=== PATIENT | male | born 1950 | race Caucasian/White ===

== ENCOUNTER → 2020-08-05 11:30 | Outpatient (BNVA) | payer OTHER, SELFPAY | PROVIDERS: PCP Internal Medicine; Visit Provider Surgery | DX: K62.89 Other specified diseases of anus and rectum (principal); N41.9 Inflammatory disease of prostate, unspecified | CPT/HCPCS: 46600 ==

== ENCOUNTER → 2020-08-25 15:59 | Outpatient (BNVA) | payer OTHER, SELFPAY | PROVIDERS: PCP Internal Medicine; Visit Provider Surgery | DX: K62.89 Other specified diseases of anus and rectum (principal) | CPT/HCPCS: 46600 ==

== ENCOUNTER 2020-11-06 10:39 | Outpatient (REF) | payer OTHER, SELFPAY ==
[2020-11-06 12:41] LABS: MANUAL DIFF FLAG NO
[2020-11-06 12:49] LABS: Basophils Absolute Auto 0.1 X10*3/uL (0.0-0.2); Basophils Percent Auto 1.3 % (0-2); Eosinophils Absolute Auto 0.3 X10*3/uL (0.0-0.4); Eosinophils Percent Auto 5.3 % (0-4); Hematocrit 42.4 % (42-52); Hemoglobin 13.9 g/dl (14.0-18.0); Imm Gran Abs Auto 0.04 X10*3/uL (0.00-0.03); Imm Gran Pct Auto 0.6 % (0.0-0.4); Lymphocytes Percent Auto 31.2 % (20-40); Mean Corpuscular HGB Conc 32.8 g/dl (31.0-36.0); Mean Corpuscular Hemoglobin 29.2 pg (27.0-33.0); Mean Corpuscular Volume 89.1 fL (80-98); Mean Platelet Volume 11.4 fL (9.4-12.4); Monocytes Absolute Auto 0.7 X10*3/uL (0.1-1.2); Monocytes Percent Auto 11.6 % (2-11); Neutrophils Absolute Auto 3.1 X10*3/uL (2.0-8.3); Platelet Count 195 X10*3/uL (160-400); Red Blood Count 4.76 X10*6/uL (4.60-5.80); Red Cell Distribution Width 12.3 % (11.0-16.0); White Blood Count 6.3 X10*3/uL (4.8-10.8)
[2020-11-06 13:10] LABS: Alanine Aminotransferase 41 U/L (0-40); Albumin Level 4.6 g/dL (3.5-5.0); Alkaline Phosphatase 59 U/L (39-117); Anion Gap 10 (12-20); Aspartate Amino Transferase 22 U/L (5-37); Bilirubin Total 1.1 mg/dL (0.0-1.0); Blood Urea Nitrogen 18 mg/dL (9-16); Calcium 9.4 mg/dL (8.4-10.2); Carbon Dioxide 30 mmol/L (22-29); Chloride 103 mmol/L (96-108); Cholesterol 192 mg/dL; Estimated Glomerular Filt Rate > 60; Glucose Fasting 107 mg/dL (60-99); HDL Cholesterol 31 mg/dL; LDL Cholesterol Calculated 133 mg/dl; Potassium 4.3 mmol/L (3.3-5.1); Sodium 139 mmol/L (135-145); Total Protein 7.6 g/dL (6.5-8.0); Triglycerides 144 mg/dL
[2020-11-06 13:17] LABS: Estimated Average Glucose 111 mg/dL; Hemoglobin A1c % 5.5 %
[2020-11-06 13:31] LABS: Thyroid Stimulating Hormone 1.05 uIU/mL (0.32-4.0)
== END 2020-11-06 10:40 | disposition home or self-care (01) ==
LOC: HO.10HDL 10:39
PROVIDERS: Visit Provider Internal Medicine
DX: I10 Essential (primary) hypertension (principal); R73.01 Impaired fasting glucose; E78.2 Mixed hyperlipidemia; R35.1 Nocturia; N42.81 Prostatodynia syndrome
CPT/HCPCS: 36415; 80053; 80061; 83036; 84443; 85025

== ENCOUNTER 2020-11-07 12:07 | Outpatient (REF) | payer OTHER, SELFPAY ==
[2020-11-07 14:06] LABS: Glucose Urine UA NEG (NEG); Leukocyte Esterase Urine NEG (NEG); Nitrite Urine NEG (NEG); PH 6.5 (5.0-8.0); Urine Blood NEG (NEG); Urine Ketones NEG (NEG); Urine Protein NEG (NEG-TRACE)
[2020-11-07 14:25] LABS: Appearance Urine CLEAR; Color Urine YELLOW
== END 2020-11-07 12:08 | disposition home or self-care (01) ==
LOC: HO.10HDLNP 12:07
PROVIDERS: Visit Provider Internal Medicine
DX: I10 Essential (primary) hypertension (principal); R73.01 Impaired fasting glucose; E78.2 Mixed hyperlipidemia; R35.1 Nocturia; N42.81 Prostatodynia syndrome
CPT/HCPCS: 81003; 87086

== ENCOUNTER 2020-12-19 15:00 | Outpatient (REF) | payer OTHER, SELFPAY ==
--- NOTE | ~2020-12-19 | CT_ITS ---
EXAMINATION: CT ABDOMEN AND PELVIS WITHOUT CONTRAST CLINICAL INFORMATION: Abdominal pain. COMPARISON: CT abdomen and pelvis 05/14/2020 TECHNIQUE: Multidetector volumetric imaging was performed from the superior aspect of the liver through the pubic symphysis. Sagittal and coronal reformatted images were obtained on the technologist's workstation. This CT examination was performed using dose optimization techniques as appropriate, variously including the following: *Automated exposure control *Adjustment of mA and/or kV according to patient size (this includes techniques or standardized protocols for targeted exams where dose is matched to indication/reason for exam; i.e. extremities or head) *Use of iterative reconstruction technique DLP: 529 mGy-cm FINDINGS: LUNG BASES: There is a 5 mm subpleural-based nodule right lower lobe. LIVER, GALLBLADDER, AND BILIARY TREE: The liver is normal in size, shape, and diffuse hypoattenuation. No focal hepatic lesion or biliary ductal dilatation is present. There is gas visualized within the gallbladder and a high attenuation debris or gravel in the dependent portion axial image 31/3. No gallbladder wall thickening or pericholecystic fat stranding seen. PANCREAS: The visualized pancreas is homogeneous in density. The peripancreatic fat borders are maintained normal. SPLEEN: Unremarkable. ADRENAL GLANDS: Unremarkable. KIDNEYS AND URETERS: The kidneys are normal in size, shape, and attenuation. No hydronephrosis, hydroureter, or calculi seen. No perinephric stranding. There is a 4 mm radiopaque linear calcification in the upper/midpole cortex right kidney. On the previous exam, there is a cyst with wall calcification, likely a complex cyst, noted at the same level. BLADDER: Unremarkable. GASTROINTESTINAL TRACT: There is scattered diverticula, stool and gas in the colon without distention. The small bowel loops are normal caliber. The appendix is normal caliber. No free air or free fluid seen. There is no evidence of inflammatory process. ABDOMINAL WALL: There are bilateral inguinal hernias, larger on the left containing fat, and smaller on the right containing a loop of small bowel. There is no fat stranding to suggest any acute process. LYMPH NODES: Normal. VASCULAR: Unremarkable. PELVIC VISCERA: There is moderate prostate enlargement. OSSEOUS STRUCTURES: There are degenerative disc changes and spondylosis at the L4-L5 disc level. No lytic or sclerotic process seen. There is bilateral L4-L5 facet joint arthropathy. CT/CT abdomen pelvis wo con IMPRESSION: Radiopaque gravel in the dependent portion and gas along the anterior wall of the gallbladder, likely from previous intervention. No gallbladder wall thickening seen. There is minimal gas in the CBD, as well. It is unchanged to previous study 05/14/2020. Scattered colonic diverticulosis without diverticulitis. Bilateral inguinal hernias, left greater than right. The right hernia contains a segment of small bowel loop, and the left hernia contains fat. Complex cyst with calcified wall of midpole right kidney. No hydronephrosis seen.
== END 2020-12-19 15:01 | disposition home or self-care (01) ==
LOC: HO.CT 15:00
PROVIDERS: PCP Internal Medicine; Visit Provider Surgery
DX: R10.9 Unspecified abdominal pain (principal)
CPT/HCPCS: 74176

== ENCOUNTER 2020-12-20 09:23 | Outpatient (REF) | payer OTHER, SELFPAY ==
[2020-12-20 10:10] LABS: MANUAL DIFF FLAG NO
[2020-12-20 10:15] LABS: Basophils Absolute Auto 0.1 X10*3/uL (0.0-0.2); Basophils Percent Auto 0.8 % (0-2); Eosinophils Absolute Auto 0.2 X10*3/uL (0.0-0.4); Eosinophils Percent Auto 3.3 % (0-4); Hemoglobin 13.9 g/dl (14.0-18.0); Imm Gran Abs Auto 0.02 X10*3/uL (0.00-0.03); Imm Gran Pct Auto 0.3 % (0.0-0.4); Lymphocytes Percent Auto 30.4 % (20-40); Mean Corpuscular HGB Conc 33.1 g/dl (31.0-36.0); Mean Corpuscular Hemoglobin 29.4 pg (27.0-33.0); Mean Corpuscular Volume 88.8 fL (80-98); Mean Platelet Volume 10.6 fL (9.4-12.4); Monocytes Absolute Auto 0.7 X10*3/uL (0.1-1.2); Monocytes Percent Auto 11.5 % (2-11); Neutrophils Absolute Auto 3.5 X10*3/uL (2.0-8.3); Neutrophils Percent Auto 53.7 % (45-73); Platelet Count 200 X10*3/uL (160-400); Red Blood Count 4.73 X10*6/uL (4.60-5.80); Red Cell Distribution Width 12.2 % (11.0-16.0); White Blood Count 6.4 X10*3/uL (4.8-10.8)
[2020-12-20 10:57] LABS: Alanine Aminotransferase 30 U/L (0-40); Albumin Level 4.7 g/dL (3.5-5.0); Alkaline Phosphatase 52 U/L (39-117); Amylase 65 U/L (28-100); Aspartate Amino Transferase 19 U/L (5-37); Bilirubin Direct 0.5 mg/dL (0.0-0.5); Bilirubin Total 1.5 mg/dL (0.0-1.0); Lipase 19 U/L (8-78); Total Protein 7.5 g/dL (6.5-8.0)
== END 2020-12-20 09:24 | disposition home or self-care (01) ==
LOC: HO.LAB 09:23
PROVIDERS: PCP Internal Medicine; Visit Provider Internal Medicine
DX: R10.13 Epigastric pain (principal); K80.20 Calculus of gallbladder without cholecystitis without obstruction
CPT/HCPCS: 36415; 80076; 82150; 83690; 85025

== ENCOUNTER 2020-12-24 08:32 | Outpatient (REF) | payer OTHER, SELFPAY ==
[2020-12-24 10:03] LABS: MANUAL DIFF FLAG NO
[2020-12-24 10:18] LABS: Basophils Absolute Auto 0.1 X10*3/uL (0.0-0.2); Basophils Percent Auto 0.9 % (0-2); Eosinophils Absolute Auto 0.2 X10*3/uL (0.0-0.4); Eosinophils Percent Auto 3.1 % (0-4); Hematocrit 42.1 % (42-52); Hemoglobin 14.1 g/dl (14.0-18.0); Imm Gran Abs Auto 0.02 X10*3/uL (0.00-0.03); Imm Gran Pct Auto 0.4 % (0.0-0.4); Lymphocytes Absolute Auto 1.7 X10*3/uL (1.2-4.9); Lymphocytes Percent Auto 30.8 % (20-40); Mean Corpuscular HGB Conc 33.5 g/dl (31.0-36.0); Mean Corpuscular Hemoglobin 29.8 pg (27.0-33.0); Mean Platelet Volume 10.9 fL (9.4-12.4); Monocytes Absolute Auto 0.7 X10*3/uL (0.1-1.2); Monocytes Percent Auto 13.2 % (2-11); Neutrophils Absolute Auto 2.9 X10*3/uL (2.0-8.3); Neutrophils Percent Auto 51.6 % (45-73); Platelet Count 199 X10*3/uL (160-400); Red Blood Count 4.73 X10*6/uL (4.60-5.80); Red Cell Distribution Width 12.2 % (11.0-16.0); White Blood Count 5.6 X10*3/uL (4.8-10.8)
[2020-12-24 10:29] LABS: Alanine Aminotransferase 33 U/L (0-40); Albumin Level 4.7 g/dL (3.5-5.0); Alkaline Phosphatase 58 U/L (39-117); Anion Gap 11 (12-20); Aspartate Amino Transferase 19 U/L (5-37); Bilirubin Total 1.6 mg/dL (0.0-1.0); Blood Urea Nitrogen 13 mg/dL (9-16); Calcium 9.7 mg/dL (8.4-10.2); Carbon Dioxide 30 mmol/L (22-29); Chloride 102 mmol/L (96-108); Cholesterol 181 mg/dL; Estimated Glomerular Filt Rate > 60; Glucose Random 113 mg/dL (60-115); HDL Cholesterol 31 mg/dL; LDL Cholesterol Calculated 131 mg/dl; Magnesium 2.2 mg/dL (1.6-2.6); Potassium 4.1 mmol/L (3.3-5.1); Sodium 139 mmol/L (135-145); Total Protein 7.8 g/dL (6.5-8.0); Triglycerides 97 mg/dL
[2020-12-24 10:33] LABS: Estimated Average Glucose 108 mg/dL; Hemoglobin A1c % 5.4 %
[2020-12-24 10:49] LABS: Vitamin B12 248 pg/mL (200-900)
[2020-12-24 10:54] LABS: Thyroid Stimulating Hormone 1.14 uIU/mL (0.32-4.0); Vitamin D 25-OH Total 14.4 ng/mL (>30)
== END 2020-12-24 08:33 | disposition home or self-care (01) ==
LOC: HO.LAB 08:32
PROVIDERS: PCP Internal Medicine; Visit Provider Surgery
DX: K80.20 Calculus of gallbladder without cholecystitis without obstruction (principal); R14.0 Abdominal distension (gaseous); I10 Essential (primary) hypertension; E78.2 Mixed hyperlipidemia; R73.01 Impaired fasting glucose; E53.8 Deficiency of other specified B group vitamins; R35.1 Nocturia; E55.9 Vitamin D deficiency, unspecified; Z79.899 Other long term (current) drug therapy
CPT/HCPCS: 36415; 80053; 80061; 82306; 82607; 83036; 83735; 84443; 85025

== ENCOUNTER 2020-12-26 08:55 | Outpatient (REF) | payer OTHER, SELFPAY ==
--- NOTE | ~2020-12-26 | NM_ITS ---
EXAMINATION: NUCLEAR MEDICINE HEPATOBILIARY SCAN WITHOUT CCK. CLINICAL INFORMATION: Acute epigastric pain. COMPARISON: None TECHNIQUE: Following intravenous administration of 5 mCi of 99m Tc mebrofenin, imaging over the right upper quadrant was obtained up to 60 minutes. FINDINGS: Following intravenous administration of mebrofenin there is normal hepatic uptake without any focal defect. There is prompt visualization of common bile duct by 10 minutes, gallbladder by 19 minutes and small bowel by approximately 30 minutes NM/NM hepatobiliary wo pharm IMPRESSION: Normal HIDA scan. Patent cystic duct and CBD.
--- NOTE | ~2020-12-26 | US_ITS ---
EXAMINATION: US ABDOMEN COMPLETE CLINICAL INFORMATION: Gallstones. COMPARISON: CT abdomen and pelvis without contrast dated 12/19/2020. Ultrasound abdomen complete dated 09/13/2018 and 01/29/2014. TECHNIQUE: Real-time imaging of the abdominal viscera. FINDINGS: PANCREAS: The pancreas is normal. The pancreatic duct measures in the upper limits of normal, 0.3 cm in diameter ABDOMINAL AORTA: The proximal, mid, and distal segments are normal in caliber. INFERIOR VENA CAVA: Visualized portions are normal. LIVER: The liver is normal in size. The liver contour is normal. There is diffuse increased liver parenchymal echogenicity, consistent with hepatic steatosis. No focal hepatic lesion. There is no intrahepatic biliary duct dilatation seen. GALLBLADDER: There are stones and sludge within the gallbladder. There are areas of ringdown artifact along the anterior aspect of the gallbladder, likely corresponding to the air as seen on prior CT. The gallbladder is physiologically distended without evidence of polyps, wall thickening or pericholecystic fluid. COMMON BILE DUCT: Normal in caliber measuring 0.4 cm in diameter. RIGHT KIDNEY: There are 2 echogenic foci in the mid polar region of the right kidney that measure up to 0.4 cm and likely represent nonobstructive calculi. No hydronephrosis. The kidney measures 10.6 cm in maximum dimension. LEFT KIDNEY: Normal. No hydronephrosis. No renal calculi or focal parenchymal lesions. The kidney measures 10.3 cm in maximum dimension. SPLEEN: Normal. The spleen measures 10.7 cm in maximum dimension. FREE FLUID: None. US/US abdomen complete IMPRESSION: Cholelithiasis and sludge within the gallbladder. Ringdown artifact along the anterior wall of the gallbladder, likely representing intraluminal air as seen on the prior CT, which may be from prior intervention. No pericholecystic fluid or gallbladder wall thickening to suggest acute cholecystitis. Diffusely increased echogenicity of the hepatic parenchyma, similar to the prior study, likely resenting of of hepatic steatosis. No focal lesion. Two nonobstructive calculi in the mid polar region of the right kidney.
== END 2020-12-26 08:56 | disposition home or self-care (01) ==
LOC: HO.US 08:55
PROVIDERS: Visit Provider Internal Medicine
DX: R10.13 Epigastric pain (principal); K80.20 Calculus of gallbladder without cholecystitis without obstruction; R93.2 Abnormal findings on diagnostic imaging of liver and biliary tract
CPT/HCPCS: 76700; 78226; A9537

== ENCOUNTER → 2020-12-29 13:35 | Outpatient (BNVA) | payer OTHER, SELFPAY | PROVIDERS: PCP Internal Medicine; Visit Provider Internal Medicine Cardiovascular Disease | DX: Z01.810 Encounter for preprocedural cardiovascular examination (principal); K80.20 Calculus of gallbladder without cholecystitis without obstruction; I10 Essential (primary) hypertension | CPT/HCPCS: 93005 ==

== ENCOUNTER → 2021-01-01 11:27 | Outpatient (REF) | payer OTHER, SELFPAY ==
--- NOTE | 2021-01-01 11:32 | CA_ITS ---
Transthoracic Echocardiogram Patient (Last, First, Middle): Alhaji Sims, Gender: Male Date of : 1950 Age: 70 Procedure Date: 01/01/2021 Procedure Type: Transthoracic Echocardiogram Location: OP Height: 182.88 cm Weight: 79.38 kg BSA: 2.01 m2 Heart Rate: bpm BP: 144 / 80 mmHg Diamond Sizer: Jamar MD: Tu Sutton MD Symptoms: I10 - Essential (primary) hypertension Study Quality: Good ECG Rhythm: Sinus Conclusions: - The left ventricular systolic function is normal. The visually estimated ejection fraction is between 65-70%. - Trace to mild aortic regurgitation. Findings Left Ventricle Normal left ventricular cavity size. There is mildly increased left ventricular wall thickness. The left ventricular systolic function is normal. The visually estimated ejection fraction is between 65-70%. There is no evidence of regional wall motion abnormalities. Diastolic function is normal for age. Right Ventricle Normal right ventricular cavity size and systolic function. Atria The left atrium is normal in size. The right atrium is normal in size. Aortic Valve There is a normal trileaflet aortic valve. There is mild calcification of the aortic valve. There is no aortic valve stenosis. Trace to mild aortic regurgitation. Mitral Valve The mitral valve appears normal. There is trace mitral valve regurgitation. There is no mitral valve stenosis. Pulmonic Valve The pulmonic valve was not well visualized. There is trace pulmonic valve regurgitation. Tricuspid Valve Normal tricuspid valve structure. There is trace tricuspid valve regurgitation. The pulmonary artery systolic pressure is normal. Great Vessels The aortic annulus, sinuses of valsalva, and asc aorta are normal in size. Venous The inferior vena cava is normal in size and collapses greater than 50% with inspiration. Pericardium/Pleural There is no evidence of pericardial effusion. Prior Study Comparison No significant change compared to prior study dated: 04/21/2018. Measurements 2D Linear Measurements RVIDd: 2.65 RVIDd Index: 1.32 IVSd: 1.05 0.6-0.9/0.6-1.0 cm LVIDd: 5.20 3.9-5.3/4.2-5.9 cm LVIDd Index: 2.59 2.4-3.2/2.2-3.1 cm/m2 LVIDs: 3.21 2.0-3.6 cm LVPWd: 1.12 0.7-1.1 cm Ao Root: 3.60 2.1-3.5 cm LA Diam: 3.20 2.7-3.8/3.0-4.0 cm LAIDs Index: 1.59 1.5-2.3 cm/m2 LV Mass: 270.10 67-162/88-224 g LV Mass Index: 134.38 43-95/49-115 g/m2 LVOT Diam: 2.30 3.0+(-)1.3 cm 2D Systolic Function EF 4C: 78.20 >55% EF 2C: 61.10 >55% EF BiP: 71.30 >55% Mitral Valve MV Pk E: 0.69 MV PK A: 0.84 MV Decel Time: 169.00 E/A: 0.80 E'Lateral: 8.70 E'Medial: 8.80 E/E' Med: 7.80 E/E' Lat: 7.90 Aortic Valve AoV Pk Nhan: 1.34 AoV Mn Nhan: 0.93 AoV VTI: 0.28 AoV Pk Grad: 7.00 Aov Mn Grad: 4.00 BRETT Cont.VTI: 2.68 AI Pk Nhan: 3.02 AI [place]: 1.04 LVOT LVOT Pk Nhan: 0.87 LVOT Mn Nhan: 0.57 LVOT VTI: 0.18 LVOT Pk Grad: 3.00 LVOT Mn Grad: 2.00 LVOT Diam: 2.30 LVOT Area: 4.15 Diastolic Function MV Pk E: 0.69 MV Pk A: 0.84 E/A: 0.80 E'Medial: 8.80 E/E' Med: 7.80 E' Laterial: 8.70 E/E' Lat: 7.90 Tricuspid Valve TR Pk Nhan: 2.33 TR Pk Grad: 22.00 RA Press: 3.00 RVSP: 25.00 Great Vessels Aorta Ao Root-2D: 3.60 2.0-3.7 cm Ao Asc: 3.40 2.1-3.4 cm Ao Arch: 3.10 Updated in Other Vendor System with Status of Final Wilbur Galeas MD electronically signed on 01/01/2021 4:23:52 PM with status of Final
== END ==
LOC: HO.CARD 11:27
PROVIDERS: Visit Provider Internal Medicine Cardiovascular Disease
DX: I10 Essential (primary) hypertension (principal)
CPT/HCPCS: 93306

== ENCOUNTER 2021-01-26 13:32 | Outpatient (REF) | payer OTHER, SELFPAY ==
--- NOTE | ~2021-01-26 | MR_ITS ---
MR CERVICAL SPINE WITHOUT CONTRAST CLINICAL INFORMATION: Chronic cervicalgia. COMPARISON: Cervical spine MRI 07/04/2019. TECHNIQUE: MRI of the cervical spine was obtained using routine sequences without contrast. FINDINGS: Straightening of the cervical lordosis. Mild anterior subluxation of C2 on C3. There is no bone marrow edema. There are no acute fractures. The craniocervical junction is unremarkable. The vertebral body heights are maintained. There is moderate disc volume loss at C5-C6 and C6-C7. Cervical arterial flow voids are maintained. There are no significant soft tissue findings. C2-C3: Disc osteophyte without central canal stenosis. Uncovertebral joint spurring and facet arthropathy result in mild left-sided foraminal encroachment. No right foraminal stenosis. C3-C4: Shallow central disc protrusion mildly narrows the central canal. No foraminal stenosis. C4-C5: Disc osteophyte mildly narrows the central canal. Uncovertebral joint spurring and facet arthropathy result in severe left-sided foraminal stenosis. Findings unchanged. C5-C6: Left paracentral disc osteophyte protrusion mildly narrows the central canal. Uncovertebral joint spurring and facet arthropathy result in mild to moderate left-sided foraminal stenosis. C6-C7: Disc osteophyte mildly narrows the central canal. Uncovertebral joint spurring and facet arthropathy result in mild bilateral foraminal encroachment. C7-T1: Slight annular disc bulge. No central canal stenosis and no foraminal stenosis. MR/MR cervical spine wo con IMPRESSION: Stable appearing multilevel cervical spondylosis that remains greatest at C4-C5 where multifactorial degenerative changes result in stable severe left-sided foraminal stenosis. There is no severe central canal stenosis within the cervical spine.
== END 2021-01-26 13:33 | disposition home or self-care (01) ==
LOC: HO.MRI 13:32
PROVIDERS: Visit Provider Internal Medicine
DX: M54.2 Cervicalgia (principal)
CPT/HCPCS: 72141

== ENCOUNTER 2021-02-05 14:49 | Outpatient (REF) | payer OTHER, SELFPAY ==
--- NOTE | ~2021-02-05 | XR_ITS ---
EXAMINATION: XR CERVICAL SPINE CLINICAL INFORMATION: Cervicalgia COMPARISON: MRI cervical spine 01/26/2021, radiographs cervical spine 11/22/2017 TECHNIQUE: The cervical spine is imaged in 4 views: AP, lateral, lateral flexion, lateral extension. FINDINGS: The cervical vertebral bodies are normal in height and there is no cervical vertebral compression, destructive process, or prevertebral soft tissue swelling. The odontoid appears. There are degenerative disc changes greatest at C5-C6 and C6-C7 with disc narrowing and endplate sclerosis and bridging anterior osteophytes. There is limited range of motion with flexion and extension. There is no instability. No spondylolisthesis or retrolisthesis. No atlantoaxial subluxation. Incidental nuchal ligament ossification is again noted posterior to the C4 and C5 posterior spinous processes. XR/XR cervical spine w flex/ext IMPRESSION: 1. Degenerative disc changes greatest at C5-C6 and C6-C7. 2. Limited range of motion with flexion or extension. 3. No instability. No spondylolisthesis or retrolisthesis.
== END 2021-02-05 14:50 | disposition home or self-care (01) ==
LOC: HO.XRAY 14:49
PROVIDERS: PCP Internal Medicine; Visit Provider Specialist
DX: M54.2 Cervicalgia (principal)
CPT/HCPCS: 72052

== ENCOUNTER 2021-03-23 13:41 | Outpatient (REF) | payer OTHER, SELFPAY ==
[2021-03-23 15:34] LABS: Hematocrit 42.5 % (42-52); Hemoglobin 14.1 g/dl (14.0-18.0); Mean Corpuscular HGB Conc 33.2 g/dl (31.0-36.0); Mean Corpuscular Hemoglobin 29.6 pg (27.0-33.0); Mean Corpuscular Volume 89.1 fL (80-98); Platelet Count 218 X10*3/uL (160-400); Red Blood Count 4.77 X10*6/uL (4.60-5.80); Red Cell Distribution Width 12.5 % (11.0-16.0)
[2021-03-23 15:59] LABS: Alanine Aminotransferase 23 U/L (0-40); Albumin Level 4.7 g/dL (3.5-5.0); Alkaline Phosphatase 61 U/L (39-117); Anion Gap 9 (12-20); Aspartate Amino Transferase 17 U/L (5-37); Bilirubin Direct 0.6 mg/dL (0.0-0.5); Bilirubin Total 1.8 mg/dL (0.0-1.0); Blood Urea Nitrogen 15 mg/dL (9-16); Calcium 10.2 mg/dL (8.4-10.2); Carbon Dioxide 32 mmol/L (22-29); Chloride 103 mmol/L (96-108); Estimated Glomerular Filt Rate > 60; Glucose Random 91 mg/dL (60-115); Potassium 4.6 mmol/L (3.3-5.1); Sodium 139 mmol/L (135-145); Total Protein 7.7 g/dL (6.5-8.0)
[2021-03-24 12:57] LABS: Carbohydrate Antigen 19-9 14 U/mL (<34)
[2021-03-24 18:36] LABS: CA-125 5 U/mL (<35)
== END 2021-03-23 13:42 | disposition home or self-care (01) ==
LOC: HO.LAB 13:41
PROVIDERS: PCP Internal Medicine; Referring Provider Internal Medicine; Visit Provider Surgery
DX: R10.9 Unspecified abdominal pain (principal)
CPT/HCPCS: 36415; 80048; 80076; 82378; 85027; 86301; 86304

== ENCOUNTER 2021-03-25 14:01 | Outpatient (REF) | payer OTHER, SELFPAY ==
--- NOTE | ~2021-03-25 | CT_ITS ---
EXAMINATION: CT ABDOMEN AND PELVIS WITH CONTRAST CLINICAL INFORMATION: Abdominal pain COMPARISON: Previous CT of the abdomen and pelvis November 2020 TECHNIQUE: Multidetector volumetric images were obtained from the superior aspect of the liver through the pubic symphysis following administration 85 mL of Omnipaque 350 intravenous contrast. Sagittal and coronal reformatted images were obtained on the technologist's workstation. Oral contrast: Yes This CT examination was performed using dose optimization techniques as appropriate, variously including the following: *Automated exposure control *Adjustment of mA and/or kV according to patient size (this includes techniques or standardized protocols for targeted exams where dose is matched to indication/reason for exam; i.e. extremities or head) *Use of iterative reconstruction technique DLP: 331 mGy-cm FINDINGS: LUNG BASES: There is a 3 mm peripheral or subpleural right lower lobe nodule that is stable. The lung bases are otherwise clear. LIVER, GALLBLADDER, AND BILIARY TREE: The liver is normal in size, shape, and attenuation. No focal hepatic lesion or biliary ductal dilatation is present. There is high attenuation seen dependently in the gallbladder questionable for small gallstones. There is no biliary duct dilatation. PANCREAS: Unremarkable. SPLEEN: Unremarkable. ADRENAL GLANDS: Unremarkable. KIDNEYS AND URETERS: There is a 1 cm low-attenuation lesion in the right kidney. Hounsfield units following IV contrast measure 54 and this is not compatible with a simple cyst. This does not appear appreciably changed from old exams going back to 2014. This may represent a complex cyst. This is difficult to exclude a solid lesion. There are small low-attenuation 3 to 4 mm lesions in the lower pole the right kidney. These are difficult to definitively characterize but may represent small cysts. The left kidney is unremarkable. BLADDER: There is abnormal soft tissue at the left base of the bladder, presumably related to the prostate gland. GASTROINTESTINAL TRACT: There is diverticulosis of the colon. No evidence of diverticulitis is seen. There are bilateral inguinal hernias, the right containing fat and a knuckle of small bowel and larger on the left containing fat and a loop of small bowel. There is a small bowel feces sign seen on the left questionable for partial obstruction or small bowel stasis. The appendix is normal appearing. ABDOMINAL WALL: Bilateral inguinal hernias containing fat and small bowel as described above. Small umbilical hernia containing fat. LYMPH NODES: Normal. VASCULAR: Unremarkable. PELVIC VISCERA: The prostate gland is enlarged measuring 5 x 5.7 cm in AP and transverse dimension and protrudes into the base of the bladder. OSSEOUS STRUCTURES: There are degenerative changes of the spine. There are mild degenerative changes at the hip joints. There are multiple sclerotic small bone lesions. These are stable going back to oldest CT from 2015 suggestive of benign bone islands. CT/CT abdomen pelvis w con IMPRESSION: Bilateral inguinal hernias containing fat and small bowel, left greater than right. Left inguinal hernia has a small bowel feces sign questionable for partial obstruction or small bowel stasis. Small umbilical hernia containing fat. Probable complex cyst in the upper pole of the right kidney. This is similar in size going back to old exams from 2015. This could be confirmed with ultrasound. Enlarged prostate gland that protrudes into the base of the bladder. Diverticulosis. Fatty liver. Question gallstones.
[2021-03-25] MEDS: iohexoL 350 MG/ML 100 ML INFUS..BTL IV (15:54)
== END 2021-03-25 14:02 | disposition home or self-care (01) ==
LOC: HO.CT 14:01
PROVIDERS: Visit Provider Surgery
DX: R10.9 Unspecified abdominal pain (principal)
CPT/HCPCS: 74177; Q9967

== ENCOUNTER 2021-04-06 14:33 | Outpatient (REF) | payer OTHER, SELFPAY ==
--- NOTE | ~2021-04-06 | MR_ITS ---
EXAMINATION: MR BRAIN WITHOUT CONTRAST CLINICAL INFORMATION: Dizziness. Hypertension. COMPARISON: MRI dated 04/06/2018. TECHNIQUE: Multiplanar, multisequence imaging of the brain was performed without contrast. FINDINGS: No diffusion abnormalities are identified to suggest an acute or subacute infarct. The ventricles are normal in size. No mass effect or midline shift is seen. No brain parenchymal signal abnormality is noted. No extra-axial fluid collections are seen. The brainstem and cerebellum are normal. The gradient refocused acquisition is normal. The craniovertebral junction, marrow signal, and midline structures are normal. The major intracranial flow voids at the level of the [place] of [place] are preserved. The dural venous sinus flow voids are maintained. The mastoid air cells and paranasal sinuses are well aerated. MR/MR head/brain wo con IMPRESSION: Normal MRI of the brain. No acute process.
== END 2021-04-06 14:34 | disposition home or self-care (01) ==
LOC: HO.MRI 14:33
PROVIDERS: PCP Internal Medicine; Visit Provider Internal Medicine
DX: R51.9 Headache, unspecified (principal); R42 Dizziness and giddiness; I10 Essential (primary) hypertension; G89.29 Other chronic pain
CPT/HCPCS: 70551

== ENCOUNTER → 2021-04-20 15:29 | Outpatient (BNVA) | payer OTHER, SELFPAY | PROVIDERS: PCP Internal Medicine; Referring Provider Internal Medicine; Visit Provider Surgery ==

== ENCOUNTER 2021-05-08 07:40 | Day surgery (SDC) | payer OTHER, SELFPAY ==
--- NOTE | 2021-04-29 11:46 | HO.ANESPROP2 ---
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 Last bout after COVID vaccine 10/2020 lasting few weeks. Neurology w/u negative in 2019, no relief with prednisone. Neuro considering neck arthritis with mood disorder. Pt considering getting second opinion. PMFSH Active Problems Active Problems: All Active Problems (Updated 04/28/21 @ 15:31 by Apolonia Garrison) Anal pain (Acute) Abdominal pain (Acute) Preoperative cardiovascular examination (Acute) Left inguinal hernia (Acute) Autoimmune encephalitis (Acute) Gallstones (Acute) Hypertension (Acute) GERD (gastroesophageal reflux disease) (Acute) Past Medical History Medical History Arthritis Autoimmune encephalitis Axillary abscess Back pain Cervical spondyloarthritis COVID-19 vaccine series completed DDD (degenerative disc disease) Depression Fatty liver Gallstones GERD (gastroesophageal reflux disease) History of lumbar puncture Hx of Guillain-[place] syndrome Hx of prostatitis Hypertension Left inguinal hernia Mood disorder Peripheral neuropathy Pre-diabetes Prostatitis Family History Family history of problems with anesthesia: No Surgical History Surgical History History of esophagogastroduodenoscopy (EGD) Hx of colonoscopy History of Problems with Anesthesia: No Social History Social History Are you a primary child care centre manager to a significant other at home: No Do you presently have visiting nurse or other home services: No Patient Tobacco Use Status: Former Tobacco user Quit Date: 1988 Use of substances other than those prescribed or required for medical reasons: No Have you been hit, kicked, punched, or otherwise hurt by someone within the past year? If so, by whom?: No Are you DNR?: No Advance Directives: No Advance Directives Information Provided: No Advance Directives on File: No Recently lost weight without trying: No Narrative Narrative: No recent illness. No CP/SOB at rest. Activity limited. Meds Allergies Allergy/AdvReac Type Severity Reaction Status Date / Time codeine [Codeine] Allergy Intermediate Dizziness Verified 04/28/21 14:49 meperidine [Meperidine] Allergy Mild UNKNOWN Verified 04/28/21 14:49 Home Medications Medication Instructions Recorded Confirmed Last Taken Type omeprazole 20 mg capsule,delayed 20 mg PO DAILY 08/05/20 04/28/21 05/08/21 History release sucralfate 100 mg/mL oral 10 ml PO QID PRN 08/05/20 04/28/21 Unknown History suspension tamsulosin 0.4 mg capsule 0.4 mg PO DAILY@1700 08/05/20 04/28/21 Unknown History gabapentin 100 mg capsule 100 mg PO BEDTIME cap 12/29/20 04/28/21 Unknown History hyoscyamine sulfate 0.125 mg tablet 0.125 mg PO Q6H PRN 12/29/20 04/28/21 Unknown History losartan 25 mg tablet 25 mg PO BEDTIME tab 12/29/20 04/29/21 Unknown History Exam Exam Date and Time: April 29, 2021 1146 Pertinent Lab Results Pertinent Lab Results: Laboratory Tests 03/23/21 03/23/21 14:36 14:36 WBC 7.0 Hgb 14.1 Hct 42.5 Plt Count 218 Sodium 139 Potassium 4.6 Chloride 103 Carbon Dioxide 32 H BUN 15 Creatinine 1.14 Narrative Narrative: ECHO 12/2020 Conclusions: - The left ventricular systolic function is normal.? The visually estimated ejection fraction is between 65-70%. ? - Trace to mild aortic regurgitation.? EKG 12/2020 NSR, cannot rule out lateral infarct, QTc 418 msec. No significant changes from before. Airway Mallampati Class: II TM Dist: >3cm Neck ROM: Limited (Cervical spondyloarthritis - soreness with movement) Partial: Upper Heart: RRR Lungs: CTAB Assessment and Plan Assessment Anesthesia Assessment: Anesthesia Plan Discussed (TIVA vs GA) and PAT Visit Final Anesthetic Review Family History of Problems with Anesthesia: No History of Problems with Anesthesia: No Documented by User: Walter Muniz 05/08/21 08:14 [facility] Past Medical History Medical History Arthritis Autoimmune encephalitis Axillary abscess Back pain Cervical spondyloarthritis COVID-19 vaccine series completed DDD (degenerative disc disease) Depression Fatty liver Gallstones GERD (gastroesophageal reflux disease) History of lumbar puncture Hx of Guillain-[place] syndrome Hx of prostatitis Hypertension Left inguinal hernia Mood disorder Peripheral neuropathy Pre-diabetes Prostatitis Surgical History Surgical History History of esophagogastroduodenoscopy (EGD) Hx of colonoscopy Social History Social History Are you a primary child care centre manager to a significant other at home: No Do you presently have visiting nurse or other home services: No Patient Tobacco Use Status: Former Tobacco user Quit Date: 1988 Use of substances other than those prescribed or required for medical reasons: No Have you been hit, kicked, punched, or otherwise hurt by someone within the past year? If so, by whom?: No Are you DNR?: No Advance Directives: No Advance Directives Information Provided: No Advance Directives on File: No Recently lost weight without trying: No Meds Allergies Allergy/AdvReac Type Severity Reaction Status Date / Time codeine [Codeine] Allergy Intermediate Dizziness Verified 04/28/21 14:49 meperidine [Meperidine] Allergy Mild UNKNOWN Verified 04/28/21 14:49 Home Medications Medication Instructions Recorded Confirmed Last Taken Type omeprazole 20 mg capsule,delayed 20 mg PO DAILY 08/05/20 04/28/21 05/08/21 History release sucralfate 100 mg/mL oral 10 ml PO QID PRN 08/05/20 04/28/21 Unknown History suspension tamsulosin 0.4 mg capsule 0.4 mg PO DAILY@1700 08/05/20 04/28/21 Unknown History gabapentin 100 mg capsule 100 mg PO BEDTIME cap 12/29/20 04/28/21 Unknown History hyoscyamine sulfate 0.125 mg tablet 0.125 mg PO Q6H PRN 12/29/20 04/28/21 Unknown History losartan 25 mg tablet 25 mg PO BEDTIME tab 12/29/20 04/29/21 Unknown History Assessment and Plan Final Anesthetic Review NPO: Yes ASA Class: III Final Preanesthetic Review: No Changes in Pt Med Stat, Meds/Allgs Chart Reviewed, Consent Obtained/Reviewed and Anes Risks/Benef Reviewed Patient Risk: Intermediate Procedure Risk: Low Assessment/Block/Sedation in SS: Assess/Block/Sedation-SS Anesthetic Plan Anesthetic Plan: GA and Agree w/ Assess. and Plan Disposition: Standard PACU
[2021-04-29 12:05] VITALS: BP 145/68; PULSE 60; RESP 16; O2SAT 100; BMI 22.7
[2021-05-08] VITALS (20 sets, daily range): BP systolic 103–165; BP diastolic 49–88; PULSE 60–85; RESP 10–18; TEMP 36.7–37.1; O2SAT 94–98
--- NOTE | 2021-05-08 08:04 | MHC.SHP ---
Pre-Procedural Eval Section A Date of Service: 05/08/21 The patient is an INPATIENT: No Section B Chief Complaint: Left Inguinal Hernia Details of Present Illness: large left inguinal hernia with discomfort Relevant Family History (Specify if Yes): No Relevant Social History: None Present Medications: see Short Stay Collaborative assessment Medical History: Significant History (encephalitis, gallstones, GERD, HTN , prostate ds) Allergies: Allergies Allergy/AdvReac Type Severity Reaction Status Date / Time codeine [Codeine] Allergy Intermediate Dizziness Verified 04/28/21 14:49 meperidine [Meperidine] Allergy Mild UNKNOWN Verified 04/28/21 14:49 Review of Systems Sugical H&P ROS: Negative: Constitution, Cardiovascular, Respiratory, Neurological, Psychiatric, Hem-Onc, Allergic/Immunologic, Genitourinary, Musculoskeletal, Integumentary, Endocrine and Eyes/Ears/Nose/Throat and Yes, Specify: Gastrointestinal (abdl discomfort) Exam Surgical H&P Exam: Normal: HEENT, Normal: Heart, Normal: Lungs, Normal: Extremities, Normal: Skin and Normal: Neurological and Significant Findings: Abdomen (large LIH) Plan Diagnosis/Plan: Unchanged I have reviewed the history and physical and performed a pertinent physical examination on my patient. No changes have occurred unless specified.
[2021-05-08] MEDS: Lactated Ringers 1,000 ML 100 ML IVCONT (08:11)
--- NOTE | 2021-05-08 09:22 | W.PM.OPN ---
Operative Note Operative Note Date of Service: 05/08/21 Narrative: Preop diagnosis: Large Left inguinal hernia Postop diagnosis, large left inguinal hernia, direct Procedure: Repair of left inguinal hernia with mesh Surgeon: Gabriel Gaviria MD assistant women's rowing coach: KEVYN Briscoe The patient is a 70-year-old male with a large hernia which is not reducible. He does describe symptoms with this with discomfort. He understood the technique of repair with mesh. He was aware of the risks, benefits, and alternatives She was brought to the operating room and placed supine on the table under general anesthesia via laryngeal mask airway. The left groin was prepped and draped in the usual sterile fashion. A surgical time-out was done. The patient received cefazolin 2 g IV preoperatively. I infiltrated the planned line of incision along an imaginary line from the anterior superior iliac spine to the pubic ramus withlidocaine 1%. I then made a short incision along this vaginal line using blade 15. This was carried down through the full-thickness of skin and subcutaneous fat with electrocautery until was able to expose the external oblique aponeurosis. I bluntly dissected the external oblique aponeurosis to identify the external ring. I defined external ring and made an incision on the external oblique aponeurosis running superolateral to the external ring to enter the inguinal canal. I applied hemostats the edges of the divided external oblique aponeurosis. I bluntly dissected the underside to up great space for the mesh. I then bluntly dissected the spermatic cord and its contents using index finger. At this point, the large hernia was reduced. I passed a Anita drain around the spermatic cord and its contents for retraction. I was able to identify the vas deferens and its accompanying vessels. By examining the cord, she able to identify the large sac. I gently dissected large sac off of the rest of the cord contents and was able to free this up completely. This was actually a direct hernia on the floor of the canal. I was able to identify this entire sac well. The sac was also empty at this point. I twisted the sac from distal to proximal and applied a clamp across this. I divided the sac above the clamp. I applied a suture ligature with the Dexon 2-0 stitch on the stump of the sac. I sent the divided sac as a specimen I in force the defect on the floor with an extra large size plug. I secured the plug with Prolene 2-0 sutures to shelving edge of the inguinal ligament laterally, and the internal oblique superiorly and medially using the inner leaves of the plug. I then position a keyhole mesh on the floor of the canal. The tails of the mesh were passed around the cord at the level of the internal ring. The tails were secured with Prolene 2 sutures. I positioned the mesh flat on the floor. I secured this with Prolene to suture to shelving edge of the inguinal and laterally, the internal oblique medially and superiorly and the pubic ramus inferomedially. I copies irrigated. I observed for hemostasis. Once hemostasis was confirmed I removed the Anita drain. I closed the external oblique aponeurosis running Dexon 2-0 stitch to re-create the external ring The subcutaneous layer was reapposed with Dexon 3-0 interrupted sutures. Skin closure was achieved with Dexon 4-0 subcuticular running stitch. The incision was infiltrated with Marcaine 0.5% for postop analgesia. Steri-Strips and dressings were applied to the procedures completed The patient tolerated the procedure well. There were no complications noted. Initial and final counts of sponges and instruments were correct. Estimated blood loss was about 5 cc. The patient extubated without difficulty and transferred to the recovery room with stable vital signs.
--- NOTE | 2021-05-08 09:29 | P.BOP_ITS ---
Brief Operative Note Date of Service: 05/08/21 Pre-op diagnosis: Left inguinal hernia Post-op diagnosis: same (Direct) Procedure: Repair of left inguinal hernia Surgeon: Gabriel Gaviria MD Anesthesia: GLMA Was an Inside Phone Sales used for this Procedure?: Yes Inside Phone Sales: Shweta Briscoe Estimated blood loss (mL): 5 Pathology: other (Sac) Condition: stable Disposition: PACU
[2021-05-08] MEDS: oxyCODONE HCl Immed Release 5 MG TABLET PO ×2 (09:39→11:23)
[2021-05-08] MEDS: fentaNYL citrate/PF 100 MCG/2 ML VIAL 50 MCG IVPUSH (09:41)
[2021-05-08] MEDS: fentaNYL citrate/PF 100 MCG/2 ML VIAL 25 MCG IVPUSH ×2 (09:58→10:36)
[2021-05-08] MEDS: Ondansetron ODT 4 MG TAB.RAPDIS TRANSLINGU (13:02)
== END 2021-05-08 15:13 | disposition home or self-care (01) ==
PROVIDERS: PCP Internal Medicine; Visit Provider Surgery
PROC: (CPT 49505; principal; 2021-05-08 09:20)
DX: K40.90 Unilateral inguinal hernia, without obstruction or gangrene, not specified as recurrent (principal); K80.80 Other cholelithiasis without obstruction; K21.9 Gastro-esophageal reflux disease without esophagitis; I10 Essential (primary) hypertension; G04.81 Other encephalitis and encephalomyelitis; Z79.899 Other long term (current) drug therapy; Z88.8 Allergy status to other drugs, medicaments and biological substances
CPT/HCPCS: 49505; 88302; C1781; J0690; J1100; J2250; J2405; J3010

== ENCOUNTER → 2021-05-20 13:44 | Outpatient (BNVA) | payer OTHER, SELFPAY | PROVIDERS: PCP Internal Medicine; Visit Provider Surgery ==

== ENCOUNTER → 2021-05-25 11:10 | Outpatient (BNVA) | payer OTHER, SELFPAY | PROVIDERS: PCP Internal Medicine; Referring Provider Internal Medicine; Visit Provider Internal Medicine Cardiovascular Disease ==

== ENCOUNTER → 2021-07-08 14:28 | Outpatient (BNVA) | payer OTHER, SELFPAY | PROVIDERS: PCP Internal Medicine; Referring Provider Internal Medicine; Visit Provider Surgery ==

== ENCOUNTER 2021-07-29 10:15 | Outpatient (REF) | payer OTHER, SELFPAY ==
[2021-07-29 10:39] LABS: MANUAL DIFF FLAG NO
[2021-07-29 10:50] LABS: Basophils Absolute Auto 0.1 X10*3/uL (0.0-0.2); Eosinophils Absolute Auto 0.3 X10*3/uL (0.0-0.4); Eosinophils Percent Auto 5.2 % (0-4); Hematocrit 40.7 % (42.0-52.0); Hemoglobin 13.3 g/dl (14.0-18.0); Imm Gran Abs Auto 0.02 X10*3/uL (0.00-0.03); Imm Gran Pct Auto 0.3 % (0.0-0.4); Lymphocytes Absolute Auto 2.1 X10*3/uL (1.2-4.9); Mean Corpuscular HGB Conc 32.7 g/dl (31.0-36.0); Mean Corpuscular Hemoglobin 29.2 pg (27.0-33.0); Mean Corpuscular Volume 89.3 fL (80.0-98.0); Mean Platelet Volume 10.4 fL (9.4-12.4); Monocytes Absolute Auto 0.7 X10*3/uL (0.1-1.2); Monocytes Percent Auto 12.5 % (2-11); Neutrophils Absolute Auto 2.58 x10*3/uL (2.0-8.3); Platelet Count 195 X10*3/uL (160-400); Red Blood Count 4.56 X10*6/uL (4.60-5.80); Red Cell Distribution Width 12.2 % (11.0-16.0); White Blood Count 5.8 X10*3/uL (4.8-10.8)
[2021-07-29 11:12] LABS: Estimated Average Glucose 105 mg/dL; Hemoglobin A1c % 5.3 %
[2021-07-29 11:19] LABS: Alanine Aminotransferase 18 U/L (0-40); Albumin Level 4.4 g/dL (3.5-5.0); Alkaline Phosphatase 55 U/L (39-117); Anion Gap 10 (12-20); Aspartate Amino Transferase 17 U/L (5-37); Blood Urea Nitrogen 15 mg/dL (9-16); Calcium 9.3 mg/dL (8.4-10.2); Carbon Dioxide 29 mmol/L (22-29); Chloride 105 mmol/L (96-108); Estimated Glomerular Filt Rate > 60; Glucose Random 107 mg/dL (60-115); Potassium 4.4 mmol/L (3.3-5.1); Sodium 140 mmol/L (135-145); Total Protein 7.4 g/dL (6.5-8.0)
[2021-07-29 11:33] LABS: Vitamin D 25-OH Total 17.5 ng/mL (>30)
[2021-07-29 11:35] LABS: PSA,Total (Free>4and<10) 1.57 ng/mL (0.00-4.00)
[2021-07-29 11:58] LABS: Vitamin B12 258 pg/mL (200-900)
[2021-08-03 06:01] LABS: Methylmalonic Acid 522 nmol/L (87-318)
== END 2021-07-29 10:16 | disposition home or self-care (01) ==
LOC: HO.LAB 10:15
PROVIDERS: Absent Provider Urology; PCP Internal Medicine; Visit Provider Internal Medicine
DX: R35.1 Nocturia (principal); E55.9 Vitamin D deficiency, unspecified; I10 Essential (primary) hypertension; R73.01 Impaired fasting glucose; G62.9 Polyneuropathy, unspecified; M25.50 Pain in unspecified joint; Z12.5 Encounter for screening for malignant neoplasm of prostate
CPT/HCPCS: 36415; 80053; 82306; 82607; 83036; 83921; 84153; 85025

== ENCOUNTER 2021-07-30 09:59 | Outpatient (REF) | payer OTHER, SELFPAY ==
[2021-07-30 10:19] LABS: Appearance Urine CLEAR; Color Urine YELLOW; Glucose Urine UA NEG (NEG); Leukocyte Esterase Urine NEG (NEG); Nitrite Urine NEG (NEG); PH 6.5 (5.0-8.0); Urine Blood NEG (NEG); Urine Ketones NEG (NEG); Urine Protein NEG (NEG-TRACE)
== END 2021-07-30 10:00 | disposition home or self-care (01) ==
LOC: HO.LNP 09:59
PROVIDERS: Visit Provider Internal Medicine
DX: R35.1 Nocturia (principal); N40.1 Benign prostatic hyperplasia with lower urinary tract symptoms
CPT/HCPCS: 81003; 87086

== ENCOUNTER → 2021-08-03 12:56 | Outpatient (BNVA) | payer OTHER, SELFPAY | PROVIDERS: PCP Internal Medicine; Referring Provider Internal Medicine; Visit Provider Surgery ==

== ENCOUNTER 2021-08-27 13:23 | Outpatient (REF) | payer OTHER, SELFPAY ==
--- NOTE | ~2021-08-27 | US_ITS ---
EXAMINATION: US RETROPERITONEAL LIMITED (RENAL ONLY) CLINICAL INFORMATION: Renal cyst. COMPARISON: CT abdomen and pelvis with contrast dated 03/25/2021. Ultrasound abdomen complete dated 12/26/2020 and 09/13/2018. TECHNIQUE: Real-time imaging of the kidneys. FINDINGS: RIGHT KIDNEY: 10.9 x 4.4 x 5.6 cm (SAG x AP x TRV). The kidney is normal in size, contour, and echogenicity. Renal cortical thickness is normal. No renal calculi or hydronephrosis. There is an anechoic cyst in the midpole with rim calcification measuring 1.4 x 1.4 x 1.2 cm. In addition, there are multiple echogenic foci, likely vascular calcification. LEFT KIDNEY: 11.4 x 6.4 x 5.5 cm (SAG x AP x TRV). The kidney is normal in size, contour, and echogenicity. Renal cortical thickness is normal. No calculi or focal parenchymal lesions. No hydronephrosis. There are multiple echogenic foci, likely vascular calcification. US/US renal BI IMPRESSION: Bosniak type II cyst right kidney midpole. No echogenic calculi or hydronephrosis. However, there are multiple small echogenic foci, likely vascular calcifications in both kidneys.
== END 2021-08-27 13:24 | disposition home or self-care (01) ==
LOC: HO.US 13:23
PROVIDERS: PCP Internal Medicine; Visit Provider Internal Medicine
DX: N28.1 Cyst of kidney, acquired (principal)
CPT/HCPCS: 76775

== ENCOUNTER 2021-09-22 10:18 | Emergency (ER) | payer OTHER, SELFPAY ==
--- NOTE | 2021-09-22 | ECG_ITS ---
Test Reason : ABD PAIN Blood Pressure : / mmHG Vent. Rate : 075 BPM Atrial Rate : 075 BPM P-R Int : 160 ms QRS Dur : 096 ms QT Int : 408 ms P-R-T Axes : 079 -42 076 degrees QTc Int : 455 ms Normal sinus rhythm Left axis deviation Minimal voltage criteria for LVH, may be normal variant ( [place] product ) Abnormal ECG When compared with ECG of 29-NOV-2019 10:19, No significant change was found Referred By: Generic ED Physician Electronically Signed By:Tu Sutton
--- NOTE | ~2021-09-22 | CT_ITS ---
EXAMINATION: CT HEAD WITHOUT CONTRAST CLINICAL INFORMATION: Dizziness. COMPARISON: Brain MRI from 04/06/2021. TECHNIQUE: Contiguous axial imaging was performed from the skull base to vertex without intravenous administration of contrast. This CT examination was performed using dose optimization techniques as appropriate, variously including the following: *Automated exposure control. *Adjustment of mA and/or kV according to patient size (this includes techniques or standardized protocols for targeted exams where dose is matched to indication/reason for exam; i.e. extremities or head). *Use of iterative reconstruction technique. DLP: 626 mGy-cm FINDINGS: There is no evidence of acute intracranial hemorrhage or edematous territorial infarction. A few foci of hypoattenuation in the periventricular and deep white matter are consistent with mild microangiopathy. [place]-white matter differentiation is preserved. Proportional prominence of the ventricles and sulcal spaces. No evidence for obstructive hydrocephalus. No abnormal mass effect or midline shift. No extra-axial fluid collections. No acute soft tissue or osseous abnormalities. Mild mucosal thickening of the paranasal sinuses. The mastoid air cells and middle ear cavities remain well aerated. CT/CT head/brain wo con IMPRESSION: 1. No evidence of acute intracranial hemorrhage or edematous territorial infarction. 2. Mild underlying microangiopathy and generalized cerebral volume loss.
--- NOTE | ~2021-09-22 | CT_ITS ---
EXAMINATION: CT ABDOMEN AND PELVIS WITH CONTRAST CLINICAL INFORMATION: Evaluate for colitis. COMPARISON: CT abdomen and pelvis 03/25/2021. Ultrasound abdomen 12/26/2020. TECHNIQUE: Multidetector volumetric images were obtained from the superior aspect of the liver through the pubic symphysis following administration 85 mL of Omnipaque 350 intravenous contrast. Sagittal and coronal reformatted images were obtained on the technologist's workstation. Oral contrast: No This CT examination was performed using dose optimization techniques as appropriate, variously including the following: *Automated exposure control *Adjustment of mA and/or kV according to patient size (this includes techniques or standardized protocols for targeted exams where dose is matched to indication/reason for exam; i.e. extremities or head) *Use of iterative reconstruction technique DLP: 1170 mGy-cm FINDINGS: LUNG BASES: Unremarkable. LIVER, GALLBLADDER, AND BILIARY TREE: The liver is normal in size, shape, and attenuation. No focal hepatic lesion or biliary ductal dilatation is present. Multiple gallstones are again noted. Focal areas of air in the independent portion of the gallbladder also again noted and could be within floating gallstones. There is no gallbladder wall thickening or pericholecystic fluid. PANCREAS: Unremarkable. SPLEEN: Unremarkable. ADRENAL GLANDS: Unremarkable. KIDNEYS AND URETERS: The kidneys are normal in size, shape, and attenuation. No hydronephrosis, hydroureter, or calculi seen. No perinephric stranding. BLADDER: Minimal bladder wall thickening is again noted. GASTROINTESTINAL TRACT: There are scattered colonic diverticula, most prominent in the descending and sigmoid colon. There is mild bladder wall thickening and perhaps minimal subcutaneous edema in the ascending colon and perhaps minimally so in the descending colon. The transverse colon has very little air in the wall and is difficult to evaluate. The appendix is unremarkable. The small bowel and stomach are unremarkable. ABDOMINAL WALL: No change in fat-containing umbilical and right inguinal hernias. Much improved appearance of the left inguinal hernia which now contains a small amount of fluid. LYMPH NODES: Normal. VASCULAR: Unremarkable. PELVIC VISCERA: The enlarged prostate gland is again noted. OSSEOUS STRUCTURES: Unchanged severe degenerative disc disease at L4-L5 and mild osteoarthritis of both hips. Scattered probable small bone islands are also unchanged. CT/CT abdomen pelvis w con IMPRESSION: 1. Findings suggestive of mild wall thickening in the ascending and descending colon which may represent a mild colitis. Colonic diverticulosis without evidence of diverticulitis. 2. Cholelithiasis without evidence of cholecystitis. 3. Much improved appearance of the left inguinal hernia which now contains a small amount of fluid. No change in fat-containing umbilical and right inguinal hernias.
[2021-09-22 10:33] VITALS: BP 127/58; PULSE 70; RESP 17; TEMP 36.7; O2SAT 98; BMI 23.0
[2021-09-22 12:04] VITALS: BP 130/60; PULSE 71; RESP 18; O2SAT 98
[2021-09-22 12:32] LABS: MANUAL DIFF FLAG NO
[2021-09-22 12:33] LABS: Appearance Urine HAZY; Color Urine YELLOW; Glucose Urine UA NEG (NEG); Leukocyte Esterase Urine NEG (NEG); Nitrite Urine NEG (NEG); Urine Blood NEG (NEG); Urine Ketones NEG (NEG); Urine Protein NEG (NEG-TRACE)
[2021-09-22 12:34] LABS: Basophils Percent Auto 0.4 % (0-2); Eosinophils Percent Auto 0.4 % (0-4); Hematocrit 43.2 % (42.0-52.0); Hemoglobin 14.4 g/dl (14.0-18.0); Imm Gran Abs Auto 0.03 X10*3/uL (0.00-0.03); Imm Gran Pct Auto 0.4 % (0.0-0.4); Lymphocytes Absolute Auto 0.9 X10*3/uL (1.2-4.9); Mean Corpuscular HGB Conc 33.3 g/dl (31.0-36.0); Mean Corpuscular Hemoglobin 29.1 pg (27.0-33.0); Mean Corpuscular Volume 87.4 fL (80.0-98.0); Mean Platelet Volume 10.5 fL (9.4-12.4); Monocytes Absolute Auto 0.6 X10*3/uL (0.1-1.2); Monocytes Percent Auto 6.6 % (2-11); Neutrophils Absolute Auto 6.8 x10*3/uL (2.0-8.3); Neutrophils Percent Auto 81.2 % (45-73); Platelet Count 203 X10*3/uL (160-400); Red Blood Count 4.94 X10*6/uL (4.60-5.80); Red Cell Distribution Width 12.4 % (11.0-16.0); White Blood Count 8.3 X10*3/uL (4.8-10.8)
[2021-09-22 12:55] LABS: COVID-19 Test Negative (Negative)
[2021-09-22 12:56] LABS: Alanine Aminotransferase 23 U/L (0-40); Albumin Level 4.7 g/dL (3.5-5.0); Alkaline Phosphatase 60 U/L (39-117); Anion Gap 10 (12-20); Aspartate Amino Transferase 18 U/L (5-37); Bilirubin Direct 0.4 mg/dL (0.0-0.5); Bilirubin Total 1.2 mg/dL (0.0-1.0); Blood Urea Nitrogen 14 mg/dL (9-16); Calcium 10.8 mg/dL (8.4-10.2); Carbon Dioxide 30 mmol/L (22-29); Chloride 104 mmol/L (96-108); Creatinine Clr Calc Pharmacy 73.5; Estimated Glomerular Filt Rate > 60; Glucose Random 117 mg/dL (60-115); Lipase 19 U/L (8-78); Potassium 4.2 mmol/L (3.3-5.1); Sodium 140 mmol/L (135-145); Total Protein 8.2 g/dL (6.5-8.0)
--- NOTE | 2021-09-22 12:57 | ED_ITS ---
HPI - General Adult General Chief complaint: Abdominal Pain Stated complaint: Severe Abd Pain Dizzy Time Seen by Provider: 09/22/21 12:50 Source: patient Mode of arrival: ambulatory Limitations: no limitations History of Present Illness HPI narrative: This is a 71 years old male get up with the abdominal pain locali zed in the lower abdomen this stood up and they become diaphoretic fell to the ground was brought here by his who is a nurse at at [facility], patient denies any chest pain any shortness of breath Onset (ago): hour(s) (5) Location: abdomen Radiation: non-radiation Severity: moderate Quality: burning Pain Consistency: constant Relieving factors: none Related Data Home Medications Medication Instructions Recorded Confirmed sucralfate 100 mg/mL oral 10 ml PO QID PRN 08/05/20 08/03/21 suspension tamsulosin 0.4 mg capsule 0.4 mg PO DAILY@1700 08/05/20 08/03/21 gabapentin 100 mg capsule 100 mg PO BEDTIME cap 12/29/20 08/03/21 hyoscyamine sulfate 0.125 mg tablet 0.125 mg PO Q6H PRN 12/29/20 08/03/21 losartan 25 mg tablet 25 mg PO BEDTIME tab 12/29/20 08/03/21 omeprazole 20 mg capsule,delayed 20 mg PO DAILY PRN 05/25/21 08/03/21 release Previous Rx's Medication Instructions Recorded ondansetron HCl 4 mg tablet 4 mg PO Q6H PRN #14 tab 05/08/21 (Zofran) amlodipine 10 mg tablet 10 mg PO BEDTIME 90 Days #90 tab 08/03/21 Allergies Allergy/AdvReac Type Severity Reaction Status Date / Time codeine [Codeine] Allergy Intermediate Dizziness Verified 08/03/21 13:08 meperidine [Meperidine] Allergy Mild UNKNOWN Verified 08/03/21 13:08 Review of Systems Constitutional: Constitutional: Reports no additional constitutional complaints ENT: Reports system reviewed and no additional complaints, except as documented Cardiovascular: Cardiovascular: Reports no additional cardiovascular complaints Gastrointestinal: Gastrointestinal: Reports no additional gastrointestinal complaints PMFSH Past Medical History Medical History Arthritis Autoimmune encephalitis Axillary abscess Back pain Cervical spondyloarthritis COVID-19 vaccine series completed Cyst, kidney, acquired DDD (degenerative disc disease) Depression Fatty liver Gallstones GERD (gastroesophageal reflux disease) History of lumbar puncture Hx of Guillain-[place] syndrome Hx of prostatitis Hypertension Left inguinal hernia Mood disorder Peripheral neuropathy Pre-diabetes Prostatitis Surgical History History of esophagogastroduodenoscopy (EGD) Hx of colonoscopy Social History Social History Are you a primary hearing care practitioner to a significant other at home: No Do you presently have visiting nurse or other home services: No Alcohol intake: never Patient Tobacco Use Status: Former Tobacco user Quit Date: 1988 Smoked in Last 30 Days: No Use of substances other than those prescribed or required for medical reasons: No Advance Directives: No Advance Directives Information Provided: No Physical Exam Vital Signs: Vital Signs: Last Vital Signs Temp 98.0 F 09/22/21 10:33 Pulse 79 09/22/21 17:01 Resp 18 09/22/21 17:01 BP 158/76 H 09/22/21 17:01 Pulse Ox 98 09/22/21 17:01 BMI result Body Mass Index 23.0 Const: Other: He looks well he is not toxic-appearing he is comfortable in the stretcher General: cooperative, no acute distress and well developed Orientation/consciousness: oriented to person and patient oriented x3 Li mitations: no limitations HENMT: Head: Yes normal to inspection Face and sinus: Yes normal facial exam Mouth: Normal oral and palatal mucosa present Throat: Yes posterior oropharynx normal Neck: Neck: Yes normal visual inspection and Yes full ROM Chest: Chest palpation & inspection: normal inspection of the chest Resp: Effort & Inspection: normal respiratory effort and able to speak in co mplete sentences Auscultation: clear to auscultation bilaterally Cardio: Jugular venous distension: no JVD Rate: regular rate Rhythm: regular rhythm GI: Other: His abdomen is soft no peritoneal signs no guarding and no rebound ;he has minimal tenderness in the left lower quadrant Inspection: Yes normal to inspection Palpation (GI): Soft to palpation, not firm, nontender and no guarding Auscultation: normal bowel sounds Skin: General skin exam: no rashes or lesions noted, elasticity normal and turgor normal Lesions: no lesions Rashes: no rashes Wounds: no wounds Neuro: General: oriented to person and patient oriented x3 Course Reevaluation(s) Reevaluation #1: Workup basically showed the mild colitis, I reviewed the scan with the real estate listing consultant Dr. Ruiz, he recommend no p.o. antibiotic only a clear liquid diet.He was observed in Ed few hours remained stable and asyntomatic taking po well,no chest pain ,his dizzness also is gone,could have been expained because 2 flomax instead of 1 in 12 h Medical Decision Making Lab Data Result diagrams: 09/22/21 12:13 09/22/21 12:13 Labs: Lab Results 09/22/21 09/22/21 09/22/21 Range/Units 12:13 12:13 12:13 WBC 8.3 (4.8-10.8) X10*3/uL RBC 4.94 (4.60-5.80) X10*6/uL Hgb 14.4 (14.0-18.0) g/dl Hct 43.2 (42.0-52.0) % MCV 87.4 (80.0-98.0) fL MCH 29.1 (27.0-33.0) pg MCHC 33.3 (31.0-36.0) g/dl RDW 12.4 (11.0-16.0) % Plt Count 203 (160-400) X10*3/uL MPV 10.5 (9.4-12.4) fL Immature Gran % (Auto) 0.4 (0.0-0.4) % Neut % (Auto) 81.2 H (45-73) % Lymph % (Auto) 11.0 L (20-40) % Nolan % (Auto) 6.6 (2-11) % Eos % (Auto) 0.4 (0-4) % Baso % (Auto) 0.4 (0-2) % Lymph # (Auto) 0.9 L (1.2-4.9) X10*3/uL Nolan # (Auto) 0.6 (0.1-1.2) X10*3/uL Eos # (Auto) 0.0 (0.0-0.4) X10*3/uL Baso # (Auto) 0.0 (0.0-0.2) X10*3/uL Abs Immat Gran (auto) 0.03 (0.00-0.03) X10*3/uL Absolute Neuts (auto) 6.8 (2.0-8.3) x10*3/uL Absolute Nucleated RBC 0.000 (0.0-0.012) X10*3/uL Nucleated RBC % (auto) 0.0 (0.0-0.2) /100WBC Sodium 140 (135-145) mmol/L Potassium 4.2 (3.3-5.1) mmol/L Chloride 104 (96-108) mmol/L Carbon Dioxide 30 H (22-29) mmol/L Anion Gap 10 L (12-20) BUN 14 (9-16) mg/dL Creatinine 0.99 (0.5-1.4) mg/dL Estim Creat Clear Calc 73.5 Estimated GFR > 60 Random Glucose 117 H (60-115) mg/dL Calcium 10.8 H D (8.4-10.2) mg/dL Total Bilirubin 1.2 H (0.0-1.0) mg/dL Direct Bilirubin 0.4 (0.0-0.5) mg/dL AST 18 (5-37) U/L ALT 23 (0-40) U/L Alkaline Phosphatase 60 (39-117) U/L Troponin I High Sens (<3.5-35.0) ng/L Total Protein 8.2 H (6.5-8.0) g/dL Albumin 4.7 (3.5-5.0) g/dL Lipase 19 (8-78) U/L Urine Color Urine Appearance Urine pH (5.0-8.0) Ur Specific [place] (1.005-1.025) Urine Protein (NEG-TRACE) MG/DL Urine Glucose (UA) (NEG) MG/DL Urine Ketones (NEG) MG/DL Urine Blood (NEG) Urine Nitrite (NEG) Ur Leukocyte Esterase (NEG) COVID-19 (ERLINDA) Negative (Negative) COVID-19 Clin Com See Note 09/22/21 09/22/21 Range/Units 12:13 12:20 WBC (4.8-10.8) X10*3/uL RBC (4.60-5.80) X10*6/uL Hgb (14.0-18.0) g/dl Hct (42.0-52.0) % MCV (80.0-98.0) fL MCH (27.0-33.0) pg MCHC (31.0-36.0) g/dl RDW (11.0-16.0) % Plt Count (160-400) X10*3/uL MPV (9.4-12.4) fL Immature Gran % (Auto) (0.0-0.4) % Neut % (Auto) (45-73) % Lymph % (Auto) (20-40) % Nolan % (Auto) (2-11) % Eos % (Auto) (0-4) % Baso % (Auto) (0-2) % Lymph # (Auto) (1.2-4.9) X10*3/uL Nolan # (Auto) (0.1-1.2) X10*3/uL Eos # (Auto) (0.0-0.4) X10*3/uL Baso # (Auto) (0.0-0.2) X10*3/uL Abs Immat Gran (auto) (0.00-0.03) X10*3/uL Absolute Neuts (auto) (2.0-8.3) x10*3/uL Absolute Nucleated RBC (0.0-0.012) X10*3/uL Nucleated RBC % (auto) (0.0-0.2) /100WBC Sodium (135-145) mmol/L Potassium (3.3-5.1) mmol/L Chloride (96-108) mmol/L Carbon Dioxide (22-29) mmol/L Anion Gap (12-20) BUN (9-16) mg/dL Creatinine (0.5-1.4) mg/dL Estim Creat Clear Calc Estimated GFR Random Glucose (60-115) mg/dL Calcium (8.4-10.2) mg/dL Total Bilirubin (0.0-1.0) mg/dL Direct Bilirubin (0.0-0.5) mg/dL AST (5-37) U/L ALT (0-40) U/L Alkaline Phosphatase (39-117) U/L Troponin I High Sens < 3.5 (<3.5-35.0) ng/L Total Protein (6.5-8.0) g/dL Albumin (3.5-5.0) g/dL Lipase (8-78) U/L Urine Color YELLOW Urine Appearance HAZY Urine pH 7.0 (5.0-8.0) Ur Specific [place] 1.010 (1.005-1.025) Urine Protein NEG (NEG-TRACE) MG/DL Urine Glucose (UA) NEG (NEG) MG/DL Urine Ketones NEG (NEG) MG/DL Urine Blood NEG (NEG) Urine Nitrite NEG (NEG) Ur Leukocyte Esterase NEG (NEG) COVID-19 (ERLINDA) (Negative) COVID-19 Clin Com Imaging Data CT scan - abdomen: Radiologist's impression: [address] [address] [address] Scan Report Signed Patient: Alhaji Sims MR#: [id number] : 1950 Acct:[id number] Age/Sex: 70 / M ADM Date: 09/22/21 Loc: .ED Attending Dr: Ordering Physician: Edgardo Marie MD Date of Service: 09/22/21 Procedure(s): CT abdomen pelvis w con Accession Number(s): [id number] cc: Edgardo Marie MD~ EXAMINATION: CT ABDOMEN AND PELVIS WITH CONTRAST? CLINICAL INFORMATION: Evaluate for colitis.? COMPARISON: CT abdomen and pelvis 03/25/2021. Ultrasound abdomen 12/26/2020.? TECHNIQUE: Multidetector volumetric images were obtained from the superior aspect of the liver through the pubic symphysis following administration 85 mL of Omnipaque 350 intravenous contrast. Sagittal and coronal reformatted images were obtained on the technologist's workstation.? Oral contrast: No This CT examination was performed using dose optimization techniques as appropriate, variously including the following: *Automated exposure control *Adjustment of mA and/or kV according to patient size (this includes techniques or standardized protocols for targeted exams where dose is matched to indication/reason for exam; i.e. extremities or head) *Use of iterative reconstruction technique DLP: 1170 mGy-cm FINDINGS: LUNG BASES: Unremarkable. LIVER, GALLBLADDER, AND BILIARY TREE: The liver is normal in size, shape, and attenuation. No focal hepatic lesion or biliary ductal dilatation is present. Multiple gallstones are again noted. Focal areas of air in the independent portion of the gallbladder also again noted and could be within floating gallstones. There is no gallbladder wall thickening or pericholecystic fluid.? PANCREAS: Unremarkable.? SPLEEN: Unremarkable.? ADRENAL GLANDS: Unremarkable.? KIDNEYS AND URETERS: The kidneys are normal in size, shape, and attenuation. No hydronephrosis, hydroureter, or calculi seen. No perinephric stranding. ? BLADDER: Minimal bladder wall thickening is again noted.? GASTROINTESTINAL TRACT: There are scattered colonic diverticula, most prominent in the descending and sigmoid colon. There is mild bladder wall thickening and perhaps minimal subcutaneous edema in the ascending colon and perhaps minimally so in the descending colon. The transverse colon has very little air in the wall and is difficult to evaluate. The appendix is unremarkable. The small bowel and stomach are unremarkable. ? ABDOMINAL WALL: No change in fat-containing umbilical and right inguinal hernias. Much improved appearance of the left inguinal hernia which now contains a small amount of fluid.? LYMPH NODES: Normal. VASCULAR: Unremarkable. PELVIC VISCERA: The enlarged prostate gland is again noted.? OSSEOUS STRUCTURES: Unchanged severe degenerative disc disease at L4-L5 and mild osteoarthritis of both hips. Scattered probable small bone islands are also unchanged. CT/CT abdomen pelvis w con IMPRESSION: 1. Findings suggestive of mild wall thickening in the ascending and descending colon which may represent a mild colitis. Colonic diverticulosis without evidence of diverticulitis. 2. Cholelithiasis without evidence of cholecystitis. 3. Much improved appearance of the left inguinal hernia which now contains a small amount of fluid. No change in fat-containing umbilical and right inguinal hernias.? ? CT scan - head: Radiologist's impression: [address] [address] [address] Scan Report Signed Patient: Alhaji Sims MR#: [id number] : 1950 Acct:[id number] Age/Sex: 70 / M ADM Date: 09/22/21 Loc: HO.ED Attending Dr: Ordering Physician: Edgardo Marie MD Date of Service: 09/22/21 Procedure(s): CT abdomen pelvis w con Accession Number(s): [id number] cc: Edgardo Marie MD~ EXAMINATION: CT ABDOMEN AND PELVIS WITH CONTRAST? CLINICAL INFORMATION: Evaluate for colitis.? COMPARISON: CT abdomen and pelvis 03/25/2021. Ultrasound abdomen 12/26/2020.? TECHNIQUE: Multidetector volumetric images were obtained from the superior aspect of the liver through the pubic symphysis following administration 85 mL of Omnipaque 350 intravenous contrast. Sagittal and coronal reformatted images were obtained on the technologist's workstation.? Oral contrast: No This CT examination was performed using dose optimization techniques as appropriate, variously including the following: *Automated exposure control *Adjustment of mA and/or kV according to patient size (this includes techniques or standardized protocols for targeted exams where dose is matched to indication/reason for exam; i.e. extremities or head) *Use of iterative reconstruction technique DLP: 1170 mGy-cm FINDINGS: LUNG BASES: Unremarkable. LIVER, GALLBLADDER, AND BILIARY TREE: The liver is normal in size, shape, and attenuation. No focal hepatic lesion or biliary ductal dilatation is present. Multiple gallstones are again noted. Focal areas of air in the independent portion of the gallbladder also again noted and could be within floating gallstones. There is no gallbladder wall thickening or pericholecystic fluid.? PANCREAS: Unremarkable.? SPLEEN: Unremarkable.? ADRENAL GLANDS: Unremarkable.? KIDNEYS AND URETERS: The kidneys are normal in size, shape, and attenuation. No hydronephrosis, hydroureter, or calculi seen. No DLP: 626 mGy-cm FINDINGS: There is no evidence of acute intracranial hemorrhage or edematous territorial infarction. A few foci of hypoattenuation in the periventricular and deep white matter are consistent with mild microangiopathy. [place]-white matter differentiation is preserved. Proportional prominence of the ventricles and sulcal spaces. No evidence for obstructive hydrocephalus. No abnormal mass effect or midline shift. No extra-axial fluid collections. No acute soft tissue or osseous abnormalities. Mild mucosal thickening of the paranasal sinuses. The mastoid air cells and middle ear cavities remain well aerated. ? CT/CT head/brain wo con IMPRESSION: 1. No evidence of acute intracranial hemorrhage or edematous territorial infarction. 2. Mild underlying microangiopathy and generalized cerebral volume loss. ? Dictated By: TYE VALENCIA DO Signed By: <Electronically signed by TYE VALENCIA DO in OV> 09/22/21 1654 DD/ 1327 TD/TT:? Stone Layer: BEVERLEY ECG Data Attestation: I personally reviewed and interpreted this ECG as follows: Prior ECG tracings: available for review Pacemaker model: 75 NSR no ischemia Discharge Plan Discharge Clinical Impression: Abdominal pain Patient Disposition: Home, Self-Care Instructions: Abdominal Pain (ED) Prescriptions: No Action amlodipine 10 mg tablet 10 mg PO BEDTIME 90 Days Qty: 90 RF: 3 ondansetron HCl [Zofran] 4 mg tablet 4 mg PO Q6H PRN (Reason: nausea and vomiting) Qty: 14 RF: 0 sucralfate 100 mg/mL suspension 10 ml PO QID PRN (Reason: Abdominal Discomfort) RF: 0 tamsulosin 0.4 mg capsule 0.4 mg PO DAILY@1700 RF: 0 gabapentin 100 mg capsule 100 mg PO BEDTIME RF: 0 losartan 25 mg tablet 25 mg PO BEDTIME RF: 0 omeprazole 20 mg capsule,delayed release(DR/EC) 20 mg PO DAILY PRNRF: 0 hyoscyamine sulfate 0.125 mg tablet 0.125 mg PO Q6H PRN (Reason: Cramps) RF: 0 Referrals: Minh Ruiz [Physician] - 2 days Interventions: ED Discharge Assessment Last Done: 09/22/21 17:01 Discharge Date/Time: 09/22/21 17:01
[2021-09-22 13:00] LABS: Troponin-I High Sensitivity < 3.5 ng/L (<3.5-35.0)
[2021-09-22] MEDS: iohexoL 350 MG/ML 100 ML INFUS..BTL IV (13:22)
[2021-09-22] MEDS: 0.9 % Sodium Chloride 1,000 ML 999 ML IVCONT (14:20)
[2021-09-22 17:01] VITALS: BP 158/76; PULSE 79; RESP 18; O2SAT 98
== END 2021-09-22 17:01 | disposition home or self-care (01) ==
PROVIDERS: Emergency Provider Emergency Medicine; PCP Internal Medicine
DX: R10.30 Lower abdominal pain, unspecified (principal); I10 Essential (primary) hypertension; Z20.822 Contact with and (suspected) exposure to COVID-19
CPT/HCPCS: 36415; 70450; 74177; 80053; 81003; 82248; 83690; 84484; 85025; 87635; 93005; 96360; 99284; 99285; Q9967

== ENCOUNTER 2021-10-09 06:37 | Emergency (ER) | payer OTHER, SELFPAY ==
--- NOTE | ~2021-10-09 | CT_ITS ---
EXAMINATION: CT ABDOMEN AND PELVIS WITH CONTRAST CLINICAL INFORMATION: Lower quadrant pain COMPARISON: Previous CT of the abdomen and pelvis August 2021 TECHNIQUE: Multidetector volumetric images were obtained from the superior aspect of the liver through the pubic symphysis following administration 85 mL of Omnipaque 350 intravenous contrast. Sagittal and coronal reformatted images were obtained on the technologist's workstation. Oral contrast: Yes This CT examination was performed using dose optimization techniques as appropriate, variously including the following: *Automated exposure control *Adjustment of mA and/or kV according to patient size (this includes techniques or standardized protocols for targeted exams where dose is matched to indication/reason for exam; i.e. extremities or head) *Use of iterative reconstruction technique DLP: 490 mGy-cm FINDINGS: LUNG BASES: There are small peripheral or subpleural lower lobe nodules. Largest measures 4 mm right lower lobe, axial image 5. These are stable since prior exam. LIVER, GALLBLADDER, AND BILIARY TREE: The liver is low in attenuation suggestive of fatty infiltration. There are gallstones in the gallbladder. There is no biliary duct dilatation. PANCREAS: The main pancreatic duct is slightly prominent measuring 4 mm. Similar to prior exams. The pancreas is otherwise unremarkable. SPLEEN: Unremarkable. ADRENAL GLANDS: Unremarkable. KIDNEYS AND URETERS: There is a 1 cm low-attenuation lesion in lateral upper pole of the right kidney measuring 1 cm. This has peripheral calcification. Hounsfield units following IV contrast measure 65, axial image 27 series 3. This is unchanged from recent exam when compared with previous renal ultrasound likely represents a complex cyst. There are 2 smaller, less than 5 mm low-attenuation lesions in the right kidney. These are difficult to characterize due to small size but appear unchanged as well. BLADDER: The prostate gland is enlarged and protrudes into the base of the bladder. GASTROINTESTINAL TRACT: There is diverticulosis of the colon. There is wall thickening of the distal left colon. There is stranding of the surrounding fat. Appearance is suggestive of diverticulitis or colitis. Small and large bowel is otherwise unremarkable. The appendix is unremarkable. The stomach is unremarkable. ABDOMINAL WALL: There are umbilical and right inguinal hernias containing fat. There is a small left inguinal hernia that contains fluid. This is similar to exam from August 2021. LYMPH NODES: Normal. VASCULAR: Unremarkable. PELVIC VISCERA: The prostate gland is enlarged and protrudes into the base of the bladder. OSSEOUS STRUCTURES: There are degenerative changes of the spine. There are small nonspecific sclerotic lesions seen in the spine and pelvis and left femoral head that are stable. The largest measures 5 x 10 mm right pubic ramus. CT/CT abdomen pelvis w con IMPRESSION: Diverticulitis of the distal left colon. Other stable findings from August 2021 exam. Fleischner guidelines were followed.
[2021-10-09 06:52] VITALS: BP 139/63; PULSE 88; RESP 20; TEMP 36.9; O2SAT 98; BMI 23.0
[2021-10-09 08:32] LABS: MANUAL DIFF FLAG NO
[2021-10-09 08:36] LABS: Appearance Urine CLEAR; Basophils Percent Auto 0.4 % (0-2); Color Urine YELLOW; Eosinophils Absolute Auto 0.1 X10*3/uL (0.0-0.4); Eosinophils Percent Auto 1.1 % (0-4); Glucose Urine UA NEG (NEG); Hematocrit 40.1 % (42.0-52.0); Hemoglobin 13.6 g/dl (14.0-18.0); Imm Gran Abs Auto 0.03 X10*3/uL (0.00-0.03); Imm Gran Pct Auto 0.3 % (0.0-0.4); Leukocyte Esterase Urine NEG (NEG); Lymphocytes Absolute Auto 1.1 X10*3/uL (1.2-4.9); Lymphocytes Percent Auto 10.6 % (20-40); Mean Corpuscular HGB Conc 33.9 g/dl (31.0-36.0); Mean Corpuscular Hemoglobin 29.9 pg (27.0-33.0); Mean Corpuscular Volume 88.1 fL (80.0-98.0); Mean Platelet Volume 10.2 fL (9.4-12.4); Monocytes Percent Auto 9.9 % (2-11); Neutrophils Percent Auto 77.7 % (45-73); Nitrite Urine NEG (NEG); PH 7.5 (5.0-8.0); Platelet Count 190 X10*3/uL (160-400); Red Blood Count 4.55 X10*6/uL (4.60-5.80); Red Cell Distribution Width 12.6 % (11.0-16.0); Urine Blood NEG (NEG); Urine Ketones NEG (NEG); Urine Protein NEG (NEG-TRACE); White Blood Count 10.3 X10*3/uL (4.8-10.8)
--- NOTE | 2021-10-09 08:41 | ED.ABDPAIN ---
HPI - Abdominal Pain General Chief Complaint: Abdominal Pain Stated Complaint: Pelvic pain Time Seen by Provider: 10/09/21 08:31 Source: patient Mode of arrival: ambulatory Limitations: no limitations History of Present Illness HPI narrative: Patient comes to the emergency room complaining of left lower quadrant pain. Patient states it started yesterday. The pain radiates from the left lower quadrant to the right lower quadrant. Patient denies any nausea vomiting or diarrhea. No UTI symptoms, no fever or chills. Patient was evaluated for abdominal pain on September 22, patient was diagnosed with colitis. Gastroenterology was consulted, no antibiotics recommended. Related Data Home Medications Medication Instructions Recorded Confirmed sucralfate 100 mg/mL oral 10 ml PO QID PRN 08/05/20 08/03/21 suspension tamsulosin 0.4 mg capsule 0.4 mg PO DAILY@1700 08/05/20 08/03/21 gabapentin 100 mg capsule 100 mg PO BEDTIME cap 12/29/20 08/03/21 hyoscyamine sulfate 0.125 mg tablet 0.125 mg PO Q6H PRN 12/29/20 08/03/21 losartan 25 mg tablet 25 mg PO BEDTIME tab 12/29/20 08/03/21 omeprazole 20 mg capsule,delayed 20 mg PO DAILY PRN 05/25/21 08/03/21 release Previous Rx's Medication Instructions Recorded ondansetron HCl 4 mg tablet 4 mg PO Q6H PRN #14 tab 05/08/21 (Zofran) amlodipine 10 mg tablet 10 mg PO BEDTIME 90 Days #90 tab 08/03/21 amoxicillin 875 mg-potassium 1 tab PO BID #19 tab 10/09/21 clavulanate 125 mg tablet (Augmentin) Allergies Allergy/AdvReac Type Severity Reaction Status Date / Time codeine [Codeine] Allergy Intermediate Dizziness Verified 08/03/21 13:08 meperidine [Meperidine] Allergy Mild UNKNOWN Verified 08/03/21 13:08 Review of Systems Review of Systems Constitutional : No Weight loss, No Fever, No Chills, No Night Sweats, No Fatigue, No Malaise ENT/Mouth : No Hearing loss, No Ear Pain, No Nasal Congestion, No Sinus Pain, No Hoarseness, No sore throat, No Rhinorrhea, No Swallowing Difficulty Eyes: No Eye Pain, No Swelling, No Redness, No Foreign Body, No Discharge, No Vision Changes Cardiovascular : No Chest Pain, No SOB, No Dyspnea on Exertion, No Orthopnea, No Edema, No Palpitations Respiratory : No Cough, No Sputum, No Wheezing, No Smoke Exposure, No Dyspnea Gastrointestinal : No Nausea, No Vomiting, No Diarrhea, No Constipation, complaining of left lower quadrant pain, No Hematochezia, No Melena Genitourinary : no irregular bleeding, No Dysuria, No Urinary Frequency, No Hematuria, No Urinary Incontinence, No Urgency, No Flank Pain, No Urinary Flow Changes, No Hesitancy Musculoskeletal : No joint pain, No Myalgias, No Joint Swelling Skin : No Skin Lesions, No rash Neuro : No Weakness, No Numbness, No Paresthesias, No Loss of Consciousness, No Dizziness, No Headache Psych : No Anxiety/Panic, No Depression, No SI/HI/AH/VH, No Social Issues, Heme/Lymph: No Bruising, No Bleeding,No Lymphadenopathy Endocrine : No Polyuria, No Polydipsia, No Temperature Intolerance Physical Exam Vital Signs: Vital Signs: Last Vital Signs Temp 98.5 F 10/09/21 06:52 Pulse 72 10/09/21 08:50 Resp 14 10/09/21 08:50 BP 129/58 L 10/09/21 08:50 Pulse Ox 96 10/09/21 08:50 BMI result Body Mass Index 23.0 Const: Other: Appearance: Alert. Oriented X3. No acute distress. Well-appearing Eyes: Pupils equal, round and reactive to light. ENT: Pharynx normal. Neck: Normal inspection. Neck supple. No lymph nodes noted. No crepitus CVS: Normal heart rate and rhythm. Pulses normal. Normal S1 and S2 Respiratory: No respiratory distress. Breath sounds normal. No Wheezing. No rales Abdomen: Soft , no distention, tenderness to palpation over the left lower quadrant, mild rebound, no guarding. Skin: Skin warm and dry. Normal skin color. Normal skin turgor. Extremities: No lower extremity edema. No Lacerations. No Rash Neuro: Oriented X 3. No motor deficit. No sensory deficit. Moving all extermities. No slurred speech. Course Course Course Narrative: Patient declined any pain medication. CT scan shows the patient has diverticulitis, no perforation. Patient was giving a 1st dose of Augmentin in the emergency room. Patient states he has had diverticulitis in the past and he responded well to a course of antibiotics with Augmentin. MDM - Abdominal Pain Lab Data Result diagrams: 10/09/21 08:23 10/09/21 08:23 Labs: Lab Results 10/09/21 10/09/21 10/09/21 Range/Units 08:23 08:23 08:23 WBC 10.3 (4.8-10.8) X10*3/uL RBC 4.55 L (4.60-5.80) X10*6/uL Hgb 13.6 L (14.0-18.0) g/dl Hct 40.1 L (42.0-52.0) % MCV 88.1 (80.0-98.0) fL MCH 29.9 (27.0-33.0) pg MCHC 33.9 (31.0-36.0) g/dl RDW 12.6 (11.0-16.0) % Plt Count 190 (160-400) X10*3/uL MPV 10.2 (9.4-12.4) fL Immature Gran % (Auto) 0.3 (0.0-0.4) % Neut % (Auto) 77.7 H (45-73) % Lymph % (Auto) 10.6 L (20-40) % [place] % (Auto) 9.9 (2-11) % Eos % (Auto) 1.1 (0-4) % Baso % (Auto) 0.4 (0-2) % Lymph # (Auto) 1.1 L (1.2-4.9) X10*3/uL [place] # (Auto) 1.0 (0.1-1.2) X10*3/uL Eos # (Auto) 0.1 (0.0-0.4) X10*3/uL Baso # (Auto) 0.0 (0.0-0.2) X10*3/uL Abs Immat Gran (auto) 0.03 (0.00-0.03) X10*3/uL Absolute Neuts (auto) 8.0 (2.0-8.3) x10*3/uL Absolute Nucleated RBC 0.000 (0.0-0.012) X10*3/uL Nucleated RBC % (auto) 0.0 (0.0-0.2) /100WBC Sodium 139 (135-145) mmol/L Potassium 3.7 (3.3-5.1) mmol/L Chloride 104 (96-108) mmol/L Carbon Dioxide 27 (22-29) mmol/L Anion Gap 12 (12-20) BUN 12 (9-16) mg/dL Creatinine 0.97 (0.5-1.4) mg/dL Estim Creat Clear Calc 75.0 Estimated GFR > 60 Random Glucose 113 (60-115) mg/dL Calcium 9.8 D (8.4-10.2) mg/dL Total Bilirubin 1.9 H (0.0-1.0) mg/dL Direct Bilirubin 0.6 H (0.0-0.5) mg/dL AST 14 (5-37) U/L ALT 17 (0-40) U/L Alkaline Phosphatase 55 (39-117) U/L Total Protein 7.4 (6.5-8.0) g/dL Albumin 4.3 (3.5-5.0) g/dL Lipase 15 (8-78) U/L Urine Color YELLOW Urine Appearance CLEAR Urine pH 7.5 (5.0-8.0) Ur Specific [place] 1.020 (1.005-1.025) Urine Protein NEG (NEG-TRACE) MG/DL Urine Glucose (UA) NEG (NEG) MG/DL Urine Ketones NEG (NEG) MG/DL Urine Blood NEG (NEG) Urine Nitrite NEG (NEG) Ur Leukocyte Esterase NEG (NEG) Imaging Data CT scan - abdomen: Radiologist's impression: FINDINGS: LUNG BASES: There are small peripheral or subpleural lower lobe nodules. Largest measures 4 mm right lower lobe, axial image 5. These are stable since prior exam.? LIVER, GALLBLADDER, AND BILIARY TREE: The liver is low in attenuation suggestive of fatty infiltration. There are gallstones in the gallbladder. There is no biliary duct dilatation. PANCREAS: The main pancreatic duct is slightly prominent measuring 4 mm. Similar to prior exams. The pancreas is otherwise unremarkable.? SPLEEN: Unremarkable.? ADRENAL GLANDS: Unremarkable.? KIDNEYS AND URETERS: There is a 1 cm low-attenuation lesion in lateral upper pole of the right kidney measuring 1 cm. This has peripheral calcification. Hounsfield units following IV contrast measure 65, axial image 27 series 3. This is unchanged from recent exam when compared with previous renal ultrasound likely represents a complex cyst. There are 2 smaller, less than 5 mm low-attenuation lesions in the right kidney. These are difficult to characterize due to small size but appear unchanged as well. BLADDER: The prostate gland is enlarged and protrudes into the base of the bladder. GASTROINTESTINAL TRACT: There is diverticulosis of the colon. There is wall thickening of the distal left colon. There is stranding of the surrounding fat. Appearance is suggestive of diverticulitis or colitis. Small and large bowel is otherwise unremarkable. The appendix is unremarkable. The stomach is unremarkable. ABDOMINAL WALL: There are umbilical and right inguinal hernias containing fat. There is a small left inguinal hernia that contains fluid. This is similar to exam from August 2021.? LYMPH NODES: Normal. VASCULAR: Unremarkable. PELVIC VISCERA: The prostate gland is enlarged and protrudes into the base of the bladder.? OSSEOUS STRUCTURES: There are degenerative changes of the spine. There are small nonspecific sclerotic lesions seen in the spine and pelvis and left femoral head that are stable. The largest measures 5 x [address] right pub[address] ramus. CT/CT abdomen pelvis w con IMPRESSION: Diverticulitis of the distal left colon. Other stable findings from August 2021 exam.? ? Fleischner guidelines were followed. Discharge Plan Discharge Clinical Impression: Diverticulitis Patient Disposition: Home, Self-Care Instructions: Diverticulitis (ED), Diverticulitis Diet (ED) Additional Instructions: If you have any worsening symptoms, please return immediately to the emergency room. Please follow-up with your primary care physician tomorrow. If you have any worsening or new symptoms, please return to the emergency room or call 911 Prescriptions: New amoxicillin-pot clavulanate [Augmentin] 875-125 mg tablet 1 tab PO BID Qty: 19 RF: 0 No Action amlodipine 10 mg tablet 10 mg PO BEDTIME 90 Days Qty: 90 RF: 3 ondansetron HCl [Zofran] 4 mg tablet 4 mg PO Q6H PRN (Reason: nausea and vomiting) Qty: 14 RF: 0 sucralfate 100 mg/mL suspension 10 ml PO QID PRN (Reason: Abdominal Discomfort) RF: 0 tamsulosin 0.4 mg capsule 0.4 mg PO DAILY@1700 RF: 0 gabapentin 100 mg capsule 100 mg PO BEDTIME RF: 0 losartan 25 mg tablet 25 mg PO BEDTIME RF: 0 omeprazole 20 mg capsule,delayed release(DR/EC) 20 mg PO DAILY PRNRF: 0 hyoscyamine sulfate 0.125 mg tablet 0.125 mg PO Q6H PRN (Reason: Cramps) RF: 0 PMFSH Past Medical History Medical History Arthritis Autoimmune encephalitis Axillary abscess Back pain Cervical spondyloarthritis COVID-19 vaccine series completed Cyst, kidney, acquired DDD (degenerative disc disease) Depression Fatty liver Gallstones GERD (gastroesophageal reflux disease) History of lumbar puncture Hx of Guillain-[place] syndrome Hx of prostatitis Hypertension Left inguinal hernia Mood disorder Peripheral neuropathy Pre-diabetes Prostatitis Surgical History History of esophagogastroduodenoscopy (EGD) Hx of colonoscopy Social History Social History Are you a primary transitional care nurse to a significant other at home: No Do you presently have visiting nurse or other home services: No Alcohol intake: never Patient Tobacco Use Status: Former Tobacco user Quit Date: 1988 Advance Directives: No
[2021-10-09 08:50] VITALS: BP 129/58; PULSE 72; RESP 14; O2SAT 96
[2021-10-09 08:56] LABS: Blood Urea Nitrogen 12 mg/dL (9-16); Calcium 9.8 mg/dL (8.4-10.2); Estimated Glomerular Filt Rate > 60; Glucose Random 113 mg/dL (60-115)
[2021-10-09 09:07] LABS: Alanine Aminotransferase 17 U/L (0-40); Albumin Level 4.3 g/dL (3.5-5.0); Alkaline Phosphatase 55 U/L (39-117); Aspartate Amino Transferase 14 U/L (5-37); Bilirubin Direct 0.6 mg/dL (0.0-0.5); Bilirubin Total 1.9 mg/dL (0.0-1.0); Lipase 15 U/L (8-78); Total Protein 7.4 g/dL (6.5-8.0)
[2021-10-09 09:09] LABS: Anion Gap 12 (12-20); Carbon Dioxide 27 mmol/L (22-29); Chloride 104 mmol/L (96-108); Potassium 3.7 mmol/L (3.3-5.1); Sodium 139 mmol/L (135-145)
[2021-10-09] MEDS: iohexoL 350 MG/ML 100 ML INFUS..BTL IV (09:58)
[2021-10-09 12:08] VITALS: BP 120/54; PULSE 64; O2SAT 96
[2021-10-09] MEDS: Amoxicillin/Potassium Clav 875 MG TABLET PO (12:09)
== END 2021-10-09 12:26 | disposition home or self-care (01) ==
PROVIDERS: Emergency Provider Emergency Medicine; PCP Internal Medicine
DX: K57.32 Diverticulitis of large intestine without perforation or abscess without bleeding (principal); R10.32 Left lower quadrant pain; Z79.899 Other long term (current) drug therapy; Z87.891 Personal history of nicotine dependence
CPT/HCPCS: 36415; 74177; 80048; 80076; 81003; 83690; 85025; 99284; Q9967

== ENCOUNTER 2022-01-27 10:35 | Outpatient (REF) | payer OTHER, SELFPAY ==
--- NOTE | ~2022-01-27 | CT_ITS ---
EXAMINATION: CT ABDOMEN AND PELVIS WITH CONTRAST CLINICAL INFORMATION: Abdominal pain. History of diverticulitis. COMPARISON: Previous CT of the abdomen and pelvis most recent September 2021 and previous renal ultrasound August 2021 TECHNIQUE: Multidetector volumetric images were obtained from the superior aspect of the liver through the pubic symphysis following administration 85 mL of Omnipaque 350 intravenous contrast. Sagittal and coronal reformatted images were obtained on the technologist's workstation. Oral contrast: Yes This CT examination was performed using dose optimization techniques as appropriate, variously including the following: *Automated exposure control *Adjustment of mA and/or kV according to patient size (this includes techniques or standardized protocols for targeted exams where dose is matched to indication/reason for exam; i.e. extremities or head) *Use of iterative reconstruction technique DLP: 522 mGy-cm FINDINGS: LUNG BASES: There are small peripheral pulmonary nodules that are stable. LIVER, GALLBLADDER, AND BILIARY TREE: The liver is normal in size, shape, and attenuation. No focal hepatic lesion or biliary ductal dilatation is present. The gallbladder is unremarkable with no evidence of radiopaque gallstones, gallbladder wall thickening, or obvious pericholecystic inflammatory changes. PANCREAS: The main pancreatic duct is slightly prominent measuring up to 4 mm pancreas. This is stable. SPLEEN: Unremarkable. ADRENAL GLANDS: Unremarkable. KIDNEYS AND URETERS: There is low-attenuation seen in the anterior lateral upper pole of the right kidney measuring approximately 1 cm. This is slightly irregularly-shaped. There is adjacent calcification. This is not compatible with a simple cyst. Hounsfield units following contrast measure 70. This is stable from previous exams and probably represents a complex cyst when compared with previous renal ultrasound August 2021. There may be 2 tiny cysts in the lower pole of the right kidney. The left kidney is unremarkable. BLADDER: The prostate gland is enlarged and protrudes into the base of the bladder. The bladder is otherwise normal. GASTROINTESTINAL TRACT: There is diverticulosis of the colon. No evidence of diverticulitis is there is stool throughout the colon. The small and large bowel are otherwise unremarkable. The appendix is unremarkable. ABDOMINAL WALL: There is a small umbilical hernia containing fat. There is a right inguinal hernia containing fat. There is a small amount of fluid and soft tissue now. This is similar to previous exam. This may represent postsurgical change. LYMPH NODES: Normal. VASCULAR: Unremarkable. PELVIC VISCERA: Prostate gland is enlarged and protrudes into the base of the bladder. The prostate gland measures 5 x 6 cm in AP and transverse dimension 3 OSSEOUS STRUCTURES: There are small sclerotic bone lesions that are stable. The largest measures 1 cm in the left pelvis. CT/CT abdomen pelvis w con IMPRESSION: Diverticulosis. No evidence of diverticulitis. Enlarged prostate gland. Stable probable complex cyst in the upper pole right kidney. Fleischner guidelines were followed.
[2022-01-27 10:45] LABS: MANUAL DIFF FLAG NO
[2022-01-27 11:08] LABS: Basophils Percent Auto 0.8 % (0-2); Eosinophils Absolute Auto 0.2 X10*3/uL (0.0-0.4); Eosinophils Percent Auto 3.8 % (0-4); Hematocrit 43.3 % (42.0-52.0); Hemoglobin 14.4 g/dl (14.0-18.0); Imm Gran Abs Auto 0.02 X10*3/uL (0.00-0.03); Imm Gran Pct Auto 0.4 % (0.0-0.4); Lymphocytes Absolute Auto 1.7 X10*3/uL (1.2-4.9); Lymphocytes Percent Auto 31.8 % (20-40); Mean Corpuscular HGB Conc 33.3 g/dl (31.0-36.0); Mean Corpuscular Hemoglobin 29.5 pg (27.0-33.0); Mean Corpuscular Volume 88.7 fL (80.0-98.0); Mean Platelet Volume 10.3 fL (9.4-12.4); Monocytes Absolute Auto 0.6 X10*3/uL (0.1-1.2); Monocytes Percent Auto 10.5 % (2-11); Neutrophils Absolute Auto 2.8 x10*3/uL (2.0-8.3); Neutrophils Percent Auto 52.7 % (45-73); Platelet Count 194 X10*3/uL (160-400); Red Blood Count 4.88 X10*6/uL (4.60-5.80); Red Cell Distribution Width 12.2 % (11.0-16.0); White Blood Count 5.3 X10*3/uL (4.8-10.8)
[2022-01-27 11:52] LABS: Alanine Aminotransferase 21 U/L (0-40); Albumin Level 4.1 g/dL (3.5-5.0); Alkaline Phosphatase 56 U/L (39-117); Amylase 71 U/L (28-100); Anion Gap 12 (12-20); Aspartate Amino Transferase 16 U/L (5-37); Bilirubin Direct 0.5 mg/dL (0.0-0.5); Bilirubin Total 1.7 mg/dL (0.0-1.0); Blood Urea Nitrogen 13 mg/dL (9-16); C Reactive Protein 0.18 mg/dL (< or = 0.50); Calcium 9.9 mg/dL (8.4-10.2); Carbon Dioxide 29 mmol/L (22-29); Chloride 102 mmol/L (96-108); Estimated Glomerular Filt Rate > 60; Glucose Random 121 mg/dL (60-115); Lipase 18 U/L (8-78); Potassium 4.1 mmol/L (3.3-5.1); Sodium 139 mmol/L (135-145); Total Protein 7.9 g/dL (6.5-8.0)
[2022-01-27 11:53] LABS: Erythrocyte Sedimentation Rate 9 MM/HR (0-15)
[2022-01-27 12:36] LABS: Appearance Urine CLEAR; Color Urine YELLOW; Glucose Urine UA NEG (NEG); Leukocyte Esterase Urine NEG (NEG); Nitrite Urine NEG (NEG); Specific Gravity - Urine <= 1.005 (1.005-1.025); Urine Blood NEG (NEG); Urine Ketones NEG (NEG); Urine Protein NEG (NEG-TRACE)
[2022-01-27] MEDS: iohexoL 350 MG/ML 75 ML INFUS..BTL 85 ML IV (13:59)
== END 2022-01-27 10:36 | disposition home or self-care (01) ==
LOC: HO.CT 10:35
PROVIDERS: PCP Internal Medicine; Visit Provider Internal Medicine
DX: R10.84 Generalized abdominal pain (principal); K57.90 Diverticulosis of intestine, part unspecified, without perforation or abscess without bleeding; Z87.19 Personal history of other diseases of the digestive system
CPT/HCPCS: 36415; 74177; 80048; 80076; 81003; 82150; 83690; 85025; 85652; 86140; Q9967

== ENCOUNTER → 2022-02-25 11:00 | Outpatient (BNVA) | payer OTHER, SELFPAY | PROVIDERS: PCP Internal Medicine; Referring Provider Internal Medicine; Visit Provider Internal Medicine Cardiovascular Disease | DX: I10 Essential (primary) hypertension (principal) | CPT/HCPCS: 93005 ==

== ENCOUNTER 2022-03-18 10:42 | Outpatient (REF) | payer OTHER, SELFPAY ==
[2022-03-18 11:00] LABS: MANUAL DIFF FLAG NO
[2022-03-18 11:26] LABS: Basophils Absolute Auto 0.1 X10*3/uL (0.0-0.2); Basophils Percent Auto 0.9 % (0-2); Eosinophils Absolute Auto 0.4 X10*3/uL (0.0-0.4); Eosinophils Percent Auto 5.7 % (0-4); Hematocrit 41.5 % (42.0-52.0); Hemoglobin 13.9 g/dl (14.0-18.0); Imm Gran Abs Auto 0.03 X10*3/uL (0.00-0.03); Imm Gran Pct Auto 0.4 % (0.0-0.4); Lymphocytes Absolute Auto 1.8 X10*3/uL (1.2-4.9); Lymphocytes Percent Auto 23.6 % (20-40); Mean Corpuscular HGB Conc 33.5 g/dl (31.0-36.0); Mean Corpuscular Hemoglobin 29.8 pg (27.0-33.0); Mean Corpuscular Volume 88.9 fL (80.0-98.0); Mean Platelet Volume 10.1 fL (9.4-12.4); Monocytes Absolute Auto 0.9 X10*3/uL (0.1-1.2); Monocytes Percent Auto 11.1 % (2-11); Neutrophils Absolute Auto 4.5 x10*3/uL (2.0-8.3); Neutrophils Percent Auto 58.3 % (45-73); Platelet Count 185 X10*3/uL (160-400); Red Blood Count 4.67 X10*6/uL (4.60-5.80); Red Cell Distribution Width 12.5 % (11.0-16.0); White Blood Count 7.7 X10*3/uL (4.8-10.8)
[2022-03-18 11:38] LABS: Appearance Urine CLEAR; Color Urine YELLOW; Glucose Urine UA NEG (NEG); Leukocyte Esterase Urine NEG (NEG); Nitrite Urine NEG (NEG); Specific Gravity - Urine <= 1.005 (1.005-1.025); Urine Blood NEG (NEG); Urine Ketones NEG (NEG); Urine Protein NEG (NEG-TRACE)
[2022-03-18 11:39] LABS: Estimated Average Glucose 111 mg/dL; Hemoglobin A1c % 5.5 %
[2022-03-18 11:57] LABS: Alanine Aminotransferase 26 U/L (0-40); Albumin Level 4.6 g/dL (3.5-5.0); Alkaline Phosphatase 57 U/L (39-117); Anion Gap 11 (12-20); Aspartate Amino Transferase 18 U/L (5-37); Bilirubin Total 1.7 mg/dL (0.0-1.0); Blood Urea Nitrogen 12 mg/dL (9-16); Calcium 9.7 mg/dL (8.4-10.2); Carbon Dioxide 31 mmol/L (22-29); Chloride 104 mmol/L (96-108); Cholesterol 183 mg/dL; Estimated Glomerular Filt Rate > 60; Glucose Random 108 mg/dL (60-115); HDL Cholesterol 33 mg/dL; LDL Cholesterol Calculated 128 mg/dl; Potassium 4.7 mmol/L (3.3-5.1); Sodium 141 mmol/L (135-145); Total Protein 7.7 g/dL (6.5-8.0); Triglycerides 112 mg/dL
[2022-03-18 12:20] LABS: Free T4 (Free Thyroxine) 0.89 ng/dL (0.71-1.85); Thyroid Stimulating Hormone 1.12 uIU/mL (0.32-4.0); Vitamin D 25-OH Total 22.3 ng/mL (>30)
[2022-03-18 12:29] LABS: Vitamin B12 202 pg/mL (200-900)
== END 2022-03-18 10:43 | disposition home or self-care (01) ==
LOC: HO.LAB 10:42
PROVIDERS: PCP Internal Medicine; Visit Provider Internal Medicine
DX: R42 Dizziness and giddiness (principal); I10 Essential (primary) hypertension; R73.01 Impaired fasting glucose; R53.81 Other malaise; R53.83 Other fatigue
CPT/HCPCS: 36415; 80053; 80061; 81003; 82306; 82607; 83036; 84439; 84443; 85025

== ENCOUNTER 2022-04-26 15:31 | Outpatient (REF) | payer OTHER, SELFPAY ==
[2022-04-26 16:41] LABS: Magnesium 2.2 mg/dL (1.6-2.6)
[2022-04-26 17:07] LABS: Vitamin B12 187 pg/mL (200-900)
[2022-04-28 01:16] LABS: Lyme Abs Screen <0.90 index
[2022-04-28 12:55] LABS: Folate 14.7 ng/mL (> or = 4.0)
[2022-04-30 10:06] LABS: Methylmalonic Acid 900 nmol/L (87-318)
[2022-05-03 23:42] LABS: Intrinsic Factor Antibodies Negative (Negative)
[2022-05-04 14:02] LABS: Parietal Cell Antibody <=20.0 Unit (<=20.0)
== END 2022-04-26 15:32 | disposition home or self-care (01) ==
LOC: HO.LAB 15:31
PROVIDERS: PCP Internal Medicine; Visit Provider Internal Medicine
DX: I10 Essential (primary) hypertension (principal); E53.8 Deficiency of other specified B group vitamins; S80.861A Insect bite (nonvenomous), right lower leg, initial encounter; W57.XXXA Bitten or stung by nonvenomous insect and other nonvenomous arthropods, initial encounter; Y93.9 Activity, unspecified; Y92.9 Unspecified place or not applicable; Y99.8 Other external cause status
CPT/HCPCS: 36415; 82607; 82746; 83516; 83735; 83921; 86340; 86617; 86618

== ENCOUNTER 2022-04-30 11:29 | Outpatient (REF) | payer OTHER, SELFPAY ==
[2022-04-30 11:40] LABS: MANUAL DIFF FLAG NO
[2022-04-30 12:18] LABS: Basophils Absolute Auto 0.1 X10*3/uL (0.0-0.2); Basophils Percent Auto 0.9 % (0-2); Eosinophils Absolute Auto 0.2 X10*3/uL (0.0-0.4); Eosinophils Percent Auto 2.9 % (0-4); Hematocrit 42.6 % (42.0-52.0); Hemoglobin 14.1 g/dl (14.0-18.0); Imm Gran Abs Auto 0.04 X10*3/uL (0.00-0.03); Imm Gran Pct Auto 0.6 % (0.0-0.4); Lymphocytes Absolute Auto 1.9 X10*3/uL (1.2-4.9); Lymphocytes Percent Auto 29.2 % (20-40); Mean Corpuscular HGB Conc 33.1 g/dl (31.0-36.0); Mean Corpuscular Hemoglobin 29.6 pg (27.0-33.0); Mean Corpuscular Volume 89.3 fL (80.0-98.0); Mean Platelet Volume 10.3 fL (9.4-12.4); Monocytes Absolute Auto 0.7 X10*3/uL (0.1-1.2); Monocytes Percent Auto 10.8 % (2-11); Neutrophils Absolute Auto 3.6 x10*3/uL (2.0-8.3); Neutrophils Percent Auto 55.6 % (45-73); Platelet Count 196 X10*3/uL (160-400); Red Blood Count 4.77 X10*6/uL (4.60-5.80); Red Cell Distribution Width 12.5 % (11.0-16.0); White Blood Count 6.5 X10*3/uL (4.8-10.8)
[2022-04-30 13:15] LABS: Prostate Specific Antigen 1.62 ng/mL (<0.05-4.0)
== END 2022-04-30 11:30 | disposition home or self-care (01) ==
LOC: HO.LAB 11:29
PROVIDERS: Absent Provider Internal Medicine; PCP Internal Medicine; Visit Provider Urology
DX: Z12.5 Encounter for screening for malignant neoplasm of prostate (principal); N13.8 Other obstructive and reflux uropathy; N40.1 Benign prostatic hyperplasia with lower urinary tract symptoms; E53.8 Deficiency of other specified B group vitamins
CPT/HCPCS: 36415; 84153; 85025

== ENCOUNTER 2022-05-10 13:34 | Outpatient (REF) | payer OTHER, SELFPAY ==
--- NOTE | ~2022-05-10 | MR_ITS ---
EXAMINATION: MR CERVICAL SPINE WITHOUT CONTRAST CLINICAL INFORMATION: Cervical stenosis and cervicalgia. COMPARISON: Multiple prior MRI scans of the cervical spine, the most recent 01/26/2021. Plain films of the cervical spine 02/05/2021. TECHNIQUE: MRI of the cervical spine was obtained using routine sequences without contrast. FINDINGS: VERTEBRAL BODIES AND PARASPINAL SOFT TISSUES: The study redemonstrates a mild dextroscoliosis in the cervicothoracic region. There is mild reversal of the cervical lordosis. There are mild anterolisthesis of C2 on C3 and C7 on T1. There is multilevel narrowing of intervertebral disc height which is most severe at C5-C6 and C6-C7 and there are degenerative endplate contour changes. Minimal edematous signal is seen at C4-C5 and C6-C7. Vertebral body heights are maintained and no fractures are demonstrated. Overall, marrow signal is homogenous. There are small T2 hyperintense nodules in the left and right lobes of the thyroid gland; the thyroid gland was not well visualized on prior imaging. CERVICOMEDULLARY JUNCTION AND VISUALIZED POSTERIOR FOSSA: The craniocervical and posterior fossa structures are normal. Accounting for artifact, spinal cord signal appears normal. SPINAL LEVELS: C2-C3: There is moderate right facet arthropathy. There is a shallow posterior disc osteophyte complex without cord compression or central stenosis. There are uncovertebral osteophytes and there is moderate right foraminal narrowing. C3-C4: The facet joints appear normal. There is a posterior disc protrusion without cord compression or central stenosis. The neural foramina appear patent bilaterally. C4-C5: There is mild bilateral facet arthropathy. There is a posterior disc protrusion which is more prominent toward the left with flattening of the ventral thecal sac. There is no cord compression. There is mild central stenosis. There are uncovertebral osteophytes and there is severe left foraminal narrowing.. C5-C6: The facet joints appear normal. There is a left-sided disc protrusion which distorts the ventral thecal sac and impinges on the ventral aspect of the spinal cord on the left without cord compression. There is mild central stenosis. There are uncovertebral osteophytes and there is moderate left and mild right foraminal narrowing. C6-C7: The facet joints appear normal. There is a posterior disc protrusion which effaces CSF ventral to the cord without cord compression. There is mild central stenosis. There are uncovertebral osteophytes and there is mild bilateral foraminal narrowing. C7-T1: There is mild left facet arthropathy. There is a shallow posterior disc protrusion but there is no cord compression or central stenosis. The neural foramina are patent bilaterally. MR/MR cervical spine wo con IMPRESSION: 1. At C4-C5 there is facet arthropathy and there is a posterior disc protrusion with flattening of the ventral thecal sac. There is mild central stenosis. There is severe left foraminal narrowing. 2. At C5-C6 there is a left-sided disc protrusion with mild impingement on the cord, and there is mild central stenosis. There is moderate left and mild right foraminal narrowing. 3. At C6-C7 there is a posterior disc protrusion without cord compression. There is mild central stenosis. There is mild bilateral foraminal narrowing. 4. At C2-C3 there is a shallow posterior disc osteophyte complex. There is no cord compression or central stenosis. There is moderate right foraminal narrowing.
== END 2022-05-10 13:35 | disposition home or self-care (01) ==
LOC: HO.MRI 13:34
PROVIDERS: Visit Provider Internal Medicine
DX: M54.2 Cervicalgia (principal); M48.02 Spinal stenosis, cervical region
CPT/HCPCS: 72141

== ENCOUNTER 2022-06-01 15:15 | Outpatient (REF) | payer OTHER, SELFPAY ==
[2022-06-01 16:10] LABS: Estimated Average Glucose 103 mg/dL; Hemoglobin A1c % 5.2 %
[2022-06-01 16:32] LABS: Anion Gap 13 (12-20); Blood Urea Nitrogen 17 mg/dL (9-16); Calcium 10.1 mg/dL (8.4-10.2); Carbon Dioxide 29 mmol/L (22-29); Chloride 102 mmol/L (96-108); Estimated Glomerular Filt Rate > 60; Glucose Random 96 mg/dL (60-115); Potassium 4.6 mmol/L (3.3-5.1); Sodium 139 mmol/L (135-145)
[2022-06-01 17:13] LABS: Vitamin B12 346 pg/mL (200-900)
== END 2022-06-01 15:16 | disposition home or self-care (01) ==
LOC: HO.LAB 15:15
PROVIDERS: PCP Internal Medicine; Visit Provider Internal Medicine
DX: R73.01 Impaired fasting glucose (principal); E53.8 Deficiency of other specified B group vitamins
CPT/HCPCS: 36415; 80048; 82607; 83036

== ENCOUNTER 2022-06-07 16:35 | Outpatient (REF) | payer OTHER, SELFPAY ==
--- NOTE | ~2022-06-07 | MR_ITS ---
EXAMINATION: MR ANGIOGRAPHY BRAIN WITHOUT AND WITH CONTRAST MR ANGIOGRAPHY OF THE NECK WITHOUT AND WITH CONTRAST CLINICAL INFORMATION: Persistent and recurrent dizziness, cardiac or vascular cause suspected. COMPARISON: None. MRA NECK TECHNIQUE: 2-D ehey-xv-fxbdcd MR angiography of the intracranial circulation was done followed by bolus enhanced 3-D fluy-hn-isszvh MRA utilizing the intravenous administration of 7.5 mL of Gadavist. FINDINGS: There is antegrade flow in both vertebral arteries, which appear codominant. The origin of the left common carotid artery arises from the base of the innominate consistent with a bovine origin variant. The innominate artery is normal in caliber and configuration. The proximal left subclavian artery also appears normal in caliber and configuration. There is a focal kink or possibly severe short segment focal stenosis near the origin of the right vertebral artery. The origin of the left vertebral artery appears mildly narrowed but not significantly stenotic. Otherwise the vertebral arteries are poorly visualized on the 3-D xtim-ja-ggwokh portion of the exam. The common carotid arteries are patent and normal in caliber with smooth contours bilaterally. The left carotid bifurcation is patent with smooth contours with no significant focal stenosis at the origins of the ICA or ECA. The left cervical ECA and ICA are patent and normal in caliber. On the right side, the proximal right ICA is patent and normal in caliber with normal caliber to the remainder of the cervical right ICA. There may be focal plaque and mild stenosis of the origin of the right ECA but this cannot be confirmed with a high degree of certainty. Otherwise the ECA is patent. MRA HEAD TECHNIQUE: 3-D xbsq-vr-eyzzne MR angiography of the intracranial circulation was done prior to and following the intravenous administration of 7.5 mm Gadavist with multiplanar reformatted reconstructions. FINDINGS: The intracranial internal carotid arteries are patent and normal in caliber bilaterally. The A1 and A2 segments are patent and normal in caliber with a normal appearance to the anterior communicating artery. The M1 segments are patent and normal in caliber bilaterally with a normal appearance to the MCA bifurcations and M2 branches. The intradural vertebral arteries are patent, with the right being a dominant. The basilar artery is normal in caliber and configuration. The superior cerebellar and posterior cerebral arteries are patent and normal in caliber. There is normal enhancement within the visualized major dural venous sinuses, including the sigmoid and transverse sinuses, torcula and straight sinus. Superior sagittal sinus is mostly off of the eufzi-nh-rmrn. MR/MR angio neck wo/w con IMPRESSION: 1. The no significant intracranial or extracranial arterial stenosis or occlusion of the cerebral circulation as described above within the limitations of the study (vertebral arteries within the neck are not well visualized which is likely technique related, cannot exclude a focal kink or short segment stenosis near the origin of the right vertebral artery). 2. No evidence for intracranial aneurysm or high-flow vascular malformation.
--- NOTE | ~2022-06-07 | MR_ITS ---
EXAMINATION: MR ANGIOGRAPHY BRAIN WITHOUT AND WITH CONTRAST MR ANGIOGRAPHY OF THE NECK WITHOUT AND WITH CONTRAST CLINICAL INFORMATION: Persistent and recurrent dizziness, cardiac or vascular cause suspected. COMPARISON: None. MRA NECK TECHNIQUE: 2-D jalz-hv-vqyrmz MR angiography of the intracranial circulation was done followed by bolus enhanced 3-D hdms-hp-bhenkp MRA utilizing the intravenous administration of 7.5 mL of Gadavist. FINDINGS: There is antegrade flow in both vertebral arteries, which appear codominant. The origin of the left common carotid artery arises from the base of the innominate consistent with a bovine origin variant. The innominate artery is normal in caliber and configuration. The proximal left subclavian artery also appears normal in caliber and configuration. There is a focal kink or possibly severe short segment focal stenosis near the origin of the right vertebral artery. The origin of the left vertebral artery appears mildly narrowed but not significantly stenotic. Otherwise the vertebral arteries are poorly visualized on the 3-D dagm-ta-oquaxj portion of the exam. The common carotid arteries are patent and normal in caliber with smooth contours bilaterally. The left carotid bifurcation is patent with smooth contours with no significant focal stenosis at the origins of the ICA or ECA. The left cervical ECA and ICA are patent and normal in caliber. On the right side, the proximal right ICA is patent and normal in caliber with normal caliber to the remainder of the cervical right ICA. There may be focal plaque and mild stenosis of the origin of the right ECA but this cannot be confirmed with a high degree of certainty. Otherwise the ECA is patent. MRA HEAD TECHNIQUE: 3-D pdwl-fy-nkfdid MR angiography of the intracranial circulation was done prior to and following the intravenous administration of 7.5 mm Gadavist with multiplanar reformatted reconstructions. FINDINGS: The intracranial internal carotid arteries are patent and normal in caliber bilaterally. The A1 and A2 segments are patent and normal in caliber with a normal appearance to the anterior communicating artery. The M1 segments are patent and normal in caliber bilaterally with a normal appearance to the MCA bifurcations and M2 branches. The intradural vertebral arteries are patent, with the right being a dominant. The basilar artery is normal in caliber and configuration. The superior cerebellar and posterior cerebral arteries are patent and normal in caliber. There is normal enhancement within the visualized major dural venous sinuses, including the sigmoid and transverse sinuses, torcula and straight sinus. Superior sagittal sinus is mostly off of the vwujo-gl-ihqo. MR/MR angio head wo/w con IMPRESSION: 1. The no significant intracranial or extracranial arterial stenosis or occlusion of the cerebral circulation as described above within the limitations of the study (vertebral arteries within the neck are not well visualized which is likely technique related, cannot exclude a focal kink or short segment stenosis near the origin of the right vertebral artery). 2. No evidence for intracranial aneurysm or high-flow vascular malformation.
== END 2022-06-07 16:36 | disposition home or self-care (01) ==
LOC: HO.MRI 16:35
PROVIDERS: Visit Provider Internal Medicine
DX: R42 Dizziness and giddiness (principal)
CPT/HCPCS: 70546; 70549; A9585

== ENCOUNTER 2022-07-14 13:51 | Outpatient (REF) | payer OTHER, SELFPAY ==
--- NOTE | ~2022-07-14 | US_ITS ---
EXAMINATION: US THYROID CLINICAL INFORMATION: Multiple thyroid nodules. COMPARISON: MRA of the neck May 2022 TECHNIQUE: Linear transducer grayscale and color Doppler examination with attention to the region of the thyroid. FINDINGS: SIZE: Measurements of the thyroid lobes and nodules are given in sagittal, anteroposterior and transverse dimensions respectively. Right Thyroid Lobe: 5.3 x 1.9 x 1.1 cm, volume 5.9 mL. Parenchyma: The gland echotexture is homogeneous. Thyroid vascularity is increased. Left Thyroid Lobe: 4.4 x 1.8 x 1.2 cm, volume 4.8 mL. Parenchyma: The gland echotexture is homogeneous. Thyroid vascularity is normal. Isthmus: 0.3 cm in maximum AP dimension. There are multiple small bilateral thyroid nodules. Estimated total number of nodules greater than or equal to 1 cm: 0. Largest nodules are described as follows: 1. Location: Right superior lateral. Size: 0.7 x 0.6 x 0.8 cm, volume 0.2 mL. Nodule characteristics: Composition: Solid/almost completely solid (2). Echogenicity: Isoechoic (1). Shape: Not taller than wide (0). Margins: Smooth (0). Echogenic Foci: None (0). ACR TI-RADS total points: 3 ACR TI-RADS category: 3 2. Location: Isthmus. Size: 0.9 x 0.4 x 0.9 cm, volume 0.2 mL. Nodule characteristics: Composition: Cystic(0). ACR TI-RADS total points: 0 ACR TI-RADS category: 1 3. Location: Left mid. Size: 0.9 x 0.6 x 0.7 cm, volume 0.2 mL. Nodule characteristics: Composition: Solid (2). Echogenicity: Hypoechoic (2). Shape: Not taller than wide (0). Margins: Smooth (0). Echogenic Foci: None (0). ACR TI-RADS total points: 4 ACR TI-RADS category: 4 4. Location: Left inferior. Size: 0.5 x 0.4 x 0.4 cm, volume 0.04 mL. Nodule characteristics: Composition: Solid/almost completely solid (2). Echogenicity: Hypoechoic (2). Shape: Not taller than wide (0). Margins: Smooth (0). Echogenic Foci: None (0). ACR TI-RADS total points: 4 ACR TI-RADS category: 4 NODES: No lymphadenopathy is seen in the tissue surrounding the thyroid gland. US/US thyroid IMPRESSION: Multiple small bilateral thyroid nodules. According to TI RADS criteria, no ultrasound follow-up recommended as described below. ACR TI-RADS RECOMMENDATION REFERENCE: Ultrasound-guided fine-needle aspiration, followup ultrasound, no further follow up. * TR1 (0 point) and TR 2 (2 points): No FNA or follow up. * TR3 (3 points): FNA if more than or equal to 2.5 cm in maximum dimension, followup ultrasound in 1, 3 and 5 years if 1.5 to 2.4 cm in maximum dimension. * TR4 (4-6 points): FNA if more than or equal to 1.5 cm in maximum dimension, followup ultrasound in 1, 2, 3 and 5 years if 1 to 1.4 cm in maximum dimension. * TR5 (more than or equal to 7 points): FNA if more than or equal to 1 cm in maximum dimension, followup ultrasound every year for 5 years if 0.5 to 0.9 cm in maximum dimension. * TR3, TR4 or TR5 nodules that are below the size threshold for followup receive no follow up.
== END 2022-07-14 13:52 | disposition home or self-care (01) ==
LOC: HO.US 13:51
PROVIDERS: Visit Provider Internal Medicine
DX: E04.2 Nontoxic multinodular goiter (principal); R93.89 Abnormal findings on diagnostic imaging of other specified body structures
CPT/HCPCS: 76536

== ENCOUNTER 2022-08-31 15:25 | Outpatient (REF) | payer OTHER, SELFPAY ==
[2022-08-31 15:45] LABS: MANUAL DIFF FLAG NO
[2022-08-31 16:42] LABS: Basophils Absolute Auto 0.1 X10*3/uL (0.0-0.2); Eosinophils Absolute Auto 0.2 X10*3/uL (0.0-0.4); Eosinophils Percent Auto 2.5 % (0-4); Hematocrit 39.4 % (42.0-52.0); Hemoglobin 13.1 g/dl (14.0-18.0); Imm Gran Abs Auto 0.01 X10*3/uL (0.00-0.03); Imm Gran Pct Auto 0.2 % (0.0-0.4); Lymphocytes Absolute Auto 1.7 X10*3/uL (1.2-4.9); Lymphocytes Percent Auto 27.6 % (20-40); Mean Corpuscular HGB Conc 33.2 g/dl (31.0-36.0); Mean Corpuscular Hemoglobin 29.1 pg (27.0-33.0); Mean Corpuscular Volume 87.6 fL (80.0-98.0); Mean Platelet Volume 10.3 fL (9.4-12.4); Monocytes Absolute Auto 0.7 X10*3/uL (0.1-1.2); Monocytes Percent Auto 11.7 % (2-11); Neutrophils Absolute Auto 3.5 x10*3/uL (2.0-8.3); Platelet Count 189 X10*3/uL (160-400); Red Cell Distribution Width 12.2 % (11.0-16.0); White Blood Count 6.1 X10*3/uL (4.8-10.8)
[2022-08-31 17:06] LABS: Alanine Aminotransferase 21 U/L (0-40); Albumin Level 4.6 g/dL (3.5-5.0); Alkaline Phosphatase 56 U/L (39-117); Amylase 73 U/L (28-100); Anion Gap 12 (12-20); Aspartate Amino Transferase 16 U/L (5-37); Bilirubin Direct 0.4 mg/dL (0.0-0.5); Bilirubin Total 1.5 mg/dL (0.0-1.0); Blood Urea Nitrogen 16 mg/dL (9-16); C Reactive Protein 0.45 mg/dL (< or = 0.50); Calcium 9.7 mg/dL (8.4-10.2); Carbon Dioxide 29 mmol/L (22-29); Chloride 104 mmol/L (96-108); Estimated Glomerular Filt Rate > 60; Glucose Random 92 mg/dL (60-115); Lipase 23 U/L (8-78); Potassium 4.8 mmol/L (3.3-5.1); Sodium 140 mmol/L (135-145); Total Protein 7.5 g/dL (6.5-8.0)
[2022-08-31 17:30] LABS: Erythrocyte Sedimentation Rate 13 MM/HR (0-15)
== END 2022-08-31 15:26 | disposition home or self-care (01) ==
LOC: HO.LAB 15:25
PROVIDERS: PCP Internal Medicine; Visit Provider Internal Medicine
DX: R10.32 Left lower quadrant pain (principal); K57.90 Diverticulosis of intestine, part unspecified, without perforation or abscess without bleeding
CPT/HCPCS: 36415; 80048; 80076; 82150; 83690; 85025; 85652; 86140

== ENCOUNTER 2022-09-02 08:59 | Outpatient (REF) | payer OTHER, SELFPAY ==
--- NOTE | ~2022-09-02 | CT_ITS ---
EXAMINATION: CT ABDOMEN AND PELVIS WITH CONTRAST CLINICAL INFORMATION: Left lower quadrant pain. Prior history diverticulitis. COMPARISON: CT abdomen and pelvis 01/27/[address] studies dating back to 05/14/2020; ultrasound abdomen 12/26/2020. TECHNIQUE: Multidetector volumetric images were obtained from the superior aspect of the liver through the pubic symphysis following administration 85 mL of Omnipaque 350 intravenous contrast. Sagittal and coronal reformatted images were obtained on the technologist's workstation. Oral contrast: Yes This CT examination was performed using dose optimization techniques as appropriate, variously including the following: *Automated exposure control *Adjustment of mA and/or kV according to patient size (this includes techniques or standardized protocols for targeted exams where dose is matched to indication/reason for exam; i.e. extremities or head) *Use of iterative reconstruction technique DLP: 513 mGy-cm FINDINGS: LUNG BASES: No airspace consolidation or effusion. There is stable punctate subpleural nodule left posterior lateral base series and stable subpleural nodule right lateral base series 03/5412 without significant change since 05/14/2020 consistent with benign nodularity. LIVER, GALLBLADDER, AND BILIARY TREE: Liver is normal in size and smooth in contour. There is mild diffuse hepatic steatosis. No focal parenchymal lesion or intrahepatic ductal dilatation. Gallbladder again shows mild dependent sludge in a small stone with nitrogen gas again seen. No wall thickening or pericholecystic fluid. PANCREAS: Normal in size and contour and attenuation. Pancreatic duct stable. No peripancreatic inflammatory changes. SPLEEN: Normal in size and homogeneous. Incidental 1 cm splenule left upper quadrant. ADRENAL GLANDS: Unremarkable. KIDNEYS AND URETERS: The kidneys are normal in size and enhance symmetrically. There is no hydronephrosis, hydroureter, or perinephric stranding. Probable complicated cyst lateral upper pole right kidney under 2 cm with focal rim calcification is stable in size and contour from prior studies consistent with Bosniak 2. No additional imaging follow-up recommended. BLADDER: Unremarkable. GASTROINTESTINAL TRACT: No bowel obstruction or focal inflammatory changes in bowel or mesentery. There are diverticula left colon. No diverticulitis. There is moderate stool cecum and right colon. The appendix is normal. Probable punctate gas-filled duodenal diverticulum, similar to CT 2020. No pneumatosis or free air or ascites. ABDOMINAL WALL: Small stable fat-containing umbilical hernia under 2 cm. Stable right fat-containing inguinal hernia approximately 3.5 x 4.1 x 5.4 cm similar to prior study. There is a smaller left inguinal hernia with a chronic fluid collection/seroma just deep to the inguinal ring measuring approximately 2.3 x 3.3 x 3.0 cm, present since CT 09/22/2021. LYMPH NODES: No lymphadenopathy. VASCULAR: Unremarkable. PELVIC VISCERA: Chronic enlarged prostate indenting bladder base. Seminal vesicles symmetric. OSSEOUS STRUCTURES: No acute bony abnormality. CT/CT abdomen pelvis w IV con IMPRESSION: -No bowel obstruction or focal inflammatory changes in bowel or mesentery. -Moderate stool cecum and ascending colon. Normal appendix. -No biliary ductal dilatation. No hydronephrosis. -Multiple stable findings as detailed above. Fleischner guidelines were followed.
[2022-09-02] MEDS: iohexoL 350 MG/ML 100 ML INFUS..BTL IV (11:45)
[2022-09-02] MEDS: Barium Sulfate Oral (Mocha) 450 ML ORAL.SUSP 900 ML PO (11:46)
== END 2022-09-02 09:00 | disposition home or self-care (01) ==
LOC: HO.CT 08:59
PROVIDERS: PCP Internal Medicine; Visit Provider Internal Medicine
DX: R10.32 Left lower quadrant pain (principal); K57.90 Diverticulosis of intestine, part unspecified, without perforation or abscess without bleeding
CPT/HCPCS: 74177; Q9967

== ENCOUNTER 2022-09-29 14:33 | Outpatient (REF) | payer OTHER, SELFPAY ==
[2022-09-29 15:49] LABS: MANUAL DIFF FLAG NO
[2022-09-29 15:59] LABS: Basophils Absolute Auto 0.1 X10*3/uL (0.0-0.2); Eosinophils Absolute Auto 0.3 X10*3/uL (0.0-0.4); Hematocrit 40.5 % (42.0-52.0); Hemoglobin 13.4 g/dl (14.0-18.0); Imm Gran Abs Auto 0.03 X10*3/uL (0.00-0.03); Imm Gran Pct Auto 0.4 % (0.0-0.4); Lymphocytes Absolute Auto 1.9 X10*3/uL (1.2-4.9); Lymphocytes Percent Auto 26.7 % (20-40); Mean Corpuscular HGB Conc 33.1 g/dl (31.0-36.0); Mean Corpuscular Hemoglobin 29.3 pg (27.0-33.0); Mean Corpuscular Volume 88.4 fL (80.0-98.0); Mean Platelet Volume 10.1 fL (9.4-12.4); Monocytes Absolute Auto 0.9 X10*3/uL (0.1-1.2); Monocytes Percent Auto 12.4 % (2-11); Neutrophils Absolute Auto 3.8 x10*3/uL (2.0-8.3); Neutrophils Percent Auto 55.5 % (45-73); Platelet Count 192 X10*3/uL (160-400); Red Blood Count 4.58 X10*6/uL (4.60-5.80); Red Cell Distribution Width 12.2 % (11.0-16.0); White Blood Count 6.9 X10*3/uL (4.8-10.8)
[2022-09-29 16:29] LABS: Alanine Aminotransferase 23 U/L (0-40); Albumin Level 4.7 g/dL (3.5-5.0); Alkaline Phosphatase 48 U/L (39-117); Anion Gap 9 (12-20); Aspartate Amino Transferase 18 U/L (5-37); Bilirubin Total 1.3 mg/dL (0.0-1.0); Blood Urea Nitrogen 13 mg/dL (9-16); Carbon Dioxide 31 mmol/L (22-29); Chloride 104 mmol/L (96-108); Cholesterol 184 mg/dL; Estimated Glomerular Filt Rate > 60; Glucose Random 97 mg/dL (60-115); HDL Cholesterol 33 mg/dL; LDL Cholesterol Calculated 121 mg/dl; Potassium 4.7 mmol/L (3.3-5.1); Sodium 139 mmol/L (135-145); Total Protein 7.7 g/dL (6.5-8.0); Triglycerides 152 mg/dL
[2022-09-29 16:45] LABS: Thyroid Stimulating Hormone 1.23 uIU/mL (0.32-4.0); Vitamin D 25-OH Total 20.3 ng/mL (>30)
[2022-09-29 16:47] LABS: Vitamin B12 471 pg/mL (200-900)
== END 2022-09-29 14:34 | disposition home or self-care (01) ==
LOC: HO.LAB 14:33
PROVIDERS: PCP Internal Medicine; Referring Provider Internal Medicine; Visit Provider Internal Medicine Cardiovascular Disease
DX: I10 Essential (primary) hypertension (principal); R42 Dizziness and giddiness; E53.8 Deficiency of other specified B group vitamins; E55.9 Vitamin D deficiency, unspecified
CPT/HCPCS: 36415; 80053; 80061; 82306; 82607; 84443; 85025; 93005

== ENCOUNTER → 2022-10-06 13:23 | Outpatient (BNVA) | payer OTHER, SELFPAY | PROVIDERS: PCP Internal Medicine; Visit Provider Surgery | DX: Z13.89 Encounter for screening for other disorder (principal) ==

== ENCOUNTER 2022-12-08 13:53 | Outpatient (REF) | payer OTHER, SELFPAY ==
--- NOTE | ~2022-12-08 | US_ITS ---
EXAMINATION: US EXTRACRANIAL CAROTID DUPLEX, BILATERAL CLINICAL INFORMATION: Carotid stenosis. COMPARISON: MRA neck 06/07/2022. TECHNIQUE: Real-time ultrasound and Doppler techniques (integrating B-mode 2-D vascular images, Doppler spectral analysis and color-flow Doppler imaging) were utilized to interrogate the extracranial carotid arteries, the vertebral arteries and proximal subclavian arteries bilaterally. The degree of stenosis is determined by criteria similar to NASCET. FINDINGS: Right Side: 1. There is no atherosclerotic plaque seen in the bifurcation/proximal ICA region. 2. The common carotid artery PSV proximally is 129 cm/s and distally 104 cm/s. 3. The proximal internal carotid artery velocities are 106 cm/s systolic and 24 cm/s diastolic. 4. The proximal external carotid artery PSV is 128 cm/s. 5. The vertebral artery shows antegrade flow. 6. The subclavian artery waveforms are normal. Left Side: 1. There is mild atherosclerotic plaque seen in the bifurcation/proximal ICA region. 2. The common carotid artery PSV proximally is 124 cm/s and distally 95 cm/s. 3. The proximal internal carotid artery velocities are 84 cm/s systolic and 22 cm/s diastolic. 4. The proximal external carotid artery PSV is 116 cm/s. 5. The vertebral artery shows antegrade flow. 6. The subclavian artery waveforms are normal. US/US carotid duplex BI IMPRESSION: 1. RIGHT: Normal right internal carotid artery without atherosclerotic plaque or hemodynamically significant stenosis. 2. LEFT: Minimal, non-hemodynamically significant stenosis of the proximal left internal carotid artery corresponding to a 0-49% stenosis by velocity criteria.
== END 2022-12-08 13:54 | disposition home or self-care (01) ==
LOC: HO.US 13:53
PROVIDERS: PCP Internal Medicine; Visit Provider Psychiatry & Neurology Neurology
DX: I65.22 Occlusion and stenosis of left carotid artery (principal)
CPT/HCPCS: 93880

== ENCOUNTER 2022-12-09 15:35 | Outpatient (REF) | payer OTHER, SELFPAY ==
[2022-12-09 16:29] LABS: Blood Urea Nitrogen 15 mg/dL (9-16); Estimated Glomerular Filt Rate > 60
== END 2022-12-09 15:36 | disposition home or self-care (01) ==
LOC: HO.LAB 15:35
PROVIDERS: PCP Internal Medicine; Visit Provider Psychiatry & Neurology Neurology
DX: I65.29 Occlusion and stenosis of unspecified carotid artery (principal)
CPT/HCPCS: 36415; 82565; 84520

== ENCOUNTER 2022-12-10 09:24 | Outpatient (REF) | payer OTHER, SELFPAY ==
--- NOTE | ~2022-12-10 | CT_ITS ---
EXAMINATION: CT ANGIOGRAM OF THE HEAD CT ANGIOGRAM OF THE NECK CLINICAL INFORMATION: Dizziness. COMPARISON: MRA scans of the head and neck 06/07/2022. CTA of the head and neck 06/15/2019. MRI scan of the brain 04/06/2021. CT scan of the head 09/22/2021. TECHNIQUE: A noncontrast axial CT scan of the head was obtained. Test bolus series followed by intravenous administration 70 mL of Omnipaque 350. Helical imaging was performed in the axial plane from the mediastinum to the skull vertex. The degree of stenosis is based off NASCET criteria. The data was processed at the lead nuclear medicine technologist workstation for generation of MIP images. Three-dimensional volume rendered reformatted images were also generated at an offline 3-D workstation. This CT examination was performed using dose optimization techniques as appropriate, variously including the following: *Automated exposure control *Adjustment of mA and/or kV according to patient size (this includes techniques or standardized protocols for targeted exams where dose is matched to indication/reason for exam; i.e. extremities or head) *Use of iterative reconstruction technique DLP: 2350 mGy-cm. FINDINGS: CT Head: There is no evidence of acute intracranial hemorrhage or territorial infarction. No abnormal mass-effect or midline shift is seen. [place] to white matter differentiation is well preserved. No extra-axial fluid collections are identified. There is no abnormal enhancement. The ventricles and sulci are normal in size. There is no abnormal attenuation within the brain parenchyma. The osseous structures and soft tissues are normal. The frontal sinuses are hypoplastic. The mastoid air cells and visualized portions of the other paranasal sinuses are well-aerated. CTA Neck: There is a 2 vessel aortic arch, with a common origin of the left common carotid and brachiocephalic arteries. There is minimal atheromatous calcification of the arch. The great vessels of the neck are widely patent. The common carotid arteries are patent, and there is minimal atheromatous disease at the carotid bifurcations bilaterally, and there are no flow-limiting stenoses. The bilateral cervical internal carotid arteries are patent. The vertebral artery origins are well-demonstrated bilaterally. The vertebral vertebral arteries are codominant and both are patent throughout their cervical course extending intradurally. Nonvascular: There are mild emphysematous changes in the upper lung ovalle bilaterally. There is no cervical lymphadenopathy. There are multiple small low-density nodules in the thyroid gland with a calcification in the right which are not clinically significant. CTA Head: In the anterior circulation, the distal internal carotid arteries within the neck appear normal. The intracranial internal carotid arteries and their bifurcations appear normal. The middle and anterior cerebral arteries bilaterally demonstrate normal caliber with no evidence of focal stenosis, aneurysm or vascular malformation. There is normal arborization of the middle cerebral artery branches. The anterior communicating artery is normal. In the posterior circulation, the vertebral arteries are codominant and have uniform caliber. The basilar artery appears normal. The posterior cerebral arteries have normal caliber. The venous sinuses opacify normally. CT/CT angio head neck IMPRESSION: CT head and neck: 1. There are no acute bleeds or territorial infarcts. 2. There are no masses or areas of abnormal enhancement. 3. There is no cervical lymphadenopathy. CTA head and neck: 1. There are no significant stenoses in the upper chest or cervical vascular structures. 2. Intracranially, there are no focal stenoses, aneurysms or vascular malformations.
[2022-12-10] MEDS: iohexoL 350 MG/ML 100 ML INFUS..BTL IV (10:04)
== END 2022-12-10 09:25 | disposition home or self-care (01) ==
LOC: HO.CT 09:24
PROVIDERS: PCP Internal Medicine; Visit Provider Psychiatry & Neurology Neurology
DX: R42 Dizziness and giddiness (principal)
CPT/HCPCS: 70496; 70498; Q9967

== ENCOUNTER → 2023-01-14 13:29 | Outpatient (BNVA) | payer OTHER, SELFPAY | PROVIDERS: PCP Internal Medicine; Visit Provider Urology | DX: N40.1 Benign prostatic hyperplasia with lower urinary tract symptoms (principal); N13.8 Other obstructive and reflux uropathy; N41.9 Inflammatory disease of prostate, unspecified | CPT/HCPCS: 51798 ==

== ENCOUNTER 2023-04-04 14:19 | Outpatient (AMB) | payer OTHER, SELFPAY ==
--- NOTE | 2023-04-04 14:37 | MHC.OFFVIS ---
Intake Vital Signs 04/04/23 14:38 Height 6 ft Weight 173 lb BMI 23.5 BP 142/70 H Blood Pressure Location Lt brachial Position Sitting Intake Visit Reasons: 6 MTH FU Accompanied by: Self / Same As Patient Allergies codeine [Codeine] Allergy (Intermediate, Verified 04/04/23 14:42) Dizziness meperidine [Meperidine] Allergy (Mild, Verified 04/04/23 14:42) UNKNOWN Medication List - Last Reconciled 04/04/23 by Tu Sutton MD amlodipine 5 mg PO DAILY celecoxib 200 mg PO DAILY 30 days comp.stocking,thigh,long,small As directed finasteride 5 mg PO DAILY 90 days gabapentin 100 mg PO BEDTIME hyoscyamine sulfate 0.125 mg PO Q6H PRN levofloxacin 500 mg PO DAILY 7 days losartan 25 mg PO BEDTIME omeprazole 20 mg PO DAILY PRN ondansetron HCl (Zofran) 4 mg PO Q6H PRN tamsulosin 0.4 mg PO DAILY@1700 90 days HPI HPI Comments History of Present Illness Details 72-year-old gentleman here for follow-up. He was previously seen for hypertension and autoimmune encephalitis. He was complaining of some palpitations at that time too. He underwent 48 hour Holter monitor which did not reveal any significant arrhythmia. 09/29/22: On follow-up today he is complaining of many symptoms. He has abdominal complaints with abdominal pain and dizziness after eating. He is not sure whether dizziness happens when he eats foods high in sugar or not. He also has vertigo like feeling off and on. He had an MRA of the head and neck done. The right vertebral artery was not well visualized. He is seeing a vascular neurologist at [facility]. He has been taking medications regularly. He was advised to take amlodipine 04/04/23:in the morning and losartan at night. He is saying he is still gets dizziness when he changes posture. He was advised to hydrate himself better. He has not tried compression stockings before. He was given compression stockings to try. 04/04/23: He returns for follow-up. He is following in neurology at [facility]. He has been told that he may have dysautonomia and is undergoing workup for dysautonomia at [facility]. His blood pressure is mildly elevated. He continues to get dizziness off and on. He tried compression stockings but he felt that it was quite difficult to put them on. He did not feel any different in terms of his dizziness. He did have improvement in mild edema in the lower extremities related to amlodipine. [facility] Medical History Abdominal pain Arthritis Autoimmune encephalitis Axillary abscess Back pain Cervical spondyloarthritis COVID-19 vaccine series completed Cyst, kidney, acquired DDD (degenerative disc disease) Depression Fatty liver Gallstones GERD (gastroesophageal reflux disease) History of lumbar puncture Hx of Guillain-[place] syndrome Hx of prostatitis Hypertension Left inguinal hernia Mood disorder Peripheral neuropathy Pre-diabetes Prostatitis Surgical History History of esophagogastroduodenoscopy (EGD) History of hernia repair Hx of colonoscopy Family History Mother No problems noted. Father No problems noted. Social History Are you a primary patient care associate to a significant other at home: No Do you presently have visiting nurse or other home services: No Alcohol intake: never Patient Tobacco Use Status: Former Tobacco user Quit Date: 1988 Review of Systems Const Denies chills, Denies fatigue, Denies fever(s), Denies frequent falls, Denies weakness, Denies weight gain and Denies weight loss ENT Denies dizziness Card Denies chest pain, Denies leg edema, Denies lightheadedness, Denies palpitations, Denies dyspnea, Denies dyspnea on exertion, Denies orthopnea and Denies other (loss of consciousness) Resp Denies cough, Denies dyspnea and Denies dyspnea on exertion GI Denies hematochezia and Denies change in stool character Musc Denies abnormal gait, Denies muscle weakness, Denies numbness, Denies radiating pain into limb and Denies tingling Neuro Denies abnormal gait, Denies dizziness, Denies frequent falls, Denies numbness, Denies tingling and Denies weakness Endo Denies fatigue and Denies palpitations Physical Exam Vital Signs: Last Vital Signs BP 142/70 H 04/04/23 14:38 BMI result Body Mass Index 23.5 GENERAL APPEARANCE: in no acute distress, pleasant. NECK: no carotid bruit, no jugular venous distention. SKIN: no suspicious lesions, warm and dry. HEART: no murmurs, regular rate and rhythm. LUNGS: clear to auscultation bilaterally. ABDOMEN: soft, nontender. EXTREMITIES: no edema. PERIPHERAL PULSES: equal. NEUROLOGIC: No gross deficits, AAO X 3 Assessment & Plan Assessment & Plan (1) Hypertension: Code(s): I10 - Essential (primary) hypertension (2) Autoimmune encephalitis: Comment: weakness, fatigue, light headed Code(s): G04.81 - Other encephalitis and encephalomyelitis (3) Dizziness: Code(s): R42 - Dizziness and giddiness Plan [age] gentleman is here for follow-up. He has history of hypertension. His blood pressure is mildly elevated. He continues to get dizziness off and on and postural lightheadedness. I have advised him to continue same medication for now. He is following with Neurology at [facility] and it will be undergoing dysautonomia workup. He does have peripheral neuropathy and previous autoimmune encephalitis. I have advised him to keep himself well hydrated. He is using compression stockings in the afternoon but is saying that he has not felt any significant difference in his lightheadedness. Follow-up in 6 months. Thank you for allowing me to participate in the care of your patient. Please feel free to contact me if you have any questions. Coding Level of Care Code Est Pt Level 4 (53846) Diagnoses Hypertension I10 Autoimmune encephalitis G04.81 Dizziness R42
[2023-04-04 14:38] VITALS: BP 142/70; BMI 23.5
== END 2023-04-04 15:10 | disposition home or self-care (01) ==
PROVIDERS: Visit Provider Internal Medicine Cardiovascular Disease
DX: I10 Essential (primary) hypertension (principal); G04.81 Other encephalitis and encephalomyelitis; R42 Dizziness and giddiness
CPT/HCPCS: 99214

== ENCOUNTER → 2023-04-04 14:19 | Outpatient (BNVA) | payer OTHER, SELFPAY | PROVIDERS: Visit Provider Internal Medicine Cardiovascular Disease ==

== ENCOUNTER 2023-07-07 09:47 | Outpatient (REF) | payer OTHER, SELFPAY ==
--- NOTE | ~2023-07-07 | US_ITS ---
EXAMINATION: US RETROPERITONEAL LIMITED (RENAL ONLY) CLINICAL INFORMATION: Benign prostatic hyperplasia with lower urinary tract symptoms. COMPARISON: CT abdomen and pelvis 09/02/2022. Renal ultrasound 08/27/2021. Ultrasound abdomen complete 12/26/2020. TECHNIQUE: Real-time imaging of the kidneys. FINDINGS: RIGHT KIDNEY: 10.5 x 5.2 x 5.6 cm (SAG x AP x TRV). The kidney is normal in size, contour, and echogenicity. Renal cortical thickness is normal. No renal calculi or hydronephrosis. Cystic focus in the right renal interpolar region measuring 1.7 x 1.6 x 2.0 cm with calcifications along its periphery largest which measures 4 mm. LEFT KIDNEY: 11.2 x 5.5 x 4.5 cm (SAG x AP x TRV). The kidney is normal in size, contour, and echogenicity. Renal cortical thickness is normal. No calculi or focal parenchymal lesions. No hydronephrosis. US/US renal BI IMPRESSION: 1. Cystic focus in the right renal interpolar region measuring 1.7 x 1.6 x 2.0 cm with calcifications along its periphery largest which measures 4 mm. 2. Otherwise no nephrolithiasis or hydronephrosis.
== END 2023-07-07 09:48 | disposition home or self-care (01) ==
LOC: HO.US 09:47
PROVIDERS: PCP Internal Medicine; Visit Provider Urology
DX: N40.1 Benign prostatic hyperplasia with lower urinary tract symptoms (principal); N13.8 Other obstructive and reflux uropathy
CPT/HCPCS: 76775

== ENCOUNTER 2023-07-15 13:20 | Outpatient (AMB) | payer OTHER, SELFPAY ==
--- NOTE | 2023-07-15 13:21 | A.OFFVIS_ITS ---
Intake Intake Visit Reasons: 6M US(set) Intake Note: Patient is Present for Telephone Follow Up US Urology Med: Finasteride, Tamsulosin Antibiotic Allergy: None Blood Thinner: None Pharamcy: [facility] Allergies codeine [Codeine] Allergy (Intermediate, Verified 07/15/23 13:23) Dizziness meperidine [Meperidine] Allergy (Mild, Verified 07/15/23 13:23) UNKNOWN Medication List - Last Reconciled 07/15/23 by Wilmer Cavazos MD amlodipine 5 mg PO DAILY celecoxib 200 mg PO DAILY 30 days comp.stocking,thigh,long,small As directed finasteride 5 mg PO DAILY 90 days gabapentin 100 mg PO BEDTIME hyoscyamine sulfate 0.125 mg PO Q6H PRN levofloxacin 500 mg PO DAILY 7 days losartan 25 mg PO BEDTIME omeprazole 20 mg PO DAILY PRN ondansetron HCl (Zofran) 4 mg PO Q6H PRN tamsulosin 0.4 mg PO DAILY@1700 90 days HPI HPI Comments History of Present Illness Details Deuce is a pleasant male. He is a patient of Dr. Chadwick. He is seen for the following urologic conditions - prostatitis - renal cyst - lower urinary tract symptoms Telemedicine Evaluation 15 min Consultation [employer] Video attempted Short term use of finasteride - he stopped due to prostate feeling Had been reading about prostate thromboembolism Discussed laser prostatectomy Current medications include tamsulosin Followup 6m Renal cyst Detected on imaging Imaging - 04/16 CT scan complex cyst 1 cm left ki dney with enlarged prostate Prostatitis Longstanding Recurrent in past Prior negative expressed culture Question of inflammatory process PSA 05/17 1.6 Did report having improvement with viox many years ago Failed Celebrex trial. Did not tolerate Did not notice improvement with tadalafil Would recommend DNA sequencing if persistent symptoms PFSH Medical History Abdominal pain Cyst, kidney, acquired Hx of prostatitis COVID-19 vaccine series completed Depression Peripheral neuropathy Cervical spondyloarthritis Mood disorder Pre-diabetes Hx of Guillain-[place] syndrome Arthritis Back pain DDD (degenerative disc disease) Fatty liver Left inguinal hernia Axillary abscess History of lumbar puncture Autoimmune encephalitis Gallstones Hypertension GERD (gastroesophageal reflux disease) Prostatitis Surgical History History of hernia repair History of esophagogastroduodenoscopy (EGD) Hx of colonoscopy Family History Mother No problems noted. Father No problems noted. Social History Are you a primary care connector to a significant other at home: No Do you presently have visiting nurse or other home services: No Alcohol intake: never Patient Tobacco Use Status: Former Tobacco user Quit Date: 1988 Assessment & Plan Assessment & Plan (1) BPH w urinary obs/LUTS: Code(s): N40.1 - Benign prostatic hyperplasia with lower urinary tract symptoms; N13.8 - Other obstructive and reflux uropathy (2) Prostatitis: Code(s): N41.9 - Inflammatory disease of prostate, unspecified Qualifiers: Prostatitis type: chronic Qualified Code(s): N41.1 - Chronic prostatitis Plan Six month follow-up PVR Patient Instructions: Imaging studies, laboratory and physical exam results were discussed and reviewed in detail. No major barriers to patient understanding were identified. An opportunity to ask questions regarding the treatment plan was provided. All questions were answered. The patient expressed understanding and agreement with the above treatment plan. The patient is aware they should contact our office by phone for worsening of their current condition or the appearance of new urologic symptoms. Compliance is encouraged with any medications and followup testing that is ordered. It is a privilege to participate in the urologic care of your patient. If you have any questions or concerns regarding treatment for the above conditions, or other urologic issues, please do not hesitate to contact me. The office telephone contact is [phone]. This note is constructed using voice recognition software. While every effort has been made to ensure accuracy environmental engineering technician errors may have been included. Yours sincerely, Dr Wilmer Cavazos MD, [facility] - Urology Providers of Expert, Compassionate Care for the Genitourinary System Telehealth Telehealth Location of provider rendering services: practice address Location of patient: address on file Patient Identification confirmed using: Name, : Yes Telehealth method: voice only Patient verbally consented to treatment: Yes Patient verbally consented to billing insurance company: Yes Patient informed of any privacy concerns related to visit: Yes Coding Level of Care Code Tele Est Pt Level 3 (81293) Diagnoses BPH w urinary obs/LUTS N40.1; N13.8 Chronic prostatitis N41.1 Prostatitis type: chronic
== END 2023-07-15 14:17 | disposition home or self-care (01) ==
LOC: HO.HUSH 13:20
PROVIDERS: PCP Internal Medicine; Visit Provider Urology
DX: N40.1 Benign prostatic hyperplasia with lower urinary tract symptoms (principal); N13.8 Other obstructive and reflux uropathy; N41.1 Chronic prostatitis
CPT/HCPCS: 99213

== ENCOUNTER → 2023-07-15 13:20 | Outpatient (BNVA) | payer OTHER, SELFPAY | PROVIDERS: PCP Internal Medicine; Visit Provider Urology ==

== ENCOUNTER 2023-08-08 07:38 | Outpatient (REF) | payer OTHER, SELFPAY ==
--- NOTE | ~2023-08-08 | XR_ITS ---
Study: Right knee COMPARISON: None TECHNIQUE: AP weightbearing bilateral, lateral and sunrise right knee. CLINICAL INFORMATION: Pain FINDINGS: Weightbearing view bilaterally revealed no narrowing or marginal spurring. There is no chondrocalcinosis seen. Lateral views revealed no joint effusion. There is mild patellar spurring. There is no narrowing of patellofemoral compartment. XR/XR knee standing BI IMPRESSION: Mild patellar enthesopathy
--- NOTE | ~2023-08-08 | XR_ITS ---
Study: Right knee COMPARISON: None TECHNIQUE: AP weightbearing bilateral, lateral and sunrise right knee. CLINICAL INFORMATION: Pain FINDINGS: Weightbearing view bilaterally revealed no narrowing or marginal spurring. There is no chondrocalcinosis seen. Lateral views revealed no joint effusion. There is mild patellar spurring. There is no narrowing of patellofemoral compartment. XR/XR knee RT 2V IMPRESSION: Mild patellar enthesopathy
== END 2023-08-08 07:39 | disposition home or self-care (01) ==
LOC: HO.HOSX 07:38
PROVIDERS: Visit Provider Physician Assistant
DX: M17.11 Unilateral primary osteoarthritis, right knee (principal); I83.12 Varicose veins of left lower extremity with inflammation; I83.812 Varicose veins of left lower extremity with pain
CPT/HCPCS: 73560; 73565

== ENCOUNTER 2023-08-08 11:27 | Outpatient (AMB) | payer OTHER, SELFPAY ==
--- NOTE | 2023-08-08 11:28 | A.OFFVIS_ITS ---
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 He states that he has had this going on for sevaral years on and off. He states that the left leg is worst then the right. 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 Complaints include pain over varicosities, swelling of lower extremities, cramping, fatigue, and heaviness of the lower extremities. It has been affecting there daily activities including walking. It is noted more so in left leg. Prior history of neuropathy and has had testing at [facility] regarding this. Patient denies any previous venous surgery or injections. Patient denies any history of DVT/ PE. Patient denies any history of phlebitis. Trial of compression includes - [id number] They now present for vascular evaluation regarding their varicose veins. [facility] Medical History Abdominal pain Cyst, kidney, acquired Hx of prostatitis COVID-19 vaccine series completed Depression Peripheral neuropathy Cervical spondyloarthritis Mood disorder Pre-diabetes Hx of Guillain-[place] syndrome Arthritis Back pain DDD (degenerative disc disease) Fatty liver Left inguinal hernia Axillary abscess History of lumbar puncture Autoimmune encephalitis Gallstones Hypertension GERD (gastroesophageal reflux disease) Prostatitis Surgical History History of hernia repair History of esophagogastroduodenoscopy (EGD) Hx of colonoscopy Family History Mother No problems noted. Father No problems noted. Social History Are you a primary childcare attendant to a significant other at home: No Do you presently have visiting nurse or other home services: No Alcohol intake: never Patient Tobacco Use Status: Former Tobacco user Quit Date: 1988 Review of Systems Const Reports as per HPI ENT Reports no additional complaints Card Denies chest pain, Denies chest pain at rest and Denies chest pain with activity Resp Denies chest congestion and Denies cough GI Reports no additional complaints Musc Details: pain over varicosities, aching of lower extremities, swelling, cramping, heaviness and tiredness, itching Denies abnormal gait Skin/Breast Reports pruritus and Denies wounds Neuro Reports no additional complaints and Denies abnormal gait Psych Denies no additional complaints Physical Exam Vital Signs: BMI result Body Mass Index 23.5 Const General: cooperative, healthy appearing and comfortable Orientation/consciousness: oriented to person, oriented to place and oriented to time Neck Carotids: no bruits Chest Chest palpation & inspection: normal inspection of the chest and normal palpation of entire chest wall Resp Effort & Inspection: normal respiratory effort and able to speak in complete sentences Cardio Rate: regular rate Heart sounds: S1 normal heart sound present and S2 normal heart sound present Peripheral pulses: Peripheral pulses 2+ throughout GI Inspection: Yes normal to inspection Skin Other: +2 edema, large rope-like varicosities greater than 4 mm left calf CEAP Classification C4 - skin color changes Ep - Etiology Primary As - superficial veins P - reflux General skin exam: dry skin Neuro General: oriented to person, oriented to place and oriented to time Extrem Right lower extremity: full ROM, normal capillary refill and edema Left lower extremity: full ROM, normal capillary refill and edema Psych Mental Status: mental status grossly normal Assessment & Plan Assessment & Plan (1) Varicose veins of left lower extremity with inflammation: Code(s): I83.12 - Varicose veins of left lower extremity with inflammation Plan: In short, the patient has evidence of venous insufficiency. I have discussed the pathophysiology with the patient. In addition I have provided informational material regarding venous disease to the patient. We have discussed conservative measures including compression, elevation, and exercise. I have also provided a handout regarding appropriate use of compression stockings and where to purchase good compression stockings as well. I have taken the liberty of ordering venous insufficiency testing with the patient. Mitchell ha will follow up with me after testing. The patient had an opportunity to ask questions regarding the treatment plan. All questions were answered. Imaging studies, laboratory studies and physical exam results were discussed and reviewed in detail. No major barriers to understanding were identified. The patient expressed understanding and agreement with the above treatment plan. The patient is aware they should contact our office by phone for worsening of the current condition or the appearance of new symptoms. Thank you for allowing me to participate in the vascular care of this patient. If you have any questions or concerns regarding the treatment for the above condition please do not hesitate to contact me. The office telephone contact is [phone]. This note is constructed using voice recognition software. While every effort has been made to ensure accuracy, motion picture equipment machinist errors may have been included. Thank you for allowing me to participate in the care of your patient. Yours sincerely, Twin Hanna MD, FACS, R.P.V.I. Orders: Orders US venous duplex LE BI 1 Week I83.12 - Varicose veins of left lower extremity with inflammation Coding Level of Care Code New Pt Level 4 (74184) Diagnoses Varicose veins of left lower extremity with inflammation I83.12
[2023-08-08 11:32] VITALS: BMI 23.5
== END 2023-08-08 11:57 | disposition home or self-care (01) ==
PROVIDERS: PCP Internal Medicine; Visit Provider Surgery Vascular Surgery
DX: I83.12 Varicose veins of left lower extremity with inflammation (principal)
CPT/HCPCS: 99204

== ENCOUNTER 2023-08-08 13:20 | Outpatient (AMB) | payer OTHER, SELFPAY ==
[2023-08-08 13:30] VITALS: BMI 23.5
--- NOTE | 2023-08-08 13:30 | A.OFFVIS_ITS ---
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 Patient reports ongoing pain for a couple months. He states that his pain is behind his knee. His pain is worse when using the stairs. Hx of taking tylenol and Ibuprofen with no relief. Having concerns of left arm pain that has been going on for months. 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 The patient reports pain for a couple of months when he is moving around daily. He claims the pain is on the back side of his knee. He reports his pain increases when using the stairs and the sensation the knee will give out. Patient has a history of Tylenol and Ibuprofen use with no relief. He states he limits the Ibuprofen due to GI upset. He reports pain in the left upper extremity with ongoing pain for months. He states he has increased pain with bending the shoulder and lifting above his head. He states he was seen in the past and received a cortisone injection in the heel. He recently had a nerve test done at [facility]. [facility] Medical History Abdominal pain Cyst, kidney, acquired Hx of prostatitis COVID-19 vaccine series completed Depression Peripheral neuropathy Cervical spondyloarthritis Mood disorder Pre-diabetes Hx of Guillain-[place] syndrome Arthritis Back pain DDD (degenerative disc disease) Fatty liver Left inguinal hernia Axillary abscess History of lumbar puncture Autoimmune encephalitis Gallstones Hypertension GERD (gastroesophageal reflux disease) Prostatitis Surgical History History of hernia repair History of esophagogastroduodenoscopy (EGD) Hx of colonoscopy Family History Mother No problems noted. Father No problems noted. Social History Are you a primary attending ambulatory care to a significant other at home: No Do you presently have visiting nurse or other home services: No Alcohol intake: never Patient Tobacco Use Status: Former Tobacco user Quit Date: 1988 Review of Systems Const All systems reviewed & are unremarkable except as noted in HPI and below Physical Exam Vital Signs: BMI result Body Mass Index 23.5 Const General: cooperative and no acute distress Orientation/consciousness: patient oriented x3 Resp Effort & Inspection: normal respiratory effort and able to speak in complete sentences Cardio Peripheral pulses: Peripheral pulses 2+ throughout Skin General skin exam: no rashes or lesions noted Neuro General: patient oriented x3 Extrem Other: Right knee: Normal to inspection. No ecchymosis, erythema, or joint effusion. No tenderness to palpation to the medial or lateral joint lines. Full knee extension and flexion. NVI. Assessment & Plan Assessment & Plan (1) Osteoarthritis of right knee: Code(s): M17.11 - Unilateral primary osteoarthritis, right knee Qualifiers: Osteoarthritis type: unspecified Qualified Code(s): M17.11 - Unilateral primary osteoarthritis, right knee Plan Mr. Sims is a 72-year-old right hand dominant male who presents in the office today for an evaluation of right knee pain. The patient reports pain for a couple of months when he is moving around daily. He claims the pain is on the back side of his knee. He reports his pain increases when using the stairs and the sensation the knee will give out. Patient has a history of Tylenol and Ibuprofen use with no relief. He states he limits the Ibuprofen due to GI upset. He reports pain in the left upper extremity with ongoing pain for months. He states he has increased pain with bending the shoulder and lifting above his head. He states he was seen in the past and received a cortisone injection in the heel. He recently had a nerve test done at [facility]. I discussed the role of cortisone injection while in the office today. He would like to defer at this time. I recommended he take the celecoxib. In the event he needs a refill he can call the office and I will send that in for him. Follow up will be PRN, or sooner if needed. X-rays of the right knee which were obtained while in the office today and were reviewed by me, Jennifer Gordon PA-C, revealed mild osteoarthritis. Orders: Orders XR knee RT 2V Today M25.569 - Pain in unspecified knee XR knee standing BI Today M25.569 - Pain in unspecified knee Patient Instructions: Scribed for Jennifer Gordon PA-C by Ainsley Gonzalez durable medical equipment technician, on 08/08/2023 at 1:22 pm, EST. Coding Level of Care Code New Pt Level 3 (95653) Diagnoses Osteoarthritis of right knee, unspecified osteoarthritis type M17.11 Osteoarthritis type: unspecified
== END 2023-08-08 14:17 | disposition home or self-care (01) ==
PROVIDERS: PCP Internal Medicine; Visit Provider Physician Assistant
DX: M17.11 Unilateral primary osteoarthritis, right knee (principal)
CPT/HCPCS: 99203

== ENCOUNTER 2023-08-25 10:21 | Outpatient (REF) | payer OTHER, SELFPAY ==
--- NOTE | ~2023-08-25 | US_ITS ---
EXAMINATION: US VENOUS BILATERAL LOWER EXTREMITIES (REFLUX EXAM) CLINICAL INDICATION: Leg pain and varicose veins. COMPARISON: None TECHNIQUE: Color flow triplex imaging and compression Doppler was performed to evaluate both the deep and the superficial systems bilaterally. To evaluate the superficial system, the examination was performed in the upright position. Color-flow Doppler ultrasound and compression ultrasound were utilized. In addition, maneuvers were utilized to demonstrate reflux. FINDINGS: 1. DEEP VENOUS ULTRASOUND OF THE RIGHT LOWER EXTREMITY: Respiratory variation, normal compression and augmented flow are noted in the right common femoral vein as well as the right popliteal vein and there is no evidence of deep venous thrombosis at these locations. There is no evidence of reflux in the deep system in either the common femoral vein or the popliteal vein. There is no evidence of a Vega's cyst. 2. SUPERFICIAL ULTRASOUND WITH DOPPLER OF RIGHT LOWER EXTREMITY: The right great saphenous vein at the saphenofemoral junction measures 6 mm, at the proximal thigh 3 mm, at the mid thigh 2 mm, above the knee 2 mm, at the knee 2 mm, [id number] 3 mm, midcalf 2 mm and at the ankle measures 2 mm. Segmental reflux in the mid thigh is noted of 1 second, as well as from below the knee to the mid calf of 2.5 seconds. Duplicated Right Great Saphenous Vein: None The right small saphenous vein measures 2 mm and shows no reflux. Accessory Vein of Giacomini: 2 Incompetent Perforators: None Varices Present: None 3. DEEP VENOUS ULTRASOUND OF THE LEFT LOWER EXTREMITY: Respiratory variation, normal compression and augmented flow are noted in the left common femoral vein as well as the left popliteal vein and there is no evidence of deep venous thrombosis at these locations. There is no evidence of reflux in the deep system in either the common femoral vein or the popliteal vein. There is no evidence of a Vega's cyst. 4. SUPERFICIAL ULTRASOUND WITH DOPPLER OF LEFT LOWER EXTREMITY: Left great saphenous vein at the saphenofemoral junction measures 9 mm, at the proximal thigh 3 mm, at the mid thigh 3 mm, above the knee 4 mm, at the knee 2 mm, [id number] 3 mm, midcalf 3 mm and at the ankle measures 2 mm. Reflux is present from the mid calf down to the ankle with reflux times of greater than 2.2 seconds. Duplicated Left Great Saphenous Vein: None The left small saphenous vein measures 3 mm and shows no reflux. Accessory Vein of Giacomini: None Incompetent Perforators: None. Varices Present: None US/US venous duplex LE BI IMPRESSION: 1. No evidence of reflux or thrombus in the common femoral veins or popliteal veins bilaterally. 2. Both great saphenous veins demonstrate segmental reflux as described above.
== END 2023-08-25 10:22 | disposition home or self-care (01) ==
LOC: HO.US 10:21
PROVIDERS: PCP Internal Medicine; Visit Provider Surgery Vascular Surgery
DX: I83.12 Varicose veins of left lower extremity with inflammation (principal)
CPT/HCPCS: 93970

== ENCOUNTER 2023-08-29 15:50 | Outpatient (REF) | payer OTHER, SELFPAY | END 2023-08-29 15:51 | disposition home or self-care (01) | LOC: HO.LAB 15:50 | PROVIDERS: PCP Internal Medicine; Visit Provider Psychiatry & Neurology Neurology | DX: Z13.89 Encounter for screening for other disorder (principal) ==

== ENCOUNTER 2023-09-01 15:13 | Outpatient (REF) | payer OTHER, SELFPAY | END 2023-09-01 15:14 | disposition home or self-care (01) | LOC: HO.LAB 15:13 | PROVIDERS: Visit Provider Psychiatry & Neurology Neurology | DX: Z13.89 Encounter for screening for other disorder (principal) | CPT/HCPCS: 83519; 86255 ==

== ENCOUNTER 2023-09-22 13:03 | Outpatient (AMB) | payer OTHER, SELFPAY ==
[2023-09-22 13:07] VITALS: BP 110/64; PULSE 65; O2SAT 98; BMI 24.4
--- NOTE | 2023-09-22 13:07 | MHC.OFFVIS ---
Intake Vital Signs 09/22/23 13:07 Height 6 ft Weight 180 lb BMI 24.4 BP 110/64 Blood Pressure Location Lt brachial Position Sitting Pulse 65 Pulse Source Pulse Oximeter Pulse Oximetry (%) 98 Oxygen Delivery Method Room Air Intake Visit Reasons: FU US Intake Note: Pt presents to the office today for a F/U US. Pt states he is feeling okay. Pt states his left leg is still worse than the right and he has swelling in both ankles and feet Allergies codeine [Codeine] Allergy (Intermediate, Verified 09/22/23 13:08) Dizziness meperidine [Meperidine] Allergy (Mild, Verified 09/22/23 13:08) UNKNOWN HPI FU US HPI Details Very pleasant 72-year-old gentleman presents for follow-up regarding venous insufficiency. Upon discussion with him it is more of the numbness and neuropathy that seems to be causing him issues. He does have a diagnosis of MS and is being seen by [facility] regarding his neuropathy. He appears to be doing fairly well. He is just concerned about the status of his veins. He has had no other interval changes. He now presents for venous insufficiency testing follow-up. [facility] Medical History Abdominal pain Cyst, kidney, acquired Hx of prostatitis COVID-19 vaccine series completed Depression Peripheral neuropathy Cervical spondyloarthritis Mood disorder Pre-diabetes Hx of Guillain-[place] syndrome Arthritis Back pain DDD (degenerative disc disease) Fatty liver Left inguinal hernia Axillary abscess History of lumbar puncture Autoimmune encephalitis Gallstones Hypertension GERD (gastroesophageal reflux disease) Prostatitis Surgical History History of hernia repair History of esophagogastroduodenoscopy (EGD) Hx of colonoscopy Family History Mother No problems noted. Father No problems noted. Social History Are you a primary healthcare business analyst to a significant other at home: No Do you presently have visiting nurse or other home services: No Alcohol intake: never Patient Tobacco Use Status: Former Tobacco user Quit Date: 1988 Review of Systems Const All systems reviewed & are unremarkable except as noted in HPI and below Reports no additional complaints ENT Reports Normal hearing present Card Denies chest pain, Denies chest pain at rest, Denies chest pain with activity and Denies pedal edema Resp Denies cough GI Denies abdominal pain Musc Denies abnormal gait, Denies muscle cramps and Denies radiating pain into limb Skin/Breast Denies skin ulcer and Denies wounds Neuro Reports Normal hearing present and Denies abnormal gait Psych Reports no additional complaints Physical Exam Vital Signs: Last Vital Signs Pulse 65 09/22/23 13:07 BP 110/64 09/22/23 13:07 Pulse Ox 98 09/22/23 13:07 Oxygen Delivery Method Room Air 09/22/23 13:07 BMI result Body Mass Index 24.4 Const General: cooperative, healthy appearing and comfortable Orientation/consciousness: oriented to person, oriented to place and oriented to time HEENT Head: Yes normal to inspection Neck Neck: Yes normal visual inspection Carotids: no bruits Chest Chest palpation & inspection: normal inspection of the chest Resp Effort & Inspection: normal respiratory effort and able to speak in complete sentences Auscultation: clear to auscultation bilaterally, no crackles, no rales, no rhonchi and no wheezes Cardio Rate: regular rate Rhythm: regular rhythm Heart sounds: S1 normal heart sound present and S2 normal heart sound present Bruits: no carotid bruits Peripheral pulses: Peripheral pulses 2+ throughout GI Inspection: Yes normal to inspection Skin Wounds: no wounds Hair: normal Neuro General: oriented to person, oriented to place and oriented to time Cranial nerves: Yes CN's II-XII intact bilaterally and Yes Normal hearing present Cognition (Neuro): normal cognition Motor exam (neuro): 5/5 motor strength present throughout Extrem Other: venous exam: No significant superficial varicosities or spider telangiectasias, minimal edema General: No clubbing, No cyanosis and No edema Psych Appearance: grossly normal Mental Status: mental status grossly normal Speech and movement: Normal speech and movement present Results Reviewed Results Reviewed: Brief summary of venous insufficiency testing is as follows: right great saphenous vein: Focally positive at calf right small saphenous vein: negative right accessory vein: none present left great saphenous vein: Focally positive at calf left small saphenous vein: negative left accessory vein: none present Please note there is no evidence of any venous aneurysms or significant tortuosity Assessment & Plan Assessment & Plan (1) Varicose veins of left lower extremity with inflammation: Code(s): I83.12 - Varicose veins of left lower extremity with inflammation Plan: In short patient is negative for any significant venous insufficiency. At the current time would continue with compression elevation and exercise. He does have follow-up at [facility] regarding his neuropathy. He will follow up with us on an as-needed basis. Thank you for allowing us to assist in his care. If there are questions or concerns please do not hesitate to contact us. Coding Level of Care Code Est Pt Level 4 (56475) Diagnoses Varicose veins of left lower extremity with inflammation I83.12
== END 2023-09-22 13:30 | disposition home or self-care (01) ==
PROVIDERS: PCP Internal Medicine; Visit Provider Surgery Vascular Surgery
DX: I83.12 Varicose veins of left lower extremity with inflammation (principal)
CPT/HCPCS: 99213

== ENCOUNTER → 2023-09-22 13:03 | Outpatient (BNVA) | payer OTHER, SELFPAY | PROVIDERS: PCP Internal Medicine; Visit Provider Surgery Vascular Surgery ==

== ENCOUNTER 2023-10-27 14:54 | Outpatient (REF) | payer OTHER, SELFPAY | END 2023-10-27 14:55 | disposition home or self-care (01) | LOC: HO.LAB 14:54 | PROVIDERS: PCP Internal Medicine; Visit Provider Psychiatry & Neurology Neurology | DX: G62.9 Polyneuropathy, unspecified (principal) | CPT/HCPCS: 84182; 86255 ==

== ENCOUNTER 2023-11-21 14:32 | Outpatient (AMB) | payer OTHER, SELFPAY ==
[2023-11-21 14:38] VITALS: BP 142/60; PULSE 62; BMI 24.8
--- NOTE | 2023-11-21 14:38 | A.OFFVIS_ITS ---
Intake Vital Signs 11/21/23 14:38 Height 6 ft Weight 182 lb 8.684 oz BMI 24.8 BP 142/60 H Blood Pressure Location Lt brachial Position Sitting Pulse 62 Intake Visit Reasons: 6 month follow up Intake Note: pt its here for his 6 mnth f/up, pt states that he its feeling fine. 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 He was previously seen for hypertension and autoimmune encephalitis. He was complaining of some palpitations at that time too. He underwent 48 hour Holter monitor which did not reveal any significant arrhythmia. 09/29/22: On follow-up today he is complai jayla of many symptoms. He has abdominal complaints with abdominal pain and dizziness after eating. He is not sure whether dizziness happens when he eats foods high in sugar or not. He also has vertigo like feeling off and on. He had an MRA of the head and neck done. The right vertebral artery was not well visualized. He is seeing a vascular neurologist at [facility]. He has been taking medications regularly. He was advised to take amlodipine 04/04/23:in the morning and losartan at night. He is saying he is still gets dizziness when he changes posture. He was advised to hydrate himself better. He has not tried compression stockings before. He was given compression stockings to try. 04/04/23: He returns for follow-up. He is following in neurology at [facility]. He has been told that he may have dysautonomia and is undergoing workup for dysautonomia at [facility]. His blood pressure is mildly elevated. He continues to get dizziness off and on. He tried compression stockings but he felt that it was quite difficult to put them on. He did not feel any different in terms of his dizziness. He did have improvement in mild edema in the lower extremities related to amlodipine. 11/21/2023: He returns for follow-up. He is following closely at [facility] and is getting some workup done for dysautonomia there. His blood pressure with us is mildly elevated. He is taking amlodipine 5 mg daily and losartan 25 mg daily. He has been getting some episodes where he feels quite weak in his legs but also had GBS in the past. Denying any chest discomfort shortness of breath. [facility] Medical History Abdominal pain Cyst, kidney, acquired Hx of prostatitis COVID-19 vaccine series completed Depression Peripheral neuropathy Cervical spondyloarthritis Mood disorder Pre-diabetes Hx of Guillain-[place] syndrome Arthritis Back pain DDD (degenerative disc disease) Fatty liver Left inguinal hernia Axillary abscess History of lumbar puncture Autoimmune encephalitis Gallstones Hypertension GERD (gastroesophageal reflux disease) Prostatitis Surgical History History of hernia repair History of esophagogastroduodenoscopy (EGD) Hx of colonoscopy Family History Mother No problems noted. Father No problems noted. Social History Are you a primary progressive care manager to a significant other at home: No Do you presently have visiting nurse or other home services: No Alcohol intake: never Patient Tobacco Use Status: Former Tobacco user Quit Date: 1988 Review of Systems Const Denies chills, Denies fatigue, Denies fever(s), Denies frequent falls, Denies weakness, Denies weight gain and Denies weight loss ENT Denies dizziness Card Denies chest pain, Denies leg edema, Denies lightheadedness, Denies palpitations, Denies dyspnea and Denies dyspnea on exertion Resp Denies cough, Denies dyspnea and Denies dyspnea on exertion GI Denies hematochezia Musc Denies abnormal gait, Denies muscle weakness, Denies numbness, Denies radiating pain into limb and Denies tingling Neuro Denies abnormal gait, Denies dizziness, Denies frequent falls, Denies numbness, Denies tingling and Denies weakness Endo Denies fatigue and Denies palpitations Physical Exam Vital Signs: Last Vital Signs Pulse 62 11/21/23 14:38 BP 142/60 H 11/21/23 14:38 BMI result Body Mass Index 24.8 GENERAL APPEARANCE: in no acute distress, pleasant. NECK: no carotid bruit, no jugular venous distention. SKIN: no suspicious lesions, warm and dry. HEART: no murmurs, regular rate and rhythm. LUNGS: clear to auscultation bilaterally. ABDOMEN: soft, nontender. EXTREMITIES: no edema. PERIPHERAL PULSES: equal. NEUROLOGIC: No gross deficits, AAO X 3 Office Procedures EKG Details: Sinus rhythm 62 beats per minute, normal ECG, QTC 420 milliseconds. [id number], Complete Assessment & Plan Assessment & Plan (1) Hypertension: Code(s): I10 - Essential (primary) hypertension (2) Dizziness: Code(s): R42 - Dizziness and giddiness Plan [age] year gentleman is here for follow-up. He is background history of hypertension. His blood pressure is mildly elevated but he also has significant dizziness and lightheadedness episodes. He is being worked up for dysautonomia at [facility] neurology. I have explained to him that his blood pressure is mildly elevated but I am reluctant to increase her blood pressure medications currently. Overall he otherwise is stable. He has GI complaints and neurological complaints which he is getting workup done for. Will see us back in 1 year. Thank you for allowing me to participate in the care of your patient. Please feel free to contact me if you have any questions. Coding Level of Care Code Est Pt Level 3 (98449) Diagnoses Hypertension I10 Dizziness R42 CPT Codes EKG - CPT: 61136-[id number], Complete ([id number])
== END 2023-11-21 15:01 | disposition home or self-care (01) ==
PROVIDERS: PCP Internal Medicine; Visit Provider Internal Medicine Cardiovascular Disease
DX: I10 Essential (primary) hypertension (principal); R42 Dizziness and giddiness
CPT/HCPCS: 93010; 99213

== ENCOUNTER → 2023-11-21 14:32 | Outpatient (BNVA) | payer OTHER, SELFPAY | PROVIDERS: PCP Internal Medicine; Visit Provider Internal Medicine Cardiovascular Disease | DX: I10 Essential (primary) hypertension (principal); R42 Dizziness and giddiness | CPT/HCPCS: 93005 ==

== ENCOUNTER 2023-12-20 10:40 | Outpatient (REF) | payer OTHER, SELFPAY ==
[2023-12-20 11:04] LABS: MANUAL DIFF FLAG NO
[2023-12-20 12:43] LABS: Basophils Absolute Auto 0.1 X10*3/uL (0.0-0.2); Basophils Percent Auto 0.9 % (0-2); Eosinophils Absolute Auto 0.4 X10*3/uL (0.0-0.4); Eosinophils Percent Auto 5.2 % (0-4); Hematocrit 41.3 % (42.0-52.0); Hemoglobin 13.6 g/dl (14.0-18.0); Imm Gran Abs Auto 0.04 X10*3/uL (0.00-0.03); Imm Gran Pct Auto 0.6 % (0.0-0.4); Mean Corpuscular HGB Conc 32.9 g/dl (31.0-36.0); Mean Corpuscular Hemoglobin 29.2 pg (27.0-33.0); Mean Corpuscular Volume 88.8 fL (80.0-98.0); Mean Platelet Volume 10.5 fL (9.4-12.4); Monocytes Absolute Auto 0.8 X10*3/uL (0.1-1.2); Monocytes Percent Auto 12.1 % (2-11); Neutrophils Absolute Auto 3.5 x10*3/uL (2.0-8.3); Neutrophils Percent Auto 52.2 % (45-73); Platelet Count 183 X10*3/uL (160-400); Red Blood Count 4.65 X10*6/uL (4.60-5.80); Red Cell Distribution Width 12.5 % (11.0-16.0); White Blood Count 6.8 X10*3/uL (4.8-10.8)
[2023-12-20 13:21] LABS: Alanine Aminotransferase 35 U/L (0-40); Albumin Level 4.5 g/dL (3.5-5.0); Alkaline Phosphatase 48 U/L (39-117); Anion Gap 12 (12-20); Aspartate Amino Transferase 19 U/L (5-37); Bilirubin Total 0.9 mg/dL (0.0-1.0); Blood Urea Nitrogen 14 mg/dL (9-16); Carbon Dioxide 28 mmol/L (22-29); Chloride 105 mmol/L (96-108); Cholesterol 182 mg/dL (<200); Estimated Glomerular Filt Rate > 60; Glucose Random 103 mg/dL (60-115); HDL Cholesterol 31 mg/dL (>40); LDL Cholesterol Calculated 125 mg/dL (<100); Potassium 3.9 mmol/L (3.3-5.1); Sodium 141 mmol/L (135-145); Thyroid Stimulating Hormone 1.63 uIU/mL (0.32-4.0); Total Protein 7.6 g/dL (6.5-8.0); Triglycerides 133 mg/dL (<150)
[2023-12-20 13:22] LABS: Prostate Specific Antigen Scr 1.86 ng/mL (<0.05-4.0)
[2023-12-20 13:40] LABS: Appearance Urine Clear; Color Urine Yellow; Glucose Urine UA Negative (Negative); Leukocyte Esterase Urine Negative (Negative); Nitrite Urine Negative (Negative); Urine Blood Negative (Negative); Urine Ketones Negative (Negative); Urine Protein Negative (Neg-Trace)
== END 2023-12-20 10:41 | disposition home or self-care (01) ==
LOC: HO.LAB 10:40
PROVIDERS: PCP Internal Medicine; Visit Provider Internal Medicine
DX: Z00.00 Encounter for general adult medical examination without abnormal findings (principal); Z12.5 Encounter for screening for malignant neoplasm of prostate; R73.01 Impaired fasting glucose; I10 Essential (primary) hypertension; M54.2 Cervicalgia
CPT/HCPCS: 36415; 80053; 80061; 81003; 84153; 84443; 85025

== ENCOUNTER 2024-01-17 13:37 | Outpatient (AMB) | payer OTHER, SELFPAY ==
--- NOTE | 2024-01-17 13:49 | A.OFFVIS_ITS ---
Intake Visit Reasons: 6m/PVR(Confirmed) Intake Note: Patient is Present for Follow Up Urology Medication: Tamsulosin Antibiotic Allergies: None Blood Thinners:None PVR: 27 Allergies codeine [Codeine] Allergy (Intermediate, Verified 01/17/24 13:51) Dizziness meperidine [Meperidine] Allergy (Mild, Verified 01/17/24 13:51) UNKNOWN HPI Comments Details: Deuce is a pleasant male. He is a patient of Dr. Chadwick. He is seen for the following urologic conditions - prostatitis - renal cyst - lower urinary tract symptoms Six-month follow-up Low PVR 30 cc Short term use of finasteride - did not tolerate Has been on tamsulosin for many years Noted occasional dizziness with some degree of autonomic neuropathy Will trial alfuzosin He will call if useful otherwise will stay on tamsulosin Previously asked about prostate thromboembolism Renal cyst Detected on imaging Imaging - 04/16 CT scan complex cyst 1 cm left kidney with enlarged prostate Prostatitis Longstanding Recurrent in past Prior negative expressed culture Question of inflammatory process PSA 05/17 1.6 Did report having improvement with viox many years ago Failed Celebrex trial. Did not tolerate Did not notice improvement with tadalafil Would recommend DNA sequencing if persistent symptoms PFSH Medical History Abdominal pain Cyst, kidney, acquired Hx of prostatitis COVID-19 vaccine series completed Depression Peripheral neuropathy Cervical spondyloarthritis Mood disorder Pre-diabetes Hx of Guillain-[place] syndrome Arthritis Back pain DDD (degenerative disc disease) Fatty liver Left inguinal hernia Axillary abscess History of lumbar puncture Autoimmune encephalitis Gallstones Hypertension GERD (gastroesophageal reflux disease) Prostatitis Surgical History History of hernia repair History of esophagogastroduodenoscopy (EGD) Hx of colonoscopy Family History Mother No problems noted. Father No problems noted. Social History Are you a primary customer care consultant to a significant other at home: No Do you presently have visiting nurse or other home services: No Alcohol intake: never Patient Tobacco Use Status: Former Tobacco user Quit Date: 1988 Review of Systems Const Denies chills and Denies fever(s) Card Reports no additional complaints and Denies syncope Resp Denies cough GI Denies abdominal pain and Denies heartburn Reports as per HPI and Denies change in libido Neuro Denies syncope Psych Denies change in libido Endo Denies change in libido Physical Exam Const General: cooperative, healthy appearing, comfortable and no acute distress Orientation/consciousness: patient oriented x3 HEENT Face and sinus: Yes normal facial exam Mouth: moist mucous membranes Neck Neck: Yes normal visual inspection, Yes full ROM and Yes trachea midline Chest Chest palpation & inspection: normal inspection of the chest Resp Effort & Inspection: normal respiratory effort, able to speak in complete sentences and no respiratory distress GI Inspection: Yes normal to inspection Back/Spine/Pelvis Cervical Spine: normal cervical lordosis Thoracic/Lumbar Spine: thoracic and lumbar spine normal to inspection Skin General skin exam: no rashes or lesions noted Neuro General: patient oriented x3, gait normal, tone normal and moves all extremities Extrem General: Yes normal to inspection and Yes capillary refill normal Office Procedures Post Void Residual Post Residual Void Post Void Residual (PVR): 27 [id number] Void Residual by ultrasound Assessment & Plan Assessment & Plan (1) BPH w urinary obs/LUTS: Code(s): N40.1 - Benign prostatic hyperplasia with lower urinary tract symptoms; N13.8 - Other obstructive and reflux uropathy Category: Medical (2) Prostatitis: Code(s): N41.9 - Inflammatory disease of prostate, unspecified Category: Medical Qualifiers: Prostatitis type: chronic Qualified Code(s): N41.1 - Chronic prostatitis Plan Trial of alfuzosin Twelve month follow-up Orders: Orders AMB Post Void Residual by ultrasound Today N13.8 - Other obstructive and reflux uropathy, N40.1 - Benign prostatic hyperplasia with lower urinary tract symptoms Medications: New alfuzosin ER Take before bedtime 10 mg PO BEDTIME 30 days 30 tabs 1RF N13.8 - Other obstructive and reflux uropathy, N32.0 - Bladder-neck obstruction, N40.1 - Benign prostatic hyperplasia with lower urinary tract symptoms, R33.9 - Retention of urine, unspecified, R35.1 - Nocturia, R39.12 - Poor urinary stream Patient Instructions: Imaging studies, laboratory and physical exam results were discussed and reviewed in detail. No major barriers to patient understanding were identified. An opportunity to ask questions regarding the treatment plan was provided. All questions were answered. The patient expressed understanding and agreement with the above treatment plan. The patient is aware they should contact our office by phone for worsening of their current condition or the appearance of new urologic symptoms. Compliance is encouraged with any medications and followup testing that is ordered. It is a privilege to participate in the urologic care of your patient. If you have any questions or concerns regarding treatment for the above conditions, or other urologic issues, please do not hesitate to contact me. The office telephone contact is [phone]. This note is constructed using voice recognition software. While every effort has been made to ensure accuracy grain combine driver errors may have been included. Yours sincerely, Dr Wilmer Cavazos MD, [facility] - Urology Providers of Expert, Compassionate Care for the Genitourinary System Coding Level of Care Code Est Pt Level 4 (80044) Diagnoses BPH w urinary obs/LUTS N40.1; N13.8 Chronic prostatitis N41.1 Prostatitis type: chronic CPT Codes Post Residual Void - PVR CPT Code: 62002-Qpxg Void Residual by ultrasound ([id number])
== END 2024-01-17 14:24 | disposition home or self-care (01) ==
PROVIDERS: PCP Internal Medicine; Visit Provider Urology
DX: N40.1 Benign prostatic hyperplasia with lower urinary tract symptoms (principal); N13.8 Other obstructive and reflux uropathy; N41.1 Chronic prostatitis
CPT/HCPCS: 99214

== ENCOUNTER → 2024-01-17 13:37 | Outpatient (BNVA) | payer OTHER, SELFPAY | PROVIDERS: PCP Internal Medicine; Visit Provider Urology ==

== ENCOUNTER 2024-01-17 14:21 | Outpatient (REF) | payer OTHER, SELFPAY ==
[2024-01-17 16:10] LABS: Magnesium 2.2 mg/dL (1.6-2.6)
[2024-01-17 16:27] LABS: Vitamin D 25-OH Total 23.3 ng/mL (>30)
[2024-01-17 16:33] LABS: Vitamin B12 405 pg/mL (200-900)
== END 2024-01-17 14:22 | disposition home or self-care (01) ==
LOC: HO.LAB 14:21
PROVIDERS: PCP Internal Medicine; Visit Provider Internal Medicine
DX: E53.8 Deficiency of other specified B group vitamins (principal); E55.9 Vitamin D deficiency, unspecified; I10 Essential (primary) hypertension
CPT/HCPCS: 36415; 51798; 82306; 82607; 83735

== ENCOUNTER 2024-02-10 10:18 | Outpatient (AMB) | payer OTHER, SELFPAY ==
--- NOTE | 2024-02-10 10:21 | A.OFFVIS_ITS ---
Vital Signs 02/10/24 10:22 Height 6 ft Weight 181 lb BMI 24.5 BP 120/60 Blood Pressure Location Lt brachial Position Sitting Respiration 18 Pulse 62 Pulse Source Pulse Oximeter Pulse Oximetry (%) 97 Oxygen Delivery Method Room Air Intake Visit Reasons: Neck Pain Allergies codeine [Codeine] Allergy (Intermediate, Verified 02/10/24 10:20) Dizziness meperidine [Meperidine] Allergy (Mild, Verified 02/10/24 10:20) UNKNOWN HPI HPI Neck Pain : Details: 73-year-old male who presents today to the office for an evaluation of neck pain and low back pain. The patient reports itching, pins, and needle sensations in the neck. It started several years ago. He has it radiating from his shoulder, going down to his arm. He has numbness and tingling in his fingers. He denies any accident, trauma, or falls. He denies any weakness in his arms or dropping things. He has a history of cervical stenosis. He had an MRI scan of the cervical region several years ago. He has not tried any treatments. He has not done any home exercises in the past.He tried PT several years ago for neck pain but was unable to tolerate it well, so he eventually stopped. He reports a sharp upper back on the left side last week. He started taking gabapentin, ibuprofen, and Tylenol. He states that his pain has subsided now. He will follow up with his manager sustainability for dry, itchy, scaly skin on his back, chest, and arms. He has tried some topical creams prescribed by his manager sustainability.?He has basal cell carcinoma on his face. He has scheduled appointment for cataract surgery in February. [facility] Medical History Abdominal pain Cyst, kidney, acquired Hx of prostatitis COVID-19 vaccine series completed Depression Peripheral neuropathy Cervical spondyloarthritis Mood disorder Pre-diabetes Hx of Guillain-[place] syndrome Arthritis Back pain DDD (degenerative disc disease) Fatty liver Left inguinal hernia Axillary abscess History of lumbar puncture Autoimmune encephalitis Gallstones Hypertension GERD (gastroesophageal reflux disease) Prostatitis Surgical History History of hernia repair History of esophagogastroduodenoscopy (EGD) Hx of colonoscopy Family History Mother No problems noted. Father No problems noted. Social History Are you a primary care specialist to a significant other at home: No Do you presently have visiting nurse or other home services: No Alcohol intake: never Patient Tobacco Use Status: Former Tobacco user Quit Date: 1988 Review of Systems Const All systems reviewed & are unremarkable except as noted in HPI and below Physical Exam Vital Signs: Last Vital Signs Pulse 62 02/10/24 10:22 Resp 18 02/10/24 10:22 BP 120/60 02/10/24 10:22 Pulse Ox 97 02/10/24 10:22 Oxygen Delivery Method Room Air 02/10/24 10:22 BMI result Body Mass Index 24.5 General: Appears afebrile. Alert and oriented. Mood and affect appropriate. Follows and participates in conversation appropriately. Respiratory effort is unlabored. Able to transition from sit to stand unassisted. Ambulates with bilaterally normal heel strike and toe off. Cervical facet loading reproduces pain. Results Reviewed Results Reviewed: 05/10/22: MR CERVICAL SPINE. IMPRESSION: 1. At C4-C5 there is facet arthropathy and there is a posterior disc protrusion with flattening of the ventral thecal sac. There is mild central stenosis. There is severe left foraminal narrowing. 2. At C5-C6 there is a left-sided disc protrusion with mild impingement on the cord, and there is mild central stenosis. There is moderate left and mild right foraminal narrowing. 3. At C6-C7 there is a posterior disc protrusion without cord compression. There is mild central stenosis. There is mild bilateral foraminal narrowing. 4. At C2-C3 there is a shallow posterior disc osteophyte complex. There is no cord compression or central stenosis. There is moderate right foraminal narrowing. 5. There are multiple small nodules in the thyroid gland which were not demonstrated on prior imaging and could be further evaluated with thyroid ultrasound. Assessment & Plan Assessment & Plan (1) Cervical radiculitis: Code(s): M54.12 - Radiculopathy, cervical region Category: Medical (2) Low back pain: Code(s): M54.50 - Low back pain, unspecified Category: Medical Plan I had a long discussion with the patient regarding his multiple pain issues for his cervical radicular symptoms. I recommended starting with physical therapy, including strengthening and stretching exercises and cervical traction. Since the similar PT program in the past to worsen his pain, I offered him a combination of cervical epidural steroid injection to go along with the physical therapy we can potentially undertake the cervical LG on , February 22. The patient would like some time to think about it before confirming. For his cervical facet mediated pain, I offered him a trial of temporary nerve stimulation therapy if the combination of PT and cervical epidural steroid injections not helpful in relieving the axial portion of his pain. For low back pain, I recommended also trying PT and home exercise program. If this is not helpful, we can consider ordering a MRI of the lumbar spine. Scribed for Dr. Marcos by Angel Nielsen, ophthalmic medical assistant, on 02/10/2024. I, Dr. Marcos, have personally reviewed and agree with the information entered by the scribe. Orders: Orders PT Evaluation and Treatment Today M54.12 - Radiculopathy, cervical region Coding Level of Care Code New Pt Level 4 (35627) Diagnoses Cervical radiculitis M54.12 Low back pain M54.50
[2024-02-10 10:22] VITALS: BP 120/60; PULSE 62; RESP 18; O2SAT 97; BMI 24.5
== END 2024-02-10 11:09 | disposition home or self-care (01) ==
PROVIDERS: PCP Internal Medicine; Visit Provider Internal Medicine
DX: M54.12 Radiculopathy, cervical region (principal); M54.50 Low back pain, unspecified
CPT/HCPCS: 99204

== ENCOUNTER → 2024-02-10 10:18 | Outpatient (BNVA) | payer OTHER, SELFPAY | PROVIDERS: PCP Internal Medicine; Visit Provider Internal Medicine ==

== ENCOUNTER 2024-02-23 06:16 | Outpatient (REF) | payer OTHER, SELFPAY ==
--- NOTE | ~2024-02-23 | FL_ITS ---
EXAMINATION: XR FLUOROSCOPY WITH IMAGES CLINICAL INFORMATION: Cervical radiculopathy. COMPARISON: None available. TECHNIQUE: Fluoroscopy Supervised By: Dr. Marcos. Fluoroscopy Time: 0.2 min. Cumulative Dose: 1.60 mGy. DAP: 0.15592 Gycm2. Images: 2. FINDINGS: Intraoperative fluoroscopy and spot films were performed during a procedure in the OR. 2 images of the cervical spine demonstrate a needle on the left with contrast in the epidural space. Please see Dr. Marcos' report for complete details. FL/FL guidance in treatment room IMPRESSION: Intraoperative fluoroscopy and spot films were obtained. Please see Dr. Marcos' report for complete details.
== END 2024-02-23 06:17 | disposition home or self-care (01) ==
LOC: CF 06:16
PROVIDERS: Visit Provider Internal Medicine
DX: M54.12 Radiculopathy, cervical region (principal)
CPT/HCPCS: 62321; J1100; Q9967

== ENCOUNTER 2024-02-23 11:09 | Outpatient (AMB) | payer OTHER, SELFPAY ==
--- NOTE | 2024-02-23 12:06 | MHC.OFFVIS ---
Vital Signs 02/23/24 12:29 02/23/24 12:30 Height 6 ft Weight 181 lb BMI 24.5 BP 122/70 134/72 Blood Pressure Location Lt brachial Lt brachial Position Sitting Sitting Respiration 16 16 Pulse 87 77 Pulse Source Pulse Oximeter Pulse Oximeter Pulse Oximetry (%) 87 L 95 Oxygen Delivery Method Room Air Room Air Comment Pre-Op Post-Op Intake Visit Reasons: C7-T1 interlaminar LG Allergies codeine [Codeine] Allergy (Intermediate, Verified 02/10/24 10:20) Dizziness meperidine [Meperidine] Allergy (Mild, Verified 02/10/24 10:20) UNKNOWN HPI HPI C7-T1 interlaminar LG: Details: Patient presents for scheduled procedure. Denies any recent cough, cold, infection, fever or other significant changes in medical history since last office visit. [facility] Medical History Abdominal pain Cyst, kidney, acquired Hx of prostatitis COVID-19 vaccine series completed Depression Peripheral neuropathy Cervical spondyloarthritis Mood disorder Pre-diabetes Hx of Guillain-[place] syndrome Arthritis Back pain DDD (degenerative disc disease) Fatty liver Left inguinal hernia Axillary abscess History of lumbar puncture Autoimmune encephalitis Gallstones Hypertension GERD (gastroesophageal reflux disease) Prostatitis Surgical History History of hernia repair History of esophagogastroduodenoscopy (EGD) Hx of colonoscopy Family History Mother No problems noted. Father No problems noted. Social History Are you a primary foster care worker to a significant other at home: No Do you presently have visiting nurse or other home services: No Alcohol intake: never Patient Tobacco Use Status: Former Tobacco user Physical Exam Vital Signs: Last Vital Signs Pulse 77 02/23/24 12:30 Resp 16 02/23/24 12:30 BP 134/72 02/23/24 12:30 Pulse Ox 95 02/23/24 12:30 Oxygen Delivery Method Room Air 02/23/24 12:30 BMI result Body Mass Index 24.5 Office Procedures Joint Injection/Drain Joint Injection/Drain Details: Interlaminar epidural steroid injection, C7-T1, left parasaggital After obtaining written consent, pre-procedure blood pressure and heart rate were stable and recorded in the nursing record. The patient was placed in the prone position. The cervicothoracic area was widely prepped with chloraprep and draped in sterile fashion. Fluoroscopic guidance was used to identify the desired interlaminar space and for needle placement. Subcutaneous 0.5% lidocaine was used to anesthetize the skin overlying the target. A 20-gauge Ruiz needle was advanced to the epidural space using loss of resistance to contrast technique under fluoroscopic AP and contralateral oblique views. There was no evidence of heme or CSF and no paresthesias were elicited with needle placement. Confirmation of epidural needle placement was performed with 1cc of omnipaque 180. Next 3 ml 0.5% lidocaine mixed with 10 mg dexamethasone was administered epidurally with no pain elicited on injection. The needle tract tubing was then cleared with 1 ml of 0.5% lidocaine. The needle was removed, skin cleansed and a sterile bandage was applied. The patient tolerated the procedure well and no complications were encountered. Following the procedure the patient's vital signs were stable. The patient was discharged home in good condition with post-procedural instructions. Time Out: Immediately prior to the procedure, the following was verbally confirmed that there is a signed consent form and that the correct patient, planned procedure, site and side are consistent with documentation and that necessary equipment and/or blood products are available prior to the start of the case. Complications: none EBL: <2 cc Coding 96384 - Cervical Epidural/Interlaminar with fluoroscopy Procedure code (CPT) selection complete Assessment & Plan Assessment & Plan (1) Cervical radiculitis: Code(s): M54.12 - Radiculopathy, cervical region Category: Medical Plan Patient is status post left/midline C7-T1 interlaminar LG. Patient tolerated procedure well and was discharged home in stable condition with discharge instructions. All questions were answered. We will follow-up via telephone or in clinic to assess response to therapy. A follow-up appointment was made during today's visit. Orders: Orders FL guidance in treatment room Today M54.12 - Radiculopathy, cervical region Coding Level of Care Code Procedure Only Diagnoses Cervical radiculitis M54.12 CPT Codes Coding - Joint 10: 16632 - Cervical Epidural/Interlaminar with fluoroscopy ([id number])
[2024-02-23 12:29] VITALS: BP 122/70; PULSE 87; RESP 16; O2SAT 87; BMI 24.5
--- NOTE | 2024-02-23 12:29 | MHC.OFFVIS ---
Vital Signs 02/23/24 12:29 02/23/24 12:30 Height 6 ft Weight 181 lb BMI 24.5 BP 122/70 134/72 Blood Pressure Location Lt brachial Lt brachial Position Sitting Sitting Respiration 16 16 Pulse 87 77 Pulse Source Pulse Oximeter Pulse Oximeter Pulse Oximetry (%) 87 L 95 Oxygen Delivery Method Room Air Room Air Comment Pre-Op Post-Op Intake Visit Reasons: C7-T1 interlaminar LG Allergies codeine [Codeine] Allergy (Intermediate, Verified 02/10/24 10:20) Dizziness meperidine [Meperidine] Allergy (Mild, Verified 02/10/24 10:20) UNKNOWN [facility] Medical History Abdominal pain Cyst, kidney, acquired Hx of prostatitis COVID-19 vaccine series completed Depression Peripheral neuropathy Cervical spondyloarthritis Mood disorder Pre-diabetes Hx of Guillain-[place] syndrome Arthritis Back pain DDD (degenerative disc disease) Fatty liver Left inguinal hernia Axillary abscess History of lumbar puncture Autoimmune encephalitis Gallstones Hypertension GERD (gastroesophageal reflux disease) Prostatitis Surgical History History of hernia repair History of esophagogastroduodenoscopy (EGD) Hx of colonoscopy Family History Mother No problems noted. Father No problems noted. Social History Are you a primary healthcare consulting manager to a significant other at home: No Do you presently have visiting nurse or other home services: No Alcohol intake: never Patient Tobacco Use Status: Former Tobacco user Quit Date: 1988 Physical Exam Vital Signs: Last Vital Signs Pulse 77 02/23/24 12:30 Resp 16 02/23/24 12:30 BP 126/74 02/23/24 12:30 Pulse Ox 96 02/23/24 12:30 Oxygen Delivery Method Room Air 02/23/24 12:30 BMI result Body Mass Index 24.5 Office Procedures Joint Injection/Drain Joint Injection/Drain Details: Interlaminar epidural steroid injection, C7-T1, left parasaggital After obtaining written consent, pre-procedure blood pressure and heart rate were stable and recorded in the nursing record. The patient was placed in the prone position. The cervicothoracic area was widely prepped with chloraprep and draped in sterile fashion. Fluoroscopic guidance was used to identify the desired interlaminar space and for needle placement. Subcutaneous 0.5% lidocaine was used to anesthetize the skin overlying the target. A 20-gauge Ruiz needle was advanced to the epidural space using loss of resistance to contrast technique under fluoroscopic AP and contralateral oblique views. There was no evidence of heme or CSF and no paresthesias were elicited with needle placement. Confirmation of epidural needle placement was performed with 1cc of omnipaque 180. Next 3 ml 0.5% lidocaine mixed with 10 mg dexamethasone was administered epidurally with no pain elicited on injection. The needle tract tubing was then cleared with 1 ml of 0.5% lidocaine. The needle was removed, skin cleansed and a sterile bandage was applied. The patient tolerated the procedure well and no complications were encountered. Following the procedure the patient's vital signs were stable. The patient was discharged home in good condition with post-procedural instructions. Time Out: Immediately prior to the procedure, the following was verbally confirmed that there is a signed consent form and that the correct patient, planned procedure, site and side are consistent with documentation and that necessary equipment and/or blood products are available prior to the start of the case. Complications: none EBL: <2 cc Coding 65550 - Cervical Epidural/Interlaminar with fluoroscopy Procedure code (CPT) selection complete Assessment & Plan Assessment & Plan (1) Cervical radiculitis: Code(s): M54.12 - Radiculopathy, cervical region Category: Medical Orders: Orders FL guidance in treatment room Today M54.12 - Radiculopathy, cervical region Coding Diagnoses Cervical radiculitis M54.12 CPT Codes Coding - Joint 10: 63683 - Cervical Epidural/Interlaminar with fluoroscopy ([id number])
[2024-02-23 12:30] VITALS: BP 134/72; PULSE 77; RESP 16; O2SAT 95
== END 2024-02-23 11:52 | disposition home or self-care (01) ==
LOC: HO.PMCPRC 11:10
PROVIDERS: PCP Internal Medicine; Visit Provider Internal Medicine
DX: M54.12 Radiculopathy, cervical region (principal)
CPT/HCPCS: 62321

== ENCOUNTER 2024-03-05 10:29 | Day surgery (SDC) | payer OTHER, SELFPAY ==
[2024-02-29 12:28] VITALS: BMI 25.5
--- NOTE | 2024-03-01 14:22 | P.CONAN_ITS ---
Documented by User: Yaneth Avalos NP 03/01/24 14:22 HPI - Anesthesia Eval Consult details Narrative: 73yo M for Right Cataract Extraction IOL Insertion PMFSH Active Problems Active Problems: All Active Problems Low back pain (Acute) Cervical radiculitis (Acute) Osteoarthritis of right knee (Acute) Varicose veins of left lower extremity with inflammation (Acute) Dizziness (Acute) BPH w urinary obs/LUTS (Acute) Prostatitis (Acute) Preoperative cardiovascular examination (Acute) Abdominal pain (Acute) Anal pain (Acute) Abdominal pain (Acute) Cyst, kidney, acquired (Acute) Left inguinal hernia (Acute) Autoimmune encephalitis (Acute) Gallstones (Acute) Hypertension (Acute) GERD (gastroesophageal reflux disease) (Acute) Past Medical History Medical History Hyperlipidemia Cholelithiasis BCC (basal cell carcinoma), face Abnormal liver function test Abdominal pain Cyst, kidney, acquired Hx of prostatitis COVID-19 vaccine series completed Depression Peripheral neuropathy Cervical spondyloarthritis Mood disorder Pre-diabetes Hx of Guillain-[place] syndrome Arthritis Back pain DDD (degenerative disc disease) Fatty liver Left inguinal hernia Axillary abscess History of lumbar puncture Autoimmune encephalitis Gallstones Hypertension GERD (gastroesophageal reflux disease) Prostatitis Family History Family History Mother No problems noted. Father No problems noted. Family history of problems with anesthesia: No Surgical History Surgical History History of hernia repair History of esophagogastroduodenoscopy (EGD) Hx of colonoscopy History of Problems with Anesthesia: No Social History Social History Are you a primary lawn care specialist to a significant other at home: No Do you presently have visiting nurse or other home services: No Alcohol intake: never Patient Tobacco Use Status: Former Tobacco user Use of substances other than those prescribed or required for medical reasons: No Advance Directives: No Advance Directives Information Provided: Yes Advance Directives on File: No Recently lost weight without trying: No Nutrition Risks: No Nutritional Risk Meds Allergies Allergy/AdvReac Type Severity Reaction Status Date / Time codeine [Codeine] Allergy Intermediate Dizziness Verified 03/05/24 11:47 meperidine [Meperidine] Allergy Mild UNKNOWN Verified 03/05/24 11:47 Home Medications ?Medication ?Instructions ?Recorded ?Confirmed ?Last Taken ?Type gabapentin 100 mg capsule 200 mg PO BEDTIME 12/29/20 02/29/24 Unknown History hyoscyamine sulfate 0.125 mg tablet 0.375 mg PO BID PRN Cramps 12/29/20 02/29/24 Unknown History losartan 25 mg tablet 25 mg PO BEDTIME 12/29/20 02/29/24 Unknown History amlodipine 5 mg tablet 5 mg PO DAILY 02/25/22 02/29/24 03/05/24 History acetaminophen 500 mg tablet 1,000 mg PO BEDTIME PRN Pain 02/29/24 02/29/24 Unknown History (Acetaminophen Extra Strength) celecoxib 200 mg capsule 200 mg PO DAILY PRN Pain 02/29/24 02/29/24 Unknown History cholecalciferol (vitamin D3) 50 50 mcg PO DAILY 02/29/24 02/29/24 Unknown History mcg (2,000 unit) tablet (Vitamin D3) cyanocobalamin (vitamin B-12) 1,000 mcg PO DAILY 02/29/24 02/29/24 Unknown Histo ry 1,000 mcg tablet ketoconazole 2 % shampoo 1 appl topical Q OTHER DAY 02/29/24 02/29/24 Unknown History ketoconazole 2 % topical cream 1 appl topical DAILY 02/29/24 02/29/24 Unknown History ondansetron 4 mg disintegrating 4 mg PO Q8H PRN Nausea 02/29/24 02/29/24 Unknown History tablet tadalafil 5 mg tablet 5 mg PO DAILY PRN Sexual Activity 02/29/24 02/29/24 Unknown History Exam Height,Weight and Vital Signs: Height 5 ft 11 in Weight 83.007 kg Assessment and Plan Assessment Anesthesia Assessment: Chart Reviewed Final Anesthetic Review Family History of Problems with Anesthesia: No History of Problems with Anesthesia: No Documented by User: Spenser Winchester MD 03/05/24 11:59 [facility] Past Medical History Medical History Hyperlipidemia Cholelithiasis BCC (basal cell carcinoma), face Abnormal liver function test Abdominal pain Cyst, kidney, acquired Hx of prostatitis COVID-19 vaccine series completed Depression Peripheral neuropathy Cervical spondyloarthritis Mood disorder Pre-diabetes Hx of Guillain-[place] syndrome Arthritis Back pain DDD (degenerative disc disease) Fatty liver Left inguinal hernia Axillary abscess History of lumbar puncture Autoimmune encephalitis Gallstones Hypertension GERD (gastroesophageal reflux disease) Prostatitis Family History Family History Mother No problems noted. Father No problems noted. Surgical History Surgical History History of hernia repair History of esophagogastroduodenoscopy (EGD) Hx of colonoscopy Social History Social History Are you a primary lawn care specialist to a significant other at home: No Do you presently have visiting nurse or other home services: No Alcohol intake: never Patient Tobacco Use Status: Former Tobacco user Use of substances other than those prescribed or required for medical reasons: No Advance Directives: No Advance Directives Information Provided: Yes Advance Directives on File: No Recently lost weight without trying: No Nutrition Risks: No Nutritional Risk Meds Allergies Allergy/AdvReac Type Severity Reaction Status Date / Time codeine [Codeine] Allergy Intermediate Dizziness Verified 03/05/24 11:47 meperidine [Meperidine] Allergy Mild UNKNOWN Verified 03/05/24 11:47 Home Medications ?Medication ?Instructions ?Recorded ?Confirmed ?Last Taken ?Type gabapentin 100 mg capsule 200 mg PO BEDTIME 12/29/20 02/29/24 Unknown History hyoscyamine sulfate 0.125 mg tablet 0.375 mg PO BID PRN Cramps 12/29/20 02/29/24 Unknown History losartan 25 mg tablet 25 mg PO BEDTIME 12/29/20 02/29/24 Unknown History amlodipine 5 mg tablet 5 mg PO DAILY 02/25/22 02/29/24 03/05/24 History acetaminophen 500 mg tablet 1,000 mg PO BEDTIME PRN Pain 02/29/24 02/29/24 Unknown History (Acetaminophen Extra Strength) celecoxib 200 mg capsule 200 mg PO DAILY PRN Pain 02/29/24 02/29/24 Unknown History cholecalciferol (vitamin D3) 50 50 mcg PO DAILY 02/29/24 02/29/24 Unknown History mcg (2,000 unit) tablet (Vitamin D3) cyanocobalamin (vitamin B-12) 1,000 mcg PO DAILY 02/29/24 02/29/24 Unknown History 1,000 mcg tablet ketoconazole 2 % shampoo 1 appl topical Q OTHER DAY 02/29/24 02/29/24 Unknown History ketoconazole 2 % topical cream 1 appl topical DAILY 02/29/24 02/29/24 Unknown History ondansetron 4 mg disintegrating 4 mg PO Q8H PRN Nausea 02/29/24 02/29/24 Unknown History tablet tadalafil 5 mg tablet 5 mg PO DAILY PRN Sexual Activity 02/29/24 02/29/24 Unknown History Exam Airway Mallampati Class: III TM Dist: >3cm Neck ROM: Full Assessment and Plan Assessment Anesthesia Assessment: Anesthesia Plan Discussed Final Anesthetic Review NPO: Yes ASA Class: III Final Preanesthetic Review: No Changes in Pt Med Stat, Meds/Allgs Chart Reviewed, Consent Obtained/Reviewed and Anes Risks/Benef Reviewed Patient Risk: Intermediate Procedure Risk: Low Anesthetic Plan Anesthetic Plan: MAC: Disposition: Standard PACU
[2024-03-05] MEDS: Lactated Ringers 500 ML 50 ML IV (11:52)
[2024-03-05] MEDS: Phenylephrine HCL 2.5% Oph SoL 2 ML BOTTLE 1 DROP EYE-RIGHT ×3 (11:52→12:07)
[2024-03-05] MEDS: Ketorolac Tromethamine 0.5% Op 10 ML DROPS 1 DROP EYE-RIGHT ×3 (11:53→12:08)
[2024-03-05] MEDS: Tropicamide 1 % Ophth Sol 3 ML BTL 1 DROP EYE-RIGHT ×3 (11:53→12:07)
[2024-03-05] MEDS: Cyclopentolate 1 % Ophth Sol 2 ML DRPBTL 1 DROP EYE-RIGHT ×3 (11:53→12:08)
[2024-03-05] MEDS: Tetracaine HCl/PF 0.5% Oph Sol 4 ML DROPS 1 DROP EYE-RIGHT (11:54)
[2024-03-05 12:03] VITALS: BP 148/70; PULSE 82; RESP 18; TEMP 36.6; O2SAT 96
[2024-03-05] MEDS: ondansetron HCL 4 MG/2 ML VIAL IVPUSH (12:07)
--- NOTE | 2024-03-05 12:39 | MHC.SHP ---
Pre-Procedural Eval Section A - 24 Hr Update-Section A only Date of Service: 03/05/24 The patient is an INPATIENT: No Changes since office visit: No Cold of Flu in the past 2 weeks, No New Medical Problems, No Changes in Medication and No Patient answered all questions The patient has been examined within 24 hours of the surgical procedure. The History & Physical has been completed within 30 days and I have reviewed it.: Yes Section B - Complete if H&P > 30 days Chief Complaint: Age-related nuclear cataract, right eye Allergies: Allergies Allergy/AdvReac Type Severity Reaction Status Date / Time codeine [Codeine] Allergy Intermediate Dizziness Verified 03/05/24 11:47 meperidine [Meperidine] Allergy Mild UNKNOWN Verified 03/05/24 11:47 Plan Diagnosis/Plan: Unchanged I have reviewed the history and physical and performed a pertinent physical examination on my patient. No changes have occurred unless specified. Time Spent With Patient Time: Total time managing care of this patient today ____ minutes.
--- NOTE | 2024-03-05 12:40 | HO.PNOPHT ---
Ophthalmology Procedure Procedure Date of Service: 03/05/24 Ophthalmology Viscoelastic: Healon Duet Dual Pack Pro Ophthalmology Lenses: IOL Acrysof MP - MA60AC Procedure Notes: PREOPERATIVE DIAGNOSIS: Decreased visual acuity right eye secondary to cataract POSTOPERATIVE DIAGNOSIS: Same PROCEDURE: Right cataract extraction with intraocular lens insertion SURGEON: Gerard Baez M.D. ANESTHESIA: Topical/MAC ESTIMATED BLOOD LOSS: None COMPLICATIONS: None After obtaining informed consent, the patient was brought to the operating room suite and placed in the supine position. After adequate sedation per anesthesia, topical drops of Tetracaine were given to the right eye. The eye was then prepped and draped in the usual sterile fashion. The operating room microscope was then positioned over the operative eye and a lid speculum placed. A paracentesis was created. Viscoelastic was then instilled into the anterior chamber. A three plane incision was then created temporally, utilizing a 2.85 mm keratome. Capsulotomy forceps were then utilized to create a circular tear capsulotomy. Hydrodissection and hydrodelineation were carried out until adequate mobilization of the nucleus occurred. Phacoemulsification was then utilized to remove the dense central nucleus followed by removal of the cortical material utilizing the automated aspiration irrigation unit. Viscoelastic was instilled into the posterior capsular bag followed by placement of a posterior chamber intraocular lens without difficulty. The residual Viscoelastic was then removed utilizing the automated IA machine. The wound was checked and found to be watertight. The patient tolerated the procedure well and the lid speculum was removed. Intracameral injection of Vigamox 0.1 mL followed by a subtenon injection of Kenalog-40 0.2 mL were administered. The patient will be seen in the a.m.
[2024-03-05 13:05] VITALS: BP 112/73; PULSE 77; RESP 12; TEMP 36.3; O2SAT 97
== END 2024-03-05 13:23 | disposition home or self-care (01) ==
PROVIDERS: PCP Internal Medicine; Visit Provider Ophthalmology
PROC: (CPT 66985; principal; 2024-03-05 12:30)
DX: H25.11 Age-related nuclear cataract, right eye (principal); I10 Essential (primary) hypertension
CPT/HCPCS: 66984; J2250; J2405; J3301; V2630

== ENCOUNTER 2024-03-19 08:51 | Day surgery (SDC) | payer OTHER, SELFPAY ==
[2024-02-29 12:33] VITALS: BMI 25.5
--- NOTE | 2024-03-15 12:19 | HO.ANESPROP2 ---
Documented by User: Yaneth Avalos NP 03/15/24 12:20 HPI - Anesthesia Eval Consult details Narrative: 73yo M for Left Cataract Extraction IOL Insertion Right eye 03/05/24: Midaz 2 PMFSH Active Problems Active Problems: All Active Problems Low back pain (Acute) Cervical radiculitis (Acute) Osteoarthritis of right knee (Acute) Varicose veins of left lower extremity with inflammation (Acute) Dizziness (Acute) BPH w urinary obs/LUTS (Acute) Prostatitis (Acute) Preoperative cardiovascular examination (Acute) Abdominal pain (Acute) Anal pain (Acute) Abdominal pain (Acute) Cyst, kidney, acquired (Acute) Left inguinal hernia (Acute) Autoimmune encephalitis (Acute) Gallstones (Acute) Hypertension (Acute) GERD (gastroesophageal reflux disease) (Acute) Past Medical History Medical History (Updated 03/19/24 @ 10:01 by Jailyn Evans RN) Cataract, right eye Autonomic neuropathy Hyperlipidemia Cholelithiasis BCC (basal cell carcinoma), face Abnormal liver function test Abdominal pain Cyst, kidney, acquired Hx of prostatitis COVID-19 vaccine series completed Depression Peripheral neuropathy Cervical spondyloarthritis Mood disorder Pre-diabetes Hx of Guillain-[place] syndrome Arthritis Back pain DDD (degenerative disc disease) Fatty liver Left inguinal hernia Axillary abscess History of lumbar puncture Autoimmune encephalitis Gallstones Hypertension GERD (gastroesophageal reflux disease) Prostatitis Family History Family History Mother No problems noted. Father No problems noted. Family history of problems with anesthesia: No Surgical History Surgical History History of hernia repair History of esophagogastroduodenoscopy (EGD) Hx of colonoscopy History of Problems with Anesthesia: No Social History Social History Are you a primary caregiver services home to a significant other at home: No Do you presently have visiting nurse or other home services: No Alcohol intake: never Patient Tobacco Use Status: Former Tobacco user Use of substances other than those prescribed or required for medical reasons: No Advance Directives: No Advance Directives Information Provided: Yes Advance Directives on File: No Recently lost weight without trying: No Meds Allergies Allergy/AdvReac Type Severity Reaction Status Date / Time codeine [Codeine] Allergy Intermediate Dizziness Verified 03/05/24 11:47 meperidine [Meperidine] Allergy Mild UNKNOWN Verified 03/05/24 11:47 Home Medications ?Medication ?Instructions ?Recorded ?Confirmed ?Last Taken ?Type gabapentin 100 mg capsule 200 mg PO BEDTIME 12/29/20 02/29/24 Unknown History hyoscyamine sulfate 0.125 mg tablet 0.375 mg PO BID PRN Cramps 12/29/20 02/29/24 Unknown History losartan 25 mg tablet 25 mg PO BEDTIME 12/29/20 02/29/24 Unknown History amlodipine 5 mg tablet 5 mg PO DAILY 02/25/22 02/29/24 03/05/24 History acetaminophen 500 mg tablet 1,000 mg PO BEDTIME PRN Pain 02/29/24 02/29/24 Unknown History (Acetaminophen Extra Strength) celecoxib 200 mg capsule 200 mg PO DAILY PRN Pain 02/29/24 02/29/24 Unknown History cholecalciferol (vitamin D3) 50 50 mcg PO DAILY 02/29/24 02/29/24 Unknown History mcg (2,000 unit) tablet (Vitamin D3) cyanocobalamin (vitamin B-12) 1,000 mcg PO DAILY 02/29/24 02/29/24 Unknown History 1,000 mcg tablet ketoconazole 2 % shampoo 1 appl topical Q OTHER DAY 02/29/24 02/29/24 Unknown History ketoconazole 2 % topical cream 1 appl topical DAILY 02/29/24 02/29/24 Unknown History ondansetron 4 mg disintegrating 4 mg PO Q8H PRN Nausea 02/29/24 02/29/24 Unknown History tablet tadalafil 5 mg tablet 5 mg PO DAILY PRN Sexual Activity 02/29/24 02/29/24 Unknown History Exam Height,Weight and Vital Signs: Height 5 ft 11 in Weight 83.007 kg Assessment and Plan Assessment Anesthesia Assessment: Chart Reviewed Final Anesthetic Review Family History of Problems with Anesthesia: No History of Problems with Anesthesia: No Documented by User: Spenser Winchester MD 03/19/24 10:10 [facility] Past Medical History Medical History (Updated 03/19/24 @ 10:01 by Jailyn Evans RN) Cataract, right eye Autonomic neuropathy Hyperlipidemia Cholelithiasis BCC (basal cell carcinoma), face Abnormal liver function test Abdominal pain Cyst, kidney, acquired Hx of prostatitis COVID-19 vaccine series completed Depression Peripheral neuropathy Cervical spondyloarthritis Mood disorder Pre-diabetes Hx of Guillain-[place] syndrome Arthritis Back pain DDD (degenerative disc disease) Fatty liver Left inguinal hernia Axillary abscess History of lumbar puncture Autoimmune encephalitis Gallstones Hypertension GERD (gastroesophageal reflux disease) Prostatitis Family History Family History Mother No problems noted. Father No problems noted. Surgical History Surgical History History of hernia repair History of esophagogastroduodenoscopy (EGD) Hx of colonoscopy Social History Social History Are you a primary caregiver services home to a significant other at home: No Do you presently have visiting nurse or other home services: No Alcohol intake: never Patient Tobacco Use Status: Former Tobacco user Use of substances other than those prescribed or required for medical reasons: No Advance Directives: No Advance Directives Information Provided: Yes Advance Directives on File: No Recently lost weight without trying: No Meds Allergies Allergy/AdvReac Type Severity Reaction Status Date / Time codeine [Codeine] Allergy Intermediate Dizziness Verified 03/05/24 11:47 meperidine [Meperidine] Allergy Mild UNKNOWN Verified 03/05/24 11:47 Home Medications ?Medication ?Instructions ?Recorded ?Confirmed ?Last Taken ?Type gabapentin 100 mg capsule 200 mg PO BEDTIME 12/29/20 02/29/24 Unknown History hyoscyamine sulfate 0.125 mg tablet 0.375 mg PO BID PRN Cramps 12/29/20 02/29/24 Unknown History losartan 25 mg tablet 25 mg PO BEDTIME 12/29/20 02/29/24 Unknown History amlodipine 5 mg tablet 5 mg PO DAILY 02/25/22 02/29/24 03/05/24 History acetaminophen 500 mg tablet 1,000 mg PO BEDTIME PRN Pain 02/29/24 02/29/24 Unknown History (Acetaminophen Extra Strength) celecoxib 200 mg capsule 200 mg PO DAILY PRN Pain 02/29/24 02/29/24 Unknown History cholecalciferol (vitamin D3) 50 50 mcg PO DAILY 02/29/24 02/29/24 Unknown History mcg (2,000 unit) tablet (Vitamin D3) cyanocobalamin (vitamin B-12) 1,000 mcg PO DAILY 02/29/24 02/29/24 Unknown History 1,000 mcg tablet ketoconazole 2 % shampoo 1 appl topical Q OTHER DAY 02/29/24 02/29/24 Unknown History ketoconazole 2 % topical cream 1 appl topical DAILY 02/29/24 02/29/24 Unknown History ondansetron 4 mg disintegrating 4 mg PO Q8H PRN Nausea 02/29/24 02/29/24 Unknown History tablet tadalafil 5 mg tablet 5 mg PO DAILY PRN Sexual Activity 02/29/24 02/29/24 Unknown History Exam Airway Mallampati Class: II TM Dist: >3cm Neck ROM: Full Partial: Upper Assessment and Plan Assessment Anesthesia Assessment: Anesthesia Plan Discussed Final Anesthetic Review NPO: Yes ASA Class: III Final Preanesthetic Review: No Changes in Pt Med Stat, Meds/Allgs Chart Reviewed, Consent Obtained/Reviewed and Anes Risks/Benef Reviewed Patient Risk: Intermediate Procedure Risk: Low Anesthetic Plan Anesthetic Plan: MAC: Disposition: Standard PACU
[2024-03-19 10:08] VITALS: BP 160/70; PULSE 83; RESP 16; TEMP 37; O2SAT 97
[2024-03-19] MEDS: Lactated Ringers 500 ML 50 ML IV (10:18)
[2024-03-19] MEDS: ondansetron HCL 4 MG/2 ML VIAL IVPUSH (10:22)
[2024-03-19] MEDS: Tetracaine HCl/PF 0.5% Oph Sol 4 ML DROPS 1 DROP EYE-LEFT (10:24)
[2024-03-19] MEDS: Cyclopentolate 1 % Ophth Sol 2 ML DRPBTL 1 DROP EYE-LEFT ×3 (10:26→10:32)
[2024-03-19] MEDS: Tropicamide 1 % Ophth Sol 3 ML BTL 1 DROP EYE-LEFT ×3 (10:26→10:32)
[2024-03-19] MEDS: Ketorolac Tromethamine 0.5% Op 10 ML DROPS 1 DROP EYE-LEFT ×3 (10:27→10:33)
[2024-03-19] MEDS: Phenylephrine HCL 2.5% Oph SoL 2 ML BOTTLE 1 DROP EYE-LEFT ×3 (10:28→10:34)
--- NOTE | 2024-03-19 11:13 | MHC.SHP ---
Pre-Procedural Eval Section A - 24 Hr Update-Section A only Date of Service: 03/19/24 The patient is an INPATIENT: No Changes since office visit: No Cold of Flu in the past 2 weeks, No New Medical Problems, No Changes in Medication and No Patient answered all questions The patient has been examined within 24 hours of the surgical procedure. The History & Physical has been completed within 30 days and I have reviewed it.: Yes Section B - Complete if H&P > 30 days Chief Complaint: Age-related nuclear cataract, left eye Allergies: Allergies Allergy/AdvReac Type Severity Reaction Status Date / Time codeine [Codeine] Allergy Intermediate Dizziness Verified 03/05/24 11:47 meperidine [Meperidine] Allergy Mild UNKNOWN Verified 03/05/24 11:47 Plan Diagnosis/Plan: Unchanged I have reviewed the history and physical and performed a pertinent physical examination on my patient. No changes have occurred unless specified. Time Spent With Patient Time: Total time managing care of this patient today ____ minutes.
--- NOTE | 2024-03-19 11:14 | HO.PNOPHT ---
Ophthalmology Procedure Procedure Date of Service: 03/19/24 Ophthalmology Viscoelastic: Healon Duet Dual Pack Pro Ophthalmology Lenses: IOL Acrysof MP - MA60AC (13.5) Procedure Notes: PREOPERATIVE DIAGNOSIS: Decreased visual acuity left eye secondary to cataract POSTOPERATIVE DIAGNOSIS: Same PROCEDURE: Left cataract extraction with intraocular lens insertion SURGEON: Gerard Baez M.D. ANESTHESIA: Topical/MAC ESTIMATED BLOOD LOSS: None COMPLICATIONS: None After obtaining informed consent, the patient was brought to the operation room suite and placed in the supine position. After adequate sedation per anesthesia, topical drops of Tetracaine were given to the left eye. The eye was then prepped and draped in the usual sterile fashion. The operating room microscope was then positioned over the operative eye and a lid speculum placed. A paracentesis was created. Viscoelastic was then instilled into the anterior chamber. A three plane incision was then created temporally, utilizing a 2.85 mm keratome. Capsulotomy forceps were then utilized to create a circular tear capsulotomy. Hydrodissection and hydrodelineation were carried out until adequate mobilization of the nucleus occurred. Phacoemulsification was then utilized to remove the dense central nucleus followed by removal of the cortical material utilizing the automated aspiration irrigation unit. Viscoat elastic was instilled into the posterior capsular bag followed by placement of a posterior chamber intraocular lens without difficulty. The residual Viscoat elastic was then removed utilizing the automated IA machine. The wound was check and found to be watertight. The patient tolerated the procedure well and the lid speculum was removed. Intracameral injection of Vigamox 0.1 mL followed by a subtenon injection of Kenalog-40 0.2 mL were administered. The patient will be seen in the a.m.
[2024-03-19 12:09] VITALS: BP 148/65; PULSE 79; RESP 16; TEMP 36.3; O2SAT 99
== END 2024-03-19 12:34 | disposition home or self-care (01) ==
PROVIDERS: PCP Internal Medicine; Visit Provider Ophthalmology
PROC: (CPT 66985; principal; 2024-03-19 10:50)
DX: H25.12 Age-related nuclear cataract, left eye (principal); H52.4 Presbyopia; H18.413 Arcus senilis, bilateral; I10 Essential (primary) hypertension; E78.5 Hyperlipidemia, unspecified; G93.40 Encephalopathy, unspecified; R21 Rash and other nonspecific skin eruption; Z85.828 Personal history of other malignant neoplasm of skin; Z79.899 Other long term (current) drug therapy; Z88.5 Allergy status to narcotic agent; Z87.891 Personal history of nicotine dependence
CPT/HCPCS: 66984; J2250; J2405; J3301; V2630

== ENCOUNTER 2024-03-23 10:59 | Outpatient (AMB) | payer OTHER, SELFPAY ==
--- NOTE | 2024-03-23 10:57 | MHC.OFFVIS ---
Intake Visit Reasons: s/p C7-T1 interlaminar LG Allergies codeine [Codeine] Allergy (Intermediate, Verified 03/05/24 11:47) Dizziness meperidine [Meperidine] Allergy (Mild, Verified 03/05/24 11:47) UNKNOWN HPI HPI s/p C7-T1 interlaminar LG: Details: 73-year-old male who presents today via televisit for a status post C7-T1 interlaminar LG.? The patient reports 75% relief following the procedure.?He reports significant neck pain relief. ?He currently rates his pain at 2/10; previously, it was 7-8/10 in intensity. He continues to have some symptoms of skin irritation. He still has pins and needles that are on and off in nature around his back, shoulder, and chest. He does not want to proceed with the stellate?ganglion block this time. He follows up with the neurology department. He had his cataract surgery done recently. Post-procedure, he became sick, and his eyes are blurry. Past procedures 02/23/24: Interlaminar epidural steroid injection, C7-T1, left parasaggital: 75% relief. [facility] Medical History (Updated 03/19/24 @ 10:01 by Jailyn Evans RN) Cataract, right eye Autonomic neuropathy Hyperlipidemia Cholelithiasis BCC (basal cell carcinoma), face Abnormal liver function test Abdominal pain Cyst, kidney, acquired Hx of prostatitis COVID-19 vaccine series completed Depression Peripheral neuropathy Cervical spondyloarthritis Mood disorder Pre-diabetes Hx of Guillain-[place] syndrome Arthritis Back pain DDD (degenerative disc disease) Fatty liver Left inguinal hernia Axillary abscess History of lumbar puncture Autoimmune encephalitis Gallstones Hypertension GERD (gastroesophageal reflux disease) Prostatitis Surgical History History of hernia repair History of esophagogastroduodenoscopy (EGD) Hx of colonoscopy Family History Mother No problems noted. Father No problems noted. Social History Are you a primary medication care manager to a significant other at home: No Do you presently have visiting nurse or other home services: No Alcohol intake: never Patient Tobacco Use Status: Former Tobacco user Review of Systems Const All systems reviewed & are unremarkable except as noted in HPI and below Physical Exam General: Appears afebrile. Alert and oriented. Mood and affect appropriate. Follows and participates in conversation appropriately. Respiratory effort is unlabored. Able to transition from sit to stand unassisted. Ambulates with bilaterally normal heel strike and toe off. Telehealth Telehealth Telehealth Platform: Telephone Location of provider rendering services: practice address Location of patient: address on file Patient Identification confirmed using: Name, : Yes Telehealth method: voice only Patient verbally consented to treatment: Yes Patient verbally consented to billing insurance company: Yes Patient informed of any privacy concerns related to visit: Yes Minutes spent on Phone/Video with Pt.: 7 Results Reviewed Results Reviewed: No imaging is available for review. Assessment & Plan Assessment & Plan (1) Cervical radiculitis: Code(s): M54.12 - Radiculopathy, cervical region Category: Medical Plan He reports 75% relief. He does not want to proceed with stellate ganglion block at this time for his upper extremity vasomotor/itching symptoms. Follow-up with neurology as scheduled. Follow up with us as needed. Scribed for Dr. Marcos by Angel Nielsen, medical scientific liaison, on 03/23/2024. I, Dr. Marcos, have personally reviewed and agree with the information entered by the scribe. Coding Level of Care Code Tele Est Pt Level 3 (87833) Diagnoses Cervical radiculitis M54.12
== END 2024-03-23 11:00 | disposition home or self-care (01) ==
LOC: HO.PMC 10:59
PROVIDERS: PCP Internal Medicine; Visit Provider Internal Medicine
DX: M54.12 Radiculopathy, cervical region (principal)
CPT/HCPCS: 99213

== ENCOUNTER → 2024-03-23 10:59 | Outpatient (BNVA) | payer OTHER, SELFPAY | PROVIDERS: PCP Internal Medicine; Visit Provider Internal Medicine ==

== ENCOUNTER 2024-04-30 10:44 | Outpatient (REF) | payer OTHER, SELFPAY ==
[2024-04-30 10:57] LABS: MANUAL DIFF FLAG NO
[2024-04-30 11:10] LABS: Basophils Absolute Auto 0.1 X10*3/uL (0.0-0.2); Eosinophils Absolute Auto 0.2 X10*3/uL (0.0-0.4); Eosinophils Percent Auto 3.2 % (0-4); Hematocrit 41.1 % (42.0-52.0); Imm Gran Abs Auto 0.04 X10*3/uL (0.00-0.03); Imm Gran Pct Auto 0.6 % (0.0-0.4); Lymphocytes Absolute Auto 1.9 X10*3/uL (1.2-4.9); Mean Corpuscular HGB Conc 34.1 g/dl (31.0-36.0); Mean Corpuscular Hemoglobin 30.2 pg (27.0-33.0); Mean Corpuscular Volume 88.8 fL (80.0-98.0); Mean Platelet Volume 9.8 fL (9.4-12.4); Monocytes Absolute Auto 0.8 X10*3/uL (0.1-1.2); Monocytes Percent Auto 12.1 % (2-11); Neutrophils Absolute Auto 3.3 x10*3/uL (2.0-8.3); Neutrophils Percent Auto 53.1 % (45-73); Platelet Count 192 X10*3/uL (160-400); Red Blood Count 4.63 X10*6/uL (4.60-5.80); Red Cell Distribution Width 12.7 % (11.0-16.0); White Blood Count 6.3 X10*3/uL (4.8-10.8)
[2024-04-30 11:48] LABS: Alanine Aminotransferase 47 U/L (0-40); Albumin Level 4.4 g/dL (3.5-5.0); Alkaline Phosphatase 44 U/L (39-117); Anion Gap 9 (12-20); Aspartate Amino Transferase 21 U/L (5-37); Bilirubin Total 0.9 mg/dL (0.0-1.0); Blood Urea Nitrogen 13 mg/dL (9-16); Calcium 9.1 mg/dL (8.4-10.2); Carbon Dioxide 28 mmol/L (22-29); Chloride 106 mmol/L (96-108); Estimated Glomerular Filt Rate > 60; Glucose Fasting 111 mg/dL (60-99); Glucose Random 110 mg/dL (60-115); Sodium 139 mmol/L (135-145); Total Protein 7.4 g/dL (6.5-8.0)
[2024-04-30 11:49] LABS: Estimated Average Glucose 111 mg/dL; Hemoglobin A1c % 5.5 % (<6.0)
== END 2024-04-30 10:45 | disposition home or self-care (01) ==
LOC: HO.LAB 10:44
PROVIDERS: PCP Internal Medicine; Visit Provider Internal Medicine
DX: R51.9 Headache, unspecified (principal); R42 Dizziness and giddiness; R73.01 Impaired fasting glucose
CPT/HCPCS: 36415; 80053; 83036; 85025

== ENCOUNTER 2024-05-23 15:00 | Outpatient (RCR) | payer OTHER, SELFPAY ==
[2024-04-24 15:12] VITALS: BP 157/70; PULSE 66; O2SAT 95
== END 2024-11-23 15:34 | disposition home or self-care (01) ==
LOC: HO.PT 15:00
PROVIDERS: PCP Internal Medicine; Visit Provider Radiology Diagnostic Radiology
DX: G90.1 Familial dysautonomia [Riley-Day] (principal)
CPT/HCPCS: 97110; 97112; 97161; 97162; 97530

== ENCOUNTER 2024-06-01 14:05 | Outpatient (REF) | payer OTHER, SELFPAY ==
--- NOTE | ~2024-06-01 | XR_ITS ---
EXAMINATION: XR CHEST CLINICAL INFORMATION: COVID positive cough COMPARISON: Chest radiograph 05/25/2019 TECHNIQUE: 2 views of the chest were obtained. FINDINGS: The lungs are adequately expanded. No focal consolidation. No pleural effusions, edema or pneumothorax. The cardiac mediastinal silhouette is within normal limits. Mild degenerative changes of the thoracic spine. No acute osseous abnormality. XR/XR chest 2V IMPRESSION: No acute pulmonary disease. Electronically signed by: Efe Corrigan MD 06/01/2024 05:20 PM EDT
== END 2024-06-01 14:06 | disposition home or self-care (01) ==
LOC: HO.XRAY 14:05
PROVIDERS: PCP Internal Medicine; Visit Provider Internal Medicine
DX: U07.1 COVID-19 (principal); R05.1 Acute cough
CPT/HCPCS: 71046

== ENCOUNTER 2024-06-12 15:49 | Outpatient (REF) | payer OTHER, SELFPAY ==
--- NOTE | ~2024-06-12 | MR_ITS ---
EXAMINATION: MRI OF THE BRAIN WITH AND WITHOUT IV CONTRAST INDICATION: Headache, vertigo, tinnitus left, rule out tumor, acoustic neuroma COMPARISON: None available. TECHNIQUE: Multiplanar multisequence MR imaging of the brain was obtained without and following the administration of 6 mL of Gadavist without complication with dedicated IAC pulse series. FINDINGS: The inner ear structures including the cochlea, vestibules, and semicircular canals exhibit preserved CSF signal intensity with no pathologic enhancement. The vestibular aqueducts are not enlarged. Cranial nerves VII and VIII complexes are normal in morphology. No enhancing CP angle/retrocochlear lesion. No acute intracranial hemorrhage or infarct. No abnormal intracranial enhancement. No edema, midline shift or hydrocephalus. No acute extra-axial fluid collections. The osseous structures are unremarkable. The pituitary gland, pineal gland and remaining midline structures are unremarkable. No orbital pathology. The paranasal sinuses and mastoid air cells are clear. MR/MR head/brain wo/w con IMPRESSION: No retrocochlear pathology. Unremarkable MRI brain. Electronically signed by: Vivian Harrington MD 06/26/2024 07:32 PM EDT
[2024-06-12] MEDS: gadobutroL 7.5 ML VIAL IVPUSH (16:41)
== END 2024-06-12 15:50 | disposition home or self-care (01) ==
LOC: HO.MRI 15:49
PROVIDERS: PCP Internal Medicine; Visit Provider Internal Medicine
DX: R51.9 Headache, unspecified (principal); R42 Dizziness and giddiness; H93.12 Tinnitus, left ear
CPT/HCPCS: 70553; A9585

== ENCOUNTER 2024-06-20 14:36 | Outpatient (REF) | payer OTHER, SELFPAY ==
--- NOTE | ~2024-06-20 | XR_ITS ---
EXAMINATION: XR CHEST CLINICAL INFORMATION: Acute cough COMPARISON: Chest radiograph 06/01/2024 TECHNIQUE: 2 views of the chest were obtained. FINDINGS: The lungs are well-expanded. No focal consolidation. No pleural effusions or pneumothorax. The cardiomediastinal silhouette is within normal limits. No acute osseous abnormality. Mild degenerative changes of thoracic spine. XR/XR chest 2V IMPRESSION: No acute pulmonary disease. Electronically signed by: Efe Corrigan MD 06/20/2024 04:55 PM EDT
== END 2024-06-20 14:37 | disposition home or self-care (01) ==
LOC: HO.XRAY 14:36
PROVIDERS: PCP Internal Medicine; Visit Provider Physician Assistant Surgical
DX: R05.1 Acute cough (principal)
CPT/HCPCS: 71046

== ENCOUNTER 2024-06-28 13:20 | Outpatient (AMB) | payer OTHER, SELFPAY ==
--- NOTE | 2024-06-28 13:25 | A.OFFVIS_ITS ---
Vital Signs 06/28/24 13:27 Height 6 ft Weight 185 lb BMI 25.1 BP 118/64 Blood Pressure Location Rt brachial Position Sitting Pulse 65 Pulse Source Doppler Pulse Oximetry (%) 98 Oxygen Delivery Method Room Air Intake Visit Reasons: Post Covid Allergies codeine [Codeine] Allergy (Intermediate, Verified 06/28/24 13:29) Dizziness meperidine [Meperidine] Allergy (Mild, Verified 06/28/24 13:29) UNKNOWN HPI HPI Post Covid: Details: 73-year-old gentleman, former smoker up to 30 pack-years, quit 1988 with no underlying personal or family history of lung disease, but with recent history of COVID-19 approximately 5 weeks prior before this evaluation with residual cough productive of yellowish to greenish sputum. Patient states that cough is worse during the day, but does sometimes wakes him up at night. He denies environmental allergies. Patient does not have pets. He has been employed with no exposure to industrial dusts. He recently was on a course of Augmentin for diverticulitis. Patient does have underlying autonomic dysfunction with prior poor response to systemic glucocorticoids. His most recent chest x-rays are normal. [facility] Medical History (Updated 06/28/24 @ 14:38 by Ankit Fenton MD) Cataract, right eye Autonomic neuropathy Hyperlipidemia Cholelithiasis BCC (basal cell carcinoma), face Abnormal liver function test Abdominal pain Cyst, kidney, acquired Hx of prostatitis COVID-19 vaccine series completed Depression Peripheral neuropathy Cervical spondyloarthritis Mood disorder Pre-diabetes Hx of Guillain-[place] syndrome Arthritis Back pain DDD (degenerative disc disease) Fatty liver Left inguinal hernia Axillary abscess History of lumbar puncture Autoimmune encephalitis Gallstones Hypertension GERD (gastroesophageal reflux disease) Prostatitis Surgical History History of hernia repair History of esophagogastroduodenoscopy (EGD) Hx of colonoscopy Family History Mother No problems noted. Father No problems noted. Social History Are you a primary home care attendant to a significant other at home: No Do you presently have visiting nurse or other home services: No Alcohol intake: never Patient Tobacco Use Status: Former Tobacco user Review of Systems Card Denies chest pain, Denies pedal edema, Denies dyspnea, Denies dyspnea on exertion and Denies orthopnea Resp Reports cough, Reports excessive phlegm production, Denies dyspnea, Denies dyspnea on exertion and Denies wheezing Aller/Immun Denies wheezing Physical Exam Vital Signs: Last Vital Signs Pulse 65 06/28/24 13:27 BP 118/64 06/28/24 13:27 Pulse Ox 98 06/28/24 13:27 Oxygen Delivery Method Room Air 06/28/24 13:27 BMI result Body Mass Index 25.1 Const General: no acute distress and alert Nutritional Appearance: not obese Orientation/consciousness: Other orientation findings ( oriented) HEENT Head: Yes atraumatic Eyes General: appearance normal, both eyes and all related structures Sclerae: sclerae normal EOM: EOMs intact bilaterally Neck Neck: Yes supple Lymphatic: no lymphadenopathy noted Resp Effort & Inspection: normal respiratory effort and no use of accessory muscles Auscultation: clear to auscultation bilaterally Cardio Rate: regular rate Rhythm: regular rhythm Heart sounds: no gallops, no murmurs and no rubs Skin General skin exam: other ( warm) Extrem General: No clubbing, No cyanosis and No edema Assessment & Plan Assessment & Plan (1) Cough: Code(s): R05.9 - Cough, unspecified Category: Medical (2) [id number] condition: Code(s): U09.9 - Post COVID-19 condition, unspecified Category: Medical Plan Appears to have post COVID-19 cough with bronchitic and inflammatory symptoms. No evidence of pneumonia on imaging. Will treat with a course of prednisone and Levaquin. Medications: New prednisone 40 mg (2 x 20 mg) PO DAILY 10 tabs 0RF levofloxacin 750 mg PO DAILY 7 tabs 0RF Coding Level of Care Code New Pt Level 4 (29252) Diagnoses Cough R05.9 [id number] condition U09.9
[2024-06-28 13:27] VITALS: BP 118/64; PULSE 65; O2SAT 98; BMI 25.1
== END 2024-06-28 14:21 | disposition home or self-care (01) ==
PROVIDERS: PCP Internal Medicine; Visit Provider Internal Medicine Pulmonary Disease
DX: R05.9 Cough, unspecified (principal); U09.9 Post COVID-19 condition, unspecified
CPT/HCPCS: 99204

== ENCOUNTER → 2024-06-28 13:20 | Outpatient (BNVA) | payer OTHER, SELFPAY | PROVIDERS: PCP Internal Medicine; Visit Provider Internal Medicine Pulmonary Disease ==

== ENCOUNTER 2024-09-17 14:21 | Outpatient (AMB) | payer OTHER, SELFPAY ==
--- NOTE | 2024-09-17 14:23 | MHC.OFFVIS ---
Vital Signs 09/17/24 14:33 Height 6 ft Weight 180 lb BMI 24.4 BP 147/69 H Blood Pressure Location Lt brachial Position Sitting Pulse 60 Intake Visit Reasons: lump abdomen Intake Note: This patient presents for abdominal lump. Pt c/o; reports bulge mid abdomen when laying down. Business Continuity Planning Director Required: No Accompanied by: Spouse Allergies codeine [Codeine] Allergy (Intermediate, Verified 09/17/24 14:34) Dizziness meperidine [Meperidine] Allergy (Mild, Verified 09/17/24 14:34) UNKNOWN Medication List - Last Reconciled 09/17/24 by Gabriel Gaviria MD acetaminophen (Acetaminophen Extra Strength) 1,000 mg PO BEDTIME PRN amlodipine 5 mg PO DAILY celecoxib 200 mg PO DAILY PRN cholecalciferol (vitamin D3) (Vitamin D3) 50 mcg PO DAILY comp.stocking,thigh,long,small As directed cyanocobalamin (vitamin B-12) 1,000 mcg PO DAILY gabapentin 200 mg PO BEDTIME hyoscyamine sulfate 0.375 mg PO BID PRN ketoconazole 2% 1 appl topical DAILY ketoconazole 2% 1 appl topical Q OTHER DAY levofloxacin 750 mg PO DAILY losartan 25 mg PO BEDTIME ondansetron 4 mg PO Q8H PRN prednisone 40 mg (2 x 20 mg) PO DAILY tadalafil 5 mg PO DAILY PRN tamsulosin 0.4 mg PO DAILY@1700 90 days HPI HPI lump abdomen: Details: His had called the office last week to have a bulge on his abdominal wall checked. He denies any problems with this like tenderness or pain. He does have a long history of chronic GI complaints. He is uncertain as to how long he has had this bulge on the abdominal wall. [facility] Medical History (Updated 09/17/24 @ 14:40 by Gabriel Gaviria MD) Diastasis recti Cataract, right eye Autonomic neuropathy Hyperlipidemia Cholelithiasis BCC (basal cell carcinoma), face Abnormal liver function test Abdominal pain Cyst, kidney, acquired Hx of prostatitis COVID-19 vaccine series completed Depression Peripheral neuropathy Cervical spondyloarthritis Mood disorder Pre-diabetes Hx of Guillain-Breaks syndrome Arthritis Back pain DDD (degenerative disc disease) Fatty liver Left inguinal hernia Axillary abscess History of lumbar puncture Autoimmune encephalitis Gallstones Hypertension GERD (gastroesophageal reflux disease) Prostatitis Surgical History History of hernia repair History of esophagogastroduodenoscopy (EGD) Hx of colonoscopy Family History Mother No problems noted. Father No problems noted. Social History Are you a primary acute care nurse practitioner to a significant other at home: No Do you presently have visiting nurse or other home services: No Alcohol intake: never Patient Tobacco Use Status: Former Tobacco user Review of Systems Const Denies chills and Denies fever(s) Card Denies chest pain, Denies dyspnea and Denies dyspnea on exertion Resp Denies cough, Denies dyspnea and Denies dyspnea on exertion GI Denies hematochezia and Denies change in bowel habits Denies hematuria and Denies difficulty urinating Musc Denies back pain and Denies limited range of motion Neuro Denies focal weakness and Denies convulsions Psych Denies depression and Denies mood swings Physical Exam Vital Signs: Last Vital Signs Pulse 60 09/17/24 14:33 BP 147/69 H 09/17/24 14:33 BMI result Body Mass Index 24.4 Const General: comfortable and no acute distress Orientation/consciousness: patient oriented x3 Neck Neck: Yes no lymphadenopathy Resp Auscultation: clear to auscultation bilaterally Cardio Rhythm: regular rhythm GI Other: Diastasis recti on the upper abdomen, nontender Palpation (GI): Soft to palpation, nontender and no guarding Neuro General: patient oriented x3 Assessment & Plan Assessment & Plan (1) Diastasis recti: Code(s): M62.08 - Separation of muscle (nontraumatic), other site Category: Medical Plan: He has a diastasis recti on his upper abdomen. He denies any problems with this. I assured him that this is a benign condition and does not require surgical intervention. He can follow up on a p.r.n. basis Coding Level of Care Code Est Pt Level 2 (31404) Diagnoses Diastasis recti M62.08
[2024-09-17 14:33] VITALS: BP 147/69; PULSE 60; BMI 24.4
== END 2024-09-17 14:43 | disposition home or self-care (01) ==
PROVIDERS: PCP Internal Medicine; Visit Provider Surgery
DX: M62.08 Separation of muscle (nontraumatic), other site (principal)
CPT/HCPCS: 99212

== ENCOUNTER → 2024-09-17 14:21 | Outpatient (BNVA) | payer OTHER, SELFPAY | PROVIDERS: PCP Internal Medicine; Visit Provider Surgery ==

== ENCOUNTER 2024-10-11 11:50 | Outpatient (REF) | payer OTHER, SELFPAY ==
[2024-10-11 17:26] LABS: Influenza A PCR NEGATIVE (Negative); Influenza B PCR NEGATIVE (Negative); Resp Syncy Virus RNA Qual PCR NEGATIVE (Negative); SARS COV2 PCR INHOUSE NEGATIVE (Negative)
== END 2024-10-11 11:51 | disposition home or self-care (01) ==
LOC: HO.LAB 11:50
PROVIDERS: Nurse Practitioner Family; PCP Internal Medicine
DX: J06.9 Acute upper respiratory infection, unspecified (principal)
CPT/HCPCS: 0241U; 87880

== ENCOUNTER 2024-10-11 11:50 | Outpatient (AMB) | payer OTHER, SELFPAY ==
--- NOTE | 2024-10-11 12:29 | MHC.OFFWIV ---
Intake Vital Signs 10/11/24 12:31 Height 6 ft Weight 190 lb BMI 25.8 BP 136/70 Blood Pressure Location Lt brachial Position Sitting Pulse 73 Pulse Source Pulse Oximeter Temp 98.2 F Temp Source Oral Pulse Oximetry (%) 97 Oxygen Delivery Method Room Air Intake Visit Reasons: EP sore throat, fatigue, tired Intake Note: Pt is here today for a walk in visit. Pt c/o chest congestion cough tired sore throat. Pt states that he had Covid May. Patient Tobacco Use Status: Former Tobacco user Allergies codeine [Codeine] Allergy (Intermediate, Verified 10/11/24 12:35) Dizziness meperidine [Meperidine] Allergy (Mild, Verified 10/11/24 12:35) UNKNOWN HPI HPI Comments History of Present Illness Details 73 y/o male patient who presents to the walk in clinic with c/o URI symptoms since Tuesday. [facility] Medical History (Updated 09/17/24 @ 14:40 by Gabriel Gaviria MD) Diastasis recti Cataract, right eye Autonomic neuropathy Hyperlipidemia Cholelithiasis BCC (basal cell carcinoma), face Abnormal liver function test Abdominal pain Cyst, kidney, acquired Hx of prostatitis COVID-19 vaccine series completed Depression Peripheral neuropathy Cervical spondyloarthritis Mood disorder Pre-diabetes Hx of Guillain-Mcrae syndrome Arthritis Back pain DDD (degenerative disc disease) Fatty liver Left inguinal hernia Axillary abscess History of lumbar puncture Autoimmune encephalitis Gallstones Hypertension GERD (gastroesophageal reflux disease) Prostatitis Surgical History History of hernia repair History of esophagogastroduodenoscopy (EGD) Hx of colonoscopy Family History Mother No problems noted. Father No problems noted. Social History Are you a primary career development coordinator to a significant other at home: No Do you presently have visiting nurse or other home services: No Alcohol intake: never Patient Tobacco Use Status: Former Tobacco user Review of Systems Const All systems reviewed & are unremarkable except as noted in HPI and below Physical Exam Vital Signs: Last Vital Signs Temp 98.2 F 10/11/24 12:31 Pulse 73 10/11/24 12:31 BP 136/70 10/11/24 12:31 Pulse Ox 97 10/11/24 12:31 Oxygen Delivery Method Room Air 10/11/24 12:31 BMI result Body Mass Index 25.8 Const General: cooperative and no acute distress Orientation/consciousness: patient oriented x3 HEENT Head: Yes normocephalic Ears: external ears normal and TM's normal bilaterally General nose exam: Normal external nose present Face and sinus: Yes sinuses nontender Mouth: moist mucous membranes Throat: Yes posterior oropharynx normal Resp Effort & Inspection: normal respiratory effort and able to speak in complete sentences Auscultation: clear to auscultation bilaterally, no crackles, no rales, no rhonchi and no wheezes Cardio Heart sounds: S1 normal heart sound present and S2 normal heart sound present Neuro General: patient oriented x3 Results AMB Rapid Strep AMB Rapid Strep Negative Last Edit by LAUREEN Spencer on 10/11/24 12:44 Results Reviewed Results Reviewed: Laboratory Last Values Strep Scn Rapid Clinic Negative 10/11/24 12:39 Assessment & Plan Assessment & Plan (1) Acute respiratory disease: Code(s): J06.9 - Acute upper respiratory infection, unspecified Plan: SARs ordered OTC cough remedies. Acetaminophen for painrelief. Orders: Orders AMB Rapid Strep Screen Today Leslie Downing PA-C Z13.9 - Encounter for screening, unspecified SARS-CoV2/FLU/RSV Today Stefany Uribe NP R09.89 - Other specified symptoms and signs involving the circulatory and respiratory systems Coding Level of Care Code Est Pt Level 3 (50879) Diagnoses Acute respiratory disease J06.9 Time Spent (min) 15
[2024-10-11 12:31] VITALS: BP 136/70; PULSE 73; TEMP 36.8; O2SAT 97; BMI 25.8
== END 2024-10-11 13:14 | disposition home or self-care (01) ==
PROVIDERS: PCP Internal Medicine; Visit Provider Nurse Practitioner Family
DX: J06.9 Acute upper respiratory infection, unspecified (principal); Z13.9 Encounter for screening, unspecified

== ENCOUNTER 2024-10-16 16:06 | Outpatient (REF) | payer OTHER, SELFPAY ==
[2024-10-16 16:50] LABS: Appearance Urine Clear; Color Urine Yellow; Glucose Urine UA Negative (Negative); Leukocyte Esterase Urine Negative (Negative); Nitrite Urine Negative (Negative); PH 5.5 (5.0-9.0); Specific Gravity - Urine >= 1.030 (1.005-1.025); Urine Blood Negative (Negative); Urine Ketones Negative (Negative); Urine Protein Negative (Neg-Trace)
[2024-10-16 16:53] LABS: Bacteria Urine None Seen (None Seen); Hyaline Casts Urine 0-2 /LPF (0-2); RBC Urine 0-2 /HPF (0-2); Squamous Epithelial Cell Urine 0-2 /HPF (0-2); WBC Urine 0-5 /HPF (0-5)
--- OUTSIDE RECORDS SUMMARY | 2024-10-16 17:43 | XMS_ITS | Encounter Summary ---
Author Organization [facility] Address [address] [place] [address] Care Team Providers Care Mainstreaming Facilitator Name Role Phone Scott Chadwick Primary Care Provider [phone] Encounter Details Date Type Department Care Team (Late st Contact Info) Description 12/29/2022 Orders Only [facility] [address] [place] [address] Alhaji Bernal Jr., DO [address] [place] [address] Social History Tobacco Use Types Packs/Day Years Used Date Smoking Tobacco: Former Cigarettes Smokeless Tobacco: Former Comments:Quit smoking in 198 9 Alcohol Use Standard Drinks/Week Comments Yes 0 (1 standard drink = 0.6 oz pur e alcohol) rarely Sex and Gender Information Value Date Recorded Sex Assigned at Male 07/27/2022 11:32 AM EDT Legal Sex Male 1:57 PM EDT Gender Identity Male 07/27/2022 11:32 AM EDT Sexual Orientation Choose not to disclose 2021 11:32 AM EDT documented as of this encounter Plan of Treatment Upcoming Encounters Date Type Department Care Team (Late st Contact Info) Description 12/19/2024 11:30 AM EDT Office Visit [facility] [address] [place] [address] Anette Novoa MD [address] [place] [address] documented as of this encounter Procedures * Due to [place] [employer] law, this organization might not be sharing negative HIV tests. Procedure Name Priority Date/Time Associated Diagnosis Comments AMB EXTERNAL CT HEAD, OUTSID E RESULT Routine 12/29/2022 documented in this encounter Results * Due to [place] [employer] law, this organization might not be sharing negative HIV tests. * CT Head, Outside Result (12/29/2022) Anatomical Region Laterality Modality Other Alhaji Bernal Jr., DO AMB EXTERNAL RESULT P ROCEDURES Final Result documented in this encounter Visit Diagnoses Not on filedocumented in this encounter Care Teams Mainstreaming Facilitator Relationship Specialty Start Date End Date Scott Chadwick [address] [place] [id number] PCP - General Internal Medicine 05/03/22 documented as of this encounter
--- OUTSIDE RECORDS SUMMARY | 2024-10-16 17:43 | XMS_ITS | Encounter Summary ---
Author Organization [facility] Address [address] [place] [address] Care Team Providers Care Furnace Loader Name Role Phone Scott Chadwick Primary Care Provider [phone] Encounter Details Date Type Department Care Team (Late st Contact Info) Description 12/10/2022 Orders Only [facility] [address] [place] [address] Alhaji Bernal Jr., DO [address] [place] [address] Social History Tobacco Use Types Packs/Day Years [...] Description 12/19/2024 11:30 AM EDT Office Visit [facility] [address] [place] [address] Anette Novoa MD [address] [place] [address] documented as of this encounter Procedures * Due to [place] [employer] law, this organization might not be sharing negative HIV tests. Procedure Name Priority Date/Time Associated Diagnosis Comments LAB - SCANNED Routine 12/10/2022 ALT, OUTSIDE LAB Routine 12/10/2022 AMB EXTERNAL US NECK SOFT TI SSUE, SCANNED RESULT Routine 12/10/2022 documented in this encounter Results * Due to [facility] law, this organization might not be sharing negative HIV tests. * LAB - SCANNED (12/10/2022) Alhaji Bernal Jr., DO LAB HISTORICAL RESULT S Final Result * ALT, Outside Lab (12/10/2022) Blood us Alhaji Bernal Jr., DO LAB BLOOD ORDERABLES Final Result * US Neck Soft Tissue, Scanned Result (12/10/2022) Anatomical Region Laterality Modality Other us Alhaji Bernal Jr., DO AMB EXTERNAL RESULT P ROCEDURES Final Result documented in this encounter Visit Diagnoses Not on filedocumented in this encounter Care Teams Furnace Loader Relationship Specialty Start Date End Date Scott Chadwick [address] [place] [phone] PCP - General Internal Medicine 05/03/22 documented as of this encounter
--- OUTSIDE RECORDS SUMMARY | 2024-10-16 17:43 | XMS_ITS | Referral Summary ---
Author Organization [facility] Address [address] [place] [address] Care Team Providers Care Imaging Aide Name Role Phone Scott Chadwick Primary Care Provider [phone] Allergies Active Allergy Reactions Criticality Noted Date Comments Bee Pollen Swelling High 02/17/2018 Bees Arm swelled Cephalexin Nausea And Vomiting 03/22/2022 Nauseau only Codeine Sulfate Unknown,Dizziness 12/14/2016 Lisinopril Cough 12/14/2016 Oxycodone Nausea And Vomiting 08/04/2021 Pravastatin Sodium Unknown 12/14/2016 Medications amLODIPine (NORVASC) 5 mg tablet Take 5 mg by mouth daily. 2 Active acetaminophen (TYLENOL) 500 mg tablet Take 1-2 tablet by mouth in the evening, PRN. Active cholecalciferol (VITAMIN D3) 1,000 unit tablet Take 2,000 Units by mouth daily. Active cyanocobalamin 1,000 mcg tablet Take 1,000 mcg by mouth daily. 1 Active hyoscyamine (ANASPAZ,LEVSIN ) 0.125 mg tablet Take 125-250 mcg by mouth every 6 hours as needed. 2 Active gabapentin (NEURONTIN) 100 mg capsule 100 mg. 1 cap in the afternoon and 2 in the evening 2 Active losartan (COZAAR) 25 mg tablet 2 Active meclizine (ANTIVERT) 12.5 mg tablet 1-2 tablets q 6 hours prn vertigo 1 Active tamsulosin (FLOMAX) 0.4 mg capsule Take 0.4 mg by mouth daily. Active finasteride (PROSCAR) 5 mg tablet Take 5 mg by mouth once a day. 2 Active celecoxib (CeleBREX) 200 mg capsule Take 200 mg by mouth. As needed 2 Active ibuprofen (MOTRIN) 200 mg tablet Take 200 mg by mouth. Active triamcinolone acetonide (KENALOG) 0.1% cream Apply 1 Application topically to the affected area daily. 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 He has had increase in lightheadedness and motion sickness type of symptoms since cataract surgery. We discussed trial of low dose meclizine (1/2 tab of 12.5) or scopolamine patch and he will discuss this with PCP. He had tried dramamine but made him sleepy. He gets associated nausea and weakness and more off balance when trying to stand or walk around. It seems that perhaps autonomic symptoms exacerbated after cataract surgery. He reports that vision is still not stable but ophtho cleared him. MRI brain is pending on Sat. He is taking gabapentin 200mg and is helping with paresthesias. He is doing PT. -follow-up of MRI brain -compression stockings daily- Zensah -hydration 80-100 oz/day [before supper time] -follow up in December 2024 Assessment & Plan (01/23/2024 9:43 AM EDT): Alhaji presents with a PMH of GBS in 1988 with residual symptoms for evaluation of dysautonomia. He has had episodes of weakness with lightheadedness and fatigue that started about 5 years ago. These episodes can last for 10-15 mins upto 1 month or 3-4 months. There are times when this occurs after eating. He has recent tingling and itchiness in the upper shoulders as well. He is on gabapentin 100mg in the morning and 200mg at night. Hot showers and heat can trigger symptoms. His last episode was in Sep 2023. His episodes may involve severe lightheadedness and weakness and a heaviness in the legs. He recently had autonomic testing showing severely impaired sudomotor function and moderately impaired adrenergic function suggestive of small fiber neuropathy. During tilt table, he had orthostasis from 140s to 120s with normal HR. He has compression stockings although has not been wearing them. He hydrated but limited and has tried no prior medications for this. He had one fainting episode over 1 year ago. He has constipation, significant fatigue which is worse during episodes. Overall, sleep is stable. Today, on exam, BP are elevated to 149/76 ad 152/70 with HR from 84 to 103 on standing. He had reduced PP to the knees, mild bradykinesia in all movements however no other signs of parkinsonism. Gait was slow but normal. The history and physical examination findings are most suggestive of dysautonomia. This diagnosis was discussed in detail with the patient including the range of symptoms that can be associated with it. It is possible that this is sequelae of initial autonomic damage from GBS and has been worsening over time. Would also rule out paraneoplastic etiology given age. We will begin with a conservative approach to management of symptoms as outlined below. It will be important for the patient to keep a BP/HR diary for 2 weeks twice daily recording sitting and standing BPs, HRs and symptoms. This will be reviewed by me and any changes to the plan will be discussed with the patient. Medications including midodrine, fludrocortisones and pyridostigmine and their potential side effects were also discussed in detail. He reports having MRI brain in the past and will try to obtain disc. -consider paraneoplastic panel -obtain images from prior MRI brain -increase gabapentin to 300mg at bedtime -monitor BP and HR sitting and standing x 2 weeks; AM and PM and send log to my office -compression stockings daily- Zensah -hydration 80-100 oz/day [before supper time] -small meals more frequently -daily exercise -shower chair -follow up in 4 months telehealth and 8 months in-person Generalized abdominal pain 02/02/202302/02 Abnormal findings on diagnos tic imaging of liver and biliary tract 02/02/2023 02/02/2023 Diverticular disease of colon 02/02/2023 Gastroduodenitis 02/02/2023 02/02/2023 Left lower quadrant pain 02/02/2023 023 Irritable bowel syndrome with diarrhea 3 02/02/2023 Gallstones 02/02/2023 02/02/2023 Duodenitis 02/02/2023 02/02/2023 Abnormal MRI 10/20/2022 Overview (10/20/2022): ? Vertebral stenosis on MRA neck Dizziness 10/20/2022 Epigastric pain 12/14/2019 02/02/2023 Degenerative cervical spinal stenosis 12/25/2018 02/02/2023 Abnormal liver function 12/19/2018 02/03/20 23 Inguinal hernia 12/19/2018 02/02/2023 Cholelithiasis 12/19/2018 02/02/2023 Dyspnea on exertion 04/11/2018 02/02/2023 Fatty liver 04/11/2018 02/02/2023 Malaise and fatigue 04/11/2018 02/02/2023 Weakness 04/11/2018 02/02/2023 Abnormal liver function tests 02/17/2018 Impaired fasting glucose 02/17/2018 023 Essential hypertension 12/25/2012 3 Fatigue 10/15/2006 02/02/2023 Social History Tobacco Use Types Packs/Day Years Used Date Smoking Tobacco: Former Cigarettes Smokeless Tobacco: Former Tobacco Cessation:Counseling Given: Not Answered Comments:Quit smoking in 1988 Alcohol Use Standard Drinks/Week Comments Yes 0 (1 standard drink = 0.6 oz pur e alcohol) rarely Sex and Gender Information Value Date Recorded Sex Assigned at Male 07/27/2022 11:32 AM EDT Legal Sex Male 1:57 PM EDT Gender Identity Male 07/27/2022 11:32 AM EDT Sexual Orientation Choose not to disclose 2021 11:32 AM EDT Last Filed Vital Signs Vital Sign Reading Time Taken Comments Blood Pressure 152/70 01/18/2024 12:45 PM EDT Pulse 103 01/18/2024 12:45 PM EDT Temperature 36.8 ??C (98.2 ??F) 01/18/2024 12:40 PM E DT Respiratory Rate 16 01/18/2024 12:40 PM EDT Oxygen Saturation - - Inhaled Oxygen Concentration - - Weight 83 kg (183 lb) 01/18/2024 12:40 PM EDT Height 182.9 cm (6') 01/18/2024 12:40 PM EDT Body Mass Index 24.82 01/18/2024 12:40 PM EDT Plan of Treatment Upcoming Encounters Date Type Department Care Team (Late st Contact Info) Description 12/19/2024 11:30 AM EDT Office Visit [facility] [address] [place] [address] Anette Novoa MD [address] [place] [address] Insurance [employer] Care Teams Imaging Aide Relationship Specialty Start Date End Date Scott Chadwick [address] [place] [address] PCP - General Internal Medicine 05/03/22
--- OUTSIDE RECORDS SUMMARY | 2024-10-16 17:43 | XMS_ITS | Clinical Summary ---
Author Organization [facility] Address [address] [place] [address] Care Team Providers Care Director Global Sales Name Role Phone Scott Chadwick Primary Care Provider [phone] Allergies Active Allergy Reactions Criticality Noted Date [...] Description 12/19/2024 11:30 AM EDT Office Visit [facility] [address] [place] [address] Anette Novoa MD [address] [place] [address] Health Maintenance Due Date Last Done Comments Cologuard 1950 Colon Cancer Screening 1950 Colonoscopy 1950 FOBT / Fit Test 1948 Hepatitis C Screening [address] Lung Cancer Screening (Baseline) 1998 Zoster Vaccines (1 of 2) 1998 DTaP,Tdap,and Td Vaccines (1 - Tdap) 01/25/2005 01/24/2005 Pneumococcal Vaccine: 65+ Years (1 of 1 - PCV) 2013 RSV Vaccine (60+ years old a nd patients) (1 - 1-dose 75+ series) 2023 COVID-19 Vaccine (4 - 2023-2 5 season) 2024 09/10/2021, 12/06/2020, 11/13/2020 Influenza Vaccine (#1) 2024 Alcohol/Substance Use Screening 09/26/2024 Depression Screening and Follow-Up 09/26/2024 Health Care Proxy Review 09/26/2024 Social Drivers of Health Annual Screening 09/26/2024 Basic Metabolic Panel 12/19/2024 12/20/2023 , 09/30/2022, 06/02/2022 Hepatitis B Vaccines Aged Out No long er eligible based on patient's age to complete this topic Insurance [employer] [place] [phone] Care Teams Director Global Sales Relationship Specialty Start Date End Date Scott Chadwick [address] [place] [phone] PCP - General Internal Medicine 05/03/22
--- OUTSIDE RECORDS SUMMARY | 2024-10-16 17:43 | XMS_ITS | Encounter Summary ---
Author Organization [facility] Address [address] [place] [address] Care Team Providers Care Housing Inspectors Name Role Phone Scott Chadwick Primary Care Provider Encounter Details Date Type Department Care Team (Late st Contact Info) Description 12/22/2022 Orders Only [facility] [address] [place] [address] Alhaji Bernal Jr., DO [address] [place] [address] Social History Tobacco Use Types Packs/Day Years [...] Description 12/19/2024 11:30 AM EDT Office Visit [facility] [address] [place] [address] Anette Novoa MD [address] [place] [address] documented as of this encounter Procedures * Due to [place] [employer] law, this organization might not be sharing negative HIV tests. Procedure Name Priority Date/Time Associated Diagnosis Comments AMB EXTERNAL CT HAND, OUTSID E RESULT Routine 12/22/2022 documented in this encounter Results * Due to [place] [employer] law, this organization might not be sharing negative HIV tests. * CT Hand, Outside Result (12/22/2022) Anatomical Region Laterality Modality Other Alhaji Bernal Jr., DO AMB EXTERNAL RESULT P ROCEDURES Final Result documented in this encounter Visit Diagnoses Not on filedocumented in this encounter Care Teams Housing Inspectors Relationship Specialty Start Date End Date Scott Chadwick [address] [place] [id number] PCP - General Internal Medicine 05/03/22 documented as of this encounter
--- OUTSIDE RECORDS SUMMARY | 2024-10-16 17:43 | XMS_ITS | Encounter Summary ---
Author Organization [facility] Address [address] [place] [address] Care Team Providers Care Svp Digital Ad Sales Name Role Phone Scott Chadwick Primary Care Provider [phone] Encounter Details Date Type Department Care Team (Late st Contact Info) Description 09/12/2023 [employer] Message [facility] [employer] [address] [place] [address] [employer], Generic Provider [address] [place], [place] [id number] Payment Agreement Social History Tobacco Use Types Packs/Day Years [...] Description 12/19/2024 11:30 AM EDT Office Visit [facility] [address] [place] [address] Anette Novoa MD [address] [place] [address] documented as of this encounter Visit Diagnoses Not on filedocumented in this encounter Care Teams Svp Digital Ad Sales Relationship Specialty Start Date End Date Scott Chadwick [address] [place] [address] PCP - General Internal Medicine 05/03/22 documented as of this encounter
--- OUTSIDE RECORDS SUMMARY | 2024-10-16 17:43 | XMS_ITS | Encounter Summary ---
Author Organization [facility] Address [address] [place] [address] Care Team Providers Care Waiter/Waitress Room Service Name Role Phone Farrukh, Scott Blank Primary Care Provider [phone] Encounter Details Date Type Department Care Team (Late st Contact Info) Description 10/20/2022 Orders Only [facility] Interventional Radiology [address] [place] [address] Flaco Fuller MD [address] [place] [address] [place] [address] Social History Tobacco Use Types Packs/Day Years [...] Description 12/19/2024 11:30 AM EDT Office Visit [facility] [address] [place] [address] Anette Novoa MD [address] [place] [address] documented as of this encounter Visit Diagnoses Not on filedocumented in this encounter Care Teams Waiter/Waitress Room Service Relationship Specialty Start Date End Date Scott Chadwick [address] [place] [address] PCP - General Internal Medicine 05/03/22 documented as of this encounter
--- OUTSIDE RECORDS SUMMARY | 2024-10-16 17:43 | XMS_ITS | Encounter Summary ---
Author Organization [facility] Address [address] [place] [address] Care Team Providers Care Tenterer Name Role Phone Scott Chadwick Primary Care Provider [phone] Reason for Visit * Reason Onset Date Comments PAC Order Request 10/12/2022 Encounter Details Date Type Department Care Team (Late st Contact Info) Description 10/12/2022 Telephone [facility] Central Scheduling Department [address] [place] [address] Telephone Intake, Staff PAC Order Request Social History Tobacco Use Types Packs/Day Years Used Date Smoking Tobacco: Never Smokeless Tobacco: Never Sex and Gender Information Value Date Recorded Sex Assigned at Male 07/27/2022 11:32 AM EDT Legal Sex Male 1:57 PM EDT Gender Identity Male 07/27/2022 11:32 AM EDT Sexual Orientation Choose not to disclose 2021 11:32 AM EDT documented as of this encounter Miscellaneous Notes * Telephone Encounter - Roberta Disla - 10/27/2022 1:46 PM EST Pt had a recent teleheath visit with Dr. Bernal who has recommenced that he have an ultrasound justin CT of his cervical vertebrae to rule out an arterial issue. His office recommenced he reach out to Dr Francisco to get the orders sent to his PCP Dr. Chadwick to send to his local hospital in [place]. * Telephone Encounter - Ramona Garcia - 10/12/2022 10:08 AM EST Please advise Per Patient , he was referred by Dr Francisco to the stroke clinic. Per Patient , he did not have a stroke: Referral Reason Pt with dizziness, questionable vertebral insufficiency. Evaluate clinical significance of a kink of the vertebral artery detected on MRA neck. Patient was scheduled for this afternoon w\ Dr Diggs and appt cancelled this morning by office stating Dr Diggs did not see for this RFV This appt was booked back in June and patient wants to make sure he is scheduled with the right Provider, right location to avoid any add'l delays Please call patient back to book Callback# [phone] documented in this encounter Plan of Treatment Upcoming Encounters Date Type Department Care Team (Late st Contact Info) Description 12/19/2024 11:30 AM EDT Office Visit [facility] [address] [place] [address] Anette Novoa MD [address] [place] [address] documented as of this encounter Visit Diagnoses Not on filedocumented in this encounter Care Teams Tenterer Relationship Specialty Start Date End Date Scott Chadwick [address] [place] [address] PCP - General Internal Medicine 05/03/22 documented as of this encounter
--- OUTSIDE RECORDS SUMMARY | 2024-10-16 17:43 | XMS_ITS | Encounter Summary ---
Author Organization [facility] Address [address] [place] [address] Care Team Providers Care Molecular Genetic Pathologist Name Role Phone Scott Chadwick Primary Care Provider [phone] Reason for Visit * Reason Onset Date Comments Request For Order(s) 11/18/2022 Encounter Details Date Type Department Care Team (Late st Contact Info) Description 11/18/2022 Telephone [facility] [address] [place] [address] Telephone Intake, Staff Request For Order(s) Social History Tobacco Use Types Packs/Day Years [...] encounter Miscellaneous Notes * Telephone Encounter - Aura Fleming - 11/24/2022 9:10 AM EST Faxed to [phone] They will reach out to schedule He is able to call central scheduling [phone] * Telephone Encounter - Aura Fleming - 11/24/2022 9:09 AM EST Patient requested to have the carotid duplex order to [facility] [place] Faxed order and lvm for the patient. * Telephone Encounter - Aura Santos Fleming - 11/18/2022 8:45 AM EST Genevieve I spoke to the pt today and he stated he is requesting an ultrasound order from dr Bernal. I didn't see anything ordered Please advise thanks documented in this encounter Plan of Treatment Upcoming Encounters Date Type Department Care Team (Late st Contact Info) Description 12/19/2024 11:30 AM EDT Office Visit [facility] [address] [place], [place] [id number] Anette Novoa MD [address] [place] [address] documented as of this encounter Visit Diagnoses Not on filedocumented in this encounter Care Teams Molecular Genetic Pathologist Relationship Specialty Start Date End Date Scott Chadwick [address] [place] [address] PCP - General Internal Medicine 05/03/22 documented as of this encounter
--- OUTSIDE RECORDS SUMMARY | 2024-10-16 17:44 | XMS_ITS | Patient Health Record ---
Author Organization [facility] Address [address] [place] [address] Care Team Providers Care Bag Machine Adjuster Name Role Phone Scott Chadwick MD Primary Care Provider Minh Mckeon [phone] ALLERGIES Allergen (clinical drug ingredient) Drug/Non Drug Allergy documented on EMR Reaction Allergy Type Onset Date Status codeine Codeine Sulfate Unknown Drug Allergy A ctive REASON FOR REFERRAL No Information MEDICATIONS Medication SIG (Take, Route, Frequency, Duration) Notes Start Date End Date Status Amoxicillin-Pot Clavulanate 500-125 MG 1 tablet Orally every 8 hrs for 7 days 11/12/2021 Active amLODIPine Besylate 10 MG TK 1 T PO QD Oral for 90 Active Gabapentin 100 MG 1 tablet Orally Once a day Active Metoprolol & Diet Manage Prod Not-Taking Losartan Potassium 25 MG TK 1 AND 1/2 TS PO D Oral Once a day Active Carafate 1 GM/10ML Orally Twice a day Just PRN--rare Active Vitamin D3 250 MCG (07[address] UT) as directed Orally Active Tylenol Extra Strength 500 MG 1 tablet as needed Orally 1 PO QD Active Zantac 360 10 MG 1 tablet as needed Orally QD or QOD Active hydrOXYzine HCl 25 MG 1 Orally QHS PRN Not-Taking Tamsulosin HCl 0.4 MG 1 capsule Orally Once a day Active Hyoscyamine Sulfate 0.125 MG TAKE 1 TO 2 TABLETS BY MOUTH EVERY 6 HOURS NEEDED FOR BLOATING/CRAMPS/DIS COMFORT for 30 days Active Omeprazole 20 MG TAKE 1 CAPSULE BY MOUTH EVERY DAY for 30 Active Hyoscyamine Sulfate ER 0.375 MG 1/2 to 1 pill Orally Take before breakfast and before dinner twice a day for abdominal bloating and discomfort for 30 day(s) Active IMMUNIZATIONS Vaccine Route Administration Date Status Comme nts Influenza Unknown 11/06/2019 Refused Influenza Unknown 02/05/2020 Refused SOCIAL HISTORY Tobacco Use: Social History Observation Description Date Details (start date - stop date) Former Smoker NA - NA Sex Assigned At : Social History Observation Description Sex Assigned At Unknown Tobacco Use/Smoking Question Answer Notes Patient is a former smoker When did you stop smoking? 30 Alcohol Screen Question Answer Notes Did you have a drink containing alcohol in the p ast year? No Points 0 Interpretation Negative PROBLEMS Problem Type ICD Code Onset Dates Problem Status W/U Status Risk SNOMED Code Notes Problem Epigastric abdominal pain (R10.13) Active confirmed 24769646 Problem Gastritis, unspecified, without bleeding (K29.70) Active confirmed Gastroduodeniti s (506813995) Problem Irritable bowel syndrome with diarrhea (K58.0) Active confirmed 979872371 Problem Generalized abdominal pain (R10.84) Active confirmed Generalized abdominal pain (016170100) Problem Duodenitis (K29.80) Active confirmed Duodenitis (79629648) Problem IBS (irritable bowel syndrome) (K58.9) Active confirmed Irritable bowel syndrome (98060457) Problem Abdominal pain, epigastric (R10.13) Active confirmed 67437210 Problem Diverticulosis (K57.90) Active confirmed Diverticular disease of colon (356444956) Problem Diverticulosis of large intestine without hemorrhage (K57.30) Active confirmed 067730777 Problem Gallstones (K80.20) Active confirmed 782974743 Problem Abdominal pain, left lower quadrant (R10.32) Active confirmed 272197590 Problem Abdominal pain, acute, epigastric (R10.13) Active confirmed Epigastric pain (31044392) Problem Abdominal pain, generalized (R10.84) Active confirmed 261939061 Problem Irritable bowel syndrome, unspecified type (K58.9) Active confirmed 29873590 Problem Irritable bowel syndrome with both constipation and diarrhea (K58.2) Active confirmed 15657153 Problem Abdominal pain, acute, left lower quadrant (R10.32) Active confirmed Left lower quadrant pain (714756344) Problem Abnormal CT scan, gallbladder (R93.2) Active confirmed 48408604694950987 Problem History of diverticulitis of colon (Z87.19) Active confirmed [id number] Encounters Encounter Location Date Provider Diagnosis [facility] [address] [place] [address] 12/05/2023 Minh Ruiz [facility] [address] [place] [address] 12/07/2023 Minh Sara IBS (irritable bowel syndrome) K58.9 [facility] [address] [place] [address] 06/11/2024 Minh Ruiz ASSESSMENTS Encounter Date Diagnosis Assessment Notes Treatment Notes Treatment Clinical Notes 12/07/2023 IBS (irritable bowel syndrome) (ICD-10 - K58.9) PLAN OF TREATMENT Pending Test Test Name Order Date CHEM 7 PROFILE 01/26/2022 CHEM 7 PROFILE 05/17/2013 CHEM 7 PROFILE 08/30/2022 LIVER PROFILE 05/22/2015 LIVER PROFILE 09/05/2014 LIVER PROFILE 01/26/2022 LIVER PROFILE 05/17/2013 LIVER PROFILE 01/14/2014 LIVER PROFILE 08/30/2022 LIVER PROFILE 02/23/2014 LIVER PROFILE 12/18/2020 AMYLASE 12/18/2020 AMYLASE 05/17/2013 LIPASE 12/18/2020 LIPASE 01/26/2022 LIPASE 05/17/2013 IRON + IBC (FE) 01/14/2014 FERRITIN 01/14/2014 CRP 08/28/2015 CRP 01/26/2022 CRP 08/30/2022 CBC w DIFF 05/17/2013 CBC w DIFF 01/26/2022 CBC w DIFF 08/30/2022 CBC w DIFF 12/18/2020 SED RATE (ESR) 01/26/2022 SED RATE (ESR) 08/30/2022 HEPATITIS B, C PROFILE 01/14/2014 URINALYSIS + MICROSCOPIC, CLEAN CATCH [id number] (A1A) 01/14/2014 CELIAC PANEL #10 05/17/2013 ENDOMYSIAL IGA 05/17/2013 PROTEIN ELECTROPHORESIS, SERUM 4 PROTEIN ELECTROPHORESIS, SERUM 4 TRANSGLUTAMINASE AB IGA 05/17/2013 CT ABD & PELVIS WITH CONTRAST 01/26/2022 CT ABD & PELVIS WITH CONTRAST 08/30/2022 NUC HIDA SCAN 12/18/2020 NUC HIDA SCAN 09/13/2018 NUC HIDA SCAN 12/24/2020 FLUOR. ANTINUCLEAR AB SCREEN (CAITLYN) 01/26 FLUOR. ANTINUCLEAR AB SCREEN (CAITLYN) 12/26 FLUOR. ANTINUCLEAR AB SCREEN (CAITLYN) 08/26 US abdomen limited 12/24/2020 Future Test Test Name Order Date UPPER GI ENDOSCOPY 09/05/2014 COLONOSCOPY 09/05/2014 Insurance Providers Payer Name Payer Address Payer Phone Subscriber Number Group Number Insured Name Patient Relationship to Insured Coverage Start Date Coverage End Date [employer] [place] 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 ETT for chest pain [place] [address] Jennifer ARCE HTN Fatty liver with slight elev ation of his liver enzymes and an otherwise negative liver workup with iron studies, viral serologies, alpha-1 antitrypsin level, and a liver ultrasound consistent with a fatty liver--although his LAZARO was elevated at a titer of 1:160--- he had a repeat LAZARO that was positive at a titer of 1-320 in September of 2014--I advised him that I did not think this was autoimmune hepatitis and he was to have followed up with his PCP to see if he required a rheumatology consultation EGD in February of 2015 with the finding of some mild gastroesophageal reflux and duodenitis--biopsies were negative for celiac disease, significant gastritis, H. pylori, and Conde's esophagus--he was started on omeprazole at that time Colonoscopy in February 2015 wit h the finding of some minimal ascending colon colitis, a hyperplastic polyp, diverticulosis and internal hemorrhoids. 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 Matta but held off on surgery--I reviewed with him again at the 02/05/20 OV Normal HIDA scan 12/2020; CT 11/2020 and U/S 12/2020 with gallstones/sludge/air in gallbladder, but no biliary disease Bilateral inguinal hernias s een on the above CAT scan, with left larger than the right--the left inguinal hernia has fat in it, and the right hernia does have a loop of small bowel in it but without any sign of obstruction nor acute process Surgical History Surgery Date(Month/Year) Left inguinal hernia repair-Dr. Gaviria 2020
--- OUTSIDE RECORDS SUMMARY | 2024-10-16 17:44 | XMS_ITS ---
Author Organization [facility] Address [address] [address] Care Team Providers Care Supervisor Pastry Name Role Phone Scott Chadwick MD Primary Care Provider Minh Mckeon [phone] REASON FOR VISIT please resend rx. MEDICATIONS Medication SIG (Take, Route, Frequency, Duration) Notes Start Date End Date Status Hyoscyamine Sulfate ER 0.375 MG 1/2 to 1 pill Orally Take before breakfast and before dinner twice a day for abdominal bloating and discomfort for 30 day(s) Please let me know if the pill should not be split in half. Thanks 12/07/2023 Active PROBLEMS Problem Type ICD Code Onset Dates Problem Status W/U Status Risk SNOMED Code Notes Problem IBS (irritable bowel syndrome) (K58.9) Active confirmed Irritable bowel syndrome (70300461) Encounters Encounter Location Date Provider Diagnosis [facility] [address] [address] 12/07/2023 Minh Ruiz IBS (irritable bowel syndrome) K58.9 ASSESSMENTS Encounter Date Diagnosis Assessment Notes Treatment Notes Treatment Clinical Notes 12/07/2023 IBS (irritable bowel syndrome) (ICD-10 - K58.9) PLAN OF TREATMENT Medication Medication Name Sig Start Date Stop Date Notes Hyoscyamine Sulfate ER 0.375 MG 1/2 to 1 pill Orally Take before breakfast and before dinner twice a day for abdominal bloating and discomfort for 30 day(s) 12/07/2023 Please let me know if the pill should not be split in half. Thanks
--- OUTSIDE RECORDS SUMMARY | 2024-10-16 17:44 | XMS_ITS ---
Author Organization [facility] Address [address] [place] [address] Care Team Providers Care [employer] Librarian Name Role Phone Scott Chadwick MD Primary Care Provider Minh Mckeon [phone] REASON FOR VISIT abdominal discomfort MEDICATIONS Medication SIG (Take, Route, Frequency, Duration) Notes Start Date End Date Status Hyoscyamine Sulfate ER 0.375 MG 1/2 to 1 pill Orally Take before breakfast and before dinner twice a day for abdominal bloating and discomfort for 30 day(s) Please let me know if the pill should not be split in half. Thanks 12/07/2023 Active Encounters Encounter Location Date Provider Diagnosis [facility] [address] [address] 12/05/2023 Minh Ruiz PLAN OF TREATMENT Medication Medication Name Sig Start Date Stop Date Notes Hyoscyamine Sulfate ER 0.375 MG 1/2 to 1 pill Orally Take before breakfast and before dinner twice a day for abdominal bloating and discomfort for 30 day(s) 12/07/2023 Please let me know if the pill should not be split in half. Thanks
--- OUTSIDE RECORDS SUMMARY | 2024-10-16 17:44 | XMS_ITS ---
Author Organization [facility] Address [address] [place] [address] Care Team Providers Care Powertrain Design Engineer Name Role Phone Scott Chadwick MD Primary Care Provider Minh Mckeon [phone] REASON FOR VISIT thinks he has diverticulitis MEDICATIONS Medication SIG (Take, Route, Frequency, Duration) Notes Start Date End Date Status Amoxicillin-Pot Clavulanate 500-125 MG 1 tablet Orally every 8 hrs for 7 days 11/12/2021 Active Hyoscyamine Sulfate ER 0.375 MG 1/2 to 1 pill Orally Take before breakfast and before dinner twice a day for abdominal bloating and discomfort for 30 day(s) Please let me know if the pill should not be split in half. Thanks 12/07/2023 Active Encounters Encounter Location Date Provider Diagnosis [facility] [address] [address] 06/11/2024 Minh Ruiz PLAN OF TREATMENT Medication Medication Name Sig Start Date Stop Date Notes Amoxicillin-Pot Clavulanate 500-125 MG 1 tablet Orally every 8 hrs for 7 days 11/12/2021 Hyoscyamine Sulfate ER 0.375 MG 1/2 to 1 pill Orally Take before breakfast and before dinner twice a day for abdominal bloating and discomfort for 30 day(s) 12/07/2023 Please let me know if the pill should not be split in half. Thanks
== END 2024-10-16 16:07 | disposition home or self-care (01) ==
LOC: HO.LAB 16:06
PROVIDERS: PCP Internal Medicine; Visit Provider Urology
DX: N40.1 Benign prostatic hyperplasia with lower urinary tract symptoms (principal); N13.8 Other obstructive and reflux uropathy; N41.1 Chronic prostatitis
CPT/HCPCS: 81001; 87086

== ENCOUNTER 2024-11-06 14:03 | Outpatient (AMB) | payer OTHER, SELFPAY ==
--- NOTE | 2024-11-06 14:15 | MHC.OFFVIS ---
Intake Visit Reasons: PVR/Med Review(Alfuzosin) Intake Note: Patient is present for PVR/MED REVIEW Urology Medication:TAMSULOSIN Antibiotic Allergy:NONE Blood Thinner:NONE Last PVR:27ML'S Todays PVR:20ML'S Shuttle Fixer Required: No Allergies codeine [Codeine] Allergy (Intermediate, Verified 11/06/24 14:16) Dizziness meperidine [Meperidine] Allergy (Mild, Verified 11/06/24 14:16) UNKNOWN HPI Comments Details: Deuce is a pleasant male. He is a patient of Dr. Chadwick. He is seen for the following urologic conditions - prostatitis - renal cyst - lower urinary tract symptoms Twelve month follow-up PVR remains at 30 cc Has remained on tamsulosin despite occasional dizziness Short term use of finasteride - did not tolerate Has been on tamsulosin for many years Is noticing progression of symptoms. Had episode of almost retention on train back from [place]. Trial dutasteride Plan cystoscopy Highly likely needs GreenLight laser procedure Renal cyst Detected on imaging Imaging - 04/16 CT scan complex cyst 1 cm left kidney with enlarged prostate Prostatitis Longstanding Recurrent in past Prior negative expressed culture Question of inflammatory process PSA 05/17 1.6 Did report having improvement with viox many years ago Failed Celebrex trial. Did not tolerate Did not notice improvement with tadalafil Would recommend DNA sequencing if persistent symptoms PFSH Medical History (Updated 11/06/24 @ 14:51 by Wilmer Cavazos MD) Diastasis recti Cataract, right eye Autonomic neuropathy Hyperlipidemia Cholelithiasis BCC (basal cell carcinoma), face Abnormal liver function test Abdominal pain Cyst, kidney, acquired Hx of prostatitis COVID-19 vaccine series completed Depression Peripheral neuropathy Cervical spondyloarthritis Mood disorder Pre-diabetes Hx of Guillain-[place] syndrome Arthritis Back pain DDD (degenerative disc disease) Fatty liver Left inguinal hernia Axillary abscess History of lumbar puncture Autoimmune encephalitis Gallstones Hypertension GERD (gastroesophageal reflux disease) Prostatitis Surgical History History of hernia repair History of esophagogastroduodenoscopy (EGD) Hx of colonoscopy Family History Mother No problems noted. Father No problems noted. Social History Are you a primary child care assistant to a significant other at home: No Do you presently have visiting nurse or other home services: No Alcohol intake: never Patient Tobacco Use Status: Former Tobacco user Review of Systems Const Denies chills and Denies fever(s) Card Reports no additional complaints and Denies syncope Resp Denies cough GI Denies abdominal pain and Denies heartburn Reports as per HPI and Denies change in libido Neuro Denies syncope Psych Denies change in libido Endo Denies change in libido Physical Exam Const General: cooperative, healthy appearing, comfortable and no acute distress Orientation/consciousness: patient oriented x3 HEENT Face and sinus: Yes normal facial exam Mouth: moist mucous membranes Neck Neck: Yes normal visual inspection, Yes full ROM and Yes trachea midline Chest Chest palpation & inspection: normal inspection of the chest Resp Effort & Inspection: normal respiratory effort, able to speak in complete sentences and no respiratory distress GI Inspection: Yes normal to inspection Back/Spine/Pelvis Cervical Spine: normal cervical lordosis Thoracic/Lumbar Spine: thoracic and lumbar spine normal to inspection Skin General skin exam: no rashes or lesions noted Neuro General: patient oriented x3, gait normal, tone normal and moves all extremities Extrem General: Yes normal to inspection and Yes capillary refill normal Office Procedures Post Void Residual Post Residual Void Post Void Residual (PVR): 20 82025-Fpye Void Residual by ultrasound Results AMB Urinalysis, Automated UA Leukoctes 0 [place]iola/uL Last Edit by JALEEL Castellanos on 11/06/24 14:44 UA Nitrite Negative Last Edit by JALEEL Castellanos on 11/06/24 14:44 UA Urobilinogen 3.5 mg/dL Last Edit by JALEEL Castellanos on 11/06/24 14:44 UA Protein 15 mg/dL Last Edit by JALEEL Castellanos on 11/06/24 14:44 UA pH 6.0 Last Edit by JALEEL Castellanos on 11/06/24 14:44 UA Blood 0 Ton/uL Last Edit by JALEEL Castellanos on 11/06/24 14:44 UA Specific [place] 1.020 Last Edit by JALEEL Castellanos on 11/06/24 14:44 UA Ketone Negative Last Edit by JALEEL Castellanos on 11/06/24 14:44 UA Bilirubin 0 mg/dL Last Edit by JALEEL Castellanos on 11/06/24 14:44 UA Glucose 0 mg/dL Last Edit by JALEEL Castellanos on 11/06/24 14:44 Assessment & Plan Assessment & Plan (1) BPH w urinary obs/LUTS: Code(s): N40.1 - Benign prostatic hyperplasia with lower urinary tract symptoms; N13.8 - Other obstructive and reflux uropathy Category: Medical (2) Weak urinary stream: Code(s): R39.12 - Poor urinary stream Category: Medical Plan Follow-up office cystoscopy Obtain PSA Orders: Orders Prostate Specific Antigen Today N13.8 - Other obstructive and reflux uropathy, N40.1 - Benign prostatic hyperplasia with lower urinary tract symptoms AMB Urinalysis Automated Today Z13.9 - Encounter for screening, unspecified Medications: New dutasteride 0.5 mg PO DAILY 90 days 90 caps 1RF N13.8 - Other obstructive and reflux uropathy, N40.1 - Benign prostatic hyperplasia with lower urinary tract symptoms Patient Instructions: This note is constructed using voice recognition software. While every effort has been made to ensure accuracy head of product errors may have been included. Imaging studies, laboratory and physical exam results were discussed and reviewed in detail. No major barriers to patient understanding were identified. An opportunity to ask questions regarding the treatment plan was provided. All questions were answered. The patient expressed understanding and agreement with the above treatment plan. The patient is aware they should contact our office by phone for worsening of their current condition or the appearance of new urologic symptoms. Compliance is encouraged with any medications and followup testing that is ordered. It is a privilege to participate in the urologic care of your patient. If you have any questions or concerns regarding treatment for the above conditions, or other urologic issues, please do not hesitate to contact me. The office telephone contact is [phone]. Sincerely, Dr Wilmer Cavazos MD, [facility] - Urology Compassionate Specialist Care for the Genitourinary System Coding Level of Care Code Est Pt Level 4 (10640) Diagnoses BPH w urinary obs/LUTS N40.1; N13.8 Weak urinary stream R39.12 CPT Codes Post Residual Void - PVR CPT Code: 99984-Lglr Void Residual by ultrasound ([id number])
== END 2024-11-06 15:09 | disposition home or self-care (01) ==
PROVIDERS: PCP Internal Medicine; Visit Provider Urology
DX: N40.1 Benign prostatic hyperplasia with lower urinary tract symptoms (principal); N13.8 Other obstructive and reflux uropathy; R39.12 Poor urinary stream; Z13.9 Encounter for screening, unspecified
CPT/HCPCS: 99214

== ENCOUNTER → 2024-11-06 14:03 | Outpatient (BNVA) | payer OTHER, SELFPAY | PROVIDERS: PCP Internal Medicine; Visit Provider Urology | DX: N40.1 Benign prostatic hyperplasia with lower urinary tract symptoms (principal); N13.8 Other obstructive and reflux uropathy; R39.12 Poor urinary stream; N28.1 Cyst of kidney, acquired; Z79.899 Other long term (current) drug therapy | CPT/HCPCS: 51798; 81003 ==

== ENCOUNTER 2024-11-07 15:52 | Outpatient (REF) | payer OTHER, SELFPAY ==
--- OUTSIDE RECORDS SUMMARY | 2024-11-07 16:32 | XMS_ITS | Encounter Summary ---
Author Organization [facility] Address [address] [place] [address] Care Team Providers Care Deicer Repairer Name Role Phone Farrukh Scott Blank Primary Care Provider [phone] Encounter Details Date Type Department Care Team (Late st Contact Info) Description 10/20/2022 Orders Only [facility] Interventional Radiology [address] [place] [address] Flaco Fuller MD [address] [place] [address] [place] [address] Social History Tobacco Use Types Packs/Day Years [...] Description 12/19/2024 11:30 AM EDT Office Visit [facility] [address] [place] [address] Anette Novoa MD [address] [place] [address] documented as of this encounter Visit Diagnoses Not on filedocumented in this encounter Care Teams Deicer Repairer Relationship Specialty Start Date End Date Scott Chadwick [address] [facility] [place] [address] PCP - General Internal Medicine 05/03/22 documented as of this encounter
--- OUTSIDE RECORDS SUMMARY | 2024-11-07 16:32 | XMS_ITS ---
Author Organization [facility] Address [address] [place] [address] Care Team Providers Care Silo Painter Name Role Phone Scott Chadwick MD Primary Care Provider Minh Mckeon [phone] REASON FOR VISIT thinks he has diverticulitis [...] Active Encounters Encounter Location Date Provider Diagnosis [facility] [address] [address] 06/11/2024 Minh Ruiz PLAN OF TREATMENT Medication [...]
--- OUTSIDE RECORDS SUMMARY | 2024-11-07 16:32 | XMS_ITS ---
Author Organization [facility] Address [address] [place] [address] Care Team Providers Care Hatch Boss Name Role Phone Scott Chadwick MD Primary Care Provider Minh Mckeon [phone] REASON FOR VISIT abdominal discomfort MEDICATIONS Medication [...] Active Encounters Encounter Location Date Provider Diagnosis [facility] [address] [address] 12/05/2023 Minh Ruiz PLAN OF TREATMENT Medication [...]
--- OUTSIDE RECORDS SUMMARY | 2024-11-07 16:32 | XMS_ITS | Encounter Summary ---
Author Organization [facility] Address [address] [place] [address] Care Team Providers Care Packaging Clerk Name Role Phone Scott Chadwick Primary Care Provider [phone] Encounter Details Date Type Department Care Team (Late st Contact Info) Description 09/12/2023 [employer] Message [facility] [employer] [address] [place] [address] Asker, Generic Provider [address] [place], [place] [id number] Payment Agreement Social History Tobacco Use Types [...] Description 12/19/2024 11:30 AM EDT Office Visit [facility] Neurology Clinic [address] [place] [address] Anette Novoa MD [address] [place] [address] documented as of this encounter Visit Diagnoses Not on filedocumented in this encounter Care Teams Packaging Clerk Relationship Specialty Start Date End Date Scott Chadwick [address] [place] [address] PCP - General Internal Medicine 05/03/22 documented as of this encounter
--- OUTSIDE RECORDS SUMMARY | 2024-11-07 16:32 | XMS_ITS | Referral Summary ---
Author Organization [facility] Address [address] [place] [address] Care Team Providers Care Roustabout Supervisor Name Role Phone Scott Chadwick Primary Care Provider [phone] Allergies Active Allergy Reactions Criticality Noted Date [...] Description 12/19/2024 11:30 AM EDT Office Visit [facility] Neurology Clinic [address] [place] [address] Anette Novoa MD [address] [place] [address] Insurance [employer] Care Teams Roustabout Supervisor Relationship Specialty Start Date End Date Scott Chadwick [address] [place] [address] PCP - General Internal Medicine 05/03/22
--- OUTSIDE RECORDS SUMMARY | 2024-11-07 16:32 | XMS_ITS | Clinical Summary ---
Author Organization [facility] Address [address] [place] [address] Care Team Providers Care Spotlight Operator Name Role Phone Scott Chadwick Primary Care Provider [phone] Allergies Active Allergy Reactions Criticality Noted Date [...] Description 12/19/2024 11:30 AM EDT Office Visit [facility] Neurology Clinic [address] [place] [address] Anette Novoa MD [address] [place], [place] [phone] Health Maintenance Due Date Last Done Comments Hepatitis C Screening [address] CT Lung Cancer Screening (Baseline) 1998 Zoster Vaccines (1 of 2) 1998 DTaP,Tdap,and Td Vaccines (1 - Tdap) 01/25/2005 01/24/2005 Pneumococcal Vaccine: 65+ Years (1 of 1 - PCV) 2013 RSV Vaccine (60+ years old and patients) (1 - 1-dose 75+ series) 2023 [...] patient's age to complete this topic Insurance [employer] Care Teams Spotlight Operator Relationship Specialty Start Date End Date Scott Chadwick [address] [place], [place] [phone] PCP - General Internal Medicine 05/03/22
--- OUTSIDE RECORDS SUMMARY | 2024-11-07 16:32 | XMS_ITS | Encounter Summary ---
Author Organization [facility] Address [address] [place] [address] Care Team Providers Care Incinerator Plant Laborer Name Role Phone Scott Chadwick Primary Care Provider Encounter Details Date Type Department Care Team (Late st Contact Info) Description 12/10/2022 Orders Only [facility] Neurology Clinic [address] [place] [address] Alhaji Bernal Jr., DO [address] [place] [address] Social History Tobacco Use Types Packs/Day Years [...] Description 12/19/2024 11:30 AM EDT Office Visit [facility] Neurology Clinic [address] [place] [address] Anette Novoa MD [address] [place] [address] documented as of this encounter Procedures * Due to [employer] law, this organization might not be sharing negative HIV tests. Procedure Name Priority Date/Time Associated Diagnosis Comments LAB - SCANNED Routine 12/10/2022 ALT, OUTSIDE LAB Routine 12/10/2022 AMB EXTERNAL US NECK SOFT TI SSUE, SCANNED RESULT Routine 12/10/2022 documented in this encounter Results * Due to [employer] law, this organization might not be [...] on filedocumented in this encounter Care Teams Incinerator Plant Laborer Relationship Specialty Start Date End Date Scott Chadwick [address] [place] [address] PCP - General Internal Medicine 05/03/22 documented as of this encounter
--- OUTSIDE RECORDS SUMMARY | 2024-11-07 16:32 | XMS_ITS | Encounter Summary ---
Author Organization [facility] Address [address] [place] [address] Care Team Providers Care Vp Organizational Development Name Role Phone Scott Chadwick Primary Care Provider [phone] Encounter Details Date Type Department Care Team (Late st Contact Info) Description 12/22/2022 Orders Only [facility] Neurology Clinic [address] [place] [address] Alhaji Bernal Jr., DO [address] [place] [address] Social History Tobacco Use Types Packs/Day Years [...] [facility] [address] [place] [address] Anette Novoa MD [address] [place] [address] documented as of this encounter Procedures * Due to [employer] law, this organization might not be sharing negative HIV tests. Procedure Name Priority Date/Time Associated Diagnosis Comments AMB EXTERNAL CT HAND, OUTSID E RESULT Routine 12/22/2022 documented in this encounter Results * Due to [employer] law, this organization might not be sharing negative HIV tests. * CT Hand, Outside Result (12/22/2022) Anatomical Region Laterality Modality Other Alhaji Bernal Jr., DO AMB EXTERNAL RESULT P ROCEDURES Final Result documented in this encounter Visit Diagnoses Not on filedocumented in this encounter Care Teams Vp Organizational Development Relationship Specialty Start Date End Date Scott Chadwick [address] [place] [address] PCP - General Internal Medicine 05/03/22 documented as of this encounter
--- OUTSIDE RECORDS SUMMARY | 2024-11-07 16:32 | XMS_ITS ---
Author Organization [facility] Address [address] [address] Care Team Providers Care Signing Agent Name Role Phone Scott Chadwick MD Primary Care Provider Minh Mckeon [phone] REASON FOR VISIT please resend rx. MEDICATIONS [...] syndrome) (K58.9) Active confirmed Irritable bowel syndrome (17427258) Encounters Encounter Location Date Provider Diagnosis [facility] [address] [address] 12/07/2023 Minh Ruiz IBS (irritable bowel syndrome) [...]
--- OUTSIDE RECORDS SUMMARY | 2024-11-07 16:32 | XMS_ITS | Encounter Summary ---
Author Organization [facility] Address [address] [place] [address] Care Team Providers Care Audio Visual Coordinator Name Role Phone Scott Chadwick Primary Care Provider [phone] Encounter Details Date Type Department Care Team (Late st Contact Info) Description 12/29/2022 Orders Only [facility] Neurology Clinic [address] [place] [address] Alhaji Bernal Jr., DO [address] [place] [address] Social History Tobacco Use Types Packs/Day Years [...] Description 12/19/2024 11:30 AM EDT Office Visit [facility] Neurology Clinic [address] [place] [address] Anette Novoa MD [address] [place] [address] documented as of this encounter Procedures * Due to [employer] law, this organization might not be sharing negative HIV tests. Procedure Name Priority Date/Time Associated Diagnosis Comments AMB EXTERNAL CT HEAD, OUTSID E RESULT Routine 12/29/2022 documented in this encounter Results * Due to [employer] law, this organization might not be sharing negative HIV tests. * CT Head, Outside Result (12/29/2022) Anatomical Region Laterality Modality Other Alhaji Bernal Jr., DO AMB EXTERNAL RESULT P ROCEDURES Final Result documented in this encounter Visit Diagnoses Not on filedocumented in this encounter Care Teams Audio Visual Coordinator Relationship Specialty Start Date End Date Scott Chadwick [address] [place] [address] PCP - General Internal Medicine 05/03/22 documented as of this encounter
--- OUTSIDE RECORDS SUMMARY | 2024-11-07 16:32 | XMS_ITS | Patient Health Record ---
Author Organization [facility] Address [address] [place] [address] Care Team Providers Care Chemical Laboratory Tester Name Role Phone Scott Chadwick MD Primary Care Provider Minh Mckeon [phone] ALLERGIES Allergen (clinical drug ingredient) Drug/Non Drug [...] Just PRN--rare Active Vitamin D3 250 MCG (85261 UT) as directed Orally Active Tylenol Extra [...] Problem Epigastric abdominal pain (R10.13) Active confirmed 54332424 Problem Gastritis, unspecified, without bleeding (K29.70) Active confirmed Gastroduodeniti s (836458383) Problem Irritable bowel syndrome with diarrhea (K58.0) Active confirmed 198208316 Problem Generalized abdominal pain (R10.84) Active confirmed Generalized abdominal pain (754192860) Problem Duodenitis (K29.80) Active confirmed Duodenitis (50055591) Problem IBS (irritable bowel syndrome) (K58.9) Active confirmed Irritable bowel syndrome (58833642) Problem Abdominal pain, epigastric (R10.13) Active confirmed 62568828 Problem Diverticulosis (K57.90) Active confirmed Diverticular disease of colon (766399773) Problem Diverticulosis of large intestine without hemorrhage (K57.30) Active confirmed 298061744 Problem Gallstones (K80.20) Active confirmed 893071996 Problem Abdominal pain, left lower quadrant (R10.32) Active confirmed 523100128 Problem Abdominal pain, acute, epigastric (R10.13) Active confirmed Epigastric pain (10493578) Problem Abdominal pain, generalized (R10.84) Active confirmed 810485003 Problem Irritable bowel syndrome, unspecified type (K58.9) Active confirmed 02827537 Problem Irritable bowel syndrome with both constipation and diarrhea (K58.2) Active confirmed 35189341 Problem Abdominal pain, acute, left lower quadrant (R10.32) Active confirmed Left lower quadrant pain (612764716) Problem Abnormal CT scan, gallbladder (R93.2) Active confirmed 64730086539579605 Problem History of diverticulitis of colon (Z87.19) Active confirmed 436760823071065 Encounters Encounter Location Date Provider Diagnosis [facility] [address] [place] [address] 12/05/2023 Minh Ruiz [facility] [address] [place] [address] 12/07/2023 Minh Sara IBS (irritable bowel syndrome) K58.9 [facility] [address] [place] [address] 06/11/2024 Minh Ruiz ASSESSMENTS Encounter Date Diagnosis [...] PROFILE 01/14/2014 URINALYSIS + MICROSCOPIC, CLEAN CATCH [id number] (A1A) 01/14/2014 CELIAC PANEL #10 05/17/2013 ENDOMYSIAL [...] Insured Coverage Start Date Coverage End Date [employer] [place] [address] [address] [place] [address] [id number] HARRISONSARTHAK SALIMA Self - patient is the insured MEDICAL (GENERAL) HISTORY Medical History History ICD Code IBS Colon polyps-tubular adenoma removed in 2000-had negative colonoscopies in 2003 and 2008 previous Guillain-[place] syndrome > 20 ye ars ago Denies VT,DM,CVA,Lung disease,renal dise ase EGD in 2000-neg duodenal [...] followed by Dr. Mayo and neurologists at [facility]--associated with intermittent spells of fatigue, weakness, and [...]
--- OUTSIDE RECORDS SUMMARY | 2024-11-07 16:32 | XMS_ITS | Encounter Summary ---
Author Organization [facility] Address [address] [place] [address] Care Team Providers Care Political Scientist Name Role Phone Scott Chadwick Primary Care Provider [phone] Reason for Visit * Reason Onset Date Comments PAC Order Request 10/12/2022 Encounter Details Date Type Department Care Team (Late st Contact Info) Description 10/12/2022 Telephone [facility] Central Scheduling Department [address] [place] [address] Telephone Intake, Staff PAC Order Request Social [...] to send to his local hospital in [place]. * Telephone Encounter - Ramona Garcia - [...] Please call patient back to book Callback# [phone] documented in this encounter Plan of Treatment Upcoming Encounters Date Type Department Care Team (Late st Contact Info) Description 12/19/2024 11:30 AM EDT Office Visit [facility] Neurology Clinic [address] [place] [address] Anette Novoa MD [address] [place] [address] documented as of this encounter Visit Diagnoses Not on filedocumented in this encounter Care Teams Political Scientist Relationship Specialty Start Date End Date Scott Chadwick [address] [place] [address] PCP - General Internal Medicine 05/03/22 documented as of this encounter
--- OUTSIDE RECORDS SUMMARY | 2024-11-07 16:32 | XMS_ITS | Encounter Summary ---
Author Organization [facility] Address [address] [place] [address] Care Team Providers Care Spear Fisher Name Role Phone Scott Chadwick Primary Care Provider [phone] Reason for Visit * Reason Onset Date Comments Request For Order(s) 11/18/2022 Encounter Details Date Type Department Care Team (Late st Contact Info) Description 11/18/2022 Telephone [facility] Neurology Clinic [address] [place] [address] Telephone Intake, Staff Request For Order(s) Social [...] - 11/24/2022 9:10 AM EST Faxed to [phone] They will reach out to schedule He is able to call central scheduling [phone] * Telephone Encounter - Aura Fleming - 11/24/2022 9:09 AM EST Patient requested to have the carotid duplex order to [facility] Faxed order and lvm for the patient. [...] Description 12/19/2024 11:30 AM EDT Office Visit [facility] Neurology Clinic [address] [place], [place] [phone] Anette Novoa MD [address] [place] [address] documented as of this encounter Visit Diagnoses Not on filedocumented in this encounter Care Teams Spear Fisher Relationship Specialty Start Date End Date Scott Chadwick [address] [place] [address] PCP - General Internal Medicine 05/03/22 documented as of this encounter
[2024-11-07 17:26] LABS: Prostate Specific Antigen 1.76 ng/mL (<0.05-4.0)
== END 2024-11-07 15:53 | disposition home or self-care (01) ==
LOC: HO.LAB 15:52
PROVIDERS: PCP Internal Medicine; Visit Provider Urology
DX: N40.1 Benign prostatic hyperplasia with lower urinary tract symptoms (principal); N13.8 Other obstructive and reflux uropathy; Z12.5 Encounter for screening for malignant neoplasm of prostate
CPT/HCPCS: 36415; 84153

== ENCOUNTER 2024-12-20 14:34 | Outpatient (AMB) | payer OTHER, SELFPAY ==
[2024-12-20 14:52] VITALS: BP 140/62; PULSE 61; BMI 26.0
--- NOTE | 2024-12-20 14:52 | MHC.OFFVIS ---
Vital Signs 12/20/24 14:52 Height 6 ft Weight 191 lb 12.835 oz BMI 26.0 BP 140/62 H Blood Pressure Location Lt brachial Position Sitting Pulse 61 Pulse Source Monitor Intake Visit Reasons: 1 year f/u KM Orthopaedic Technologist Required: No Allergies codeine [Codeine] Allergy (Intermediate, Verified 12/20/24 14:53) Dizziness meperidine [Meperidine] Allergy (Mild, Verified 12/20/24 14:53) UNKNOWN Medication List - Last Reconciled 12/20/24 by Maria A Ordoñez NP-C acetaminophen (Acetaminophen Extra Strength) 1,000 mg PO BEDTIME PRN amlodipine 5 mg PO DAILY celecoxib 200 mg PO DAILY PRN cholecalciferol (vitamin D3) (Vitamin D3) 50 mcg PO DAILY comp.stocking,thigh,long,small As directed cyanocobalamin (vitamin B-12) 1,000 mcg PO DAILY dutasteride 0.5 mg PO DAILY 90 days gabapentin 200 mg PO BEDTIME hyoscyamine sulfate 0.375 mg PO BID PRN losartan 25 mg PO BEDTIME ondansetron 4 mg PO Q8H PRN tamsulosin 0.4 mg PO DAILY@1700 90 days HPI HPI 1 year f/u KM: Details: Alhaji is a 74-year-old male with past medical history of hypertension, autoimmune encephalitis, dysautonomia who presents for follow-up. today he reports today he reports that he has had no significant changes in his health in the last year. He is still having issues with lightheadedness which he relates to his dysautonomia. He follows with a neurologist who was recommending he start on pyridostigmine okay. He denies any cardiac type symptoms. No chest discomfort, shortness of breath, palpitations. He does get some mild ankle edema which he relates to his venous insufficiency. He tends to do only light activities due to getting fatigued with more exertional things. He monitors his blood pressure routinely and finds that it is normal range. C [facility] Medical History Diastasis recti Cataract, right eye Autonomic neuropathy Hyperlipidemia Cholelithiasis BCC (basal cell carcinoma), face Abnormal liver function test Abdominal pain Cyst, kidney, acquired Hx of prostatitis COVID-19 vaccine series completed Depression Peripheral neuropathy Cervical spondyloarthritis Mood disorder Pre-diabetes Hx of Guillain-Buchanan syndrome Arthritis Back pain DDD (degenerative disc disease) Fatty liver Left inguinal hernia Axillary abscess History of lumbar puncture Autoimmune encephalitis Gallstones Hypertension GERD (gastroesophageal reflux disease) Prostatitis Surgical History History of hernia repair History of esophagogastroduodenoscopy (EGD) Hx of colonoscopy Family History Mother No problems noted. Father No problems noted. Social History Are you a primary assurance services manager health care to a significant other at home: No Do you presently have visiting nurse or other home services: No Alcohol intake: never Patient Tobacco Use Status: Former Tobacco user Review of Systems Const All systems reviewed & are unremarkable except as noted in HPI and below ENT Reports dizziness Card Details: ankle swelling Denies chest pain, Denies chest pain at rest, Denies chest pain with activity, Denies rapid heart rate, Denies pedal edema, Denies edema, Denies leg edema, Denies lightheadedness, Denies palpitations, Denies dyspnea, Denies dyspnea on exertion and Denies orthopnea Resp Denies cough, Denies dyspnea and Denies dyspnea on exertion GI Denies hematochezia and Denies change in stool character Musc Denies abnormal gait, Denies limited range of motion, Denies muscle cramps, Denies muscle weakness, Denies numbness, Denies radiating pain into limb, Denies stiffness and Denies tingling Neuro Denies abnormal gait, Reports dizziness, Denies numbness and Denies tingling Endo Denies palpitations Physical Exam Vital Signs: Last Vital Signs Pulse 61 12/20/24 14:52 BP 140/62 H 12/20/24 14:52 BMI result Body Mass Index 26.0 Const General: cooperative, healthy appearing, comfortable and no acute distress Orientation/consciousness: patient oriented x3 Neck Neck: Yes normal visual inspection and Yes no JVD Resp Effort & Inspection: normal respiratory effort Auscultation: clear to auscultation bilaterally, no rales, no rhonchi and no wheezes Cardio Jugular venous distension: no JVD Rate: regular rate Rhythm: regular rhythm Heart sounds: S1 normal heart sound present, S2 normal heart sound present, no murmurs and no rubs Neuro General: patient oriented x3 Extrem Other: +1 pitting edema around ankle bones Psych Appearance: grossly normal Mental Status: mental status grossly normal Speech and movement: Normal speech and movement present Office Procedures EKG Details: Today, read by me, sinus rhythm, LAFB, rater 61, Qtc 426ms [id number], Complete Assessment & Plan Assessment & Plan (1) Hypertension: Code(s): I10 - Essential (primary) hypertension Category: Medical Plan: History of hypertension which has been well controlled with use of amlodipine and losartan. Last echocardiogram 01/01/2021 showed EF 65-70%, trace to mild AR. An EKG done today shows normal sinus rhythm, left anterior fascicular block, rate 61. He monitors blood pressure at home routinely. Blood pressure in this office mildly elevated which he relates to being in the cardiology office. Will continue current meds. Reviewed low-salt diet, physical activity as tolerated. Cardiology follow-up 1 year, sooner if needed (2) Dizziness: Code(s): R42 - Dizziness and giddiness Category: Medical Plan: Reports of chronic intermittent lightheadedness with position changes which he relates to his dysautonomia. He does follow with neurology. Recent recommendation for start of pyridostigmine. he is requesting cardiac input on this medication. Side effect profile reviewed. It can cause hypertension and in some cases bradycardia. His heart rate is on the low side. Reviewed this with him. If he does start the medication then he will need monitoring of his heart rate and blood pressure. He tells me that he checks his heart rate and blood pressure routinely. Will arrange for an EKG in the office in a few weeks if he does start this medication. (3) Dysautonomia: Code(s): G90.1 - Familial dysautonomia [Kenneth-Day] Category: Medical Plan: As above Plan time spent on chart review, documentation, interview and assessment Coding Level of Care Code Est Pt Level 3 (84939) Complex EM visit Add On G2211 Diagnoses Hypertension I10 Dizziness R42 Dysautonomia G90.1 CPT Codes EKG - CPT: 56189-[id number], Complete ([id number]) Time Spent (min) 24
--- OUTSIDE RECORDS SUMMARY | 2024-12-20 18:14 | XMS_ITS | Referral Summary ---
Author Organization [facility] Address [address] [place] [address] Care Team Providers Care Kosher Sealer Name Role Phone Scott Chadwick Primary Care Provider [phone] Encounters Date Type Department Care Team Description 12/20/2024 Orders Only [facility] [address] [place] [address] Provider, MD Mita 12/19/2024 11:30 AM EDT Telehealth [facility] [address] [place] [address] Anette Novoa MD Dysautonomia (Primary Dx) 12/18/2024 Telephone [facility] [address] [place] [address] 16499 Telephone Intake, Staff PAC Patient Request Call Back; PAC Appt Request - Established from Last 3 Months Allergies Active Allergy Reactions Criticality Noted Date Comments Bee Pollen Swelling High 02/17/2018 Bees Arm swelled Cephalexin Nausea And Vomiting 03/22/2022 Nauseau only Codeine Sulfate Unknown,Dizziness 12/14/2016 Lisinopril Cough 12/14/2016 Oxycodone Nausea And Vomiting 08/04/2021 Pravastatin Sodium Unknown 12/14/2016 Medications amLODIPine (NORVASC) 5 mg tablet Take 5 mg by mouth daily. 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 He has flares of dysautonomia with lightheadedness. We discussed importance of hydration and compression stockings. Discussed pyridostigmine and he will check with his edge inker uppers. Paresthesias -consider pyridostigmine 30mg in the morning (he will check with edge inker uppers) -compression stockings daily -hydration 80-100 oz/day -follow up in 6 months Assessment & Plan (05/17/2024 3:36 PM EDT): [...] fasting glucose 02/17/2018 023 Essential hypertension 12/25/2012 Fatigue 10/15/2006 02/02/2023 Social History Tobacco Use [...] Care Team (Late st Contact Info) Description 06/27/2025 3:00 PM EDT Office Visit [facility] [address] [place] [address] Anette Novoa MD [address] [place] [phone] Insurance [employer] Care Teams Kosher Sealer Relationship Specialty Start Date End Date Scott Chadwick [address] [place] [address] PCP - General Internal Medicine 05/03/22
--- OUTSIDE RECORDS SUMMARY | 2024-12-20 18:14 | XMS_ITS | Clinical Summary ---
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 Paresthesias -consider pyridostigmine 30mg in the morning (he will check with concrete block molder) -compression stockings daily -hydration 80-100 oz/day -follow [...] 02/02/2023 023 Irritable bowel syndrome with diarrhea 02/02/2023 Gallstones 02/02/2023 02/02/2023 Duodenitis 02/02/2023 02/02/2023 [...] Essential hypertension 12/25/2012 3 Fatigue 10/15/2006 02/02/2023 Encounters Date Type Department Care Team Description 12/20/2024 Orders Only [facility] [address] [place] [address] Provider, MD Mita 12/19/2024 11:30 AM EDT Telehealth [facility] [address] [place] [address] Anette Novoa MD Dysautonomia (Primary Dx) 12/18/2024 Telephone [facility] [address] [place] [address] Telephone Intake, Staff PAC Patient Request Call Back; PAC Appt Request - Established from Last 3 Months Social History Tobacco Use Types Packs/Day Years [...] Description 06/27/2025 3:00 PM EDT Office Visit [facility] [address] [place] [address] Anette Novoa MD [address] [place] [address] Health Maintenance Due Date Last Done Comments Hepatitis C Screening [address] Lung Cancer Screening (Baseline) 1998 Pneumococcal Vaccine: 50+ Years (1 of 1 - PCV) 1998 Zoster Vaccines (1 of 2) 1998 DTaP,Tdap,and Td Vaccines (1 - Tdap) 01/25/2005 01/24/2005 RSV Vaccine (60+ years old and patients) (1 - 1-dose 75+ series) 2023 COVID-19 Vaccine (4 - season) 2024 09/10/2021, 12/06/2020, 11/13/2020 Influenza Vaccine (#1) 2024 Alcohol/Substance Use Screening 09/26/2024 Depression Screening and Follow-Up 09/26/2024 Health Care Proxy Review 09/26/2024 Social Drivers of Health Annual Screening 09/26/2024 Basic Metabolic Panel 04/30/2025 04/30/2024 , 12/20/2023, 09/30/2022, Additional history exists Hepatitis B Vaccines Aged Out No long er eligible based on patient's age to complete this topic Insurance [employer] Care Teams Territory Sales Consultant Relationship Specialty Start Date End Date Soctt Chadwick [address] [place] [address] PCP - General Internal Medicine 05/03/22
--- OUTSIDE RECORDS SUMMARY | 2024-12-20 18:15 | XMS_ITS | Encounter Summary ---
Author Organization [facility] Address [address] [place] [address] Care Team Providers Care Sales Exec Name Role Phone Scott Chadwick Primary Care Provider [phone] Encounter Details Date Type Department Care Team (Late st Contact Info) Description 12/29/2022 Orders Only [facility] Neurology [facility] [address] [place] [address] Alhaji Bernal Jr., DO [address] [place] [address] Social History Tobacco Use Types Packs/Day Years [...] Description 06/27/2025 3:00 PM EDT Office Visit [facility] [address] [place] [address] Anette Novoa MD [address] [place] [address] documented as of this encounter Procedures * Due to [place] National Institutes of Health (NIH) law, this organization might not be sharing negative HIV tests. Procedure Name Priority Date/Time Associated Diagnosis Comments AMB EXTERNAL CT HEAD, OUTSID E RESULT Routine 12/29/2022 documented in this encounter Results * Due to [place] National Institutes of Health (NIH) law, this organization might not be sharing negative HIV tests. * CT Head, Outside Result (12/29/2022) Anatomical Region Laterality Modality Other Alhaji Bernal Jr., DO AMB EXTERNAL RESULT P ROCEDURES Final Result documented in this encounter Visit Diagnoses Not on filedocumented in this encounter Care Teams Sales Exec Relationship Specialty Start Date End Date Scott Chadwick [address] [place] [phone] PCP - General Internal Medicine 05/03/22 documented as of this encounter
--- OUTSIDE RECORDS SUMMARY | 2024-12-20 18:15 | XMS_ITS | Encounter Summary ---
Author Organization [facility] Address [address] [place] [address] Care Team Providers Care Seat Joiner Chainstitch Name Role Phone Scott Chadwick Primary Care Provider [phone] Reason for Visit * Consultation (Routine) - Pending Review Specialty Diagnoses / Procedures Referred By Marcell bai Referred To Contact Neurology Diagnoses Polyneuropathy Jerrod Francisco MD PhD [address] [place] [address] Phone: tel: fax: [facility] [address] [place] [address] Phone: tel: fax: Referral ID Status Reason Start Date Expiration Date Visits Requested Visits Authorized [id number] Pending Review Specialty Services Required 11/01/2023 05/02/2025 6 6 Encounter Details Date Type Department Care Team (Late st Contact Info) Description 12/19/2024 11:30 AM EDT Telehealth [facility] [address] [place] [address] Anette Novoa MD [address] [place] [address] Dysautonomia (Primary Dx) Social History Tobacco Use Types Packs/Day Years [...] AM EDT documented as of this encounter Progress Notes * Anette Novoa MD - 12/19/2024 11:51 AM EDT [facility] Follow-Up Patient Visit This was a telehealth video visit. HPI: Alhaji Sims is a 74 y.o. 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 Over the last couple of weeks, he has had an increase in dizziness. Unclear triggers. He is sleeping in at times. He has fatigue. He does not drive when this happens. He will have dizziness after hotshower. When he looks down, he will get dizzy as well since cataract surgery. He has multiple pairs of glasses for vision. Some of the worsening symptoms have stabilized now. It has gotten worse over the last 5 years. He had PT in May. Then he got COVID. He has compression stockings but difficult to get on so has not worn it regularly. He is hydrating. He had MRI brain done but do not have report or images. He has had some tingling in hands and has known cervical stenosis. HPI: He had GBS in 1988 and has had episodes in the summer where he will get weak in the legs, fatigue, lightheaded. He had lightheadedness about 5 years ago. He is lightheaded often, if he gets up or on laptop or phone. This can last for 10-15 mins. This can also last for 1 month or 3-4 months. There are times where this occurs after eating. He has pins/needles mostly in coat rod hanger distribution. He is on gabapentin 100mg/200mg and this helps a bit but increased dose causes grogginess. Hot showerwill trigger symptoms. Heat triggers symptoms. Last episode in Sep 2023. Episodes with severe lightheaded and very weak. He still out of bed and will push himself. He will sit around. Recently, over last couple of weeks, has had itchiness feeling in the upper shoulders. He has had autonomic testing showing severely impaired sudomotor functions suggestive of small fiber neuropathy. Adrenergic functions moderately impaired. He has a son in [place] on the water and plans to visit. Prior medications tried: none Compression stockings: has them but not wearing them regularly Hydration: about 16-20 oz Current meds: Amlodipine 5mg at bedtime Losartan 25mg daily Flomax Finasteride ROS: Fainting: over 1 year ago in context of lightheadedness Lightheadedness: chronic Vertigo: rarely Headaches:denies Changes in vision: cataracts Palpitations: occasionally Shortness of breath: denies Constipation: regular- Metamucil, daily Abdominal pain: bloating, +pain occasionally, has gallbladder issue and other GI issues Fatigue: ++ worse during episodes Sleep: sleeping well until shoulder itchiness Mood: NA Numbness/tingling: Exercise: PT A 10-point review of systems was completed. All other systems are negative. He has no past medical history on file. No past surgical history on file. family history is not on file. He reports that he has quit smoking. His smoking use included cigarettes. He has quit using smokeless tobacco. He reports current alcohol use. He reports that he does not use drugs. Current Outpatient Medications: acetaminophen (TYLENOL) 500 mg tablet, Take 1-2 tablet by mouth in the evening, PRN., Disp: , Rfl: amLODIPine (NORVASC) 5 mg tablet, Take 5 mg by mouth daily., Disp: , Rfl: celecoxib (CeleBREX) 200 mg capsule, Take 200 mg by mouth. As needed, Disp: , Rfl: cholecalciferol (VITAMIN D3) 1,000 unit tablet, Take 2,000 Units by mouth daily., Disp: , Rfl: cyanocobalamin 1,000 mcg tablet, Take 1,000 mcg by mouth daily., Disp: , Rfl: finasteride (PROSCAR) 5 mg tablet, Take 5 mg by mouth once a day., Disp: , Rfl: gabapentin (NEURONTIN) 100 mg capsule, 100 mg. 1 cap in the afternoon and 2 in the evening, Disp: ,Rfl: hyoscyamine (ANASPAZ,LEVSIN) 0.125 mg tablet, Take 125-250 mcg by mouth every 6 hours as needed., Disp: , Rfl: ibuprofen (MOTRIN) 200 mg tablet, Take 200 mg by mouth., Disp: , Rfl: losartan (COZAAR) 25 mg tablet, , Disp: , Rfl: meclizine (ANTIVERT) 12.5 mg tablet, 1-2 tablets q 6 hours prn vertigo, Disp: , Rfl: tamsulosin (FLOMAX) 0.4 mg capsule, Take 0.4 mg by mouth daily., Disp: , Rfl: triamcinolone acetonide (KENALOG) 0.1% cream, Apply 1 Application topically to the affected area daily., Disp: , Rfl: Physical Exam: Telehealth visit CSF labs: Oligoclonal Bands: 3 bands matching serum IgG Index: normal WBC count: 9 Protein: 65 Serum lab workup: LAZARO 1:320, nucleolar. Negative Sjogren's, Padilla, DNA, RF, C3, C4, antigliadin, cardiolipin, Lyme/Babesia, RPR, hepatitis profile, HIV. Neuroimaging: MRI brain (Mar-2021): not available MRI C-spine (2021): normal cord signal and multilevel cervical spondylosis with narrowing of the central spinal canal. Autonomic neuropathy 06/2023: Conclusions: Abnormal study. Cardiovagal functions were normal. 2. Adrenergic functions were moderately impaired. Mean blood pressure failed to return to baseline at late phase II. Blood pressure responses to tilt were normal. There is no evidence of orthostatic hypotension. 3. Sudomotor test was severe impaired, which may suggest small fiber neuropathy affecting sudomotorfibers. Ash Mendoza MD, Signature date/time: 07/19/2023 2:13:47 PM MRI Brain 05/2022 (Outside transfer but could not see images) 12/2022- CTH/CTA Normal Assessment: Alhaji Sims is a 74 y.o. male presenting for follow-up of dysautonomia. Problem List Nervous Dysautonomia - Primary Current Assessment & Plan Alhaji presents with a PMH of GBS in 1988 with residual symptoms for follow-up of dysautonomia andspecifically small fiber neuropathy. He has flares of dysautonomia with lightheadedness. We discussed importance of hydration and compression stockings. Discussed pyridostigmine and he will check with his orthodontist. Paresthesias -consider pyridostigmine 30mg in the morning (he will check with orthodontist) -compression stockings daily -hydration 80-100 oz/day -follow up in 6 months I performed this visit using real-time telehealth tools, including a live audio video connection between my location (My home in [place]) and the patient's location (their home). The patient requested/scheduled this visit. Telehealthparticipants: Alhaji, myself Prior to beginning the telehealth visit, the patient's informed verbal consent to perform this visit using telehealth tools was obtained. I am comfortable that this visit could be performed effectively using telehealth tools. The patient's history and medical records were reviewed. I have informed the patient that in the case they felt that they needed to be seen in person, that an in person visit could be arranged. Outpt Video/Audio visit: Total time spent on same day: 25 minutes Anette Novoa MD [employer] Instructor of Neurology & Neurosurgery Movement Disorders Program documented in this encounter Miscellaneous Notes * Assessment & Plan Note - Anette Novoa MD - 12/19/2024 12:03 PM EDTAssociated Problem(s): Dysautonomia Alhaji presents with a PMH of GBS in 1988 with residual symptoms for follow-up of dysautonomia andspecifically small fiber neuropathy. He has flares of dysautonomia with lightheadedness. We discussed importance of hydration and compression stockings. Discussed pyridostigmine and he will check with his orthodontist. Paresthesias -consider pyridostigmine 30mg in the morning (he will check with orthodontist) -compression stockings daily -hydration 80-100 oz/day -follow up in 6 months documented in this encounter Plan of Treatment Upcoming Encounters Date Type Department Care Team (Late st Contact Info) Description 06/27/2025 3:00 PM EDT Office Visit [facility] [address] [place] [address] [id number] Anette Novoa MD [address] [place] [phone] documented as of this encounter Visit Diagnoses Diagnosis Dysautonomia (HCC)- Primary Unspecified disorder of autonomic nervous system documented in this encounter Care Teams Seat Joiner Chainstitch Relationship Specialty Start Date End Date Scott Chadwick [address] [place] [phone] PCP - General Internal Medicine 05/03/22 documented as of this encounter
--- OUTSIDE RECORDS SUMMARY | 2024-12-20 18:15 | XMS_ITS | Encounter Summary ---
Author Organization [facility] Address [address] [place] [address] Care Team Providers Care Painting Machine Operator Name Role Phone Scott Chadwick Primary Care Provider [phone] Reason for Visit * Reason Onset Date Comments PAC Order Request 10/12/2022 Encounter Details Date Type Department Care Team (Late st Contact Info) Description 10/12/2022 Telephone [facility] Central Scheduling Department [address] [place] [phone] Telephone Intake, Staff PAC Order Request Social [...] to send to his local hospital in [place]. * Telephone Encounter - Ramona Garcia - [...] Please call patient back to book Callback# [phone] documented in this encounter Plan of Treatment Upcoming Encounters Date Type Department Care Team (Late st Contact Info) Description 06/27/2025 3:00 PM EDT Office Visit [facility] [address] [place] [phone] Anette Novoa MD [address] [place] [phone] documented as of this encounter Visit Diagnoses Not on filedocumented in this encounter Care Teams Painting Machine Operator Relationship Specialty Start Date End Date Scott Chadwick [address] [place] [address] PCP - General Internal Medicine 05/03/22 documented as of this encounter
--- OUTSIDE RECORDS SUMMARY | 2024-12-20 18:15 | XMS_ITS ---
Author Organization [facility] Address [address] [place] [address] Care Team Providers Care Gas Pit Worker Name Role Phone Scott Chadwick MD Primary Care Provider Minh Mckeon Unavailable [phone] REASON FOR VISIT thinks he has diverticulitis Medications Medication SIG (Take, Route, Frequency, Duration) Notes [...] Active Encounters Encounter Location Date Provider Diagnosis [facility] [address] [address] 06/11/2024 Minh Ruiz Plan Of Treatment Medication Medication Name Sig Start Date Stop [...] should not be split in half. Thanks Progress Notes * SALIMA GRESHAMDOB: 9 (73 yo M)Acc No.[id number]:06/11/2024 Patient:?SALIMA GRESHAM :1950???Age:73 Y???Sex:Male Address:[address] [place] [address] * Refills? Refill Amoxicillin-Pot Clavulanate Tablet, 500-125 MG, Orally, 21 Tablet, 1 tablet, every 8 hrs, 7 days, Refills=0 Refill Hyoscyamine Sulfate ER Tablet Extended Release 12 Hour, 0.375 MG, Orally, 60, 1/2 to 1 pill, Take before breakfast and before dinner twice a day for abdominal bloating and discomfort, 30 day(s), Refills=6 * true * Date:? Generated for Emanuel fernández/Cuco/Meri on:?12/20/2024 06:15 PM EDT
--- OUTSIDE RECORDS SUMMARY | 2024-12-20 18:15 | XMS_ITS ---
Author Organization [facility] Address [address] [address] Care Team Providers Care Circuit Judge Name Role Phone Scott Chadwick MD Primary Care Provider Minh Mckeon [phone] REASON FOR VISIT please resend rx. Medications Medication SIG (Take, Route, Frequency, Duration) Notes Start Date End Date Status Hyoscyamine Sulfate ER 0.375 MG 1/2 to 1 pill Orally Take before breakfast and before dinner twice a day for abdominal bloating and discomfort for 30 day(s) Please let me know if the pill should not be split in half. Thanks 12/07/2023 Active Problems Problem Type SNOMED Code ICD Code Onset Dates Problem Status W/U Status Risk Notes Problem Irritable bowel syndrome (10777944) IBS (irritable bowel syndrome) (K58.9) Active confirmed Encounters Encounter Location Date Provider Diagnosis [facility] [address] [address] 12/07/2023 Minh Ruiz IBS (irritable bowel syndrome) K58.9 Assessments Encounter Date Diagnosis (ICD Code) Assessment Notes Treatment Notes Treatment Clinical Notes Section Notes 12/07/2023 IBS (irritable bowel syndrome) (ICD-10 - K58.9) Plan Of Treatment Medication Medication Name Sig Start Date Stop Date Notes Hyoscyamine Sulfate ER 0.375 MG 1/2 to 1 pill Orally Take before breakfast and before dinner twice a day for abdominal bloating and discomfort for 30 day(s) 12/07/2023 Please let me know if the pill should not be split in half. Thanks Progress Notes * SALIMA GRESHAMDOB: [birth year] (73 yo M)Acc No.[id number]:12/07/2023 Patient:?SALIMA GRESHAM :1950???Age:73 Y???Sex:Male Address:[address] [place] [address] * Refills? Refill Hyoscyamine Sulfate ER Tablet Extended Release 12 Hour, 0.375 MG, Orally, 60, 1/2 to 1 pill, Take before breakfast and before dinner twice a day for abdominal bloating and discomfort, 30 day(s), Refills=6 Subjective: * Chief Complaints: * ???Please resend rx. * Medical History:? * Surgical History:? * Hospitalization/Major Diagno stic Procedure:? * Medications:? Objective: Assessment: * Assessment: 1.?IBS (irritable bowel synd [place]) - K58.9 (Primary)? Plan: * Treatment: * Procedure Codes:? * true * Date:? Generated for Emanuel fernández/Cuco/eTransmitting on:?12/20/2024 06:14 PM EDT
--- OUTSIDE RECORDS SUMMARY | 2024-12-20 18:15 | XMS_ITS | Encounter Summary ---
Author Organization [facility] Address [address] [place] [address] Care Team Providers Care Highway Engineering Technician Name Role Phone Farrukh Scott Blank Primary Care Provider [phone] Encounter Details Date Type Department Care Team (Late st Contact Info) Description 10/20/2022 Orders Only [facility] Interventional Radiology [address] [place] [address] Flaco Fuller MD [address] [place] [address] [place] [address] Social History Tobacco Use Types Packs/Day Years [...] Description 06/27/2025 3:00 PM EDT Office Visit [facility] [address] [place] [address] Anette Novoa MD [address] [place] [address] documented as of this encounter Visit Diagnoses Not on filedocumented in this encounter Care Teams Highway Engineering Technician Relationship Specialty Start Date End Date Scott Chadwick [address] [facility] [place] [address] PCP - General Internal Medicine 05/03/22 documented as of this encounter
--- OUTSIDE RECORDS SUMMARY | 2024-12-20 18:15 | XMS_ITS | Encounter Summary ---
Author Organization [facility] Address [address] [place] [address] Care Team Providers Care Manager Credit Name Role Phone Scott Chadwick Primary Care Provider [phone] Reason for Visit * Reason Onset Date Comments PAC Patient Request Call Back 12/18/2024 PAC Appt Request - Established 12/18/2024 Encounter Details Date Type Department Care Team (Late st Contact Info) Description 12/18/2024 Telephone [facility] Neurology Clinic [address] [place] [address] Telephone Intake, Staff PAC Patient Request Call Back; PAC Appt Request - Established Social History Tobacco Use Types Packs/Day Years [...] encounter Miscellaneous Notes * Telephone Encounter - Mart Ayers LPN - 12/18/2024 3:19 PM EDT Pt stated that he has been having some GI issues and lightheaded. Pt also has issues with is computer and unable to do telehealth. Pt would like to have the appointment via phone call. Confirmed the # that is in the pt chart. * Telephone Encounter - Sandrine Haas - 12/18/2024 2:55 PM EDT Pt called in to see if he can change his appointment for tomorrow from an in person to a phone callas he can not make the appointment due to not feeling well and not having transportation the pt lives an hour away and is unable to drive himself due to him not feeling well. Pt would like a phone call from the provider as he is unable to do a telehealth due to issues with his home computer. PAC unable to reschedule for just a phone call. Please reach out to pt for rescheduling of appointment fora phone call tomorrow instead of inperson @ [phone]. Thank you. documented in this encounter Plan of Treatment Upcoming Encounters Date Type Department Care Team (Late st Contact Info) Description 06/27/2025 3:00 PM EDT Office Visit [facility] Neurology Clinic [address] [place] [address] Anette Novoa MD [address] [place] [address] documented as of this encounter Visit Diagnoses Not on filedocumented in this encounter Care Teams Manager Credit Relationship Specialty Start Date End Date Scott Chadwick [address] [place] [address] PCP - General Internal Medicine 05/03/22 documented as of this encounter
--- OUTSIDE RECORDS SUMMARY | 2024-12-20 18:15 | XMS_ITS | Encounter Summary ---
Author Organization [facility] Address [address] [place] [address] Care Team Providers Care Garden Tractor Mechanic Name Role Phone Scott Chadwick Primary Care Provider [phone] Encounter Details Date Type Department Care Team (Late st Contact Info) Description 09/12/2023 VuMedi Message [facility] [employer] Cycle Management [address] [place] [address] Referrizer, Generic Provider [address] [place], [place] [id number] Payment Agreement Social History Tobacco Use Types [...] Description 06/27/2025 3:00 PM EDT Office Visit [facility] Neurology Clinic [address] [place] [address] Anette Novoa MD [address] [place] [address] documented as of this encounter Visit Diagnoses Not on filedocumented in this encounter Care Teams Garden Tractor Mechanic Relationship Specialty Start Date End Date Scott Chadwick [address] [place] [address] PCP - General Internal Medicine 05/03/22 documented as of this encounter
--- OUTSIDE RECORDS SUMMARY | 2024-12-20 18:15 | XMS_ITS | Encounter Summary ---
Author Organization [facility] Address [address] [place] [address] Care Team Providers Care Painter Chassis Name Role Phone Denise Chadwickrick Blank Primary Care Provider [phone] Encounter Details Date Type Department Care Team (Late st Contact Info) Description 12/20/2024 Orders Only [facility] Neurology Clinic [address] [place] [address] Mita Zhou MD [address] [place] [address] Social History Tobacco Use Types Packs/Day Years [...] Description 06/27/2025 3:00 PM EDT Office Visit [facility] Neurology Clinic [address] [place] [address] Anette Novoa MD [address] [place] [address] documented as of this encounter Procedures * Due to [place] state law, this organization might not be sharing negative HIV tests. Procedure Name Priority Date/Time Associated Diagnosis Comments AMB EXTERNAL MRI BRAIN, OUTSIDE RESULT Routine 06/12/2024 11:45 AM EDT documented in this encounter Results * Due to [facility] law, this organization might not be sharing negative HIV tests. * MRI Brain, Outside Result (06/12/2024 11:45 AM EDT) Anatomical Region Laterality Modality Other us Unknown Provider MD NEVILLE EXTERNAL RESULT PROCEDUR ES Final Result documented in this encounter Visit Diagnoses Not on filedocumented in this encounter Care Teams Painter Chassis Relationship Specialty Start Date End Date Scott Chadwick [address] [place] [address] PCP - General Internal Medicine 05/03/22 documented as of this encounter
--- OUTSIDE RECORDS SUMMARY | 2024-12-20 18:15 | XMS_ITS | Encounter Summary ---
Author Organization [facility] Address [address] [place] [address] Care Team Providers Care Colorist Photography Name Role Phone Scott Chadwick Primary Care Provider [phone] Encounter Details Date Type Department Care Team (Late st Contact Info) Description 12/10/2022 Orders Only [facility] Neurology Clinic [address] [place] [address] Alhaji Bernal Jr., DO [address] [place] [address] Social History Tobacco Use Types Packs/Day Years [...] Description 06/27/2025 3:00 PM EDT Office Visit [facility] Neurology Clinic [address] [place] [address] Anette Novoa MD [address] [place] [address] documented as of this encounter Procedures * Due to [place] law, this organization might not be sharing negative HIV tests. Procedure Name Priority Date/Time Associated Diagnosis Comments LAB - SCANNED Routine 12/10/2022 ALT, OUTSIDE LAB Routine 12/10/2022 AMB EXTERNAL US NECK SOFT TI SSUE, SCANNED RESULT Routine 12/10/2022 documented in this encounter Results * Due to [facility] law, this organization might not be [...] on filedocumented in this encounter Care Teams Colorist Photography Relationship Specialty Start Date End Date Scott Chadwick [address] [place] [address] PCP - General Internal Medicine 05/03/22 documented as of this encounter
--- OUTSIDE RECORDS SUMMARY | 2024-12-20 18:15 | XMS_ITS | Encounter Summary ---
Author Organization [facility] Address [address] [place] [address] Care Team Providers Care Machine Applicator Cementer Name Role Phone Scott Chadwick Primary Care Provider [phone] Reason for Visit * Reason Onset Date Comments Request For Order(s) 11/18/2022 Encounter Details Date Type Department Care Team (Late st Contact Info) Description 11/18/2022 Telephone [facility] Neurology Clinic [address] [place] [address] Telephone Intake, Staff Request For Order(s) Social [...] - 11/24/2022 9:10 AM EST Faxed to [phone] They will reach out to schedule He is able to call central scheduling [phone] * Telephone Encounter - Aura Fleming - 11/24/2022 9:09 AM EST Patient requested to have the carotid duplex order to [facility] Faxed order and lvm for the patient. [...] Description 06/27/2025 3:00 PM EDT Office Visit [facility] Neurology Clinic [address] [place] [address] Anette Novoa MD [address] [place] [address] documented as of this encounter Visit Diagnoses Not on filedocumented in this encounter Care Teams Machine Applicator Cementer Relationship Specialty Start Date End Date Scott Chadwick [address] [place] [address] PCP - General Internal Medicine 05/03/22 documented as of this encounter
--- OUTSIDE RECORDS SUMMARY | 2024-12-20 18:15 | XMS_ITS | Encounter Summary ---
Author Organization [facility] Address [address] [place] [address] Care Team Providers Care Fat Pressroom Worker Name Role Phone Scott Chadwick Primary Care Provider [phone] Encounter Details Date Type Department Care Team (Late st Contact Info) Description 12/22/2022 Orders Only [facility] Neurology Clinic [address] [place] [address] Alhaji Bernal Jr., DO [address] [place] [address] Social History Tobacco Use Types Packs/Day Years [...] Description 06/27/2025 3:00 PM EDT Office Visit [facility] Neurology Clinic [address] [place] [address] Anette Novoa MD [address] [place] [address] documented as of this encounter Procedures * Due to [place] [employer] law, this organization might not be sharing negative HIV tests. Procedure Name Priority Date/Time Associated Diagnosis Comments AMB EXTERNAL CT HAND, OUTSID E RESULT Routine 12/22/2022 documented in this encounter Results * Due to [place] law, this organization might not be sharing negative HIV tests. * CT Hand, Outside Result (12/22/2022) Anatomical Region Laterality Modality Other Alhaji Bernal Jr., DO AMB EXTERNAL RESULT P ROCEDURES Final Result documented in this encounter Visit Diagnoses Not on filedocumented in this encounter Care Teams Fat Pressroom Worker Relationship Specialty Start Date End Date Scott Chadwick [address] [place] [address] PCP - General Internal Medicine 05/03/22 documented as of this encounter
--- OUTSIDE RECORDS SUMMARY | 2024-12-20 18:15 | XMS_ITS | Patient Health Record ---
Author Organization [facility] Address [address] [place] [address] Care Team Providers Care Principal Account Clerk Name Role Phone Scott Chadwick MD Primary Care Provider Minh Mckeon [phone] Allergies Allergen (clinical drug ingredient) Drug/Non Drug Allergy documented on EMR Reaction Allergy Type Onset Date Status codeine Codeine Sulfate Unknown Drug Allergy A ctive Reason For Referral No Information Medications Medication SIG (Take, Route, Frequency, Duration) [...] Just PRN--rare Active Vitamin D3 250 MCG ([address] UT) as directed Orally Active Tylenol Extra [...] bloating and discomfort for 30 day(s) Active Immunizations Vaccine Route Administration Date Status Comme nts Influenza Unknown 11/06/2019 Refused Influenza Unknown 02/05/2020 Refused Social History Tobacco Use: Social History Observation Description Date Details (start date - stop date) Former Smoker NA - NA Tobacco Use/Smoking Question Answer Notes Patient is a former smoker When did you stop smoking? 30 Alcohol Screen Question Answer Notes Did you have a drink containing alcohol in the p ast year? No Points 0 Interpretation Negative Section Notes: Nonsmoker > 10 yrs; occ. alc ohol Nonsmoker > 10 yrs; occ. alc ohol Nonsmoker > 10 yrs; occ. alc ohol Nonsmoker > 10 yrs; occ. alc ohol Nonsmoker > 10 yrs; occ. alc ohol Nonsmoker > 10 yrs; occ. alc ohol Nonsmoker > 10 yrs; occ. alc ohol Nonsmoker > 10 yrs; occ. alc ohol Problems Problem Type SNOMED Code ICD Code Onset Dates Problem Status W/U Status Risk Notes Problem 66718168 Epigastric abdominal pain (R10.13) Active confirmed Problem Gastroduodenitis (207647584) Gastritis, unspecified, without bleeding (K29.70) Active confirmed Problem 381055775 Irritable bowel syndrome with diarrhea (K58.0) Active confirmed Problem Generalized abdominal pain (650295871) Generalized abdominal pain (R10.84) Active confirmed Problem Duodenitis (83734578) Duodenitis (K29.80) Active confirmed Problem Irritable bowel syndrome (62827279) IBS (irritable bowel syndrome) (K58.9) Active confirmed Problem 50086982 Abdominal pain, epigastric (R10.13) Active confirmed Problem Diverticular disease of colon (432315754) Diverticulosis (K57.90) Active confirmed Problem 752585971 Diverticulosis o f large intestine without hemorrhage (K57.30) Active confirmed Problem 548288255 Gallstones (K80.20) Active confirmed Problem 862624157 Abdominal pain, left lower quadrant (R10.32) Active confirmed Problem Epigastric pain (72734863) Abdominal pain, acute, epigastric (R10.13) Active confirmed Problem 943658799 Abdominal pain, generalized (R10.84) Active confirmed Problem 65531844 Irritable bowel syndrome, unspecified type (K58.9) Active confirmed Problem 97196348 Irritable bowel syndrome with both constipation and diarrhea (K58.2) Active confirmed Problem Left lower quadrant pain (575036525) Abdominal pain, acute, left lower quadrant (R10.32) Active confirmed Problem 96532366635688748 Abnormal CT sc an, gallbladder (R93.2) Active confirmed Problem 733654787508494 History of diverticulitis of colon (Z87.19) Active confirmed Encounters Encounter Location Date Provider Diagnosis [facility] [address] [place] [address] 06/11/2024 Minh Ruiz Plan Of Treatment Pending Test Test Name Order Date CHEM 7 PROFILE 05/17/2013 CHEM 7 PROFILE 08/30/2022 CHEM 7 PROFILE 01/26/2022 LIVER PROFILE 09/05/2014 LIVER PROFILE 01/26/2022 LIVER PROFILE 01/14/2014 LIVER PROFILE 12/18/2020 LIVER PROFILE 02/23/2014 LIVER PROFILE 05/17/2013 LIVER PROFILE 08/30/2022 LIVER PROFILE 05/22/2015 AMYLASE 12/18/2020 AMYLASE 05/17/2013 LIPASE 01/26/2022 LIPASE 12/18/2020 LIPASE 05/17/2013 IRON + IBC (FE) 01/14/2014 FERRITIN 01/14/2014 CRP 01/26/2022 CRP 08/30/2022 CRP 08/28/2015 CBC w DIFF 08/30/2022 CBC w DIFF 05/17/2013 CBC w DIFF 01/26/2022 CBC w DIFF 12/18/2020 SED RATE (ESR) 08/30/2022 SED RATE (ESR) 01/26/2022 HEPATITIS B, C PROFILE 01/14/2014 URINALYSIS + MICROSCOPIC, CLEAN CATCH [id number] (A1A) 01/14/2014 CELIAC PANEL #10 05/17/2013 ENDOMYSIAL IGA 05/17/2013 PROTEIN ELECTROPHORESIS, SERUM 4 PROTEIN ELECTROPHORESIS, SERUM 4 TRANSGLUTAMINASE AB IGA 05/17/2013 CT ABD & PELVIS WITH CONTRAST 01/26/2022 CT ABD & PELVIS WITH CONTRAST 08/30/2022 NUC HIDA SCAN 09/13/2018 NUC HIDA SCAN 12/18/2020 NUC HIDA SCAN 12/24/2020 FLUOR. ANTINUCLEAR AB SCREEN (CAITLYN) 12/26 FLUOR. ANTINUCLEAR AB SCREEN (CAITLYN) 08/26 FLUOR. ANTINUCLEAR AB SCREEN (CAITLYN) 01/26 US abdomen limited 12/24/2020 Future Test Test Name Order Date UPPER GI ENDOSCOPY 09/05/2014 COLONOSCOPY 09/05/2014 Insurance Providers Payer Name Payer Address Payer Phone Subscriber Number Group Number Insured Name Patient Relationship to Insured Coverage Start Date Coverage End Date [employer] [place] 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 Mayo and neurologists at [facility]--associated with intermittent spells of fatigue, weakness, and [...]
--- OUTSIDE RECORDS SUMMARY | 2024-12-20 18:15 | XMS_ITS ---
Author Organization [facility] Address [address] [place] [address] Care Team Providers Care Glue Mixer Name Role Phone Scott Chadwick MD Primary Care Provider Minh Mckeon [phone] REASON FOR VISIT abdominal discomfort Medications Medication SIG (Take, Route, Frequency, Duration) Notes Start Date End Date Status Hyoscyamine Sulfate ER 0.375 MG 1/2 to 1 pill Orally Take before breakfast and before dinner twice a day for abdominal bloating and discomfort for 30 day(s) Please let me know if the pill should not be split in half. Thanks 12/07/2023 Active Encounters Encounter Location Date Provider Diagnosis [facility] [address] [address] 12/05/2023 Minh Ruiz Plan Of Treatment Medication Medication [...] * SALIMA GRESHAMDOB: [birth year] (73 yo M)Acc No.[id number]:12/05/2023 Patient:SALIMA VELASCO :1950???Age:73 Y???Sex:Male Address:[address] [place] [address] * Refills? Start Hyoscyamine Sulfate ER Tablet Extended Release 12 Hour, 0.375 MG, Orally, 60, 1/2 to 1 pill, Take before breakfast and before dinner twice a day for abdominal bloating and discomfort, 30 day(s), Refills=6 * true * Date:? Generated for Emanuel fernández/Cuco/Meri on:?12/20/2024 06:15 PM EDT
== END 2024-12-20 15:23 | disposition home or self-care (01) ==
LOC: HO.HCS 14:35
PROVIDERS: PCP Internal Medicine; Visit Provider Nurse Practitioner Family
DX: I10 Essential (primary) hypertension (principal); R42 Dizziness and giddiness; G90.1 Familial dysautonomia [Riley-Day]
CPT/HCPCS: 93010; 99213

== ENCOUNTER → 2024-12-20 14:34 | Outpatient (BNVA) | payer OTHER, SELFPAY | PROVIDERS: PCP Internal Medicine; Visit Provider Nurse Practitioner Family | DX: I10 Essential (primary) hypertension (principal); R42 Dizziness and giddiness; G90.1 Familial dysautonomia [Riley-Day] | CPT/HCPCS: 93005 ==

== ENCOUNTER → 2025-01-01 15:01 | Outpatient (BNVA) | payer OTHER, SELFPAY | PROVIDERS: PCP Internal Medicine; Visit Provider Nurse Practitioner Family ==

== ENCOUNTER 2025-01-24 12:33 | Emergency (ER) | payer OTHER, SELFPAY ==
--- NOTE | ~2025-01-24 | US_ITS ---
EXAMINATION: US ABDOMEN LIMITED CLINICAL INFORMATION: Upper abdominal pain with mild transaminitis.. COMPARISON: Renal ultrasound in 1223, CT abdomen and pelvis 09/02/2022. TECHNIQUE: Real-time imaging of the right upper quadrant abdominal viscera. FINDINGS: PANCREAS: Visualized portions are unremarkable. Proximal pancreatic duct mildly prominent up to 5 mm, unchanged from prior CT exam. LIVER: Liver is mildly enlarged. The right hepatic lobe measures 18.9 cm in diameter. The liver contour is normal. There is diffusely increased parenchymal echogenicity, with focal fatty sparing abutting the falciform ligament. No focal hepatic lesion. There is no intrahepatic biliary duct dilatation seen. Mildly prominent main portal vein at 1.5 cm, also unchanged from the prior CT exam. GALLBLADDER: Gallbladder is normally distended. There are intraluminal shadowing gallstones. There is echogenic sludge. There is a small amount of calcification in the anterior wall, nonspecific. Negative sonographic Marshall's sign. No pericholecystic fluid. No wall thickening. COMMON BILE DUCT: Normal in caliber measuring 0.7 cm in diameter. RIGHT KIDNEY: No hydronephrosis. No renal calculi or focal parenchymal lesions. The kidney measures 11.3. cm in maximum dimension. There is a 2.7 x 1.7 x 2.0 cm midpole cyst with small associated wall calcifications. This is benign. FREE FLUID: None. US/US abdomen limited IMPRESSION: 1. Stones with echogenic sludge within the gallbladder. No wall thickening or pericholecystic fluid collection. Negative sonographic Marshall sign. 2. Mild hepatomegaly with diffusely increased hepatic echogenicity consistent with steatosis. No suspicious focal lesion. 3. Mildly prominent main pancreatic duct at 5 mm, unchanged from CT exam 09/02/2022. 4. Midpole minimally complicated 2.7 cm right renal cyst. This measured 2.0 cm on 07/07/2023, consistent with a benign entity. Electronically signed by: Marcelo Loving MD 01/24/2025 03:55 PM EDT
[2025-01-24 12:38] VITALS: BP 154/76; PULSE 74; RESP 16; TEMP 36.7; O2SAT 98; BMI 25.8
--- NOTE | 2025-01-24 12:39 | ECG_ITS ---
Test Reason : abd pain Blood Pressure : */* mmHG Vent. Rate : 71 BPM Atrial Rate : 71 BPM P-R Int : 160 ms QRS Dur : 96 ms QT Int : 414 ms P-R-T Axes : 59 -40 80 degrees QTcB Int : 449 ms Normal sinus rhythm with sinus arrhythmia Left axis deviation Minimal voltage criteria for LVH, may be normal variant ( [place] product ) Nonspecific T wave abnormality Abnormal ECG When compared with ECG of 22-Sep-2021 12:28, No significant change was found Referred By: Leonard Odonnell Electronically Signed By: Tu Sutton
--- NOTE | 2025-01-24 12:41 | ED_ITS ---
HPI - General Adult General Chief complaint: Abdominal Pain Stated complaint: abd pain Time Seen by Provider: 01/24/25 13:32 History of Present Illness ED Provider: Robb THAO narrative: The patient is a 74-year-old male who says that he has chronic abdominal symptoms attributed to dysautonomia. Over the last 2-3 nights he has noticed upper abdominal discomfort that has prevented him from sleeping. This is unusual for him and he does not feel he can simply attribute this to his dysautonomia. He has been moving his bowels. He has not had any vomiting. Intermittent nausea. No definite fever, sweats, chills. The patient has a history of a left inguinal hernia repair surgery. No other abdominal surgeries. The patient says that he has known sludge in his gallbladder. Related Data Home Medications ?Medication ?Instructions ?Recorded ?Confirmed gabapentin 100 mg capsule 200 mg PO BEDTIME 12/29/20 12/20/24 hyoscyamine sulfate 0.125 mg tablet 0.375 mg PO BID PRN Cramps 12/29/20 12/20/24 losartan 25 mg tablet 25 mg PO BEDTIME 12/29/20 12/20/24 amlodipine 5 mg tablet 5 mg PO DAILY 02/25/22 12/20/24 acetaminophen 500 mg tablet 1,000 mg PO BEDTIME PRN Pain 02/29/24 12/20/24 (Acetaminophen Extra Strength) celecoxib 200 mg capsule 200 mg PO DAILY PRN Pain 02/29/24 12/20/24 cholecalciferol (vitamin D3) 50 50 mcg PO DAILY 02/29/24 12/20/24 mcg (2,000 unit) tablet (Vitamin D3) cyanocobalamin (vitamin B-12) 1,000 mcg PO DAILY 02/29/24 12/20/24 1,000 mcg tablet ondansetron 4 mg disintegrating 4 mg PO Q8H PRN Nausea 02/29/24 12/20/24 tablet Previous Rx's ?Medication ?Instructions ?Recorded comp.stocking,thigh,long,small #2 ea 09/29/22 tamsulosin 0.4 mg capsule 0.4 mg PO DAILY@1700 90 days #90 04/30/24 caps dutasteride 0.5 mg capsule 0.5 mg PO DAILY 90 days #90 caps 11/06/24 omeprazole 40 mg capsule,delayed 40 mg PO DAILY #30 caps 01/24/25 release sucralfate 1 gram tablet 1 g PO TID PRN Upper abdominal 01/24/25 pain #60 tabs Allergies Allergy/AdvReac Type Severity Reaction Status Date / Time codeine [Codeine] Allergy Intermediate Dizziness Verified 01/24/25 12:41 meperidine [Meperidine] Allergy Mild UNKNOWN Verified 01/24/25 12:41 Review of Systems 2 Review of Systems: Yes all other systems are reviewed and are negative [facility] Past Medical History Medical History Diastasis recti Cataract, right eye Autonomic neuropathy Hyperlipidemia Cholelithiasis BCC (basal cell carcinoma), face Abnormal liver function test Abdominal pain Cyst, kidney, acquired Hx of prostatitis COVID-19 vaccine series completed Depression Peripheral neuropathy Cervical spondyloarthritis Mood disorder Pre-diabetes Hx of Guillain-[place] syndrome Arthritis Back pain DDD (degenerative disc disease) Fatty liver Left inguinal hernia Axillary abscess History of lumbar puncture Autoimmune encephalitis Gallstones Hypertension GERD (gastroesophageal reflux disease) Prostatitis Surgical History History of hernia repair History of esophagogastroduodenoscopy (EGD) Hx of colonoscopy Family History Family History Mother No problems noted. Father No problems noted. Social History Social History Are you a primary home day care provider to a significant other at home: No Do you presently have visiting nurse or other home services: No Alcohol intake: never Patient Tobacco Use Status: Former Tobacco user Physical Exam ED Vital Signs: Vital Signs - 24 hr 01/24/25 12:38 01/24/25 13:14 01/24/25 14:09 Temperature 98.1 F 98.0 F Pulse Rate 74 71 66 Respiratory Rate 16 16 16 Blood Pressure 154/76 H 159/72 H 148/61 H Pulse Oximetry 98 97 96 Oxygen Delivery Method Room Air Room Air Room Air 01/24/25 16:17 01/24/25 17:59 Temperature 98.8 F 98.8 F Pulse Rate 58 58 Respiratory Rate 18 18 Blood Pressure 129/60 129/60 Pulse Oximetry 97 97 Oxygen Delivery Method Room Air Room Air BMI result Body Mass Index 25.8 Const Other: The patient is awake and alert. He is a very pleasant 74-year-old male. He looks as though he is ordinarily in good health. He does not appear in obvious discomfort or seem obviously ill. HENMT Other: Face is symmetrical, mucous membranes moist Eyes General: appearance normal, both eyes and all related structures Neck Neck: Yes normal visual inspection and Yes full ROM Resp Effort & Inspection: normal respiratory effort Auscultation: clear to auscultation bilaterally Cardio Rate: regular rate Rhythm: regular rhythm Heart sounds: S1 normal heart sound present and S2 normal heart sound present GI Other: The patient has a mild abdominal protuberant but the abdomen is very soft. He has some mild diffuse upper abdominal tenderness. No rebound or guarding. He has a soft hernia in the right groin which does not seem tender or tense in any way. Skin Other: The skin was dry and unremarkable Neuro Other: The patient is awake and alert with a normal mental status. Cranial nerves are grossly intact. He moves his extremities normally and appropriately. Extrem Other: No peripheral edema Course Course Course Narrative: The patient is a 74-year-old male who says that he has a history of intestinal dysautonomia. He has been prescribed hyoscyamine for symptoms in the past. He has had 2-3 days of upper abdominal discomfort that seems to bother him primarily at night and interfered with sleeping. At the time that I examined him I thought he looks quite well and did not seem in acute discomfort or seem toxic in any way. He does not have any findings of a bowel obstruction. He has a soft hernia in the right groin. He describes having had a bowel movement today and also passing gas. He has had no vomiting. He has had no fever, sweats, chills. He is afebrile and has a normal white count and differential. He has an EKG that has no acute ischemic changes and he has undetectable troponins. He has a mild transaminitis. CRP is normal. Ultrasound of the gallbladder shows gallstones and sludge but no gallbladder wall thickening or pericholecystic fluid collection and a negative sonographic Marshall's sign. My overall impression is that the patient does not have an acute surgical process or acute dangerous process of any kind. He may have some degree of gastritis. He had some relief from sucralfate. I think he may be discharged to follow up with his regular doctor and his portfolio accountant. He will be prescribed omeprazole and sucralfate. Medications Administered Discontinued Medications Generic Name Dose Route Start Last Admin Trade Name Hermann PRN Reason Stop Dose Admin Diphenhydramine HCl 25 mg 01/24/25 14:01/24/25 14:34 Diphenhydramine Hcl 50 Mg/Ml Vial IVPUSH 01/24/25 14:06 25 mg ONCE ONE Administration Metoclopramide HCl 10 mg 01/24/25 14:01/24/25 14:33 Metoclopramide Hcl 10 Mg/2 Ml Vial IVPUSH 01/24/25 14:06 10 mg ONCE ONE Administration Ondansetron HCl 4 mg 01/24/25 14:01/24/25 14:30 Ondansetron Hcl 4 Mg/2 Ml Vial IVPUSH 01/24/25 14:05 4 mg ONCE ONE Administration Sucralfate 1 gm 01/24/25 16:26 01/24/25 16:42 Sucralfate Oral Suspension 1 Gm/10 Ml Oral.Susp PO 01/24/25 16:27 1 gm ONCE ONE Administration Medical Decision Making Medical Decision Making MDM Narrative: RME: 74-year-old male history of chronic abdominal issues/constipation presents to ED for chronic abdominal pain feeling bloating. Patient states normal bowel movements. Patient denies any blood in his stool. Positive for mild generalized abdominal tenderness. Patient to be brought back to the ED. Labs EKG ordered. Lab Data 01/24/25 13:03 01/24/25 13:03 Labs: Lab Results 01/24/25 01/24/25 01/24/25 Range/Units 13:03 13:07 16:00 WBC 5.9 (4.8-10.8) X10*3/uL RBC 4.84 (4.60-5.80) X10*6/uL Hgb 14.5 (14.0-18.0) g/dl Hct 43.2 (42.0-52.0) % MCV 89.3 (80.0-98.0) fL MCH 30.0 (27.0-33.0) pg MCHC 33.6 (31.0-36.0) g/dl RDW 12.5 (11.0-16.0) % Plt Count 183 (160-400) X10*3/uL MPV 10.4 (9.4-12.4) fL Immature Gran % (Auto) 0.5 H (0.0-0.4) % Neut % (Auto) 63.8 (45-73) % Lymph % (Auto) 24.8 (20-40) % Mobile % (Auto) 8.2 (2-11) % Eos % (Auto) 1.7 (0-4) % Baso % (Auto) 1.0 (0-2) % Lymph # (Auto) 1.5 (1.2-4.9) X10*3/uL Mobile # (Auto) 0.5 (0.1-1.2) X10*3/uL Eos # (Auto) 0.1 (0.0-0.4) X10*3/uL Baso # (Auto) 0.1 (0.0-0.2) X10*3/uL Abs Immat Gran (auto) 0.03 (0.00-0.03) X10*3/uL Absolute Neuts (auto) 3.8 (2.0-8.3) x10*3/uL Absolute Nucleated RBC 0.000 (0.0-0.012) X10*3/uL Nucleated RBC % (auto) 0.0 (0.0-0.2) /100WBC Sodium 140 (135-145) mmol/L Potassium 4.0 (3.3-5.1) mmol/L Chloride 105 (96-108) mmol/L Carbon Dioxide 27 (22-29) mmol/L Anion Gap 12 (12-20) BUN 12 (9-16) mg/dL Creatinine 1.09 (0.5-1.4) mg/dL Estim Creat Clear Calc 63.2 Estimated GFR > 60 Random Glucose 136 H (60-115) mg/dL Calcium 9.8 D (8.4-10.2) mg/dL Total Bilirubin 1.0 (0.0-1.0) mg/dL AST 38 H (5-37) U/L ALT 72 H (0-40) U/L Alkaline Phosphatase 47 (39-117) U/L Troponin I Hi Sens Base < 2.7 (<3.5-35.0) ng/L Troponin I Hi Sens 2 Hr < 2.7 (<3.5-35.0) ng/L C-Reactive Protein 0.20 (< or = 0.50) mg/dL Total Protein 8.0 (6.5-8.0) g/dL Albumin 4.6 (3.5-5.0) g/dL Lipase 23 (8-78) U/L Urine Color Yellow Urine Appearance Clear Urine pH 7.0 (5.0-9.0) Ur Specific [place] <= 1.005 (1.005-1.025) Urine Protein Negative (Neg-Trace) mg/dL Urine Glucose (UA) Negative (Negative) mg/dL Urine Ketones Negative (Negative) mg/dL Urine Blood Negative (Negative) Urine Nitrite Negative (Negative) Ur Leukocyte Esterase Trace H (Negative) Urine RBC 0-2 (0-2) /HPF Urine WBC 0-5 (0-5) /HPF Ur Squamous Epith Cells 0-2 (0-2) /HPF Urine Bacteria None Seen (None Seen) Hyaline Casts 0-2 (0-2) /LPF Discharge Plan Discharge Clinical Impression: Acute upper abdominal pain Patient Disposition: Home, Self-Care Instructions: Gastritis (ED) Additional Instructions: I think that your pain may be coming from an irritation of the lining of your stomach. We call this condition gastritis. I do not think a more dangerous process is at work. I have sent a prescription for omeprazole, an acid reducing medication which you should take daily. I have also sent a prescription for sucralfate (also known as Carafate) which you may use on a more as-needed basis. You may take this medication up to 3 times per day. Carafate tablets can be crushed in water to make a slurry. Some people find this more helpful than simply swallowing the tablet. Please follow up with your regular doctor and with your portfolio accountant. Return to the emergency room if worse. Prescriptions: New omeprazole 40 mg capsule,delayed release(DR/EC) 40 mg PO DAILY Qty: 30 0RF sucralfate 1 gram tablet 1 g PO TID PRN (Reason: Upper abdominal pain) Qty: 60 0RF No Action tamsulosin 0.4 mg capsule 0.4 mg PO DAILY@1700 90 Days Qty: 90 3RF acetaminophen [Acetaminophen Extra Strength] 500 mg Tablet 1,000 mg PO BEDTIME PRN (Reason: Pain) cholecalciferol (vitamin D3) [Vitamin D3] 50 mcg (2,000 unit) Tablet 50 mcg PO DAILY cyanocobalamin (vitamin B-12) 1,000 mcg Tablet 1,000 mcg PO DAILY ondansetron 4 mg Tablet,Disintegrating 4 mg PO Q8H PRN (Reason: Nausea) celecoxib 200 mg capsule 200 mg PO DAILY PRN (Reason: Pain) gabapentin 100 mg capsule 200 mg PO BEDTIME losartan 25 mg tablet 25 mg PO BEDTIME hyoscyamine sulfate 0.125 mg tablet 0.375 mg PO BID PRN (Reason: Cramps) amlodipine 5 mg tablet 5 mg PO DAILY (DME) comp.stocking,thigh,long,small Misc See Rx Instructions .Route Qty: 2 0RF Rx Instructions: As directed dutasteride 0.5 mg capsule 0.5 mg PO DAILY 90 Days Qty: 90 1RF Referrals: Scott Chadwick MD [Primary Care Provider] - (possible gastritis) Minh Ruiz MD [Physician] - (Possible gastritis) Interventions: ED Discharge Assessment Last Done: 01/24/25 17:59 Discharge Date/Time: 01/24/25 18:00 Print Language: Venezuelan
[2025-01-24 13:14] VITALS: BP 159/72; PULSE 71; RESP 16; O2SAT 97
[2025-01-24 13:21] LABS: MANUAL DIFF FLAG NO
[2025-01-24 13:23] LABS: Basophils Absolute Auto 0.1 X10*3/uL (0.0-0.2); Eosinophils Absolute Auto 0.1 X10*3/uL (0.0-0.4); Eosinophils Percent Auto 1.7 % (0-4); Hematocrit 43.2 % (42.0-52.0); Hemoglobin 14.5 g/dl (14.0-18.0); Imm Gran Abs Auto 0.03 X10*3/uL (0.00-0.03); Imm Gran Pct Auto 0.5 % (0.0-0.4); Lymphocytes Absolute Auto 1.5 X10*3/uL (1.2-4.9); Lymphocytes Percent Auto 24.8 % (20-40); Mean Corpuscular HGB Conc 33.6 g/dl (31.0-36.0); Mean Corpuscular Volume 89.3 fL (80.0-98.0); Mean Platelet Volume 10.4 fL (9.4-12.4); Monocytes Absolute Auto 0.5 X10*3/uL (0.1-1.2); Monocytes Percent Auto 8.2 % (2-11); Neutrophils Absolute Auto 3.8 x10*3/uL (2.0-8.3); Neutrophils Percent Auto 63.8 % (45-73); Platelet Count 183 X10*3/uL (160-400); Red Blood Count 4.84 X10*6/uL (4.60-5.80); Red Cell Distribution Width 12.5 % (11.0-16.0); White Blood Count 5.9 X10*3/uL (4.8-10.8)
[2025-01-24 13:24] LABS: Appearance Urine Clear; Color Urine Yellow; Glucose Urine UA Negative (Negative); Leukocyte Esterase Urine Trace (Negative); Nitrite Urine Negative (Negative); Specific Gravity - Urine <= 1.005 (1.005-1.025); UMIC TRIGGER UACC YES; Urine Blood Negative (Negative); Urine Ketones Negative (Negative); Urine Protein Negative (Neg-Trace)
[2025-01-24 13:27] LABS: Bacteria Urine None Seen (None Seen); Hyaline Casts Urine 0-2 /LPF (0-2); RBC Urine 0-2 /HPF (0-2); Squamous Epithelial Cell Urine 0-2 /HPF (0-2); WBC Urine 0-5 /HPF (0-5)
[2025-01-24 13:38] LABS: Alanine Aminotransferase 72 U/L (0-40); Albumin Level 4.6 g/dL (3.5-5.0); Alkaline Phosphatase 47 U/L (39-117); Anion Gap 12 (12-20); Aspartate Amino Transferase 38 U/L (5-37); Blood Urea Nitrogen 12 mg/dL (9-16); Calcium 9.8 mg/dL (8.4-10.2); Carbon Dioxide 27 mmol/L (22-29); Chloride 105 mmol/L (96-108); Creatinine Clr Calc Pharmacy 63.2; Estimated Glomerular Filt Rate > 60; Glucose Random 136 mg/dL (60-115); Lipase 23 U/L (8-78); Sodium 140 mmol/L (135-145)
[2025-01-24 13:46] LABS: Troponin-I High Sens Reflx 2hr < 2.7 ng/L (<3.5-35.0)
[2025-01-24 14:09] VITALS: BP 148/61; PULSE 66; RESP 16; TEMP 36.7; O2SAT 96
[2025-01-24] MEDS: ondansetron HCL 4 MG/2 ML VIAL IVPUSH (14:30)
[2025-01-24] MEDS: Metoclopramide HCl 10 MG/2 ML VIAL IVPUSH (14:33)
[2025-01-24] MEDS: diphenhydrAMINE HCL 50 MG/ML VIAL 25 MG IVPUSH (14:34)
[2025-01-24 15:20] LABS: Reflex Trop? Y
--- OUTSIDE RECORDS SUMMARY | 2025-01-24 15:54 | XMS_ITS | Encounter Summary ---
Author Organization [facility] Address [address] [place] [address] Care Team Providers Care Director Talent Name Role Phone Denise Chadwickrick Blank Primary Care Provider [phone] Encounter Details Date Type Department Care Team (Late st Contact Info) Description 12/21/2024 myChart Message [facility] [address] [place] [phone] Anette Novoa MD [address] [place] [address] [place] Social History Tobacco Use Types Packs/Day Years [...] Description 06/27/2025 3:00 PM EDT Office Visit [facility] [address] [place] [address] Anette Novoa MD [address] [place] [phone] documented as of this encounter Visit Diagnoses Not on filedocumented in this encounter Care Teams Director Talent Relationship Specialty Start Date End Date Scott Chadwick [address] [place] [address] PCP - General Internal Medicine 05/03/22 documented as of this encounter
--- OUTSIDE RECORDS SUMMARY | 2025-01-24 15:54 | XMS_ITS | Encounter Summary ---
Author Organization [facility] Address [address] [place] [address] Care Team Providers Care Scoop Driver Name Role Phone Scott Chadwick Primary Care Provider [phone] Reason for Visit * Reason Onset Date Comments Request For Order(s) 11/18/2022 Encounter Details Date Type Department Care Team (Late st Contact Info) Description 11/18/2022 Telephone [facility] [address] [place] [phone] Telephone Intake, Staff Request For Order(s) Social [...] - 11/24/2022 9:10 AM EST Faxed to [phone] They will reach out to schedule He is able to call central scheduling [phone] * Telephone Encounter - Aura Fleming - 11/24/2022 9:09 AM EST Patient requested to have the carotid duplex order to [facility] Faxed order and lvm for the [...] Description 06/27/2025 3:00 PM EDT Office Visit [facility] [address] [place] [address] [phone] Anette Novoa MD [address] [place] [phone] documented as of this encounter Visit Diagnoses Not on filedocumented in this encounter Care Teams Scoop Driver Relationship Specialty Start Date End Date Scott Chadwick [address] [place] [phone] PCP - General Internal Medicine 05/03/22 documented as of this encounter
--- OUTSIDE RECORDS SUMMARY | 2025-01-24 15:54 | XMS_ITS | Encounter Summary ---
Author Organization [facility] Address [address] [place] [address] Care Team Providers Care Board Mill Supervisor Name Role Phone FarrukhScott Blank Primary Care Provider [phone] Encounter Details Date Type Department Care Team (Late st Contact Info) Description 12/29/2022 Orders Only [facility] [address] [place] [address] Alhaji Bernal Jr., DO [address] [place] [address] Social History Tobacco Use Types Packs/Day Years [...] Description 06/27/2025 3:00 PM EDT Office Visit [facility] [address] [place] [address] Anette Novoa MD [address] [place] [address] documented as of this encounter Procedures * Due to [place] [employer] law, this organization might not be sharing negative HIV tests. Procedure Name Priority Date/Time Associated Diagnosis Comments AMB EXTERNAL CT HEAD, OUTSID E RESULT Routine 12/29/2022 documented in this encounter Results * Due to [facility] law, this organization might not be sharing negative HIV tests. * CT Head, Outside Result (12/29/2022) Anatomical Region Laterality Modality Other Alhaji Bernal Jr., DO AMB EXTERNAL RESULT P ROCEDURES Final Result documented in this encounter Visit Diagnoses Not on filedocumented in this encounter Care Teams Board Mill Supervisor Relationship Specialty Start Date End Date Scott Chadwick [address] [place] [phone] PCP - General Internal Medicine 05/03/22 documented as of this encounter
--- OUTSIDE RECORDS SUMMARY | 2025-01-24 15:54 | XMS_ITS | Referral Summary ---
Author Organization [facility] Address [address] [place] [address] Care Team Providers Care Certified Legal Secretary Specialist Name Role Phone Scott Chadwick Primary Care Provider [phone] Encounters Date Type Department Care Team Description 12/21/2024 Seemaget Message [facility] [address] [place] [phone] Anette Novoa MD medication order 12/21/2024 CrowdTanglehart Message [facility] [address] [place] [address] Anette Novoa MD [place]on 12/20/2024 Orders Only [facility] [address] [place] [address] ProviderMita MD 12/19/2024 11:30 AM EDT Telehealth [facility] [address] [place] [address] Anette Novoa MD Dysautonomia (Primary Dx) 12/18/2024 Telephone [facility] [address] [place] [phone] Telephone Intake, Staff PAC Patient Request Call [...] to the affected area daily. 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 He has flares of dysautonomia with lightheadedness. We discussed importance of hydration and compression stockings. 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 Paresthesias -consider pyridostigmine 30mg in the morning (he will check with singe machine operator) -compression stockings daily -hydration 80-100 oz/day -follow [...] 12/25/2018 02/02/2023 Abnormal liver function 12/19/2018 02/03/20 Inguinal hernia 12/19/2018 02/02/2023 Cholelithiasis 12/19/2018 02/02/2023 [...] Description 06/27/2025 3:00 PM EDT Office Visit [facility] [address] [place], [place] [phone] Anette Novoa MD [address] [place], [place] [phone] Insurance [employer] Care Teams Certified Legal Secretary Specialist Relationship Specialty Start Date End Date Scott Chadwick [address] [place] [phone] PCP - General Internal Medicine 05/03/22
--- OUTSIDE RECORDS SUMMARY | 2025-01-24 15:54 | XMS_ITS | Encounter Summary ---
Author Organization [facility] Address [address] [place] [address] Care Team Providers Care Education Site Manager Name Role Phone FarrukhScott Blank Primary Care Provider [phone] Encounter Details Date Type Department Care Team (Late st Contact Info) Description 12/22/2022 Orders Only [facility] [address] [place] [address] Alhaji Bernal Jr., DO [address] [place] [address] Social History Tobacco Use Types Packs/Day Years [...] Description 06/27/2025 3:00 PM EDT Office Visit [facility] [address] [place] [address] Anette Novoa MD [address] [place] [address] documented as of this encounter Procedures * Due to [place] law, this organization might not be sharing negative HIV tests. Procedure Name Priority Date/Time Associated Diagnosis Comments AMB EXTERNAL CT HAND, OUTSID E RESULT Routine 12/22/2022 documented in this encounter Results * Due to [facility] law, this organization might not be sharing negative HIV tests. * CT Hand, Outside Result (12/22/2022) Anatomical Region Laterality Modality Other Alhaji Bernal Jr., DO AMB EXTERNAL RESULT P ROCEDURES Final Result documented in this encounter Visit Diagnoses Not on filedocumented in this encounter Care Teams Education Site Manager Relationship Specialty Start Date End Date Scott Chadwick [address] [place] [address] PCP - General Internal Medicine 05/03/22 documented as of this encounter
--- OUTSIDE RECORDS SUMMARY | 2025-01-24 15:54 | XMS_ITS | Encounter Summary ---
Author Organization [facility] Address [address] [place] [address] Care Team Providers Care Associate Dean Of Students Name Role Phone FarrukhScott Blank Primary Care Provider [phone] Encounter Details Date Type Department Care Team (Late st Contact Info) Description 12/10/2022 Orders Only [facility] [address] [place] [address] Alhaji Bernal Jr., DO [address] [place] [address] Social History Tobacco Use Types Packs/Day Years [...] Visit [facility] [address] [place] [address] Anette Novoa MD [address] [place] [address] documented as of this encounter Procedures * Due to [facility] law, this organization might not be sharing negative HIV tests. Procedure Name Priority Date/Time Associated Diagnosis Comments LAB - SCANNED Routine 12/10/2022 ALT, OUTSIDE LAB Routine 12/10/2022 AMB EXTERNAL US NECK SOFT TI SSUE, SCANNED RESULT Routine 12/10/2022 documented in this encounter Results * Due to [facility] law, this organization might not be [...] on filedocumented in this encounter Care Teams Associate Dean Of Students Relationship Specialty Start Date End Date Scott Chadwick [address] [place] [phone] PCP - General Internal Medicine 05/03/22 documented as of this encounter
--- OUTSIDE RECORDS SUMMARY | 2025-01-24 15:54 | XMS_ITS | Clinical Summary ---
Author Organization [facility] Address [address] [place] [address] Care Team Providers Care Program Research Specialist Name Role Phone Scott Chadwick Primary Care Provider [phone] Allergies Active Allergy Reactions Criticality Noted Date [...] pyridostigmine and he will check with his energy administrator. Paresthesias -consider pyridostigmine 30mg in the morning (he will check with energy administrator) -compression stockings daily -hydration 80-100 oz/day -follow [...] Date Type Department Care Team Description 12/21/2024 myChart Message [facility] [address] [place] [address] Anette Novoa MD medication order 12/21/2024 myChart Message [facility] [address] [place] [address] Anette Novoa MD [place] 12/20/2024 Orders Only [facility] [address] [place] [address] ProviderMita MD 12/19/2024 11:30 AM EDT Telehealth [facility] [address] [place] [address] Anette Novoa MD Dysautonomia (Primary Dx) 12/18/2024 Telephone [facility] [address] [address] Telephone Intake, Staff PAC Patient Request Call [...] Description 06/27/2025 3:00 PM EDT Office Visit [facility] [address] [place] [address] Anette Novoa MD [address] [place] [address] Health Maintenance Due Date Last Done Comments Hepatitis C Screening [address] Lung Cancer Screening (Baseline) 1998 Pneumococcal Vaccine: 50+ Years (1 of 1 - PCV) 1998 Zoster Vaccines (1 of 2) 1998 DTaP,Tdap,and Td Vaccines (1 - Tdap) 01/25/2005 01/24/2005 RSV Vaccine (60+ years old and patients) (1 - 1-dose 75+ series) 2023 COVID-19 Vaccine ( - 2023- season) 2024 09/10/2021, 12/06/2020, 11/13/2020 Alcohol/Substance Use Screening 09/26/2024 Depression Screening and Follow-Up 09/26/2024 Health Care Proxy Review 09/26/2024 Social Drivers of Health Annual Screening 09/26/2024 Basic Metabolic Panel 04/30/2025 04/30/2024 , 12/20/2023, 09/30/2022, Additional history exists Influenza Vaccine (Season Ended) 2025 Hepatitis B Vaccines Aged Out No long er eligible based on patient's age to complete this topic Insurance [employer] Care Teams Program Research Specialist Relationship Specialty Start Date End Date Scott Chadwick [address] [place] [phone] PCP - General Internal Medicine 05/03/22
--- OUTSIDE RECORDS SUMMARY | 2025-01-24 15:54 | XMS_ITS | Encounter Summary ---
Author Organization [facility] Address [address] [place] [address] Care Team Providers Care Outpatient Program Coordinator Name Role Phone Scott Chadiwck Primary Care Provider [phone] Encounter Details Date Type Department Care Team (Late st Contact Info) Description 09/12/2023 gumi Message [facility] [employer] [address] [place] [address] [facility], Generic Provider [address] [place], [place] [phone] Payment Agreement Social History Tobacco Use Types [...] Description 06/27/2025 3:00 PM EDT Office Visit [facility] [address] [place] [address] Anette Novoa MD [address] [place] [address] documented as of this encounter Visit Diagnoses Not on filedocumented in this encounter Care Teams Outpatient Program Coordinator Relationship Specialty Start Date End Date Scott Chadwikc [address] [place] [address] PCP - General Internal Medicine 05/03/22 documented as of this encounter
--- OUTSIDE RECORDS SUMMARY | 2025-01-24 15:54 | XMS_ITS | Encounter Summary ---
Author Organization [facility] Address [address] [place] [address] Care Team Providers Care Cream Ripener Name Role Phone Scott Chadwick Primary Care Provider [phone] Reason for Visit * Reason Onset Date Comments PAC Order Request 10/12/2022 Encounter Details Date Type Department Care Team (Late st Contact Info) Description 10/12/2022 Telephone [facility] Central Scheduling Department [address] [place] [phone] Telephone Intake, Staff PAC Order Request Social [...] to send to his local hospital in [place]. * Telephone Encounter - Ramona Garcia - [...] Please call patient back to book Callback# [phone] documented in this encounter Plan of Treatment Upcoming Encounters Date Type Department Care Team (Late st Contact Info) Description 06/27/2025 3:00 PM EDT Office Visit [facility] [address] [place], [place] [phone] Anette Novoa MD [address] [place] [phone] documented as of this encounter Visit Diagnoses Not on filedocumented in this encounter Care Teams Cream Ripener Relationship Specialty Start Date End Date Scott Chadwick [address] [place] [address] PCP - General Internal Medicine 05/03/22 documented as of this encounter
--- OUTSIDE RECORDS SUMMARY | 2025-01-24 15:54 | XMS_ITS | Encounter Summary ---
Author Organization [facility] Address [address] [place] [address] Care Team Providers Care Curer Acid Drum Name Role Phone Scott Chadwick Blank Primary Care Provider [phone] Encounter Details Date Type Department Care Team (Late st Contact Info) Description 10/20/2022 Orders Only [facility] Interventional Radiology [address] [place] [phone] Flaco Fuller MD [address] [facility] [place] [address] Social History Tobacco Use Types Packs/Day Years [...] Description 06/27/2025 3:00 PM EDT Office Visit [facility] [address] [place] [address] Anette Novoa MD [address] [place] [address] documented as of this encounter Visit Diagnoses Not on filedocumented in this encounter Care Teams Curer Acid Drum Relationship Specialty Start Date End Date Scott Chadwick [address] [place] [address] PCP - General Internal Medicine 05/03/22 documented as of this encounter
[2025-01-24 16:17] VITALS: BP 129/60; PULSE 58; RESP 18; TEMP 37.1; O2SAT 97
[2025-01-24 16:25] LABS: zTroponin-I High Sen Reflex #2 < 2.7 ng/L (<3.5-35.0)
[2025-01-24] MEDS: Sucralfate Oral Suspension 1 GM/10 ML ORAL.SUSP PO (16:42)
[2025-01-24 17:59] VITALS: BP 129/60; PULSE 58; RESP 18; TEMP 37.1; O2SAT 97
== END 2025-01-24 18:00 | disposition home or self-care (01) ==
PROVIDERS: Physician Assistant; Emergency Provider Emergency Medicine; PCP Internal Medicine
DX: R10.10 Upper abdominal pain, unspecified (principal); I49.8 Other specified cardiac arrhythmias; R94.31 Abnormal electrocardiogram [ECG] [EKG]; R14.0 Abdominal distension (gaseous); Z79.899 Other long term (current) drug therapy; Z87.891 Personal history of nicotine dependence
CPT/HCPCS: 36415; 76705; 80053; 81001; 83690; 84484; 85025; 86140; 93005; 96374; 96375; 99284; 99285; J1200; J2405; J2765

== ENCOUNTER → 2025-01-24 12:39 | Outpatient (BNV) | payer OTHER, SELFPAY | PROVIDERS: Emergency Provider Emergency Medicine; PCP Internal Medicine; Visit Provider Internal Medicine Cardiovascular Disease | DX: I49.9 Cardiac arrhythmia, unspecified (principal) | CPT/HCPCS: 93010 ==

== ENCOUNTER → 2025-01-24 14:03 | Outpatient (BNV) | payer OTHER, SELFPAY | PROVIDERS: Emergency Provider Emergency Medicine; PCP Internal Medicine; Visit Provider Radiology Diagnostic Radiology | DX: K80.50 Calculus of bile duct without cholangitis or cholecystitis without obstruction (principal); K76.0 Fatty (change of) liver, not elsewhere classified; R16.0 Hepatomegaly, not elsewhere classified; N28.1 Cyst of kidney, acquired | CPT/HCPCS: 76705 ==

== ENCOUNTER 2025-02-22 13:45 | Outpatient (AMB) | payer OTHER, SELFPAY ==
--- NOTE | 2025-02-22 13:53 | A.OFFVIS_ITS ---
Intake Visit Reasons: Cystoscopy Intake Note: Patient is present for Cystoscopy Urology Medication:TAMSULOSIN,DUTASTERIDE,VITAMIN B12 Antibiotic Allergy:NONE Blood Thinner:NONE Lot:[id number] Exp:02/01/27 Agriculture Extension Specialist Required: No Allergies codeine [Codeine] Allergy (Intermediate, Verified 02/22/25 13:55) Dizziness meperidine [Meperidine] Allergy (Mild, Verified 02/22/25 13:55) UNKNOWN HPI Comments Details: Deuce is a pleasant male. He is a patient of Dr. Chadwick. He is seen for the following urologic conditions - prostatitis - renal cyst - lower urinary tract symptoms Here for cystoscopy Follow-up trial of dutasteride Reporting pelvic pressure similar to prostatitis Trial 5 days prednisone PSA 11/20 1.8 Lower urinary tract symptoms Previous success with tamsulosin Not tolerate BPH medication Renal cyst Detected on imaging Imaging - 04/16 CT scan complex cyst 1 cm left kidney with enlarged prostate Prostatitis Longstanding Recurrent in past Prior negative expressed culture Question of inflammatory process PSA 05/17 1.6 Did report having improvement with viox many years ago Failed Celebrex trial. Did not tolerate Did not notice improvement with tadalafil Would recommend DNA sequencing if persistent symptoms PFSH Medical History Diastasis recti Cataract, right eye Autonomic neuropathy Hyperlipidemia Cholelithiasis BCC (basal cell carcinoma), face Abnormal liver function test Abdominal pain Cyst, kidney, acquired Hx of prostatitis COVID-19 vaccine series completed Depression Peripheral neuropathy Cervical spondyloarthritis Mood disorder Pre-diabetes Hx of Guillain-Du Pont syndrome Arthritis Back pain DDD (degenerative disc disease) Fatty liver Left inguinal hernia Axillary abscess History of lumbar puncture Autoimmune encephalitis Gallstones Hypertension GERD (gastroesophageal reflux disease) Prostatitis Surgical History History of hernia repair History of esophagogastroduodenoscopy (EGD) Hx of colonoscopy Family History Mother No problems noted. Father No problems noted. Social History Are you a primary manager primary care to a significant other at home: No Do you presently have visiting nurse or other home services: No Alcohol intake: never Patient Tobacco Use Status: Former Tobacco user Review of Systems Const Denies chills and Denies fever(s) Card Reports no additional complaints and Denies syncope Resp Denies cough GI Denies abdominal pain and Denies heartburn Reports as per HPI and Denies change in libido Neuro Denies syncope Psych Denies change in libido Endo Denies change in libido Physical Exam Const General: cooperative, healthy appearing, comfortable and no acute distress Orientation/consciousness: patient oriented x3 HEENT Face and sinus: Yes normal facial exam Mouth: moist mucous membranes Neck Neck: Yes normal visual inspection, Yes full ROM and Yes trachea midline Chest Chest palpation & inspection: normal inspection of the chest Resp Effort & Inspection: normal respiratory effort, able to speak in complete sentences and no respiratory distress GI Inspection: Yes normal to inspection Back/Spine/Pelvis Cervical Spine: normal cervical lordosis Thoracic/Lumbar Spine: thoracic and lumbar spine normal to inspection Skin General skin exam: no rashes or lesions noted Neuro General: patient oriented x3, gait normal, tone normal and moves all extremities Extrem General: Yes normal to inspection and Yes capillary refill normal Office Procedures Cystoscopy Consent Discussed risk and benefit or proposed procedure with the patient. Information consent for procedure given to the patient. Discussed technical aspects, risks, benefits and alternatives in full. Addressed all of the patient's questions and concerns regarding the procedure. The patient demonstrated knowledge and understanding. They wish to proceed with this procedure. Preparation The patient was prepped in the usual manner. A finishing machine operator automatic was present and in the room. Genitalia was prepped with betadine solution in a sterile manner. Lidocaine Jelly 2% was placed into the urethra and 16Fr flexible Olympus cystoscope was inserted into the meatus after adequate lubrication. Procedure Cystoscopy performed using a disposable Urovue digital 16 Norwegian cystoscope. Meatus circumcised Urethra anterior and posterior urethra normal Prostatic Urethra trilobar hyperplasia Bladder examination with retroflexion of cystoscope Bladder Orifices normal shape and position Bladder Capacity Normal Trabeculations grade 1/2 Cellule Formation None Diverticulum Formation None Mucosal Erythema None Bladder Tumor None [id number] DISPOSABLE SCOPE URO-G FLEXIBLE SCOPE Procedure code (CPT) selection complete Office Meds lidocaine HCl 2 % mucosal jelly in applicator Performing Provider: Wilmer Cavazos MD Performing Location: [facility] Administered by: Felicity Coffey RN on 02/22/25 14:16 Dose Route Admin Location Dispensed Lot Number Expiration Date NDC Communication Technician 10 mL intra-urethral 10 mL nitrofurantoin monohydrate/macrocrystals 100 mg capsule Performing Provider: Wilmer Cavazos MD Performing Location: [facility] Administered by: Felicity Coffey RN on 02/22/25 14:16 Dose Route Admin Location Dispensed Lot Number Expiration Date NDC Communication Technician 100 mg PO 1 cap Results AMB Urinalysis, Automated UA Leukoctes 0 Abiola/uL Last Edit by Vern Clark on 02/22/25 15:34 UA Nitrite Negative Last Edit by Vern Clark on 02/22/25 15:34 UA Urobilinogen 3.5 mg/dL Last Edit by Vern Clark on 02/22/25 15:34 UA Protein 15 mg/dL Last Edit by Vern Clark on 02/22/25 15:34 UA pH 6.0 Last Edit by Vern Clark on 02/22/25 15:34 UA Blood 0 Ton/uL Last Edit by Vern Clark on 02/22/25 15:34 UA Specific [place] 1.015 Last Edit by Vern Clark on 02/22/25 15:34 UA Ketone Negative Last Edit by Vern Clark on 02/22/25 15:34 UA Bilirubin 0 mg/dL Last Edit by Vern Clark on 02/22/25 15:34 UA Glucose 0 mg/dL Last Edit by Vern Clark on 02/22/25 15:34 Results Reviewed Results Reviewed: Laboratory Last Values Urine pH (Auto) 6.0 02/22/25 14:58 Specific [place] (Auto) 1.015 02/22/25 14:58 Urine Protein (Auto) 15 mg/dL 02/22/25 14:58 Glucose (UA)(Auto) 0 mg/dL 02/22/25 14:58 Urine Ketones (Auto) Negative 02/22/25 14:58 Urine Blood (Auto) 0 Ton/uL 02/22/25 14:58 Urine Nitrite (Auto) Negative 02/22/25 14:58 Urine Bilirubin (Auto) 0 mg/dL 02/22/25 14:58 Urine Urobilinogen (Auto) 3.5 mg/dL 02/22/25 14:58 Leukocyte Esterase (Auto) 0 Abiola/uL 02/22/25 14:58 Assessment & Plan Assessment & Plan (1) Prostatitis: Code(s): N41.9 - Inflammatory disease of prostate, unspecified Category: Medical Qualifiers: Prostatitis type: chronic Qualified Code(s): N41.1 - Chronic prostatitis (2) BPH w urinary obs/LUTS: Code(s): N40.1 - Benign prostatic hyperplasia with lower urinary tract symptoms; N13.8 - Other obstructive and reflux uropathy Category: Medical (3) Weak urinary stream: Code(s): R39.12 - Poor urinary stream Category: Medical Plan We discussed the nature of the decision and reasonable options for performing a prostate intervention. Interventions include TURP, GreenLight laser enucleation of the prostate, GreenLight laser ablation of the prostate, transurethral incision of the prostate, and I-Tend prostate procedure. Options such as medical therapy were discussed. The relative uncertainties and benefits related to each alternate procedure were adequately discussed. General surgical risks including, but not limited to, pain, bleeding, infection, myocardial infarction, pulmonary embolus, deep vein thrombosis and cerebrovascular accident which may result in further hospitalization were discussed. Full disclosure of the procedure as well as all major risks, benefits and complications were discussed including but not limited to damage to the urethra or bladder neck, recurrent BPH, retrograde ejaculation, bladder infection, urge, de donita frequency, incomplete emptying, dysuria, remote chance of erectile dysfunction, epididymitis, and meatal stenosis. The success rate of the procedure was discussed. Success of the procedure in the short-term does not necessarily guarantee that long-term success will be maintained. Suitable follow up will need to be maintained. The patient showed understanding of discussion. An opportunity was provided for questions to be answered and wishes to proceed with the following procedure. - GreenLight laser prostate Orders: Orders AMB Cystoscopy Today N13.8 - Other obstructive and reflux uropathy, N40.1 - Benign prostatic hyperplasia with lower urinary tract symptoms AMB Urinalysis Automated Today Z13.9 - Encounter for screening, unspecified Medications: New prednisone 20 mg PO DAILY 5 tabs 0RF 5 days N13.8 - Other obstructive and reflux uropathy, N20.0 - Calculus of kidney, N40.1 - Benign prostatic hyperplasia with lower urinary tract symptoms phenazopyridine (Pyridium) Take as needed three times a day for painful urination. 100 mg PO TID PRN 6 tabs 0RF pain 2 days Patient Instructions: This note is constructed using voice recognition software. While every effort has been made to ensure accuracy hydroelectric component machinist errors may have been included. Imaging studies, laboratory and physical exam results were discussed and reviewed in detail. No major barriers to patient understanding were identified. An opportunity to ask questions regarding the treatment plan was provided. All questions were answered. The patient expressed understanding and agreement with the above treatment plan. The patient is aware they should contact our office by phone for worsening of their current condition or the appearance of new urologic symptoms. Compliance is encouraged with any medications and followup testing that is ordered. It is a privilege to participate in the urologic care of your patient. If you have any questions or concerns regarding treatment for the above conditions, or other urologic issues, please do not hesitate to contact me. The office telephone contact is [phone]. Sincerely, Dr Wilmer Cavazos MD, [facility] - Urology Compassionate Specialist Care for the Genitourinary System Coding Level of Care Code Est Pt Level 4 (36763) Complex EM visit Add On G2211 Diagnoses Chronic prostatitis N41.1 Prostatitis type: chronic BPH w urinary obs/LUTS N40.1; N13.8 Weak urinary stream R39.12 CPT Codes Cystoscopy - CPT: 37074-[id number] ([id number])
--- OUTSIDE RECORDS SUMMARY | 2025-02-22 13:55 | XMS_ITS | Referral Summary ---
Author Organization [facility] Address [address] [place] [address] Care Team Providers Care Septic Tank Service Technician Name Role Phone Scott Chadwick Primary Care Provider [phone] Encounters Date Type Department Care Team Description 12/21/2024 CityCivt Message [facility] [address] [place] [phone] Anette Novoa MD medication order 12/21/2024 Fe3 Medicalhart Message [facility] [address] [place] [phone] Anette Novoa MD Mest[place]on 12/20/2024 Orders Only [facility] [address] [place] [phone] ProviderMita MD 12/19/2024 11:30 AM EDT Telehealth [facility] [address] [place] [phone] Anette Novoa MD Dysautonomia (Primary Dx) 12/18/2024 Telephone [facility] [address] [place] [phone] Telephone Intake, Staff PAC Patient Request Call [...] pyridostigmine and he will check with his dresser tender. Paresthesias -consider pyridostigmine 30mg in the morning (he will check with dresser tender) -compression stockings daily -hydration 80-100 oz/day -follow [...] Description 06/27/2025 3:00 PM EDT Office Visit [facility] [address] [place], [place] [phone] Anette Novoa MD [address] [place], [place] [phone] Insurance [employer] Care Teams Septic Tank Service Technician Relationship Specialty Start Date End Date Scott Chadwick [address] [place] [phone] PCP - General Internal Medicine 05/03/22
== END 2025-02-22 14:47 | disposition home or self-care (01) ==
LOC: HO.HUSH 13:46
PROVIDERS: PCP Internal Medicine; Visit Provider Urology
DX: N41.1 Chronic prostatitis (principal); N40.1 Benign prostatic hyperplasia with lower urinary tract symptoms; N13.8 Other obstructive and reflux uropathy; R39.12 Poor urinary stream; Z13.9 Encounter for screening, unspecified
CPT/HCPCS: 52000

== ENCOUNTER → 2025-02-22 13:45 | Outpatient (BNVA) | payer OTHER, SELFPAY | PROVIDERS: PCP Internal Medicine; Visit Provider Urology | DX: N41.1 Chronic prostatitis (principal); N40.1 Benign prostatic hyperplasia with lower urinary tract symptoms; N13.8 Other obstructive and reflux uropathy; R39.12 Poor urinary stream | CPT/HCPCS: 52000; 81003 ==

== ENCOUNTER 2025-03-05 15:15 | Outpatient (REF) | payer OTHER, SELFPAY ==
[2025-03-05 15:31] LABS: MANUAL DIFF FLAG NO
[2025-03-05 15:48] LABS: Appearance Urine Clear; Color Urine Yellow; Glucose Urine UA Negative (Negative); Leukocyte Esterase Urine Trace (Negative); Nitrite Urine Negative (Negative); PH 5.5 (5.0-9.0); Specific Gravity - Urine 1.015 (1.005-1.025); UMIC TRIGGER UA YES; Urine Blood Negative (Negative); Urine Ketones Negative (Negative); Urine Protein Negative (Neg-Trace)
[2025-03-05 15:49] LABS: Basophils Absolute Auto 0.1 X10*3/uL (0.0-0.2); Basophils Percent Auto 1.1 % (0-2); Eosinophils Absolute Auto 0.4 X10*3/uL (0.0-0.4); Eosinophils Percent Auto 4.7 % (0-4); Hematocrit 39.8 % (42.0-52.0); Hemoglobin 13.4 g/dl (14.0-18.0); Imm Gran Abs Auto 0.03 X10*3/uL (0.00-0.03); Imm Gran Pct Auto 0.4 % (0.0-0.4); Lymphocytes Absolute Auto 2.3 X10*3/uL (1.2-4.9); Lymphocytes Percent Auto 31.2 % (20-40); Mean Corpuscular HGB Conc 33.7 g/dl (31.0-36.0); Mean Platelet Volume 10.2 fL (9.4-12.4); Monocytes Absolute Auto 0.9 X10*3/uL (0.1-1.2); Monocytes Percent Auto 11.7 % (2-11); Neutrophils Absolute Auto 3.8 x10*3/uL (2.0-8.3); Neutrophils Percent Auto 50.9 % (45-73); Platelet Count 191 X10*3/uL (160-400); Red Blood Count 4.47 X10*6/uL (4.60-5.80); Red Cell Distribution Width 12.6 % (11.0-16.0); White Blood Count 7.5 X10*3/uL (4.8-10.8)
[2025-03-05 15:53] LABS: Bacteria Urine None Seen (None Seen); Hyaline Casts Urine 0-2 /LPF (0-2); RBC Urine 0-2 /HPF (0-2); Squamous Epithelial Cell Urine 0-2 /HPF (0-2); WBC Urine 0-5 /HPF (0-5)
[2025-03-05 15:53] LABS: Estimated Average Glucose 117 mg/dL; Hemoglobin A1c % 5.7 % (<6.0); Total Hemoglobin (HGBA1C) 3482.1811 umol/L
[2025-03-05 16:21] LABS: Alanine Aminotransferase 141 U/L (0-40); Albumin Level 4.7 g/dL (3.5-5.0); Alkaline Phosphatase 47 U/L (39-117); Anion Gap 10 (12-20); Aspartate Amino Transferase 39 U/L (5-37); Bilirubin Total 0.9 mg/dL (0.0-1.0); Blood Urea Nitrogen 17 mg/dL (9-16); Calcium 9.6 mg/dL (8.4-10.2); Carbon Dioxide 28 mmol/L (22-29); Chloride 105 mmol/L (96-108); Cholesterol 194 mg/dL (<200); Estimated Glomerular Filt Rate > 60; Glucose Random 99 mg/dL (60-115); HDL Cholesterol 30 mg/dL (>40); LDL Cholesterol Calculated 117 mg/dL (<100); Magnesium 2.2 mg/dL (1.6-2.6); Potassium 4.4 mmol/L (3.3-5.1); Sodium 139 mmol/L (135-145); Total Protein 7.4 g/dL (6.5-8.0); Triglycerides 236 mg/dL (<150)
[2025-03-05 16:37] LABS: Thyroid Stimulating Hormone 1.27 uIU/mL (0.32-4.0); Vitamin B12 344 pg/mL (200-900); Vitamin D 25-OH Total 19.4 ng/mL (>30)
--- OUTSIDE RECORDS SUMMARY | 2025-03-05 18:26 | XMS_ITS | Referral Summary ---
Author Organization [facility] Address [address] [place] [address] Care Team Providers Care Clean Room Assembler Name Role Phone Scott Chadwick Primary Care Provider Encounters Date Type Department Care Team Description 12/21/2024 eReplacementst Message [facility] [address] [place] [phone] Anette Novoa MD medication order 12/21/2024 Issuehart Message [facility] [address] [place] [phone] Anette Novoa MD [place]on 12/20/2024 Orders Only [facility] [address] [place] [phone] ProviderMita MD 12/19/2024 11:30 AM EDT Telehealth [facility] [address] [place] [phone] Anette Novoa MD Dysautonomia (Primary Dx) 12/18/2024 Telephone [facility] [address] [place] [phone] Telephone Intake, Staff PAC Patient Request Call [...] pyridostigmine and he will check with his security test engineer. Paresthesias -consider pyridostigmine 30mg in the morning (he will check with security test engineer) -compression stockings daily -hydration 80-100 oz/day -follow [...] Description 06/27/2025 3:00 PM EDT Office Visit [facility] [address] [place], [place] [phone] Anette Novoa MD [address] [place], [place] [phone] Insurance [employer] Care Teams Clean Room Assembler Relationship Specialty Start Date End Date Scott Chadwick [address] [place] [phone] PCP - General Internal Medicine 05/03/22
== END 2025-03-05 15:16 | disposition home or self-care (01) ==
LOC: HO.LAB 15:15
PROVIDERS: PCP Internal Medicine; Visit Provider Internal Medicine
DX: I10 Essential (primary) hypertension (principal); E55.9 Vitamin D deficiency, unspecified; R53.83 Other fatigue; R73.01 Impaired fasting glucose; M15.0 Primary generalized (osteo)arthritis
CPT/HCPCS: 36415; 80053; 80061; 81001; 82306; 82607; 83036; 83735; 84443; 85025

== ENCOUNTER 2025-05-09 14:22 | Outpatient (REF) | payer OTHER, SELFPAY ==
[2025-05-09 16:34] LABS: Blood Urea Nitrogen 15 mg/dL (9-16); Estimated Glomerular Filt Rate > 60
== END 2025-05-09 14:23 | disposition home or self-care (01) ==
LOC: HO.LAB 14:22
PROVIDERS: PCP Internal Medicine; Visit Provider Surgery
DX: R10.30 Lower abdominal pain, unspecified (principal); I83.12 Varicose veins of left lower extremity with inflammation
CPT/HCPCS: 36415; 82565; 84520

== ENCOUNTER 2025-05-09 14:22 | Outpatient (AMB) | payer OTHER, SELFPAY ==
--- NOTE | 2025-05-09 14:34 | MHC.OFFVIS ---
Vital Signs 05/09/25 14:38 Height 6 ft Weight 188 lb BMI 25.5 BP 161/72 H Blood Pressure Location Rt brachial Position Sitting Pulse 73 Intake Visit Reasons: abdominal bloating Intake Note: Patient here for evaluation of abdominal bloating. Hx of diastasis recti. APRYL: 09-17-2024 Patient c/o: abdomen bloating, getting worse within the past couple of weeks. Occasional constipation but regular for the most part. Takes Metamucil. Imaging: US abdomen~ 01-24-2025 Crosstie Inspector Required: No Accompanied by: Self / Same As Patient Allergies codeine (Codeine) Allergy (Intermediate, Verified 05/09/25 14:36) Dizziness meperidine (Meperidine) Allergy (Mild, Verified 05/09/25 14:36) UNKNOWN Medication List - Last Reconciled 05/09/25 by Gabriel Gaviria MD acetaminophen (Acetaminophen Extra Strength) 1,000 mg PO BEDTIME PRN amlodipine 5 mg PO DAILY celecoxib 200 mg PO DAILY PRN cholecalciferol (vitamin D3) (Vitamin D3) 50 mcg PO DAILY comp.stocking,thigh,long,small As directed cyanocobalamin (vitamin B-12) 1,000 mcg PO DAILY dutasteride 0.5 mg PO DAILY 90 days gabapentin 200 mg PO BEDTIME hyoscyamine sulfate 0.375 mg PO BID PRN losartan 25 mg PO BEDTIME omeprazole 40 mg PO DAILY ondansetron 4 mg PO Q8H PRN phenazopyridine (Pyridium) 100 mg PO TID PRN 2 days sucralfate 1 g PO TID PRN tamsulosin 0.4 mg PO DAILY@1700 90 days HPI HPI abdominal bloating: Details: 74-year-old male here in the office because of lower abdominal pain. He is well known to me. He has had this problems with abdominal pain and bloating on and off for several years now. He has had CAT scans done before which does not reveal any obvious etiology. He does have a history of left inguinal hernia repair in the past. He has a known right inguinal hernia which was fat containing. He does not want to proceed with the surgery with this because he says this is not symptomatic. He describes having this ?burning? pain in the lower abdomen now for several weeks. He feels bloated as well. He denies any diarrhea or constipation. He denies any nausea or vomiting. He denies any blood per rectum. He denies any weight loss. [facility] Medical History Lower abdominal pain Diastasis recti Cataract, right eye Autonomic neuropathy Hyperlipidemia Cholelithiasis BCC (basal cell carcinoma), face Abnormal liver function test Abdominal pain Cyst, kidney, acquired Hx of prostatitis COVID-19 vaccine series completed Depression Peripheral neuropathy Cervical spondyloarthritis Mood disorder Pre-diabetes Hx of Guillain-[place] syndrome Arthritis Back pain DDD (degenerative disc disease) Fatty liver Left inguinal hernia Axillary abscess History of lumbar puncture Autoimmune encephalitis Gallstones Hypertension GERD (gastroesophageal reflux disease) Prostatitis Surgical History History of hernia repair History of esophagogastroduodenoscopy (EGD) Hx of colonoscopy Family History Mother No problems noted. Father No problems noted. Social History Are you a primary direct care provider to a significant other at home: No Do you presently have visiting nurse or other home services: No Alcohol intake: never Patient Tobacco Use Status: Former Tobacco user Review of Systems Const Denies chills and Denies fever(s) Card Denies chest pain, Denies dyspnea and Denies dyspnea on exertion Resp Denies cough, Denies dyspnea and Denies dyspnea on exertion GI Denies hematochezia and Denies change in bowel habits Denies hematuria and Denies difficulty urinating Musc Denies back pain and Denies limited range of motion Neuro Denies focal weakness and Denies convulsions Psych Denies depression and Denies mood swings Physical Exam Vital Signs: Last Vital Signs Pulse 73 05/09/25 14:38 BP 161/72 H 05/09/25 14:38 BMI result Body Mass Index 25.5 Const General: comfortable and no acute distress Orientation/consciousness: patient oriented x3 Neck Neck: Yes no lymphadenopathy Resp Auscultation: clear to auscultation bilaterally Cardio Rhythm: regular rhythm GI Other: Vague right inguinal hernia with Valsalva Palpation (GI): Soft to palpation, nontender and no guarding Neuro General: patient oriented x3 Assessment & Plan Assessment & Plan (1) Lower abdominal pain: Code(s): R10.30 - Lower abdominal pain, unspecified Category: Medical Plan: He describes having burning lower abdominal pain on and off now. He describes bloating as well. He has had this before but he feels that this has been worse the past few weeks I will send him for a CAT scan of the abdomen and pelvis with IV contrast. His exam is benign. He does not have any fever or chills I am uncertain as to the etiology of his lower abdominal pain. We will see him again in the office after his CAT scan. He is comfortable with the plan above. Orders: Orders Blood Urea Nitrogen Today I83.12 - Varicose veins of left lower extremity with inflammation, R10.9 - Unspecified abdominal pain Creatinine Today R10.9 - Unspecified abdominal pain CT abdomen pelvis w IV con Today R10.30 - Lower abdominal pain, unspecified Coding Level of Care Code Est Pt Level 3 (60585) Diagnoses Lower abdominal pain R10.30
[2025-05-09 14:38] VITALS: BP 161/72; PULSE 73; BMI 25.5
--- OUTSIDE RECORDS SUMMARY | 2025-05-09 15:07 | XMS_ITS | Clinical Summary ---
Author Organization [facility] Address [address] [place] [address] Phone Care Team Providers Care Child And Youth Program Assistant Name Role Phone Scott Chadwick MD Primary Care Provider [phone] Minh Ruiz MD Unavailable Dash Mayo MD Unavailable [phone] Leslie Matta MD Unavailable [phone] Davis Meneses MD Unavailable [phone] Jimenez Estes MD Unavailable Allergies Active Allergy Reactions Criticality Noted Date Comments Bee Pollen 02/17/2018 Bees Arm swelled Codeine Sulfate Unknown 12/14/2016 Cephalexin Nausea and/or Vomiting 03/22/2022 Nauseau only Lisinopril Cough 12/14/2016 Meperidine Unknown Low 03/05/2024 Oxycodone Nausea and/or Vomiting 08/04/2021 Pravastatin Sodium Unknown 12/14/2016 Medications tamsulosin (FLOMAX) 0.4 mg Cap Take 0.4 mg by mouth nightly at bedtime. Active cholecalciferol (VITAMIN D3) 25 MCG (1,000 unit) tablet Take 2,000 Units by mouth daily. Active cyanocobalamin, vitamin B-12, 1000 MCG tablet Take 1 tablet (1,000 mcg total) by mouth daily. 100 tablet 2 Active acetaminophen (TYLENOL) 500 MG tablet Take 1-2 tablet by mouth in the evening, PRN. Active hyoscyamine (LEVBID) 0.375 mg 12 hr tablet Take 0.375 mg by mouth 2 (two) times a day as needed. 4 Active celecoxib (CELEBREX) 200 MG capsuleIndications: Primary osteoarthritis involving multiple joints Take 1 capsule (200 mg total) by mouth daily as needed. 90 capsule 2 4 Active losartan (COZAAR) 25 MG tablet TAKE 1 TABLET(25 MG) BY MOUTH DAILY 90 tablet 3 4 Active gabapentin (NEURONTIN) 100 MG capsule TAKE 2 CAPSULES(200 MG) BY MOUTH EVERY EVENING 180 capsule 3 5 Active amLODIPine (NORVASC) 5 MG tabletIndications:E ssential hypertension TAKE 1 TABLET(5 MG) BY MOUTH DAILY 90 tablet 3 5 Active dutasteride (AVODART) 0.5 mg capsule Take 1 capsule by mouth every morning. 5 Active omeprazole (PRILOSEC) 40 MG capsule Take 1 capsule by mouth as needed (for upset stomach). 5 Active sucralfate (CARAFATE) 1 gram tablet Take 1 g by mouth Every Afternoon. 5 Active meclizine (ANTIVERT) 12.5 mg tablet Take 1 tablet (12.5 mg total) by mouth 3 (three) times a day as needed for dizziness. 50 tablet 2 5 Active ondansetron (ZOFRAN) 4 MG tabletIndications:N ausea 1-2 tablets q 8 hours prn nauseau 50 tablet 1 5 Active Active Problems Problem Noted Date Diagnosed Date Acute cough 06/20/2024 Assessment & Plan (06/20/2024 5:15 PM EDT): Recent COVID, a month ago, with CXR two weeks ago due to cough which was negative. Patient continues with productive cough with a concern for pneumonia. On exam, he is noted to have rhonchi in KRIS. -will obtain a CXR -[facility] [place] -continue Augmentin he was placed on 3 days ago due to presumed diverticulitis by GI Cervical radiculitis 04/05/2024 Overview (04/05/2024): Following with [place] [facility] Dr. Michele Marcos MD was seen 03/23 24 and had relief with LG to C7-T1 Herpes zoster without complication 12/14/2023 Assessment & Plan (12/14/2023 4:54 PM EDT): What is describing sounds like zoster and it could be in its initial stages which would then favor a prescription of valacyclovir. The side effect profile allows for the Valtrex to be prescribed and he can stop the Valtrex after 3 days if there is no improvement. In the meantime for relief apply a lidocaine patch to the upper back which she already has at home. 12 hours on 12 hours off. Also he can use the gabapentin and ramp up the dose with ceiling dose being 800 mg. He would only take it at night since he is very sensitive to it and it can make him drowsy. He would start perhaps 200 mg increased to 300 the next day. So if this is not shingles and the skin remains without any changes which is currently the case 1 might consider a neurological process though the way he was describing it it did not sound like cervical radiculopathy. I did perform a Spurling maneuver and this did not elicit any paresthesias or jolts into the arm. Epigastric pain 12/14/2019 Cholelithiasis 12/19/2018 Abnormal liver function 12/19/2018 Inguinal hernia 12/19/2018 Malaise and fatigue 04/11/2018 Dyspnea on exertion 04/11/2018 Fatty liver 04/11/2018 Weakness 04/11/2018 Essential hypertension 02/17/2018 Impaired fasting glucose 02/17/2018 Abnormal liver function tests 02/17/2018 Hypertension 02/17/2018 Encounters Date Type Department Care Team Description 04/04/2025 Telephone [facility] Internal Medicine [address] [facility] [place] [address] Scott Chadwick MD 04/03/2025 Telephone [facility] Internal Medicine [address] [place] [address] Scott Chadwick MD Dizziness 03/06/2025 Orders Only [facility] Internal Medicine [address] [facility] [place] [address] ProviderHarika MD Essential hypertension; Impaired fasting glucose; Fatigue, unspecified type; Vitamin D deficiency, unspecified; Primary osteoarthritis involving multiple joints 02/19/2025 Telephone [facility] [address] [facility] [place] [address] Scott Chadwick MD Labs; Forms & Paperwork 02/12/2025 2:00 PM EDT Office Visit [facility] Internal Medicine [address] [facility] [place] [address] Scott Chadwick MD Routine general medical examination at a health care facility (Primary Dx); Essential hypertension; Impaired fasting glucose; Abnormal liver function; Calculus of gallbladder without cholecystitis without obstruction; Epigastric pain; Non-recurrent unilateral inguinal hernia without obstruction or gangrene 02/12/2025 Orders Only [facility] [address] [facility] [place] [address] Harika Zhou MD 02/11/2025 Documentation [facility] [address] [facility] [place] [address] Scott Chadwick MD from Last 3 Months Immunizations Immunization Administration Dates Next Due COVID-19 (Pre-07/18) Pfizer Vaccine, mRNA, PF ,11/13/2020 Td (adult) 5 Lf Tetanus Toxoid, PF, Adsorbed 09/2004 Family History Medical History Relation Comments Prostate cancer Father Relation Status Comments Father (Age 75) prostste cance r Mother (Age 60) cancer Social History Tobacco Use Types Packs/Day Years Used Date Smoking Tobacco: Former Cigarettes 1.5 22 1 967 - 1988 Smokeless Tobacco: Never Tobacco Cessation:Counseling Given: Not Answered Alcohol Use Standard Drinks/Week Comments Not Currently 0 (1 standard drink = 0.6 oz pur e alcohol) Child or Family Care Answer Date Record ed Do you have problems with on e of the following making it difficult for you to work, study, or receive health care? No 08/16/2023 Education Answer Date Recorded Are you interested in more education? Not on [place] 02/18/2023 Are you concerned about learning? Not on file 02/18/2023 No 02/18/2023 No 02/18/2023 Food Answer Date Recorded Within the past 6 months we worried whether our food would run out before we got money to buy more. Never True 08/16/2023 Within the past 6 months the food we bought just didn't last and we didn't have enough money to get more. Never True Residential Stability Answer Date Recor ded What is your housing situation today? I choose n ot to answer 08/16/2023 How many times have you move d in the past 12 months? Zero (I did not move) 08/16/2023 Paying for Meds Answer Date Recorded Do you have trouble paying for medicines? No 08/16/2023 Paying Utility Bills Answer Date Record ed Do you have trouble paying your heating or elect ricity bill? No 08/16/2023 Transportation Answer Date Recorded Has the lack of transportati on kept you from medical appointments or from getting medications? No 08/16/2023 Unemployment Answer Date Recorded Are you currently unemployed or working on a part-time or temporary basis, and looking for work? No 02/09/2021 Digital Access Answer Date Recorded No 08/16/2023 Yes 08/16/2023 Do you have reliable internet access at home? Ye s 08/16/2023 Do you have a device (e.g., phone, tablet, computer) with a working camera? Yes 08/16/2023 Intimate Partner Violence Answer Date R ecorded Denied Basic Needs Not on file 02/06/2025 In the past 12 months have y ou been in a relationship with a person who hurts, threatens, or tries to control you? No 02/06/2025 Worried food would run out Not on file 02/06 In the past 12 months have y ou been in a relationship with a person who hurts, threatens, or tries to control you? No 02/06/2025 Sex and Gender Information Value Date Recorded Sex Assigned at Male 01/29/2020 2:22 PM EDT Legal Sex Male 10:05 PM EDT Gender Identity Male 01/29/2020 2:22 PM EDT Sexual Orientation Straight 01/29/2020 2: 22 PM EDT Last Filed Vital Signs Vital Sign Reading Time Taken Comments Blood Pressure 120/64 02/12/2025 1:54 PM EDT Pulse 60 02/12/2025 1:54 PM EDT Temperature 36 C (96.8 F) 02/12/2025 1:54 PM EDT Respiratory Rate 16 02/12/2025 1:54 PM EDT Oxygen Saturation 97% 02/12/2025 1:54 PM EDT Inhaled Oxygen Concentration - - Weight 86.7 kg (191 lb 3.2 oz) 02/12/2025 1:54 P M EDT Height 181 cm (5' 11.26 ) 02/12/2025 1:54 PM EDT Body Mass Index 26.47 02/12/2025 1:54 PM EDT Plan of Treatment Upcoming Encounters Date Type Department Care Team (Late st Contact Info) Description 08/12/2025 2:00 PM EST Office Visit [facility] Internal Medicine [address] [place] [address] Scott Chadwick MD [address] [place] [address] [email or web address] 12/11/2025 2:00 PM EDT Telemedicine [facility] Department of Neurology [address], [address] [place] [address] Riky Macedo MD [address] [place] [address] [email or web address] 04/10/2026 2:00 PM EDT Office Visit [facility] Internal Medicine [address] [place] [address] Cortez Aguilar PA-C [address] [place] [address] [email or web address] Health Maintenance Due Date Last Done Comments PNEUMOCOCCAL VACCINES (50+ years) (1 of 1 - PCV) 1998 ZOSTER VACCINES (1 of 2) 1998 Adult Td,Tdap Booster 01/24/2015 01/24/2005 RSV VACCINE (1 - 1-dose 75+ series) 2023 COVID-19 VACCINE (4 - 2023- season) 2024 09/10/2021, 12/06/2020, 11/13/2020 BLOOD PRESSURE 08/15/2025 02/12/2025 DEPRESSION SCREENING 02/06/2026 02/06/2025 CREATININE LEVEL 03/05/2026 03/05/2025, 09/2024, 04/30/2024, Additional history exists POTASSIUM LEVEL 03/05/2026 03/05/2025, 050 09/2024, 04/30/2024, Additional history exists LIPID PANEL 03/05/2030 03/05/2025, 11/25, 12/20/2023, Additional history exists HEPATITIS C SCREENING Completed 01/31/2014 SMOKING STATUS SCREENING (Once After 26 Yrs) Completed 02/12/2025 HEPATITIS A VACCINES Aged Out No long er eligible based on patient's age to complete this topic HIB VACCINES Aged Out No longer eligi ble based on patient's age to complete this topic MENINGOCOCCAL VACCINES (ACWY) Aged Out No longer eligible based on patient's age to complete this topic MENINGOCOCCAL VACCINES (B) Aged Out N o longer eligible based on patient's age to complete this topic Medical Devices Not on file Procedures Procedure Name Priority Date/Time Associated Diagnosis Comments OUTSIDE LAB Routine 03/05/2025 3:51 PM EDT CBC AND DIFFERENTIAL Routine 03/05/2025 12:52 PM EDT Essential hypertension Fatigue, unspecified type Primary osteoarthritis involving multiple joints URINALYSIS Routine 03/05/2025 12:51 PM EDT Essential hypertension 25-OH VITAMIN D Routine 03/05/2025 12:51 PM EDT Vitamin D deficiency, unspecified VITAMIN B12 Routine 03/05/2025 12:51 PM EDT Fatigue, unspecified type MAGNESIUM Routine 03/05/2025 12:51 PM EDT Essential hypertension COMPREHENSIVE METABOLIC PANEL Routine 03/05/2025 Essential hypertension Fatigue, unspecified type Primary osteoarthritis involving multiple joints LIPID PANEL Routine 03/05/2025 Essential hypertension Fatigue, unspecified type Primary osteoarthritis involving multiple joints TSH Routine 03/05/2025 Essential hypertension Fatigue, unspecified type HEMOGLOBIN A1C Routine 03/05/2025 Impaired fasting glucose OUTSIDE HEPATITIS C VIRUS SCREENING Routine 01/31/2014 from Last 3 Months or Most Recently Relevant to Health Maintenance Results * Outside Lab (03/05/2025 3:51 PM EDT) [facility] Provider LAB BLOOD ORDERABLES Vanessa l Result * CBC and differential (03/05/2025 12:52 PM EDT) Blood Scott Chadwick MD LAB BLOOD ORDERABLES Final Re sult Performing Organization Address [facility] de Phone Number EXTERNAL NON-INTERFACED REF LAB * Urinalysis (03/05/2025 12:51 PM EDT) Urine (Urine) Scott Chadwick MD URINE ORDERABLES Final Result Performing Organization Address [facility] de Phone Number EXTERNAL NON-INTERFACED REF LAB * 25-OH vitamin D (03/05/2025 12:51 PM EDT) Blood Scott Chadwick MD LAB BLOOD ORDERABLES Final Re sult Performing Organization Address [facility] de Phone Number EXTERNAL NON-INTERFACED REF LAB * Vitamin B12 (03/05/2025 12:51 PM EDT) Blood Scott Chadwick MD LAB BLOOD ORDERABLES Final Re sult Performing Organization Address [facility] de Phone Number EXTERNAL NON-INTERFACED REF LAB * Magnesium (03/05/2025 12:51 PM EDT) Blood Scott Chadwick MD LAB BLOOD ORDERABLES Final Re sult Performing Organization Address [facility] Co de Phone Number EXTERNAL NON-INTERFACED REF LAB * Comprehensive metabolic panel (03/05/2025) Sodium - External EXTERNAL NON-INTERFACED REF LAB Potassium - External 4.4 EXTERNAL NON-INTERFACED REF LAB Chloride - External EXTERNAL NON-INTERFACED REF LAB CO2 - External EXTER NAL NON-INTERFACED REF LAB BUN - External EXTER NAL NON-INTERFACED REF LAB Creatinine - External 1.12 EXTERNAL NON-INTERFACED REF LAB Glucose - External 99 EXTERNAL NON-INTERFACED REF LAB Albumin - External EXTERNAL NON-INTERFACED REF LAB Protein - External EXTERNAL NON-INTERFACED REF LAB Calcium - External EXTERNAL NON-INTERFACED REF LAB Alkaline Phosphatase - External EXTERNAL NON-INTERFACED REF LAB Bilirubin, total - External EXTERNAL NON-INTERFACED REF LAB AST - External EXTER NAL NON-INTERFACED REF LAB ALT - External 141 EXTER NAL NON-INTERFACED REF LAB Globulin - External EXTERNAL NON-INTERFACED REF LAB eGFR - External EXTE RNAL NON-INTERFACED REF LAB Anion Gap - External EXTERNAL NON-INTERFACED REF LAB Blood 03/05/2025 Scott Chadwick MD LAB BLOOD ORDERABLES Edited R esult - Final Performing Organization Address [facility] de Phone Number EXTERNAL NON-INTERFACED REF LAB * TSH (03/05/2025) TSH - External 1.27 EXTER NAL NON-INTERFACED REF LAB Blood 03/05/2025 Scott Chadwick MD LAB BLOOD ORDERABLES Edited R esult - Final Performing Organization Address [facility] Co de Phone Number EXTERNAL NON-INTERFACED REF LAB * Hemoglobin A1c (03/05/2025) Pathologist [facility] Hemoglobin A1c - External 5.7 EXTERNAL NON-INTERFACED REF LAB Blood 03/05/2025 Scott Chadwick MD LAB BLOOD ORDERABLES Edited [facility] EXTERNAL NON-INTERFACED REF LAB * Lipid panel (03/05/2025) Pathologist [facility] HDL - External 30 EXTER NAL NON-INTERFACE D REF LAB Cholesterol, Total - External 194 EXTERNAL NON-INTERFACE D REF LAB Triglycerides - External 236 EXTERNAL NON-INTERFACE D REF LAB LDL, calculated - External 117 EXTERNAL NON-INTERFACE D REF LAB Cardiac Risk Ratio - External EXTERNAL NON-INTERFACE D REF LAB Non-HDL Cholesterol - External EXTERNAL NON-INTERFACE D REF LAB Blood 03/05/2025 Scott Chadwick MD LAB BLOOD ORDERABLES Edited [facility] Performing Organization Address [facility]/ZIP Co de Phone Number EXTERNAL NON-INTERFACED REF LAB * Outside Hepatitis C Virus Screening (01/31/2014) Pathologist [facility] Hepatitis C Screening - External Neg Historical Provider LAB BLOOD ORDERABLES Vanessa l Result from Last 3 Months or Most Recently Relevant to Health Maintenance Insurance [email or web address] Member Subscriber Plan / Payer (Ef fective 2019-Present) Name:Alhaji Sims Relation to Subscriber:Spouse Name:MIGDALIA SIMS Date of :1955 (Home) Address: [address] [place] [address] Payer ID:[id number] (NAIC) Type:PPO Address: [place] [phone] [employer] Member Subscriber Plan / Payer (Ef fective 2019-Present) Name:Alhaji Sims Relation to Subscriber:Spouse Name:MIGDALIA SIMS Date of :1955 (Home) Address: [address] [place] [address] Payer ID:[id number] (NAIC) Type:PPO Address: [place] [phone] [employer] Care Teams Child And Youth Program Assistant Relationship Specialty Start Date End Date Scott Chadwick MD [address] [place] [address] [email or web address] PCP - General Internal Medicine 08/04/17 Minh Ruiz MD [address] [place] [address] Drive [address] [place] [address] Gastroenterology 05/30/20 Dash Mayo MD [address] [place] [address] [place] [address] Neurology 06/06/20 Leslie Matta MD [address] [place] [address] [place] [address] General Surgery 08/11/20 Davis Meneses MD [address] [place] [address] [address] [place] [id number] Urology 03/27/21 Jimenez Estes MD [address] [place] [address] Dermatology 02/24/24 Additional Source Comments The information contained in this document represents components of the legal health record. It is not the complete legal health record.[facility]
--- OUTSIDE RECORDS SUMMARY | 2025-05-09 15:07 | XMS_ITS | Patient Health Record ---
Author Organization [facility] Address [address] [place] [address] Care Team Providers Care Product Engineer Name Role Phone Scott Chadwick MD Primary Care Provider Minh Mckeon [phone] Allergies Allergen (clinical drug ingredient) Drug/Non Drug [...] Just PRN--rare Active Vitamin D3 250 MCG (41673 UT) as directed Orally Active Tylenol Extra [...] Problem Status W/U Status Risk Notes Problem 72020478 Epigastric abdominal pain (R10.13) Active confirmed Problem Gastroduodenitis (807581519) Gastritis, unspecified, without bleeding (K29.70) Active confirmed Problem 176227792 Irritable bowel syndrome with diarrhea (K58.0) Active confirmed Problem Generalized abdominal pain (825242764) Generalized abdominal pain (R10.84) Active confirmed Problem Duodenitis (75635881) Duodenitis (K29.80) Active confirmed Problem Irritable bowel syndrome (60286502) IBS (irritable bowel syndrome) (K58.9) Active confirmed Problem 29488370 Abdominal pain, epigastric (R10.13) Active confirmed Problem Diverticular disease of colon (082590500) Diverticulosis (K57.90) Active confirmed Problem 043468385 Diverticulosis o f large intestine without hemorrhage (K57.30) Active confirmed Problem 284195346 Gallstones (K80.20) Active confirmed Problem 425266669 Abdominal pain, left lower quadrant (R10.32) Active confirmed Problem Epigastric pain (25624808) Abdominal pain, acute, epigastric (R10.13) Active confirmed Problem 075351568 Abdominal pain, generalized (R10.84) Active confirmed Problem 43175219 Irritable bowel syndrome, unspecified type (K58.9) Active confirmed Problem 77509758 Irritable bowel syndrome with both constipation and diarrhea (K58.2) Active confirmed Problem Left lower quadrant pain (491945625) Abdominal pain, acute, left lower quadrant (R10.32) Active confirmed Problem 74209318243646048 Abnormal CT sc an, gallbladder (R93.2) Active confirmed Problem 488699606900086 History of diverticulitis of colon (Z87.19) Active confirmed Encounters Encounter Location Date Provider Diagnosis [facility] [address] [place] [phone] 05/09/2025 Minh Ruiz [facility] [address] [place] [phone] 06/11/2024 Minh Ruiz [facility] [address] [place] [phone] 01/23/2025 Minh Ruiz Plan Of Treatment Pending Test Test Name Order Date CHEM 7 PROFILE 05/17/2013 CHEM 7 PROFILE 08/30/2022 CHEM 7 PROFILE 01/26/2022 LIVER PROFILE 01/14/2014 LIVER PROFILE 12/18/2020 LIVER PROFILE 02/23/2014 LIVER PROFILE 05/17/2013 LIVER PROFILE 08/30/2022 LIVER PROFILE 05/22/2015 LIVER PROFILE 09/05/2014 LIVER PROFILE 01/26/2022 AMYLASE 12/18/2020 AMYLASE 05/17/2013 LIPASE 01/26/2022 LIPASE 12/18/2020 LIPASE 05/17/2013 IRON + IBC (FE) 01/14/2014 FERRITIN 01/14/2014 CRP 01/26/2022 CRP 08/30/2022 CRP 08/28/2015 CBC w DIFF 05/17/2013 CBC w DIFF 01/26/2022 CBC w DIFF 12/18/2020 CBC w DIFF 08/30/2022 SED RATE (ESR) 08/30/2022 SED RATE (ESR) 01/26/2022 HEPATITIS B, C PROFILE 01/14/2014 URINALYSIS + MICROSCOPIC, CLEAN CATCH [id number] (A1A) 01/14/2014 CELIAC PANEL #10 05/17/2013 ENDOMYSIAL [...] Coverage End Date [employer] [place] 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 Mayo and neurologists at [facility] [place]--associated with intermittent spells of [...]
--- OUTSIDE RECORDS SUMMARY | 2025-05-09 15:07 | XMS_ITS | Encounter Summary ---
Author Organization [facility] Address [address] [place] [address] Care Team Providers Care Nuclear Control Operator Name Role Phone Scott Chadwick Primary Care Provider [phone] Reason for Visit * Reason Onset Date Comments PAC Order Request 10/12/2022 Encounter Details Date Type Department Care Team (Late st Contact Info) Description 10/12/2022 Telephone [facility] Central Scheduling Department [address] [place] [phone] Telephone Intake, Staff PAC Order Request Social [...] to send to his local hospital in [place]. * Telephone Encounter - Ramona Garcia - [...] Please call patient back to book Callback# [phone] documented in this encounter Plan of Treatment Upcoming Encounters Date Type Department Care Team (Late st Contact Info) Description 06/27/2025 3:00 PM EDT Office Visit [facility] [address], [place] [phone] Anette Novoa MD [address] [place] [address] documented as of this encounter Visit Diagnoses Not on filedocumented in this encounter Care Teams Nuclear Control Operator Relationship Specialty Start Date End Date Sctot Chadwick [address] [place] [address] PCP - General Internal Medicine 05/03/22 documented as of this encounter
== END 2025-05-09 14:54 | disposition home or self-care (01) ==
LOC: HO.HGS 14:23
PROVIDERS: PCP Internal Medicine; Visit Provider Surgery
DX: R10.30 Lower abdominal pain, unspecified (principal)
CPT/HCPCS: 99213

== ENCOUNTER 2025-05-15 11:19 | Outpatient (REF) | payer OTHER, SELFPAY ==
--- NOTE | ~2025-05-15 | CT_ITS ---
EXAMINATION: CT ABDOMEN AND PELVIS WITH CONTRAST CLINICAL INFORMATION: Lower abdominal pain. COMPARISON: September 02, 2022 TECHNIQUE: Multidetector volumetric images were obtained from the superior aspect of the liver through the pubic symphysis following administration 85 mL of Omnipaque 350 intravenous contrast. Sagittal and coronal reformatted images were obtained on the technologist's workstation. Oral contrast: No This CT examination was performed using dose optimization techniques as appropriate, variously including the following: *Automated exposure control *Adjustment of mA and/or kV according to patient size (this includes techniques or standardized protocols for targeted exams where dose is matched to indication/reason for exam; i.e. extremities or head) *Use of iterative reconstruction technique. DLP: 466 mGy centimeter. FINDINGS: LUNG BASES: 3 mm subpleural noncalcified pulmonary nodule, right lung base. Less than 1 mm subpleural pulmonary nodules lung bases. LIVER, GALLBLADDER, AND BILIARY TREE: Liver measures 15 cm. Decreased enhancement pattern. There is a 9 mm hypodensity adjacent to the falciform ligament the small to be fully characterized. There is a hyperdensity adjacent to the falciform ligament in the left hepatic lobe. The hepatic veins, main portal veins and intrahepatic portion of the IVC are patent. There are multiple layering small hyperdensities within the lumen of the gallbladder and low density lesions floating in the gallbladder lumen. No pericholecystic fluid collection or gallbladder wall thickening. No intrahepatic or extrahepatic biliary ductal dilatation. PANCREAS: No focal mass. No peripancreatic fluid collection. Cystic lesion in the body tail junction. No main pancreatic ductal dilatation. SPLEEN: 10 cm. No mass. Small accessory spleen. ADRENAL GLANDS: No nodular lesions. Soft tissue fullness both adrenal glands. KIDNEYS AND URETERS: Right kidney: No hydronephrosis. No gross nephrolithiasis. There is a 1.4 cm partially calcified cystic lesion the anterior midportion. Subcentimeter cystic lesions throughout the renal parenchyma. Left kidney: No hydronephrosis. No gross nephrolithiasis. No gross renal mass. Normal enhancement pattern throughout the renal parenchyma. BLADDER: Fluid-filled with the irregular thick wall. GASTROINTESTINAL TRACT: Abundant stool throughout the large intestine. Numerous diverticula throughout the left hemicolon and transverse colon. No intestinal obstruction pattern. No pneumatosis intestinalis. Appendix is normal. No pneumoperitoneum. No ascites. No peripheral enhancing fluid collections, peritoneal cavity. ABDOMINAL WALL: Small fat-containing umbilical and periumbilical hernia. Fat-containing moderate to large volume right inguinal hernia. Fluid within the inner orifice of the left inguinal canal. LYMPH NODES: Nonspecific mildly prominent mesenteric and retroperitoneum. VASCULAR: No aneurysm or dissection, abdominal aorta. Small calcified plaque in the distal abdominal aorta junction with the left common iliac artery. PELVIC VISCERA: There is a 7 cm heterogeneously prostate gland protruding upon the urinary bladder floor. OSSEOUS STRUCTURES: Multilevel thoracolumbar spondylosis pronounced at L4-5 and to a lesser extent L5-S1 as well as the lower thoracic spine. Spina bifida occulta S1. Degenerative changes in the inferior sacroiliac joints and both coxofemoral joints. CT/CT abdomen pelvis w IV con IMPRESSION: Benign prostate hyperplasia versus malignancy. Fat-containing right inguinal hernia. Fat-containing umbilical and periumbilical hernia. Fluid within the inner orifice left inguinal canal. Diverticular disease, colonic. Cholelithiasis with associated cholesterol cholelithiasis. Hepatic steatosis. Complex partially calcified cyst, right kidney. Multilevel thoracolumbar spondylosis. Fleischner guidelines were followed. Electronically signed by: Deshaun Azul MD 05/15/2025 12:06 PM EDT
[2025-05-15] MEDS: iohexoL 350 MG/ML 100 ML INFUS..BTL IV (11:53)
--- OUTSIDE RECORDS SUMMARY | 2025-05-15 12:42 | XMS_ITS | Encounter Summary ---
Author Organization [facility] Address [address] [place] [address] Care Team Providers Care Senior Technical Trainer Name Role Phone Scott Chadwick Primary Care Provider [phone] Reason for Visit * Reason Onset Date Comments PAC Order Request 10/12/2022 Encounter Details Date Type Department Care Team (Late st Contact Info) Description 10/12/2022 Telephone [facility] Central Scheduling Department [address] [place] [address] Telephone Intake, Staff PAC Order Request Social [...] to send to his local hospital in [place]. * Telephone Encounter - Ramona Garcia - [...] Please call patient back to book Callback# [phone] documented in this encounter Plan of Treatment Upcoming Encounters Date Type Department Care Team (Late st Contact Info) Description 06/27/2025 3:00 PM EDT Office Visit [facility] [address] [place], [place] [phone] Anette Novoa MD [address] [place] [address] documented as of this encounter Visit Diagnoses Not on filedocumented in this encounter Care Teams Senior Technical Trainer Relationship Specialty Start Date End Date Scott Chadwick [address] [place] [address] PCP - General Internal Medicine 05/03/22 documented as of this encounter
--- OUTSIDE RECORDS SUMMARY | 2025-05-15 12:42 | XMS_ITS | Encounter Summary ---
Author Organization [facility] Address [address] [place] [address] Phone Care Team Providers Care Guest Relations Receptionist Name Role Phone Scott Chadwick MD Primary Care Provider [phone] Minh Ruiz MD Unavailable Dash Mayo MD Unavailable Leslie Matta MD Unavailable Davis Meneses MD Unavailable Jimenez Estes MD Unavailable Encounter Details Date Type Department Care Team (Late st Contact Info) Description 05/13/2025 Orders Only [facility] Internal Medicine [address] [place] [address] Provider, MD Harika [address] [place] [address] Social History Tobacco Use Types Packs/Day Years Used Date Smoking Tobacco: Former Cigarettes 1.5 22 1 967 - 1989 Smokeless Tobacco: Never Alcohol Use Standard Drinks/Week Comments Not Currently [...] Orientation Straight 01/29/2020 2: 22 PM EDT documented as of this encounter Plan of Treatment Upcoming Encounters Date Type Department Care Team (Late st Contact Info) Description 08/12/2025 2:00 PM EST Office Visit [facility] Internal Medicine [address] [place] [address] Scott Chadwick MD [address] [place], [place] [phone] [email or web address] 12/11/2025 2:00 PM EDT Telemedicine [facility] Department of Neurology [address] [place] [address], 8th Floor, [address] [place] [address] Riky Macedo MD [address] [place] [address] [email or web address] 04/10/2026 2:00 PM EDT Office Visit [facility] Internal Medicine [address] [place], [place] [phone] Cortez Aguilar PA-C [address] [place] [address] [email or web address] documented as of this encounter Procedures Procedure Name Priority Date/Time Associated Diagnosis Comments OUTSIDE LAB Routine 05/09/2025 8:09 AM EDT documented in this encounter Results * Outside Lab (05/09/2025 8:09 AM EDT) us Historical Provider LAB BLOOD ORDERABLES Vanessa l Result documented in this encounter Visit Diagnoses Not on filedocumented in this encounter Additional Health Concerns Assessment Noted Time PHQ-2 Depression Total Score: 0 02/07/20 25 3:34 PM EDT documented as of this encounter Care Teams Guest Relations Receptionist Relationship Specialty Start Date End Date Scott Chadwick MD [address] [place] [address] [email or web address] PCP - General Internal Medicine 08/04/17 Minh Ruiz MD [address] [place] [address] Drive [address] [place] [address] Gastroenterology 05/30/20 Dash Mayo MD [address] [place] [address] [address] Neurology 06/06/20 Leslie Matta MD [address] [place] [address] [address] General Surgery 08/11/20 Davis Meneses MD [address] [place] [address] [address] [place] [address] Urology 03/27/21 Jimenez Estes MD [address] [place] [address] Dermatology 02/24/24 documented as of this encounter Additional Source Comments The information contained in this document represents components of the legal health record. It is not the complete legal health record.[facility]
--- OUTSIDE RECORDS SUMMARY | 2025-05-15 12:42 | XMS_ITS | Patient Health Record ---
Author Organization [facility] Address [address] [place] [address] Care Team Providers Care Millinery Designer Name Role Phone Scott Chadwick MD Primary Care Provider Minh Mckeon [phone] Allergies Allergen (clinical drug ingredient) Drug/Non Drug Allergy documented on EMR Reaction Allergy Type Onset Date Status codeine Codeine Sulfate Unknown Drug Allergy A ctive Reason For Referral No Information Medications Medication SIG (Take, Route, Frequency, Duration) Notes Start Date End Date Status amLODIPine Besylate 10 MG TK 1 T PO QD Oral for 90 Active Gabapentin 100 MG 1 tablet Orally Once a day Active Metoprolol & Diet Manage Prod Not-Taking Losartan Potassium 25 MG TK 1 AND 1/2 TS PO D Oral Once a day Active Carafate 1 GM/10ML Orally Twice a day Just PRN--rare Active Omeprazole 20 MG TAKE 1 CAPSULE BY MOUTH EVERY DAY Orally Once a day for 30 days Active Vitamin D3 250 MCG (022[address] UT) as directed Orally Active Amoxicillin-Pot Clavulanate 500-125 MG 1 tablet Orally every 8 hrs for 7 days 11/12/2021 Active Tylenol Extra Strength 500 MG 1 [...] FOR BLOATING/CRAMPS/DIS COMFORT for 30 days Active Hyoscyamine Sulfate ER 0.375 MG 1/2 [...] Problem Status W/U Status Risk Notes Problem 22175255 Epigastric abdominal pain (R10.13) Active confirmed Problem Gastroduodenitis (588883196) Gastritis, unspecified, without bleeding (K29.70) Active confirmed Problem 731264207 Irritable bowel syndrome with diarrhea (K58.0) Active confirmed Problem Generalized abdominal pain (044887293) Generalized abdominal pain (R10.84) Active confirmed Problem Duodenitis (12096944) Duodenitis (K29.80) Active confirmed Problem Irritable bowel syndrome (39466699) IBS (irritable bowel syndrome) (K58.9) Active confirmed Problem 76168641 Abdominal pain, epigastric (R10.13) Active confirmed Problem Diverticular disease of colon (398018795) Diverticulosis (K57.90) Active confirmed Problem 154662730 Diverticulosis o f large intestine without hemorrhage (K57.30) Active confirmed Problem 224160078 Gallstones (K80.20) Active confirmed Problem 671435420 Abdominal pain, left lower quadrant (R10.32) Active confirmed Problem Epigastric pain (10701567) Abdominal pain, acute, epigastric (R10.13) Active confirmed Problem 192624150 Abdominal pain, generalized (R10.84) Active confirmed Problem 50597602 Irritable bowel syndrome, unspecified type (K58.9) Active confirmed Problem 53915506 Irritable bowel syndrome with both constipation and diarrhea (K58.2) Active confirmed Problem Left lower quadrant pain (213778808) Abdominal pain, acute, left lower quadrant (R10.32) Active confirmed Problem 45839580726177949 Abnormal CT sc an, gallbladder (R93.2) Active confirmed Problem 823230883230380 History of diverticulitis of colon (Z87.19) Active confirmed Encounters Encounter Location Date Provider Diagnosis [facility] [address] [place] [phone] 06/11/2024 Minh Ruiz [facility] [address] [place] [phone] 01/23/2025 Minh Ruiz [facility] [address] [place] [phone] 05/09/2025 Minh Ruiz Plan Of Treatment Pending Test [...] PROFILE 01/14/2014 URINALYSIS + MICROSCOPIC, CLEAN CATCH [id number] (A1A) 01/14/2014 CELIAC PANEL #10 05/17/2013 ENDOMYSIAL [...] Date UPPER GI ENDOSCOPY 09/05/2014 COLONOSCOPY 09/05/2014 Next Appt Details Provider Name:Minh Ruiz , 09/10/2025 01:40:00 PM, [address] [facility], [address], [place], [address], Insurance Providers Payer Name Payer Address Payer Phone Subscriber Number Group Number Insured Name Patient Relationship to Insured Coverage Start Date Coverage End Date [employer] [place] 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 Mayo and neurologists at [facility]--associated with intermittent spells of fatigue, weakness, and [...]
== END 2025-05-15 11:20 | disposition home or self-care (01) ==
LOC: HO.CT 11:19
PROVIDERS: PCP Internal Medicine; Visit Provider Surgery
DX: R10.30 Lower abdominal pain, unspecified (principal)
CPT/HCPCS: 74177; Q9967

== ENCOUNTER → 2025-05-15 11:21 | Outpatient (BNV) | payer OTHER, SELFPAY | PROVIDERS: PCP Internal Medicine; Visit Provider Radiology Diagnostic Radiology | DX: N28.1 Cyst of kidney, acquired (principal) | CPT/HCPCS: 74177 ==

== ENCOUNTER 2025-06-05 11:05 | Outpatient (REF) | payer OTHER, SELFPAY ==
[2025-06-05 11:39] LABS: MANUAL DIFF FLAG NO
[2025-06-05 12:39] LABS: Hematocrit 40.7 % (42.0-52.0); Hemoglobin 13.7 g/dl (14.0-18.0); Imm Gran Abs Auto 0.05 X10*3/uL (0.00-0.03); Imm Gran Pct Auto 0.7 % (0.0-0.4); Lymphocytes Absolute Auto 2.0 X10*3/uL (1.2-4.9); Mean Corpuscular HGB Conc 33.7 g/dl (31.0-36.0); Mean Corpuscular Hemoglobin 29.6 pg (27.0-33.0); Mean Corpuscular Volume 87.9 fL (80.0-98.0); NRBC Abs Auto 0.000 X10*3/uL (0.0-0.012); NRBC Pct Auto 0.0 /100WBC (0.0-0.2); Platelet Count 193 X10*3/uL (160-400); Red Blood Count 4.63 X10*6/uL (4.60-5.80); White Blood Count 6.7 X10*3/uL (4.8-10.8)
[2025-06-05 12:48] LABS: Hemoglobin A1C 142.5163 umol/L; Total Hemoglobin (HGBA1C) 3563.6702 umol/L
[2025-06-05 13:11] LABS: Alanine Aminotransferase 70 U/L (0-40); Albumin Level 4.6 g/dL (3.5-5.0); Alkaline Phosphatase 50 U/L (39-117); Anion Gap 10 (12-20); Aspartate Amino Transferase 39 U/L (5-37); Blood Urea Nitrogen 14 mg/dL (9-16); Calcium 9.3 mg/dL (8.4-10.2); Carbon Dioxide 29 mmol/L (22-29); Chloride 107 mmol/L (96-108); Estimated Glomerular Filt Rate > 60; Iron 73 mcg/dL (45-160); Percent Iron Saturation 28 % (15-50); Potassium 4.7 mmol/L (3.3-5.1); Sodium 141 mmol/L (135-145); Total Iron Binding Capacity 264 mcg/dL (228-428); Total Protein 7.6 g/dL (6.5-8.0); Unsaturated Iron Binding 191 ug/dL
[2025-06-05 13:27] LABS: Ferritin 146 ng/mL (20-250)
[2025-06-06 08:26] LABS: HBsAGNum1 0.44 S/CO (0.00-0.99); Hepatitis B Surface Antigen Negative (Negative); ~HepC Num1 0.15 S/CO (0.00-0.79); ~Hepatitis C Antibody Nonreactive (Nonreactive)
== END 2025-06-05 11:06 | disposition home or self-care (01) ==
LOC: HO.LAB 11:05
PROVIDERS: Absent Provider Internal Medicine; PCP Internal Medicine; Visit Provider Surgery
DX: R10.31 Right lower quadrant pain (principal); K40.90 Unilateral inguinal hernia, without obstruction or gangrene, not specified as recurrent; K76.0 Fatty (change of) liver, not elsewhere classified; K57.90 Diverticulosis of intestine, part unspecified, without perforation or abscess without bleeding; I10 Essential (primary) hypertension; M15.0 Primary generalized (osteo)arthritis; R94.5 Abnormal results of liver function studies; R73.01 Impaired fasting glucose; R53.83 Other fatigue; Z13.1 Encounter for screening for diabetes mellitus; Z11.59 Encounter for screening for other viral diseases
CPT/HCPCS: 36415; 80053; 82728; 83036; 83540; 84443; 85025; 86803; 87340

== ENCOUNTER 2025-06-05 11:05 | Outpatient (AMB) | payer OTHER, SELFPAY ==
--- NOTE | 2025-06-05 11:08 | A.OFFVIS_ITS ---
Vital Signs 06/05/25 11:12 Height 6 ft Weight 190 lb BMI 25.8 BP 143/66 H Blood Pressure Location Lt brachial Position Sitting Pulse 63 Intake Visit Reasons: s/p CT Intake Note: Patient here s/p abdomen pelvis CT on 05-15-2025. Buttonhole Tacker Required: No Accompanied by: Self / Same As Patient Allergies codeine (Codeine) Allergy (Intermediate, Verified 06/05/25 11:13) Dizziness meperidine (Meperidine) Allergy (Mild, Verified 06/05/25 11:13) UNKNOWN Medication List - Last Reconciled 06/05/25 by Gabriel Gaviria MD acetaminophen (Acetaminophen Extra Strength) 1,000 mg PO BEDTIME PRN amlodipine 5 mg PO DAILY celecoxib 200 mg PO DAILY PRN cholecalciferol (vitamin D3) (Vitamin D3) 50 mcg PO DAILY comp.stocking,thigh,long,small As directed cyanocobalamin (vitamin B-12) 1,000 mcg PO DAILY dutasteride 0.5 mg PO DAILY 90 days gabapentin 200 mg PO BEDTIME hyoscyamine sulfate 0.375 mg PO BID PRN losartan 25 mg PO BEDTIME omeprazole 40 mg PO DAILY ondansetron 4 mg PO Q8H PRN phenazopyridine (Pyridium) 100 mg PO TID PRN 2 days sucralfate 1 g PO TID PRN tamsulosin 0.4 mg PO DAILY@1700 90 days HPI HPI s/p CT: Details: He is here to review findings on his CAT scan. I had seen him last month and sent him for a CAT scan in view of his complains of ?burning? on his lower abdomen He says he continues to have this on and off although he says he is much improved. He describes mostly discomfort in the right groin area. He has good oral intake. He is not losing weight. He denies any fever or chills. He denies nausea or vomiting. [facility] Medical History Lower abdominal pain Diastasis recti Cataract, right eye Autonomic neuropathy Hyperlipidemia Cholelithiasis BCC (basal cell carcinoma), face Abnormal liver function test Abdominal pain Cyst, kidney, acquired Hx of prostatitis COVID-19 vaccine series completed Depression Peripheral neuropathy Cervical spondyloarthritis Mood disorder Pre-diabetes Hx of Guillain-Providence syndrome Arthritis Back pain DDD (degenerative disc disease) Fatty liver Left inguinal hernia Axillary abscess History of lumbar puncture Autoimmune encephalitis Gallstones Hypertension GERD (gastroesophageal reflux disease) Prostatitis Surgical History History of hernia repair History of esophagogastroduodenoscopy (EGD) Hx of colonoscopy Family History Mother No problems noted. Father No problems noted. Social History Are you a primary outdoor emergency care technician to a significant other at home: No Do you presently have visiting nurse or other home services: No Alcohol intake: never Patient Tobacco Use Status: Former Tobacco user Review of Systems Const Denies chills and Denies fever(s) Card Denies chest pain Resp Denies cough GI Denies constipation and Denies vomiting Reports difficulty urinating Physical Exam Vital Signs: Last Vital Signs Pulse 63 06/05/25 11:12 BP 143/66 H 06/05/25 11:12 BMI result Body Mass Index 25.8 Const Other: Looks well General: comfortable and no acute distress Resp Effort & Inspection: normal respiratory effort Cardio Rate: regular rate GI Other: Reducible right inguinal hernia Palpation (GI): Soft to palpation, not firm and nontender Assessment & Plan Assessment & Plan (1) Abdominal pain: Code(s): R10.9 - Unspecified abdominal pain Category: Medical Plan: He has had chronic abdominal complaints. I have reviewed his CAT scan from May 15, 2025. This shows small fat containing as well as the right inguinal hernia containing fat. He has known gallstones. He also has hepatic steatosis, and diverticulosis He does state that he has discomfort in the right groin. He has been holding off on right inguinal hernia surgery for a while now. He is now considering on going ahead He has other medical issues going on. He is going to see a neuro corn shucker in [place] because of his vision problems. He is also seeing Dr. Cavazos for his prostate. He denies any problems with the right upper quadrant pain and does not want any cholecystectomy at this time He says he will call me once he decides to proceed with a right inguinal hernia repair. His was with him during the visit. Coding Level of Care Code Est Pt Level 3 (01574) Diagnoses Abdominal pain R10.9
[2025-06-05 11:12] VITALS: BP 143/66; PULSE 63; BMI 25.8
--- OUTSIDE RECORDS SUMMARY | 2025-06-05 14:10 | XMS_ITS | Encounter Summary ---
Author Organization [facility] Address [address] [place] [address] Phone Care Team Providers Care Labor Service Representative Name Role Phone Scott Chadwick MD Primary Care Provider [phone] Minh Ruiz MD Unavailable Dash Mayo MD Unavailable Leslie Matta MD Unavailable [phone] Davis Meneses MD Unavailable [phone] Jimenez Estes MD Unavailable Reason for Referral * MRI/CAT Scan - Closed Specialty Diagnoses / Procedures Referred By Contac t Referred To Contact Radiology Procedures Outside CT Abd/pelvis Report Only [facility] Internal Medicine [address] [place] [address] Phone: tel: fax: Referral ID Status Reason Start Date Expiration Date Visits Re quested Visits Authorized [id number] Closed 05/15/2025 1 1 Encounter Details Date Type Department Care Team (Late st Contact Info) Description 05/15/2025 Orders Only [facility] Internal Medicine [address] [place] [address] Harika Zhou MD [address] [place] [address] Social History Tobacco Use Types Packs/Day Years Used Date Smoking Tobacco: Former Cigarettes 1.5 22 1 967 - 1988 Smokeless Tobacco: Never Alcohol Use Standard Drinks/Week [...] Description 08/12/2025 2:00 PM EST Office Visit [facility] Internal Medicine [address] [place] [address] Scott Chadwick MD [address] [place] [address] [email or web address] 12/11/2025 2:00 PM EDT Telemedicine [facility] [place] Department of Neurology [address] [place] [address], 8th Floor, [address] [place] [address] Riky Macedo MD [address] [place] [address] [email or web address] 04/10/2026 2:00 PM EDT Office Visit [facility] Internal Medicine [address] [place] [address] Cortez Aguilar PA-C [address] [place] [address] documented as of this encounter Procedures Procedure Name Priority Date/Time Associated Diagnosis Comments OUTSIDE CT ABD/PELVIS REPORT ONLY Routine 05/15/2025 12:54 PM EDT documented in this encounter Results * Outside CT Abd/pelvis Report Only (05/15/2025 12:54 PM EDT) us Historical Provider MD GARCIA CT ABD/PELVIS Final R esult documented in this encounter Visit Diagnoses Not on filedocumented in this encounter Additional Health Concerns Assessment Noted Time PHQ-2 Depression Total Score: 0 02/07/20 25 3:34 PM EDT documented as of this encounter Care Teams Labor Service Representative Relationship Specialty Start Date End Date Scott Chadwick MD [address] [place] [address] [email or web address] PCP - General Internal Medicine 08/04/17 Minh Ruiz MD [address] [facility] [address] [place] [address] Gastroenterology 05/30/20 Dash Mayo MD [address] [place] [address] [address] [place] [address] Neurology 06/06/20 Leslie Matta MD [address] [place] [address] [address] [place] [address] General Surgery 08/11/20 Davis Meneses MD [address] [place] [address] [address] [place] [id number] Urology 03/27/21 Jimenez Estes MD [address] [place] [address] Dermatology 02/24/24 documented as of this encounter Additional Source Comments The information contained in this document represents components of the legal health record. It is not the complete legal health record.[facility]
--- OUTSIDE RECORDS SUMMARY | 2025-06-05 14:10 | XMS_ITS | Encounter Summary ---
Author Organization [facility] Address [address] [place] [address] Care Team Providers Care Chain Link Fence Installer Name Role Phone Scott Chadwick Primary Care Provider [phone] Reason for Visit * Reason Onset Date Comments PAC Order Request 10/12/2022 Encounter Details Date Type Department Care Team (Late st Contact Info) Description 10/12/2022 Telephone [facility] Central Scheduling Department [address] [place] [address] Telephone Intake, Staff PAC Order Request Social [...] to send to his local hospital in [place]. * Telephone Encounter - Ramona Garcia - [...] Please call patient back to book Callback# [phone] documented in this encounter Plan of Treatment Upcoming Encounters Date Type Department Care Team (Late st Contact Info) Description 06/27/2025 3:00 PM EDT Office Visit [facility] Neurology Clinic [address] [place], [place] [phone] Anette Novoa MD [address] [place] [address] documented as of this encounter Visit Diagnoses Not on filedocumented in this encounter Care Teams Chain Link Fence Installer Relationship Specialty Start Date End Date Scott Chadwick [address] [place] [address] PCP - General Internal Medicine 05/03/22 documented as of this encounter
--- OUTSIDE RECORDS SUMMARY | 2025-06-05 14:10 | XMS_ITS | Encounter Summary ---
Author Organization [facility] Address [address] [place] [address] Care Team Providers Care Counter Weigher Name Role Phone [place] Blank Primary Care Provider [phone] Encounter Details Date Type Department Care Team (Late st Contact Info) Description 12/10/2022 Orders Only [facility] Neurology Clinic [address] [place] [address] Alhaji Bernal Jr., DO [address] [place] [address] Social History Tobacco Use Types Packs/Day Years [...] Description 06/27/2025 3:00 PM EDT Office Visit [facility] Neurology Clinic [address] [place] [address] Anette Novoa MD [address] [place] [address] documented as of this encounter Procedures * Due to [facility] law, this organization might not be sharing negative HIV tests. Procedure Name Priority Date/Time Associated Diagnosis Comments LAB - SCANNED Routine 12/10/2022 ALT, OUTSIDE LAB Routine 12/10/2022 AMB EXTERNAL US NECK SOFT TI SSUE, SCANNED RESULT Routine 12/10/2022 documented in this encounter Results * Due to [facility] law, this organization might not be [...] on filedocumented in this encounter Care Teams Counter Weigher Relationship Specialty Start Date End Date Scott Chadwick [address] [place] [address] PCP - General Internal Medicine 05/03/22 documented as of this encounter
--- OUTSIDE RECORDS SUMMARY | 2025-06-05 14:10 | XMS_ITS | Encounter Summary ---
Author Organization [facility] Address [address] [place] [address] Care Team Providers Care Plate Grinder Name Role Phone Scott Chadwick Primary Care Provider [phone] Reason for Visit * Reason Onset Date Comments Request For Order(s) 11/18/2022 Encounter Details Date Type Department Care Team (Late st Contact Info) Description 11/18/2022 Telephone [facility] Neurology Clinic [address] [place] [address] Telephone Intake, Staff Request For Order(s) Social [...] - 11/24/2022 9:10 AM EST Faxed to [phone] They will reach out to schedule He is able to call central scheduling [phone] * Telephone Encounter - Aura Fleming - 11/24/2022 9:09 AM EST Patient requested to have the carotid duplex order to [facility] Faxed order and lvm for the [...] 06/27/2025 3:00 PM EDT Office Visit [facility] Neurology [facility] [address] [place] [address] [phone] Anette Novoa MD [address] [place] [address] documented as of this encounter Visit Diagnoses Not on filedocumented in this encounter Care Teams Plate Grinder Relationship Specialty Start Date End Date Scott Chadwick [address] [place] [address] PCP - General Internal Medicine 05/03/22 documented as of this encounter
--- OUTSIDE RECORDS SUMMARY | 2025-06-05 14:10 | XMS_ITS | Encounter Summary ---
Author Organization [facility] Address [address] [place] [address] Care Team Providers Care Rn Recruitment Name Role Phone [place] Blank Primary Care Provider [phone] Encounter Details Date Type Department Care Team (Late st Contact Info) Description 12/22/2022 Orders Only [facility] Neurology Clinic [address] [place] [address] Alhaji Bernal Jr., DO [address] [place] [address] Social History Tobacco Use Types Packs/Day Years [...] Description 06/27/2025 3:00 PM EDT Office Visit [facility] Neurology Clinic [address] [place] [address] Anette Novoa MD [address] [place] [address] documented as of this encounter Procedures * Due to [place] [employer] law, this organization might not be sharing negative HIV tests. Procedure Name Priority Date/Time Associated Diagnosis Comments AMB EXTERNAL CT HAND, OUTSID E RESULT Routine 12/22/2022 documented in this encounter Results * Due to [facility] law, this organization might not be sharing negative HIV tests. * CT Hand, Outside Result (12/22/2022) Anatomical Region Laterality Modality Other Alhaji Bernal Jr., DO AMB EXTERNAL RESULT P ROCEDURES Final Result documented in this encounter Visit Diagnoses Not on filedocumented in this encounter Care Teams Rn Recruitment Relationship Specialty Start Date End Date Scott Chadwick [address] [place] [address] PCP - General Internal Medicine 05/03/22 documented as of this encounter
--- OUTSIDE RECORDS SUMMARY | 2025-06-05 14:10 | XMS_ITS | Encounter Summary ---
Author Organization [facility] Address [address] [place] [address] Care Team Providers Care Colorectal Surgeon Name Role Phone Scott Chadwick Primary Care Provider [phone] Encounter Details Date Type Department Care Team (Late st Contact Info) Description 09/12/2023 Happy [employer] Message [facility] [employer] [address] [place] [address] [employer] Generic Provider [address] [place], [place] [phone] Payment Agreement Social History Tobacco Use Types [...] Description 06/27/2025 3:00 PM EDT Office Visit [facility] Neurology Clinic [address] [place] [address] Anette Novoa MD [address] [place] [address] documented as of this encounter Visit Diagnoses Not on filedocumented in this encounter Care Teams Colorectal Surgeon Relationship Specialty Start Date End Date Scott Chadwick [address] [place] [address] PCP - General Internal Medicine 05/03/22 documented as of this encounter
--- OUTSIDE RECORDS SUMMARY | 2025-06-05 14:10 | XMS_ITS | Encounter Summary ---
Author Organization [facility] Address [address] [place] [address] Care Team Providers Care County Library Director Name Role Phone [place] Blank Primary Care Provider [phone] Encounter Details Date Type Department Care Team (Late st Contact Info) Description 10/20/2022 Orders Only [facility] Interventional Radiology [address] [place] [address] Flaco Fuller MD [address] [place] [address] [place] [address] Social History Tobacco Use Types Packs/Day Years [...] Description 06/27/2025 3:00 PM EDT Office Visit [facility] Neurology Clinic [address] [place] [address] Anette Novoa MD [address] [place] [address] documented as of this encounter Visit Diagnoses Not on filedocumented in this encounter Care Teams County Library Director Relationship Specialty Start Date End Date Scott Chadwick [address] [place] [address] PCP - General Internal Medicine 05/03/22 documented as of this encounter
--- OUTSIDE RECORDS SUMMARY | 2025-06-05 14:10 | XMS_ITS | Encounter Summary ---
Author Organization [facility] Address [address] [place] [address] Care Team Providers Care Audio Production Engineer Name Role Phone [place] Blank Primary Care Provider [phone] Encounter Details Date Type Department Care Team (Late st Contact Info) Description 12/29/2022 Orders Only [facility] Neurology Clinic [address] [place] [address] Alhaji Bernal Jr., DO [address] [place] [address] Social History Tobacco Use Types Packs/Day Years [...] Description 06/27/2025 3:00 PM EDT Office Visit [facility] Neurology Clinic [address] [place] [address] Anette Novoa MD [address] [place] [address] documented as of this encounter Procedures * Due to [place] [employer] law, this organization might not be sharing negative HIV tests. Procedure Name Priority Date/Time Associated Diagnosis Comments AMB EXTERNAL CT HEAD, OUTSID E RESULT Routine 12/29/2022 documented in this encounter Results * Due to [facility] law, this organization might not be sharing negative HIV tests. * CT Head, Outside Result (12/29/2022) Anatomical Region Laterality Modality Other Alhaji Bernal Jr., DO AMB EXTERNAL RESULT P ROCEDURES Final Result documented in this encounter Visit Diagnoses Not on filedocumented in this encounter Care Teams Audio Production Engineer Relationship Specialty Start Date End Date Scott Chadwick [address] [place] [address] PCP - General Internal Medicine 05/03/22 documented as of this encounter
--- OUTSIDE RECORDS SUMMARY | 2025-06-05 14:11 | XMS_ITS | Clinical Summary ---
Author Organization [facility] Address [address] [place] [address] Care Team Providers Care Wet End Helper Name Role Phone Scott Chadwick Primary Care Provider Allergies Active Allergy Reactions Criticality Noted Date [...] pyridostigmine and he will check with his coil cutter. Paresthesias -consider pyridostigmine 30mg in the morning (he will check with coil cutter) -compression stockings daily -hydration 80-100 oz/day -follow [...] 103 01/18/2024 12:45 PM EDT Temperature 36.8 C (98.2 F) 01/18/2024 12:40 PM EDT Respiratory Rate 16 01/18/2024 12:40 PM EDT Oxygen Saturation - - Inhaled Oxygen Concentration - - Weight 83 kg (183 lb) 01/18/2024 12:40 PM EDT Height 182.9 cm (6') 01/18/2024 12:40 PM EDT Body Mass Index 24.82 01/18/2024 12:40 PM EDT Plan of Treatment Upcoming Encounters Date Type Department Care Team (Late st Contact Info) Description 06/27/2025 3:00 PM EDT Office Visit [facility] Neurology Clinic [address] [place] [address] Anette Novoa MD [address] [place] [address] [phone] Health Maintenance Due Date Last Done Comments Hepatitis C Screening 1948 CT Lung Cancer Screening (Baseline) 1998 Pneumococcal Vaccine: 50+ Years (1 of 1 - PCV) 1998 Zoster Vaccines (1 of 2) 1998 DTaP,Tdap,and Td Vaccines (1 - Tdap) 01/25/2005 01/24/2005 RSV Vaccine (60+ years old and patients) (1 - 1-dose 75+ series) 2023 Alcohol/Substance Use Screening 09/26/2024 Depression Screening and Follow-Up 09/26/2024 Health Care Proxy Review 09/26/2024 Social Drivers of Health Annual Screening 09/26/2024 Basic Metabolic Panel 04/30/2025 04/30/2024 , 12/20/2023, 09/30/2022, Additional history exists COVID-19 Vaccine (2024- season) 2025 09/10/2021, 12/06/2020, 11/13/2020 Influenza Vaccine (#1) 2025 Hepatitis B Vaccines Aged Out No long er eligible based on patient's age to complete this topic [employer] [place] [address] Care Teams Wet End Helper Relationship Specialty Start Date End Date Scott Chadwick [address] [place] [address] PCP - General Internal Medicine 05/03/22
--- OUTSIDE RECORDS SUMMARY | 2025-06-05 14:11 | XMS_ITS | Encounter Summary ---
Author Organization [facility] Address [address] [place] [address] Phone Care Team Providers Care Casting Chipper Name Role Phone Scott Chadwick MD Primary Care Provider Minh Ruiz MD Unavailable Dash Mayo MD Unavailable Leslie Matta MD Unavailable [phone] Davis Meneses MD Unavailable [phone] Jimenez Estes MD Unavailable Encounter Details Date Type Department Care Team (Late st Contact Info) Description 05/13/2025 Orders Only [facility] Internal Medicine [address] [place] [address] Provider, MD Harika [address] [place] [address] Social History Tobacco Use Types Packs/Day [...] Description 08/12/2025 2:00 PM EST Office Visit [facility] Internal Medicine [address] [place] [address] Scott Chadwick MD [address] [place], [place] [address] [email or web address] 12/11/2025 2:00 PM EDT Telemedicine [facility] Department of Neurology [address] [place] [address], 8th Floor, [address] [place] [address] Riky Macedo MD [address] [place] [address] [email or web address] 04/10/2026 2:00 PM EDT Office Visit [facility] Internal Medicine [address] [place], [place] [phone] Cortez Aguilar PA-C [address] [place] [address] [email or web address] documented as of this encounter Procedures [...] documented as of this encounter Care Teams Casting Chipper Relationship Specialty Start Date End Date Scott Chadwick MD [address] [place] [address] [email or web address] PCP - General Internal Medicine 08/04/17 Minh Ruiz MD [address] [place] [address] Drive [address] [place] [address] Gastroenterology 05/30/20 Dash Mayo MD [address] [place] [address] [address] Neurology 06/06/20 Leslie Matta MD [address] [place] [address] [address] General Surgery 08/11/20 Davis Meneses MD [address] [place] [address] [address] [place] [address] Urology 03/27/21 Jimenez Estes MD [address] [place] [address] Dermatology 02/24/24 documented as of this encounter Additional Source Comments The information contained in this document represents components of the legal health record. It is not the complete legal health record.[facility]
--- OUTSIDE RECORDS SUMMARY | 2025-06-05 14:12 | XMS_ITS | Clinical Summary ---
Author Organization [facility] Address [address] [place] [address] Phone Care Team Providers Care Food Processing Scientist Name Role Phone Scott Chadwick MD Primary Care Provider Minh Ruiz MD Unavailable Dash Mayo MD Unavailable [phone] Leslie Matta MD Unavailable [phone] Davis Meneses MD Unavailable Jimenez Estes MD Unavailable [phone] Allergies Active Allergy Reactions Criticality Noted Date [...] rhonchi in [place]. [place] Augmentin he was placed on 3 days ago due to presumed diverticulitis by GI Cervical radiculitis 04/05/2024 Overview (04/05/2024): Following with [place] [facility] Dr. Michele Marcos MD was [...] Encounters Date Type Department Care Team Description 05/15/2025 Orders Only [facility] Internal Medicine [address] [place] [address] ProviderHarika MD 05/13/2025 Orders Only [facility] Internal Medicine [address] [place] [address] Harika Zhou MD 04/04/2025 Telephone [facility] Internal Medicine [address] [place] [address] Scott Chadwick MD 04/03/2025 Telephone [facility] Internal Medicine [address] [place] [address] Scott Chadwick MD Dizziness 03/06/2025 Orders Only [facility] Internal Medicine [address] [place] [address] Provider, MD Harika Essential hypertension; Impaired fasting glucose; Fatigue, unspecified type; Vitamin D deficiency, unspecified; Primary osteoarthritis involving multiple joints from Last 3 Months Immunizations Immunization Administration [...] Description 08/12/2025 2:00 PM EST Office Visit [facility] Internal Medicine [address] [place] [address] Scott Chadwick MD [address] [place] [address] [email or web address] 12/11/2025 2:00 PM EDT Telemedicine [facility] Department of Neurology [address] [facility], 8th Floor, [address] [place] [address] Riky Macedo MD [address] [place] [address] [email or web address] 04/10/2026 2:00 PM EDT Office Visit [facility] Internal Medicine [address] [place] [address] Cortez Aguilar PA-C [address] [place] [address] [email or web address] Health Maintenance Due Date Last Done Comments PNEUMOCOCCAL VACCINES (50+ years) (1 of 1 - PCV) 1998 ZOSTER VACCINES (1 of 2) 1998 Adult Td,Tdap Booster 01/24/2015 01/24/2005 RSV VACCINE (1 - 1-dose 75+ series) 2023 INFLUENZA VACCINE (#1) 2025 COVID-19 VACCINE (2024- season) 2025 09/10/2021, 12/06/2020, 11/13/2020 BLOOD PRESSURE 08/15/2025 02/12/2025 DEPRESSION SCREENING 02/06/2026 02/06/2025 CREATININE LEVEL 03/05/2026 03/05/2025, 09/2024, 04/30/2024, Additional history exists POTASSIUM LEVEL 03/05/2026 03/05/2025, 05/0 09/2024, 04/30/2024, Additional history exists LIPID PANEL [...] REPORT ONLY Routine 05/15/2025 12:54 PM EDT OUTSIDE LAB Routine 05/09/2025 8:09 AM EDT OUTSIDE LAB Routine 03/05/2025 3:51 PM EDT [...] Relevant to Health Maintenance Results * Outside CT Abd/pelvis Report Only (05/15/2025 12:54 PM EDT) Result [facility] Historical Provider IMG CT ABD/PELVIS Final R esult * Outside Lab (05/09/2025 8:09 AM EDT) Only the most recent of2 resultswithin the time period is included. Result [facility] Historical Provider LAB BLOOD ORDERABLES Vanessa l Result * CBC and differential (03/05/2025 12:52 PM EDT) Blood Result [facility] Scott Chadwick MD LAB BLOOD ORDERABLES Final Re sult Performing Organization Address [facility] de Phone Number EXTERNAL NON-INTERFACED REF LAB * Urinalysis (03/05/2025 12:51 PM EDT) Urine (Urine) Scott Chadwick MD URINE ORDERABLES Final Result Performing Organization Address [facility] de Phone Number EXTERNAL NON-INTERFACED REF LAB * 25-OH vitamin D (03/05/2025 12:51 PM EDT) Blood Scott Chadwick MD LAB BLOOD ORDERABLES Final Re sult Performing Organization Address [facility] de Phone Number EXTERNAL NON-INTERFACED REF LAB * Vitamin B12 (03/05/2025 12:51 PM EDT) Blood Scott Chadwick MD LAB BLOOD ORDERABLES Final Re sult Performing Organization Address [facility] de Phone Number EXTERNAL NON-INTERFACED REF LAB * Magnesium (03/05/2025 12:51 PM EDT) Blood Scott Chadwick MD LAB BLOOD ORDERABLES Final Re sult Performing Organization Address [facility]/ZIP Co de Phone Number EXTERNAL NON-INTERFACED REF [...] R esult - Final Performing Organization Address [facility] Co de Phone Number EXTERNAL NON-INTERFACED REF LAB * TSH (03/05/2025) Pathologist [facility] TSH - External 1.27 EXTER NAL NON-INTERFACED REF LAB Blood 03/05/2025 Scott Chadwick MD LAB BLOOD ORDERABLES Edited R esult - Final Performing Organization Address [facility]/ZIP Co de Phone Number EXTERNAL NON-INTERFACED REF LAB * Hemoglobin A1c (03/05/2025) Pathologist [facility] Hemoglobin A1c - External 5.7 EXTERNAL NON-INTERFACED REF LAB Blood 03/05/2025 Scott Chadwick MD LAB BLOOD ORDERABLES Edited R [facility] EXTERNAL NON-INTERFACED REF LAB * Lipid panel (03/05/2025) HDL - External 30 EXTER NAL NON-INTERFACE [...] Scott Chadwick MD LAB BLOOD ORDERABLES Edited [facility] Performing Organization Address [facility] de Phone Number EXTERNAL NON-INTERFACED REF LAB * Outside Hepatitis C Virus Screening (01/31/2014) Hepatitis C Screening - External Neg Result [facility] Historical Provider LAB BLOOD ORDERABLES Vanessa l Result from Last 3 Months or Most Recently Relevant to Health Maintenance Insurance [employer] ADMINIST[employer]AT[employer] [facility] [employer] [facility] BENEFITS ADMINISTRATORS [employer] [facility] [employer]ENEFITS ADMINISTRATORS [facility] BENEFITS ADMINISTRATORS [employer] [facility] ADMINISTRATORS [employer] [facility] ADMINISTRATORS [employer]IST[employer] Care Teams Food Processing Scientist Relationship Specialty Start Date End Date Scott Chadwick MD [address] [place] [address] [email or web address] PCP - General Internal Medicine 08/04/17 Minh Ruiz MD [address] [place] [address] [place] [address] Gastroenterology 05/30/20 Dash Mayo MD [address] [place] [address] Dr Taylor [address] [place] [address] Neurology 06/06/20 Leslie Matta MD [address] [place] [address] Dr Taylor [address] [place] [address] General Surgery 08/11/20 Davis Meneses MD [address] [place] [phone] Urology 03/27/21 Jimenez Estes MD [address] [place] [address] Dermatology 02/24/24 Additional Source Comments The information contained in this document represents components of the legal health record. It is not the complete legal health record.[facility]
--- OUTSIDE RECORDS SUMMARY | 2025-06-05 14:12 | XMS_ITS | Encounter Summary ---
Author Organization [facility] Address [address] [place] [address] Phone Care Team Providers Care Weather Anchor Name Role Phone Cathy Antoine MD Unavailable Scott Chadwick MD Unavailable Scott Chadwick MD Primary Care Provider [phone] Jimenez Bennett MD Unavailable + Minh Ruiz MD Unavailable Dash Mayo MD Unavailable [phone] Leslie Matta MD Unavailable Davis Meneses MD Unavailable Jimenez Estes MD Unavailable Reason for Referral * Consultation (Elective) - Closed Specialty Diagnoses / Procedures Referred By Contzeferino t Referred To Contact Neurology Diagnoses Encephalopathy System, Provider Not In, PhD [id number] [place] [phone] Phone: tel: Referral ID Status Reason Start Date Expiration Date Visits Re quested Visits Authorized [id number] Closed 06/04/2019 06/04/2020 1 1 Encounter Details Date Type Department Care Team (Latest Contact Info) Description 06/04/2019 Transcribe Orders [facility] Department of Neurology [address] [facility], 8th Floor, [address] [place] [address] System, Provider Not In, PhD Partners [address] [address] Encephalopathy (Primary Dx) Social History Tobacco Use Types Packs/Day Years Used Date Smoking Tobacco: Former Cigarettes 1.5 22 1 967 - 1988 Smokeless Tobacco: Never Alcohol Use Standard Drinks/Week Comments Yes 0 (1 standard drink = 0.6 oz pure alcohol) mixed drink couple times a week Sex and Gender Information Value Date Recorded Sex Assigned at Male 01/29/2020 2:22 PM EDT Legal Sex Male 10:05 PM EDT Gender Identity Male 01/29/2020 2:22 PM EDT Sexual Orientation Straight 01/29/2020 2: 22 PM EDT documented as of this encounter Plan of Treatment Upcoming Encounters Date Type Department Care Team (Late st Contact Info) Description 08/12/2025 2:00 PM EST Office Visit [facility] Internal Medicine [address] [place] [address] Scott Chadwick MD [address] [place] [address] [email or web address] 12/11/2025 2:00 PM EDT Telemedicine [facility] Department of Neurology [address] [facility], 8th Floor, [address] [place] [address] Riky Macedo MD [address] [place] [address] [email or web address] 04/10/2026 2:00 PM EDT Office Visit [facility] Internal Medicine [address] [place], [place] [phone] Cortez Aguilar PA-C [address] [place] [address] [email or web address] Scheduled Referrals Name Type Priority Associated Diagnoses Order Schedule Ambulatory referral to [facility] Neurology Outpatient Referral Routine Encephalopathy Ordered: 06/04/2019 documented as of this encounter Visit Diagnoses Diagnosis Encephalopathy- Primary Unspecified encephalopathy documented in this encounter Additional Health Concerns Infection Onset Date Last Indicated Resolved Time CoV-Risk 05/27/2024 05/27/2024 05/27/2024 11:2 2 AM EDT COVID-19 05/27/2024 05/27/2024 06/17/2024 1:23 AM EDT CoV-Risk 09/28/2024 09/28/2024 10/09/2024 1:22 AM EST Assessment Noted Time PHQ-2 Depression Total Score: 0 12/20/19 11:06 AM EDT documented as of this encounter Care Teams Weather Anchor Relationship Specialty Start Date End Date Scott Chadwick MD [address] [place] [address] [email or web address] PCP - General Internal Medicine 08/04/17 Cathy Antoine MD [address] [place] [address] Historical LMR Provider 07/17/1708/10 Scott Chadwick MD [address] [place] [address] [email or web address] Historical LMR Provider 07/17/17 08/10/20 Jimenez Bennett MD [address] [place] [address] Urology 05/29/20 02/23/24 Minh Ruiz MD [address] [place] [address] [address] [place] [address] Gastroenterology 05/30/20 Dash Mayo MD [address] [place] [address] [place] [address] Neurology 06/06/20 Leslie Matta MD [address] [place] [address] [place] [address] General Surgery 08/11/20 Davis Meneses MD [address] [place] [phone] Urology 03/27/21 Jimenez Estes MD [facility] [address] [address] Dermatology 02/24/24 documented as of this encounter Additional Source Comments The information contained in this document represents components of the legal health record. It is not the complete legal health record.[facility]
--- OUTSIDE RECORDS SUMMARY | 2025-06-05 14:12 | XMS_ITS | Patient Health Record ---
Author Organization [facility] Address [address] [place] [phone] Care Team Providers Care Director Phone Name Role Phone Scott Chadwick MD Primary Care Provider Minh Mckeon [phone] Allergies Allergen (clinical drug ingredient) Drug/Non Drug [...] 30 days Active Vitamin D3 250 MCG (38697 UT) as directed Orally Active Amoxicillin-Pot Clavulanate [...] Problem Status W/U Status Risk Notes Problem 15335181 Epigastric abdominal pain (R10.13) Active confirmed Problem Gastroduodenitis (019104024) Gastritis, unspecified, without bleeding (K29.70) Active confirmed Problem 000795785 Irritable bowel syndrome with diarrhea (K58.0) Active confirmed Problem Generalized abdominal pain (239096433) Generalized abdominal pain (R10.84) Active confirmed Problem Duodenitis (92348890) Duodenitis (K29.80) Active confirmed Problem Irritable bowel syndrome (07173481) IBS (irritable bowel syndrome) (K58.9) Active confirmed Problem 53600892 Abdominal pain, epigastric (R10.13) Active confirmed Problem Diverticular disease of colon (096093925) Diverticulosis (K57.90) Active confirmed Problem 072823221 Diverticulosis o f large intestine without hemorrhage (K57.30) Active confirmed Problem 458512732 Gallstones (K80.20) Active confirmed Problem 444237710 Abdominal pain, left lower quadrant (R10.32) Active confirmed Problem Epigastric pain (88133499) Abdominal pain, acute, epigastric (R10.13) Active confirmed Problem 700814881 Abdominal pain, generalized (R10.84) Active confirmed Problem 39759647 Irritable bowel syndrome, unspecified type (K58.9) Active confirmed Problem 34978093 Irritable bowel syndrome with both constipation and diarrhea (K58.2) Active confirmed Problem Left lower quadrant pain (972928918) Abdominal pain, acute, left lower quadrant (R10.32) Active confirmed Problem 40818480263404707 Abnormal CT sc an, gallbladder (R93.2) Active confirmed Problem 787012586975307 History of diverticulitis of colon (Z87.19) Active confirmed Encounters Encounter Location Date Provider Diagnosis [facility] [address] [place] [phone] 06/11/2024 Minh Ruiz [facility] [address] [place] [phone] 01/23/2025 Minh Ruiz [facility] [address] [place] [phone] 05/09/2025 Minh Ruiz Plan Of Treatment Pending [...] PROFILE 01/14/2014 URINALYSIS + MICROSCOPIC, CLEAN CATCH [id number] (A1A) 01/14/2014 CELIAC PANEL #10 05/17/2013 ENDOMYSIAL [...] Name:Minh Ruiz , 09/10/2025 01:40:00 PM, [address] [facility], [address], [place], [phone], Insurance Providers Payer Name Payer Address Payer Phone Subscriber Number Group Number Insured Name Patient Relationship to Insured Coverage Start Date Coverage End Date [employer] [place] 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 Mayo and neurologists at [facility]--associated with intermittent spells of fatigue, weakness, and [...]
== END 2025-06-05 11:26 | disposition home or self-care (01) ==
LOC: HO.HGS 11:06
PROVIDERS: PCP Internal Medicine; Visit Provider Surgery
DX: R10.9 Unspecified abdominal pain (principal)
CPT/HCPCS: 99213

== ENCOUNTER 2025-06-12 13:55 | Outpatient (AMB) | payer OTHER, SELFPAY ==
--- NOTE | 2025-06-12 13:55 | A.OFFVIS_ITS ---
Intake Visit Reasons: Greenlight laser discussion Intake Note: Patient is present for Green laser discussion Urology Medication:TAMSULOSIN,DUTASTERIDE,VITAMIN B12 Antibiotic Allergy:NONE Blood Thinner:NONE Conveyor System Dispatcher Required: No Accompanied by: Self / Same As Patient Allergies codeine (Codeine) Allergy (Intermediate, Verified 06/12/25 13:56) Dizziness meperidine (Meperidine) Allergy (Mild, Verified 06/12/25 13:56) UNKNOWN HPI Comments Details: Deuce is a pleasant male. He is a patient of Dr. Chadwick. He is seen for the following urologic conditions - prostatitis - renal cyst - lower urinary tract symptoms Telemedicine Evaluation 15 min Consultation [employer] Video Discussed a variety of prostate procedures including Aquablation, resume, laser At this point in time he would like to continue with conservative therapy Will remain on medications 6m f/u office PSA 11/20 1.8 Lower urinary tract symptoms Previous success with tamsulosin Not tolerate BPH medication On dutasteride Renal cyst Detected on imaging Imaging - 04/16 CT scan complex cyst 1 cm left kidney with enlarged prostate Prostatitis Longstanding Recurrent in past Prior negative expressed culture Question of inflammatory process PSA 05/17 1.6 Did report having improvement with viox many years ago Failed Celebrex trial. Did not tolerate Did not notice improvement with tadalafil Would recommend DNA sequencing if persistent symptoms PFSH Medical History Lower abdominal pain Diastasis recti Cataract, right eye Autonomic neuropathy Hyperlipidemia Cholelithiasis BCC (basal cell carcinoma), face Abnormal liver function test Abdominal pain Cyst, kidney, acquired Hx of prostatitis COVID-19 vaccine series completed Depression Peripheral neuropathy Cervical spondyloarthritis Mood disorder Pre-diabetes Hx of Guillain-[place] syndrome Arthritis Back pain DDD (degenerative disc disease) Fatty liver Left inguinal hernia Axillary abscess History of lumbar puncture Autoimmune encephalitis Gallstones Hypertension GERD (gastroesophageal reflux disease) Prostatitis Surgical History History of hernia repair History of esophagogastroduodenoscopy (EGD) Hx of colonoscopy Family History Mother No problems noted. Father No problems noted. Social History Are you a primary resident care manager to a significant other at home: No Do you presently have visiting nurse or other home services: No Alcohol intake: never Patient Tobacco Use Status: Former Tobacco user Review of Systems Const All systems reviewed & are unremarkable except as noted in HPI and below Denies chills and Denies fever(s) Card Reports no additional complaints and Denies syncope Resp Denies cough GI Denies abdominal pain and Denies heartburn Reports as per HPI and Denies change in libido Musc Reports no additional complaints Neuro Denies syncope Psych Denies change in libido Endo Denies change in libido Physical Exam Telemedicine evaluation Appropriate responses Regular breathing rate and rhythm Const General: cooperative, healthy appearing, comfortable and no acute distress Orientation/consciousness: patient oriented x3 HEENT Head: Yes normal to inspection Ears: hearing grossly normal bilaterally Face and sinus: Yes normal facial exam Mouth: moist mucous membranes Eyes General: appearance normal, both eyes and all related structures Neck Neck: Yes normal visual inspection, Yes full ROM and Yes trachea midline Chest Chest palpation & inspection: normal inspection of the chest Resp Effort & Inspection: normal respiratory effort, able to speak in complete sentences and no respiratory distress GI Inspection: Yes normal to inspection Back/Spine/Pelvis Cervical Spine: normal cervical lordosis Thoracic/Lumbar Spine: thoracic and lumbar spine normal to inspection Skin General skin exam: no rashes or lesions noted Neuro General: patient oriented x3, gait normal, tone normal and moves all extremities Extrem General: Yes normal to inspection and Yes capillary refill normal Telehealth Telehealth Telehealth Platform: [employer] Location of provider rendering services: practice address Location of patient: address on file Patient Identification confirmed using: Name, : Yes Telehealth method: video Patient verbally consented to treatment: Yes Patient verbally consented to billing insurance company: Yes Patient informed of any privacy concerns related to visit: Yes Minutes spent on Phone/Video with Pt.: 15 Assessment & Plan Assessment & Plan (1) Prostatitis: Code(s): N41.9 - Inflammatory disease of prostate, unspecified Category: Medical Qualifiers: Prostatitis type: chronic Qualified Code(s): N41.1 - Chronic prostatitis (2) BPH w urinary obs/LUTS: Code(s): N40.1 - Benign prostatic hyperplasia with lower urinary tract symptoms; N13.8 - Other obstructive and reflux uropathy Category: Medical (3) Weak urinary stream: Code(s): R39.12 - Poor urinary stream Category: Medical Plan Six-month follow-up office Medications: New naproxen 500 mg PO BID 28 tabs 0RF 14 days N13.8 - Other obstructive and reflux uropathy, N40.1 - Benign prostatic hyperplasia with lower urinary tract symptoms Refilled dutasteride 0.5 mg PO DAILY 90 caps 1RF 90 days N13.8 - Other obstructive and reflux uropathy, N40.1 - Benign prostatic hyperplasia with lower urinary tract symptoms Patient Instructions: This note is constructed using voice recognition software. While every effort has been made to ensure accuracy organic gardening teacher errors may have been included. Imaging studies, laboratory and physical exam results were discussed and reviewed in detail. No major barriers to patient understanding were identified. An opportunity to ask questions regarding the treatment plan was provided. All questions were answered. The patient expressed understanding and agreement with the above treatment plan. The patient is aware they should contact our office by phone for worsening of their current condition or the appearance of new urologic symptoms. Compliance is encouraged with any medications and followup testing that is ordered. It is a privilege to participate in the urologic care of your patient. If you have any questions or concerns regarding treatment for the above conditions, or other urologic issues, please do not hesitate to contact me. The office telephone contact is [phone]. Sincerely, Dr Wilmer Cavazos MD, [facility] - Urology Compassionate Specialist Care for the Genitourinary System Coding Level of Care Code Tele Est Pt Level 3 (91062) Complex EM visit Add On G2211 Diagnoses Chronic prostatitis N41.1 Prostatitis type: chronic BPH w urinary obs/LUTS N40.1; N13.8 Weak urinary stream R39.12
--- OUTSIDE RECORDS SUMMARY | 2025-06-12 17:35 | XMS_ITS | Encounter Summary ---
Author Organization [facility] Address [address] [place] [address] Phone Care Team Providers Care Recruiting Intern Name Role Phone Scott Chadwick MD Primary Care Provider [phone] Minh Ruiz MD Unavailable [phone] Dash aMyo MD Unavailable Leslie Matta MD Unavailable Davis Meneses MD Unavailable Jimenez Estes MD Unavailable Reason for Referral * MRI/CAT Scan - Closed Specialty Diagnoses / Procedures Referred By Contac t Referred To Contact Radiology Procedures Outside CT Abd/pelvis Report Only [facility] Internal Medicine [address] [place] [address] Phone: tel: fax: Referral ID Status Reason Start Date Expiration Date Visits Re quested Visits Authorized [id number] Closed 05/15/2025 1 1 Encounter Details Date Type Department Care Team (Late st Contact Info) Description 05/15/2025 Orders Only [facility] Internal Medicine [address] [place] [address] Harika Zhou MD [address] [place] [address] Social History Tobacco Use Types Packs/Day [...] Description 08/12/2025 2:00 PM EST Office Visit [facility] Internal Medicine [address] [place] [address] Scott Chadwick MD [address] [place] [address] [email or web address] 12/11/2025 2:00 PM EDT Telemedicine [facility] Department of Neurology [address] [place] [address], 8th Floor, [address] [place] [address] Riky Macedo MD [address] [place] [address] [email or web address] 04/10/2026 2:00 PM EDT Office Visit [facility] Internal Medicine [address] [place] [address] Cortez Aguilar PA-C [address] [place] [address] [email or web address] documented as of this encounter Procedures [...] documented as of this encounter Care Teams Recruiting Intern Relationship Specialty Start Date End Date Scott Chadwick MD [address] [place] [address] [email or web address] PCP - General Internal Medicine 08/04/17 Minh Ruiz MD [address] [facility] [address] [place] [address] Gastroenterology 05/30/20 Dash Mayo MD [address] [place] [address] Dr Taylor [address] [place] [address] Neurology 06/06/20 Leslie Matta MD [address] [place] [address] Dr Taylor [address] [place] [address] General Surgery 08/11/20 Davis Meneses MD [address] [place] [address] 120 [place] [id number] Urology 03/27/21 Jimenez Estes MD [address] [place] [address] Dermatology 02/24/24 documented as of this encounter Additional Source Comments The information contained in this document represents components of the legal health record. It is not the complete legal health record.[facility]
--- OUTSIDE RECORDS SUMMARY | 2025-06-12 17:36 | XMS_ITS | Patient Health Record ---
Author Organization [facility] Address [address] [place] [address] Care Team Providers Care Data Virtualization Consultant Name Role Phone Scott Chadwick MD Primary Care Provider Minh Mckeon [phone] Allergies Allergen (clinical drug ingredient) Drug/Non Drug [...] 30 days Active Vitamin D3 250 MCG (03912 UT) as directed Orally Active Amoxicillin-Pot Clavulanate [...] Problem Status W/U Status Risk Notes Problem 06993681 Epigastric abdominal pain (R10.13) Active confirmed Problem Gastroduodenitis (085293012) Gastritis, unspecified, without bleeding (K29.70) Active confirmed Problem 151179249 Irritable bowel syndrome with diarrhea (K58.0) Active confirmed Problem Generalized abdominal pain (966567265) Generalized abdominal pain (R10.84) Active confirmed Problem Duodenitis (97150041) Duodenitis (K29.80) Active confirmed Problem Irritable bowel syndrome (23934780) IBS (irritable bowel syndrome) (K58.9) Active confirmed Problem 94921468 Abdominal pain, epigastric (R10.13) Active confirmed Problem Diverticular disease of colon (595966384) Diverticulosis (K57.90) Active confirmed Problem 072442829 Diverticulosis o f large intestine without hemorrhage (K57.30) Active confirmed Problem 004561886 Gallstones (K80.20) Active confirmed Problem 424516731 Abdominal pain, left lower quadrant (R10.32) Active confirmed Problem Epigastric pain (31041720) Abdominal pain, acute, epigastric (R10.13) Active confirmed Problem 296515301 Abdominal pain, generalized (R10.84) Active confirmed Problem 40861264 Irritable bowel syndrome, unspecified type (K58.9) Active confirmed Problem 71844891 Irritable bowel syndrome with both constipation and diarrhea (K58.2) Active confirmed Problem Left lower quadrant pain (935051160) Abdominal pain, acute, left lower quadrant (R10.32) Active confirmed Problem 42733033429402893 Abnormal CT sc an, gallbladder (R93.2) Active confirmed Problem 066713377825612 History of diverticulitis of colon (Z87.19) Active confirmed Encounters Encounter Location Date Provider Diagnosis [facility] [address] [place] [address] 01/23/2025 Minh Ruiz [facility] [address] [place] [address] 05/09/2025 Minh Ruiz Plan Of Treatment Pending Test Test Name Order Date CHEM 7 PROFILE 05/17/2013 CHEM 7 PROFILE 08/30/2022 CHEM 7 PROFILE 01/26/2022 LIVER PROFILE 09/05/2014 LIVER PROFILE 01/26/2022 LIVER PROFILE 01/14/2014 LIVER PROFILE 12/18/2020 LIVER PROFILE 02/23/2014 LIVER PROFILE 05/17/2013 LIVER PROFILE 08/30/2022 LIVER PROFILE 05/22/2015 AMYLASE 12/18/2020 AMYLASE 05/17/2013 LIPASE 05/17/2013 LIPASE 01/26/2022 LIPASE 12/18/2020 IRON + IBC (FE) 01/14/2014 FERRITIN 01/14/2014 CRP 08/28/2015 CRP 01/26/2022 CRP 08/30/2022 CBC w DIFF 12/18/2020 CBC w DIFF 08/30/2022 CBC w DIFF 05/17/2013 CBC w DIFF 01/26/2022 SED RATE (ESR) 01/26/2022 SED RATE (ESR) 08/30/2022 HEPATITIS B, C PROFILE 01/14/2014 URINALYSIS + MICROSCOPIC, CLEAN CATCH [id number] (A1A) 01/14/2014 CELIAC PANEL #10 05/17/2013 ENDOMYSIAL [...] Name:Minh Ruiz , 09/10/2025 01:40:00 PM, [address], [address], [place], [address], Insurance Providers Payer Name Payer Address Payer Phone Subscriber Number Group Number Insured Name Patient Relationship to Insured Coverage Start Date Coverage End Date [employer] [address] [address] [place] [address] [id number] SALIMA GRESHAM Self - patient is the insured Medical (General) History Medical History History ICD Code IBS Colon polyps-tubular adenoma removed in 2000-had negative colonoscopies in 2003 and 2008 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 Mayo and neurologists at [facility]--associated with intermittent spells [...]
--- OUTSIDE RECORDS SUMMARY | 2025-06-12 17:36 | XMS_ITS | Encounter Summary ---
Author Organization [facility] Address [address] [place] [address] Care Team Providers Care Rug Setter Velvet Name Role Phone Scott Chadwick Primary Care Provider [phone] Reason for Visit * Reason Onset Date Comments PAC Order Request 10/12/2022 Encounter Details Date Type Department Care Team (Late st Contact Info) Description 10/12/2022 Telephone [facility] Central Scheduling Department [address] [place] [address] Telephone Intake, Staff PAC Order Request Social [...] to send to his local hospital in [place]. * Telephone Encounter - Ramona Garcia - [...] Please call patient back to book Callback# [phone] documented in this encounter Plan of Treatment Upcoming Encounters Date Type Department Care Team (Late st Contact Info) Description 06/27/2025 3:00 PM EDT Office Visit [facility]rology Clinic [address] [place], [place] [phone] Anette Novoa MD [address] [place] [address] documented as of this encounter Visit Diagnoses Not on filedocumented in this encounter Care Teams Rug Setter Velvet Relationship Specialty Start Date End Date Scott Chadwick [address] [place] [address] PCP - General Internal Medicine 05/03/22 documented as of this encounter
--- OUTSIDE RECORDS SUMMARY | 2025-06-12 17:36 | XMS_ITS | Encounter Summary ---
Author Organization [facility] Address [address] [place] [address] Care Team Providers Care Charging Operator Name Role Phone HaydenScott Blank Primary Care Provider [phone] Encounter Details Date Type Department Care Team (Late st Contact Info) Description 10/20/2022 Orders Only [facility] Interventional Radiology [address] [place] [address] Flaco Fuller MD [address] [place] [address] Interventional [place] [address] Social History Tobacco Use Types Packs/Day Years [...] Description 06/27/2025 3:00 PM EDT Office Visit [facility] Neurology Clinic [address] [place] [address] Anette Novoa MD [address] [place] [address] documented as of this encounter Visit Diagnoses Not on filedocumented in this encounter Care Teams Charging Operator Relationship Specialty Start Date End Date Scott Chadwick [address] [place] [address] PCP - General Internal Medicine 05/03/22 documented as of this encounter
--- OUTSIDE RECORDS SUMMARY | 2025-06-12 17:36 | XMS_ITS | Encounter Summary ---
Author Organization [facility] Address [address] [place] [address] Phone Care Team Providers Care [facility] Name Role Phone Scott Chadwick MD Primary Care Provider Minh Ruiz MD Unavailable Dash Mayo MD Unavailable Leslie Matta MD Unavailable [phone] Davis Meneses MD Unavailable [phone] Jimenez Estes MD Unavailable [phone] Reason for Referral * Consultation (Within 2 weeks) - New Request Specialty Diagnoses / Procedures Referred By Contzeferino bai Referred To Contact Diagnoses Blurred vision Scott Chadwick MD [address] [place] [address] Phone: tel: fax: [email or web address] Referral ID Status Reason Start Date Expiration Date V isits Requested Visits Authorized [id number] New Request 06/07/2025 06/07/2026 1 1 Reason for Visit * Reason Onset Date Comments referral request 06/07/2025 Encounter Details Date Type Department Care Team (Late st Contact Info) Description 06/07/2025 Telephone [facility] Internal Medicine [address] [place] [address] Scott Chadwick MD [address] [facility] [address] [place] [address] [email or web address] referral request Social History Tobacco Use Types Packs/Day Years [...] PM EDT documented as of this encounter Progress Notes * Brent Horton - 06/10/2025 7:59 AM EDT Referral faxed. * Scott Chadwick MD - 06/07/2025 7:10 PM EDT Referral signed, please fax * Omayra Cabral, RN - 06/07/2025 3:05 PM EDT Spoke to Alhaji and he states he needs to see a neuro-transport analyst in [place]. He had his cataracts done about a year ago and has been having problems. States he has discussed this with Dr. Chadwick. He was able to get an appointment next Tuesday06/14/25 but needs a referral sent. Dr Js Keenan * Shannon Zamudio - 06/07/2025 1:51 PM EDT Received voicemail from patient, requesting a call regarding needing to see a neuro opthomologist in [place]. Request call to [phone] documented in this encounter Plan of Treatment Upcoming Encounters Date Type Department Care Team (Late st Contact Info) Description 08/12/2025 2:00 PM EST Office Visit [facility] Internal Medicine [address] [place] [address] Scott Chadwick MD [address] [place], [place] [phone] [email or web address] 12/11/2025 2:00 PM EDT Telemedicine [facility] Department of Neurology [address] [place] [address], 8th Floor, [address] [place] [address] Riky Macedo MD [address] [place] [address] 720 [place] [address] [email or web address] 04/10/2026 2:00 PM EDT Office Visit [facility] Internal Medicine [address] [place], [place] [phone] Cortez Aguilar PA-C [address] [place], [place] [phone] [email or web address] Scheduled Referrals Name Type Priority Associated Diagnoses Order Schedule Ambulatory referral to External Ophthalmology Outpatient Referral Routine Blurred vision Ordered: 06/07/2025 documented as of this encounter Visit Diagnoses Diagnosis Blurred vision- Primary Other specified visual disturbances documented in this encounter Additional Health Concerns Assessment Noted Time PHQ-2 Depression Total Score: 0 02/07/20 25 3:34 PM EDT documented as of this encounter Care Teams [facility] Relationship Specialty Start Date End Date Scott Chadwick MD [address] [place] [address] [email or web address] PCP - General Internal Medicine 08/04/17 Minh Ruiz MD 10 [facility] [address] [place] [address] Gastroenterology 05/30/20 Dash Mayo MD [address] [place] [address] Brandon [address] [place] [address] Neurology 06/06/20 Leslie Matta MD [address] [place] [address] Dr Taylor [address] [place] [address] General Surgery 08/11/20 Davis Meneses MD [address] [place] [address] 120 [place] [address] Urology 03/27/21 Jimenez Estes MD [address] [place] [address] Dermatology 02/24/24 documented as of this encounter Additional Source Comments The information contained in this document represents components of the legal health record. It is not the complete legal health record.[facility]
--- OUTSIDE RECORDS SUMMARY | 2025-06-12 17:36 | XMS_ITS | Encounter Summary ---
Author Organization [facility] Address [address] [place] [address] Phone Care Team Providers Care Inorganic Chemistry Professor Name Role Phone Cathy Antoine MD Unavailable Scott Chadwick MD Unavailable Scott Chadwick MD Primary Care Provider [phone] Jimenez Bennett MD Unavailable + Minh Ruiz MD Unavailable Dash Mayo MD Unavailable Leslie Matta MD Unavailable [phone] Davis Meneses MD Unavailable Jimenez Estes MD Unavailable Reason for Referral * Consultation (Elective) - Closed Specialty Diagnoses / Procedures Referred By Contzeferino t Referred To Contact Neurology Diagnoses Encephalopathy System, Provider Not In, PhD [address] [place] [address] Phone: tel: Referral ID Status Reason Start Date Expiration Date Visits Re quested Visits Authorized [id number] Closed 06/04/2019 06/04/2020 1 1 Encounter Details Date Type Department Care Team (Latest Contact Info) Description 06/04/2019 Transcribe Orders [facility] Department of Neurology [address] [place] [address], 8th Floor, [address] [place] [address] System, Provider Not In, PhD Partners [address] [address] Encephalopathy (Primary Dx) Social History Tobacco Use [...] Description 08/12/2025 2:00 PM EST Office Visit [facility] Internal Medicine [address] [place] [address] Scott Chadwick MD 40 [place] [address] [email or web address] 12/11/2025 2:00 PM EDT Telemedicine [facility] Department of Neurology [address] [place] [address], 8th Floor, [address] [place] [address] Riky Macedo MD [address] [place] [address] [email or web address] 04/10/2026 2:00 PM EDT Office Visit [facility] Internal Medicine [address] [place] [address] Cortez Aguilar PA-C 40 [place] [address] [email or web address] Scheduled Referrals Name Type Priority Associated Diagnoses Order Schedule Ambulatory referral to [facility] Neurology Outpatient Referral Routine Encephalopathy Ordered: 06/04/2019 [...] documented as of this encounter Care Teams Inorganic Chemistry Professor Relationship Specialty Start Date End Date Scott Chadwick MD [address] [place] [address] [email or web address] PCP - General Internal Medicine 08/04/17 Cathy Antoine MD [address] [place] [address] Historical LMR Provider 07/17/1708/10 Scott Chadwick MD [address] [place] [address] [email or web address] Historical LMR Provider 07/17/17 08/10/20 Jimenez Bennett MD [address] [place] [address] Urology 05/29/20 02/23/24 Minh Ruiz MD [address] [place] [address] Drive [address] [place] [address] Gastroenterology 05/30/20 Dash Mayo MD [address] [place] [address] [place] [address] Neurology 06/06/20 Leslie Matta MD [address] [place] [address] [place] [address] General Surgery 08/11/20 Davis Meneses MD [address] [place] [phone] Urology 03/27/21 Jimenez Estes MD [facility] [address] Dermatology 02/24/24 documented as of this encounter Additional Source Comments The information contained in this document represents components of the legal health record. It is not the complete legal health record.[facility]
--- OUTSIDE RECORDS SUMMARY | 2025-06-12 17:36 | XMS_ITS | Encounter Summary ---
Author Organization [facility] Address [address] [place] [address] Care Team Providers Care Casket Inspector Name Role Phone Beecher CityScott Blank Primary Care Provider [phone] Encounter Details Date Type Department Care Team (Late st Contact Info) Description 12/10/2022 Orders Only [facility] Neurology Clinic [address] [place] [address] Alhaji Bernal Jr., DO [address] [place] [address] Social History Tobacco Use Types Packs/Day Years [...] Description 06/27/2025 3:00 PM EDT Office Visit [facility] Neurology Clinic [address] [place] [address] Anette Novoa MD [address] [place] [address] documented as of this encounter Procedures * Due to [facility] law, this organization might not be sharing negative HIV tests. Procedure Name Priority Date/Time Associated Diagnosis Comments LAB - SCANNED Routine 12/10/2022 ALT, OUTSIDE LAB Routine 12/10/2022 AMB EXTERNAL US NECK SOFT TI SSUE, SCANNED RESULT Routine 12/10/2022 documented in this encounter Results * Due to [facility] law, this organization might not be [...] on filedocumented in this encounter Care Teams Casket Inspector Relationship Specialty Start Date End Date Scott Chadwick [address] [place] [address] PCP - General Internal Medicine 05/03/22 documented as of this encounter
--- OUTSIDE RECORDS SUMMARY | 2025-06-12 17:36 | XMS_ITS | Encounter Summary ---
Author Organization [facility] Address [address] [place] [address] Phone Care Team Providers Care Supervisor Finishing Name Role Phone Scott Chadwick MD Primary Care Provider [phone] Minh Ruiz MD Unavailable [phone] Dash Mayo MD Unavailable [phone] Leslie Matta MD Unavailable Davis Meneses MD Unavailable Jimenez Estes MD Unavailable [phone] Encounter Details Date Type Department Care Team (Late st Contact Info) Description 05/13/2025 Orders Only [facility] Internal Medicine [address] [place] [address] Provider, MD Harika [address] [place] [address] Social History Tobacco Use Types Packs/Day [...] Description 08/12/2025 2:00 PM EST Office Visit [facility] Internal Medicine [address] [place] [address] Scott Chadwick MD [address] [place], [place] [address] [email or web address] 12/11/2025 2:00 PM EDT Telemedicine [facility] Department of Neurology [address] [place] [address], 8th Floor, [address] [place] [address] Riky Macedo MD [address] [place] [address] 720 [place] [address] [email or web address] 04/10/2026 2:00 PM EDT Office Visit [facility] Internal Medicine [address] [place] [address] Cortez Aguilar PA-C [address] [place] [address] documented as of this encounter Procedures Procedure [...] documented as of this encounter Care Teams Supervisor Finishing Relationship Specialty Start Date End Date Scott Chadwick MD 40 [place] [address] [email or web address] PCP - General Internal Medicine 08/04/17 Minh Ruiz MD [address] [place] [address] Drive [address] [place] [address] Gastroenterology 05/30/20 Dash Mayo MD [address] [place] [address] [address] Neurology 06/06/20 Leslie Matta MD [address] [place] [address] [address] General Surgery 08/11/20 Davis Meneses MD [address] [place] [address] 120 [place] [address] Urology 03/27/21 Jimenez Estes MD [address] [place] [address] Dermatology 02/24/24 documented as of this encounter Additional Source Comments The information contained in this document represents components of the legal health record. It is not the complete legal health record.[facility]
--- OUTSIDE RECORDS SUMMARY | 2025-06-12 17:36 | XMS_ITS | Encounter Summary ---
Author Organization [facility] Address [address] [place] [address] Phone Care Team Providers Care Harness Brusher Name Role Phone Scott Chadwick MD Primary Care Provider Minh Ruiz MD Unavailable Dash Mayo MD Unavailable Leslie Matta MD Unavailable Davis Meneses MD Unavailable [phone] Jimenez Estes MD Unavailable Encounter Details Date Type Department Care Team (Late st Contact Info) Description 06/06/2025 Orders Only [facility] Internal Medicine [address] [place] [address] Provider, MD Harika [address] [place] [address] Social History Tobacco Use Types Packs/Day [...] Description 08/12/2025 2:00 PM EST Office Visit [facility] Internal Medicine [address] [place] [address] Scott Chadwick MD [address] [place], [place] [phone] [email or web address] 12/11/2025 2:00 PM EDT Telemedicine [facility] Department of Neurology [address] [place] [address], 8th Floor, [address] [place] [address] Riky Macedo MD [address] [place] [address] 720 [place] [address] [email or web address] 04/10/2026 2:00 PM EDT Office Visit [facility] Internal Medicine [address] [place] [address] Cortez Aguilar PA-C [address] [place] [address] documented as of this encounter Procedures Procedure Name Priority Date/Time Associated Diagnosis Comments OUTSIDE LAB Routine 06/05/2025 2:44 PM EDT documented in this encounter Results * Outside Lab (06/05/2025 2:44 PM EDT) us Historical Provider LAB BLOOD ORDERABLES Vanessa l Result documented in this encounter Visit Diagnoses Not on filedocumented in this encounter Additional Health Concerns Assessment Noted Time PHQ-2 Depression Total Score: 0 02/07/20 25 3:34 PM EDT documented as of this encounter Care Teams Harness Brusher Relationship Specialty Start Date End Date Scott Chadwick MD [address] [place] [address] [email or web address] PCP - General Internal Medicine 08/04/17 Minh Ruiz MD [address] [place] [address] Drive [address] [place] [address] Gastroenterology 05/30/20 Dash Mayo MD [address] [place] [address] [address] Neurology 06/06/20 Leslie Matta MD [address] [place] [address] [address] General Surgery 08/11/20 Davis Meneses MD [address] [place] [address] 120 [place] [address] Urology 03/27/21 Jimenez Estes MD [address] [place] [address] Dermatology 02/24/24 documented as of this encounter Additional Source Comments The information contained in this document represents components of the legal health record. It is not the complete legal health record.[facility]
--- OUTSIDE RECORDS SUMMARY | 2025-06-12 17:36 | XMS_ITS | Clinical Summary ---
Author Organization [facility] Address [address] [place] [address] Care Team Providers Care Brickmason Name Role Phone Scott Chadwick Primary Care [...] pyridostigmine and he will check with his brazing machine setter. Paresthesias -consider pyridostigmine 30mg in the morning (he will check with brazing machine setter) -compression stockings daily -hydration 80-100 oz/day -follow [...] Description 06/27/2025 3:00 PM EDT Office Visit [facility] [address] [place] [address] Anette Novoa MD [address] [place] [address] [phone] Health Maintenance Due Date Last Done Comments [...] patient's age to complete this topic Insurance Contactual [employer] [place] [address] Care Teams Brickmason Relationship Specialty Start Date End Date Scott Chadwick [address] [place] [address] PCP - General Internal Medicine 05/03/22
--- OUTSIDE RECORDS SUMMARY | 2025-06-12 17:36 | XMS_ITS | Encounter Summary ---
Author Organization [facility] Address [address] [place] [address] Care Team Providers Care Education Director Name Role Phone ElsmoreScott Blank Primary Care Provider [phone] Encounter Details Date Type Department Care Team (Late st Contact Info) Description 12/22/2022 Orders Only [facility] [address] [place] [address] Alhaji Bernal Jr., DO [address] [place] [address] Social History Tobacco Use Types Packs/Day Years [...] Description 06/27/2025 3:00 PM EDT Office Visit [facility] [address] [place] [address] Anette Novoa MD [address] [place] [address] documented as of this encounter Procedures * Due to [place] [employer] law, this organization might not be sharing negative HIV tests. Procedure Name Priority Date/Time Associated Diagnosis Comments AMB EXTERNAL CT HAND, OUTSID E RESULT Routine 12/22/2022 documented in this encounter Results * Due to [facility] law, this organization might not be sharing negative HIV tests. * CT Hand, Outside Result (12/22/2022) Anatomical Region Laterality Modality Other Alhaji Bernal Jr., DO AMB EXTERNAL RESULT P ROCEDURES Final Result documented in this encounter Visit Diagnoses Not on filedocumented in this encounter Care Teams Education Director Relationship Specialty Start Date End Date Scott Chadwick [address] [place] [address] PCP - General Internal Medicine 05/03/22 documented as of this encounter
--- OUTSIDE RECORDS SUMMARY | 2025-06-12 17:36 | XMS_ITS | Encounter Summary ---
Author Organization [facility] Address [address] [place] [address] Care Team Providers Care Liquor Merchant Name Role Phone Scott Chadwick Primary Care Provider [phone] Encounter Details Date Type Department Care Team (Late st Contact Info) Description 09/12/2023 [employer] Message [facility] [employer] [address] [place] [address] Zoom, Generic Provider [address] [place], [place] [id number] Payment Agreement Social History Tobacco Use Types [...] Description 06/27/2025 3:00 PM EDT Office Visit [facility] [address] [place] [address] Anette Novoa MD [address] [place] [address] documented as of this encounter Visit Diagnoses Not on filedocumented in this encounter Care Teams Liquor Merchant Relationship Specialty Start Date End Date Scott Chadwick [address] [place] [address] PCP - General Internal Medicine 05/03/22 documented as of this encounter
--- OUTSIDE RECORDS SUMMARY | 2025-06-12 17:36 | XMS_ITS | Encounter Summary ---
Author Organization [facility] Address [address] [place] [address] Care Team Providers Care Business Mgr Name Role Phone VenturaScott Blank Primary Care Provider Encounter Details Date Type Department Care Team (Late st Contact Info) Description 12/29/2022 Orders Only [facility] [address] [place] [address] Alhaji Bernal Jr., DO [address] [place] [address] Social History Tobacco Use Types Packs/Day Years [...] Description 06/27/2025 3:00 PM EDT Office Visit [facility] [address] [place] [address] Anette Novoa MD [address] [place] [address] documented as of this encounter Procedures * Due to [place] [employer] law, this organization might not be sharing negative HIV tests. Procedure Name Priority Date/Time Associated Diagnosis Comments AMB EXTERNAL CT HEAD, OUTSID E RESULT Routine 12/29/2022 documented in this encounter Results * Due to [facility] law, this organization might not be sharing negative HIV tests. * CT Head, Outside Result (12/29/2022) Anatomical Region Laterality Modality Other Alhaji Bernal Jr., DO AMB EXTERNAL RESULT P ROCEDURES Final Result documented in this encounter Visit Diagnoses Not on filedocumented in this encounter Care Teams Business Mgr Relationship Specialty Start Date End Date Scott Chadwick [address] [place] [address] PCP - General Internal Medicine 05/03/22 documented as of this encounter
--- OUTSIDE RECORDS SUMMARY | 2025-06-12 17:36 | XMS_ITS | Encounter Summary ---
Author Organization [facility] Address [address] [place] [address] Care Team Providers Care Glove Parts Cutter Name Role Phone Scott Chadwick Primary Care Provider [phone] Reason for Visit * Reason Onset Date Comments Request For Order(s) 11/18/2022 Encounter Details Date Type Department Care Team (Late st Contact Info) Description 11/18/2022 Telephone [facility] [address] [place] [address] Telephone Intake, Staff Request For Order(s) Social [...] - 11/24/2022 9:10 AM EST Faxed to [phone] They will reach out to schedule He is able to call central scheduling [phone] * Telephone Encounter - Aura Fleming - 11/24/2022 9:09 AM EST Patient requested to have the carotid duplex order to [facility] Faxed order and lvm for the [...] Description 06/27/2025 3:00 PM EDT Office Visit [facility] [address] [place] [address] [phone] Anette Novoa MD [address] [place] [address] documented as of this encounter Visit Diagnoses Not on filedocumented in this encounter Care Teams Glove Parts Cutter Relationship Specialty Start Date End Date Scott Chadwick [address] [place] [address] PCP - General Internal Medicine 05/03/22 documented as of this encounter
--- OUTSIDE RECORDS SUMMARY | 2025-06-12 17:36 | XMS_ITS | Clinical Summary ---
Author Organization [facility] Address [address] [place] [address] Phone Care Team Providers Care Gm Name Role Phone Scott Chadwick MD Primary Care Provider Minh Ruiz MD Unavailable Dash Mayo MD Unavailable [phone] Leslie Matta MD Unavailable Davis Meneses MD Unavailable [phone] Jimenez Estes MD Unavailable [phone] Allergies Active Allergy Reactions Criticality Noted Date [...] rhonchi in [place]. -will obtain a CXR -[facility] -continue Augmentin he was placed on 3 days ago due to presumed diverticulitis by GI Cervical radiculitis 04/05/2024 Overview (04/05/2024): Following with [place] pain management Dr. Michele Marcos MD was [...] Encounters Date Type Department Care Team Description 06/07/2025 Telephone [facility] Internal Medicine [address] [facility] [place] [address] Scott Chadwick MD referral request 06/06/2025 Orders Only [facility] Internal Medicine [address] [facility] [place] [address] ProviderHarika MD 05/15/2025 Orders Only [facility] Internal Medicine [address] [place] [address] Harika Zhou MD 05/13/2025 Orders Only [facility] Internal [facility] [address] [place] [address] Harika Zhou MD 04/04/2025 Telephone [facility] [address] [place] [address] Scott Chadwick MD 04/03/2025 Telephone [facility] Internal [facility] [address] [place], [place] [address] Scott Chadwick MD Dizziness from Last 3 Months Immunizations Immunization Administration [...] Description 08/12/2025 2:00 PM EST Office Visit [facility] Internal Medicine [address] [place] [address] Scott Chadwick MD [address] [place] [address] [email or web address] 12/11/2025 2:00 PM EDT [facility] Department of Neurology [address] [place] [address], [address] Floor, [address] [place] [address] Riky Macedo MD [address] [place] [address] [address] [place] [address] [email or web address] 04/10/2026 2:00 PM EDT Office Visit [facility] Internal Medicine [address] [place] [address] Cortez Aguilar PA-C [address] [place] [address] [email or web address] Health Maintenance Due Date Last Done Comments PNEUMOCOCCAL VACCINES (50+ years) (1 of 1 - PCV) 1998 ZOSTER VACCINES (1 of 2) 1998 Adult Td,Tdap Booster 01/24/2015 01/24/2005 RSV VACCINE (1 - 1-dose 75+ series) 2023 INFLUENZA VACCINE (#1) 2025 COVID-19 VACCINE (4 - 2024- season) 2025 09/10/2021, 12/06/2020, 11/13/2020 BLOOD PRESSURE [...] OUTSIDE LAB Routine 06/05/2025 2:[address] ABD/PELVIS REPORT ONLY Routine 05/15/2025 12:54 PM EDT OUTSIDE LAB Routine 05/09/2025 8:09 AM EDT LIPID PANEL Routine 03/05/2025 Essential hypertension Fatigue, unspecified type Primary osteoarthritis involving multiple joints COMPREHENSIVE METABOLIC PANEL Routine 03/05/2025 Essential hypertension Fatigue, unspecified type Primary osteoarthritis involving multiple joints OUTSIDE HEPATITIS C VIRUS SCREENING Routine 01/31/2014 from Last 3 Months or Most Recently Relevant to Health Maintenance Results * Outside Lab (06/05/2025 2:44 PM EDT) Only the most recent of2 resultswithin the time period is included. us Historical Provider LAB BLOOD ORDERABLES Vanessa l Result * Outside CT Abd/pelvis Report Only (05/15/2025 12:54 PM EDT) us Historical Provider IMG CT ABD/PELVIS Final R esult * Comprehensive metabolic panel (03/05/2025) Sodium - [...] Chadwick MD LAB BLOOD ORDERABLES Edited R Shift[employer] Online Schedulingult - Final EXTERNAL NON-INTERFACED REF LAB * Lipid panel [...] BLOOD ORDERABLES Edited R esult - Final EXTERNAL NON-INTERFACED REF LAB * Outside Hepatitis C Virus Screening (01/31/2014) Hepatitis C Screening - External Neg [facility] Provider LAB BLOOD ORDERABLES Vanessa l Result from Last 3 Months or Most Recently Relevant to Health Maintenance Insurance [employer]MINIST[employer]AT[employer] Hy[employer] BENEFITS ADMINISTRATORS Between ADMINISTRATORS Hyd[employer]is BENEFITS ADMINISTRATORS Between ADMINISTRATORS Between ADMINISTRATORS [employer] BENEFITS ADMINISTRATORS [employer] Care Teams Gm Relationship Specialty Start Date End Date Scott Chadwick MD [address] [place] [address] [email or web address] PCP - General Internal Medicine 08/04/17 Minh Ruiz MD [address] [place] [address] Gastroenterology 05/30/20 Dash Mayo MD [address] [place] [address] [place] [address] Neurology 06/06/20 Leslie Matta MD [address] [place] [address] [address] [place] [address] General Surgery 08/11/20 Davis Meneses MD [address] [place] [phone] Urology 03/27/21 Jimenez Estes MD [address] [place] [id number] Dermatology 02/24/24 Additional Source Comments The information contained in this document represents components of the legal health record. It is not the complete legal health record.[facility]
== END 2025-06-12 15:15 | disposition home or self-care (01) ==
LOC: HO.HUSH 13:55
PROVIDERS: PCP Internal Medicine; Visit Provider Urology
DX: N41.1 Chronic prostatitis (principal); N40.1 Benign prostatic hyperplasia with lower urinary tract symptoms; N13.8 Other obstructive and reflux uropathy; R39.12 Poor urinary stream
CPT/HCPCS: 99213